=== PATIENT | male | born 1960 | race Caucasian/White ===

== ENCOUNTER 2023-11-19 10:44 | Outpatient (REF) | payer OTHER, SELFPAY ==
[2023-11-19 16:14] LABS: Influenza Virus A PCR NEGATIVE (NEGATIVE); Influenza Virus B PCR NEGATIVE (NEGATIVE); SARS-CoV-2 NAA NOT DETECTED (NOT DETECTE)
== END 2023-11-19 10:45 | disposition home or self-care (01) ==
LOC: LAB 10:44
PROVIDERS: PCP Nurse Practitioner Family; Visit Provider Nurse Practitioner Family
DX: B34.9 Viral infection, unspecified (principal)
CPT/HCPCS: 87502; 87635

== ENCOUNTER 2024-06-20 15:22 | Emergency (ER) | payer OTHER, SELFPAY ==
[2024-06-20] VITALS (22 sets, daily range): BP systolic 151–161; BP diastolic 78–102; PULSE 63–84; TEMP 36.8; O2SAT 95–100; BMI 25.1
--- NOTE | 2024-06-20 15:41 | ECG_ITS ---
The [facility] Test Date: 2024-06-20 Pat Name: ISMA VILLA Department: Room: - Gender: Male Film Booker: : 1960 Requested By: CHINMAY BLAS Order Number: [id number] Reading MD: VINICIUS WRAY Measurements Intervals Muir Rate: 68 P: 52 FL: 132 QRS: 4 QRSD: 94 T: 23 QT: 406 QTc: 423 Interpretive Statements 1100 Sinus rhythm 9110 normal ECG No previous ECG available for comparison Electronically Signed On 06-21-2024 6:29:20 EST by VINICIUS WRAY
--- NOTE | 2024-06-20 15:41 | XR_ITS ---
The [address] [address] Patient Name: ISMA VILLA MRN: [id number] date: 1960 Sex: M Assigned Patient Location: ER Current Patient Location: ER Accession/Order Number: [id number] Exam Date: 06/20/2024 16:18 Report Date: 06/20/2024 16:41 At the request of: EDMOND GUTIERREZ Procedure: XR chest 1V EXAM: XR chest 1V HISTORY: weakness COMPARISON: None. TECHNIQUE: AP view of the chest. FINDINGS: There is no focal airspace consolidation. The cardiomediastinal silhouette is not enlarged. No evidence of pleural effusion or pneumothorax are identified. No acute osseous abnormality. XR/XR chest 1V IMPRESSION: No acute cardiopulmonary process. Electronically authenticated by: JERAD MALONEY Date: 06/20/2024 16:41
--- NOTE | 2024-06-20 15:41 | CT_ITS ---
The [address] [address] Patient Name: ISMA VILLA MRN: [id number] date: 1960 Sex: M Assigned Patient Location: ER Current Patient Location: ER Accession/Order Number: [id number] Exam Date: 06/20/2024 16:18 Report Date: 06/20/2024 17:18 At the request of: EDMOND GUTIERREZ Procedure: CT head/brain wo con EXAMINATION: CT head/brain wo con HISTORY: weakness COMPARISON: None. TECHNIQUE: CT scan of the head was performed without IV contrast. CT dose reduction technique was used, including Automated Exposure Control. FINDINGS: There are isointense convex collection involving right frontal and parietal lobes, representing subacute epidural hematoma with mass effect on the right frontal and parietal lobes as well as occipital horn of the right lateral ventricle and effacement of right hemisphere sulci. Maximum thickness measures 3 cm. There is a 0.8 cm right to left midline shift.. No definite evidence of acute infarction. basal cisterns are patent. There is bilateral subcortical and deep periventricular white matter chronic microvascular ischemia. Bilateral orbits, paranasal sinuses and mastoid air cells are patent. No skull base fracture. CT/CT head/brain wo con IMPRESSION: Right frontal and parietal lobes subacute epidural hematoma with mass effect on the right frontal and parietal lobes as well as occipital horn of the right lateral ventricle and effacement of right hemisphere sulci. Maximum thickness measures 3 cm. a 0.8 cm right to left midline shift.. Critical results were NOTIFIED by TELEPHONE BY Dr. Essie Grimaldo MD to md david At 06/20/2024 5:06 PM EST. Electronically authenticated by: ESSIE GRIMALDO Date: 06/20/2024 17:18
--- NOTE | 2024-06-20 15:41 | ED_ITS ---
HPI - Weakness General Chief complaint: Weakness Stated complaint: POSS CVA PER PT, DRAGGING FEET Time Seen by Provider: 06/20/24 15:35 Source: patient and family Mode of arrival: Wheelchair History of Present Illness HPI Narrative: 63-year-old male presents to the emergency department for a chief complaint of weakness. He has had the symptoms for 4 days. He is describing weakness in both arms and both legs and his feels like he has been dragging his left foot. He has had a headache on and off for several days. He does not seem to have 1 now. He states that nothing like this is ever happened to him before. He does not take any medications except for an arthritis pill. Related Data Home Medications ?Medication ?Instructions ?Recorded ?Confirmed diclofenac sodium 75 mg mg PO 06/20/24 tablet,delayed release Allergies Allergy/AdvReac Type Severity Reaction Status Date / Time No Known Drug Allergies Allergy Verified 06/20/24 15:30 Review of Systems ROS Narrative A ten point review of systems is negative except as noted above. PFSH PFSH Social History Little interest or pleasure in doing things: more than half the days Feeling down, depressed, or hopeless: more than half the days Exam Constitutional Vital Signs, click to edit/add: Last Vital Signs Temp 98.3 F 06/20/24 15:30 Pulse 76 06/20/24 17:59 Resp 20 06/20/24 17:59 BP 160/90 H 06/20/24 18:32 Pulse Ox 98 06/20/24 17:59 O2 Del Method Room Air 06/20/24 17:59 Course Vital Signs Vital signs: Vital Signs Temperature 98.3 F 06/20/24 15:30 Pulse Rate 74 06/20/24 15:30 Respiratory Rate 18 06/20/24 15:30 Blood Pressure 151/102 H 06/20/24 15:30 Pulse Oximetry 98 06/20/24 15:30 Oxygen Delivery Method Room Air 06/20/24 15:30 Temperature 98.3 F 06/20/24 15:30 Pulse Rate 76 06/20/24 17:59 Respiratory Rate 20 06/20/24 17:59 Blood Pressure 160/90 H 06/20/24 18:32 Pulse Oximetry 98 06/20/24 17:59 Oxygen Delivery Method Room Air 06/20/24 17:59 MDM - Weakness MDM Narrative Medical decision making narrative: 3 cm epidural hematoma is found, subacute, with 8 mm midline shift. I have spoken to Dr. Borrero at the emergency room at [facility] as well as trauma surgeon and neurosurgeon and the patient is excepted. He will be taken there by [facility] and he is agreeable and hemodynamically stable for transfer. Findings are discussed thoroughly with the patient and his sister. Differential Diagnosis Differential diagnosis: Likely other (Stroke, epidural hematoma, subdural hematoma) Lab Data Attestation: I reviewed the patient's lab results. Labs: Lab Results 06/20/24 06/20/24 Range/Units 15:50 17:50 WBC 5.4 (4.0-11.0) 10^3/uL RBC 4.44 L (4.70-6.10) 10^6/uL Hgb 14.4 (14.0-18.0) g/dL Hct 40.4 L (42.0-54.0) % MCV 91.0 (80.0-94.0) fL MCH 32.4 (25.9-34.0) pg MCHC 35.6 H (29.9-35.2) g/dL RDW 11.2 (11.0-15.0) % Plt Count 249 (150-450) 10^3/uL MPV 9.7 (9.5-13.5) fL Neut % (Auto) 63.6 (43.0-75.0) % Lymph % (Auto) 22.1 (20.5-60.0) % [place]t % (Auto) 9.2 (1.7-12.0) % Eos % (Auto) 4.2 (0.9-7.0) % Baso % (Auto) 0.7 (0.2-2.0) % Neut # (Auto) 3.5 (1.4-6.5) 10^3/uL Lymph # (Auto) 1.2 (1.2-3.8) 10^3/uL Knott # (Auto) 0.5 (0.3-0.8) 10^3/uL Eos # (Auto) 0.2 (0.0-0.7) 10^3/uL Baso # (Auto) 0.0 (0.0-0.1) 10^3/uL Abs Immat Gran (auto) 0.01 (0.00-0.03) 10^3/uL Imm/Tot Granulo (auto) 0.2 (0.0-0.5) % PT 10.6 (9.0-11.6) sec INR 1.00 APTT 28.1 (22.3-36.2) sec Sodium 139 (136-145) mmol/L Potassium 3.7 (3.5-5.1) mmol/L Chloride 105 (98-107) mmol/L Carbon Dioxide 23.9 (21.0-32.0) mmol/L Anion Gap 13.8 BUN 8.0 (7.0-18.0) mg/dL Creatinine 1.00 (0.70-1.30) mg/dL Est GFR ( Amer) >60 (>=60 mL/min/1.73m^2) Est GFR (Non-Af Amer) >60 (>=60 mL/min/1.73m^2) BUN/Creatinine Ratio 8.0 Glucose 119 H (74-106) mg/dL Calcium 9.1 (8.5-10.1) mg/dL Urine Color Lt. yellow (YELLOW) Urine Clarity Clear (CLEAR) Urine pH 6.0 (5.0-9.0) Ur Specific [place] 1.010 (1.005-1.025) Urine Protein Negative (NEG/TRACE) mg/dL Urine Glucose (UA) Negative (NEGATIVE) mg/dL Urine Ketones Negative (NEGATIVE) mg/dL Urine Occult Blood Negative (NEGATIVE) Urine Nitrite Negative (NEGATIVE) Urine Bilirubin Negative (NEGATIVE) Urine Urobilinogen 0.2 (0.2-1.0) EU/dL Ur Leukocyte Esterase Negative (NEGATIVE) Urine RBC None seen (0-2) #/HPF Urine WBC None seen (NONE SEEN) #/HPF Ur Squamous Epith Cells Rare (NONE/RARE) #/LPF Urine Crystals None seen (None Seen) #/HPF Urine Bacteria None seen (NONE SEEN) #/HPF Urine Casts None seen (NONE SEEN) #/LPF Urine Mucus Trace A (NONE SEEN) Ur Culture Indicated? No Imaging Data CT scan - head: Radiologist's impression: ITS Impressions Chest X-Ray 06/20/24 15:41 IMPRESSION: No acute cardiopulmonary process. Electronically authenticated by: JERAD UNLU Date: 06/20/2024 16:[address] 06/20/24 15:41 IMPRESSION: Right frontal and parietal lobes subacute epidural hematoma with mass effect on the right frontal and parietal lobes as well as occipital horn of the right lateral ventricle and effacement of right hemisphere sulci. Maximum thickness measures 3 cm. a 0.8 cm right to left midline shift.. Critical results were NOTIFIED by TELEPHONE BY Dr. Maricel Grimaldo MD to md david At 06/20/2024 5:06 PM EST. Electronically authenticated by: MARICEL GRIMALDO Date: 06/20/2024 17:18 ECG Data Attestation: I personally reviewed and interpreted this ECG as follows: (EKG on my interpretation shows normal sinus rhythm with rate of 64 no acute change) Critical Care Time Critical Care Time Critical Care Time: Yes Total Critical Care Time: 50 Attestation: Due to the high probability of sudden and clinically significant deterioration in the patient's condition he/she required the highest level of my preparedness to intervene urgently I provided critical care time including documentation time, medication orders and management, reevaluation, vital sign assessment, ordering and reviewing of lab tests, ordering and reviewing of x-ray studies, and admission orders. Aggregate critical care time is 50 minutes including only time during which I was engaged in work directly related to his/her care and did not include time spent treating other patients simultaneously. Discharge Plan Discharge Chief Complaint: Weakness Clinical Impression: Epidural hematoma Patient Disposition: [facility] Time of Disposition Decision: 17:50 Discharge Location: [facility] Mode of Transportation: [facility]
[2024-06-20 16:00] LABS: Basophils Percent Auto 0.7 % (0.2-2.0); Eosinophils Absolute Auto 0.2 10^3/uL (0.0-0.7); Eosinophils Percent Auto 4.2 % (0.9-7.0); Hematocrit 40.4 % (42.0-54.0); Hemoglobin 14.4 g/dL (14.0-18.0); Immature Granulocytes Abs Auto 0.01 10^3/uL (0.00-0.03); Immature Granulocytes Pct Auto 0.2 % (0.0-0.5); Lymphocytes Absolute Auto 1.2 10^3/uL (1.2-3.8); Lymphocytes Percent Auto 22.1 % (20.5-60.0); Mean Corpuscular HGB Conc 35.6 g/dL (29.9-35.2); Mean Corpuscular Hemoglobin 32.4 pg (25.9-34.0); Mean Platelet Volume 9.7 fL (9.5-13.5); Monocytes Absolute Auto 0.5 10^3/uL (0.3-0.8); Monocytes Percent Auto 9.2 % (1.7-12.0); Neutrophils Absolute Auto 3.5 10^3/uL (1.4-6.5); Neutrophils Percent Auto 63.6 % (43.0-75.0); Platelet Count 249 10^3/uL (150-450); Red Blood Count 4.44 10^6/uL (4.70-6.10); Red Cell Distribution Width 11.2 % (11.0-15.0); White Blood Count 5.4 10^3/uL (4.0-11.0)
[2024-06-20 16:05] LABS: Anion Gap 13.8; Calcium 9.1 mg/dL (8.5-10.1); Carbon Dioxide 23.9 mmol/L (21.0-32.0); Chloride 105 mmol/L (98-107); Estimated GFR (African America >60 (>=60 mL/min/1.73m^2); Estimated GFR (Non-African Ame >60 (>=60 mL/min/1.73m^2); Glucose 119 mg/dL (74-106); Potassium 3.7 mmol/L (3.5-5.1); Sodium 139 mmol/L (136-145)
[2024-06-20 17:39] LABS: Partial Thromboplastin Time 28.1 sec (22.3-36.2); Prothrombin Time 10.6 sec (9.0-11.6)
[2024-06-20 18:18] LABS: Bilirubin Urine NEGATIVE (NEGATIVE); Blood Urine NEGATIVE (NEGATIVE); Clarity Urine CLEAR (CLEAR); Color Urine LT. YELLOW (YELLOW); Glucose Urine UA NEGATIVE (NEGATIVE); Ketones Urine NEGATIVE (NEGATIVE); Leukocyte Esterase Urine NEGATIVE (NEGATIVE); Nitrite Urine NEGATIVE (NEGATIVE); Protein Urine NEGATIVE (NEG/TRACE); Urobilinogen Urine 0.2 EU/dL (0.2-1.0)
[2024-06-20 18:27] LABS: Bacteria Urine NONE SEEN #/HPF (NONE SEEN); Mucus Urine TRACE (NONE SEEN); RBC Urine NONE SEEN #/HPF (0-2); WBC Urine NONE SEEN #/HPF (NONE SEEN)
[2024-06-20 18:28] LABS: Cast Seen? NONE SEEN #/LPF (NONE SEEN); Crystals Seen? None Seen #/HPF (None Seen); Squamous Epithelial Cell Urine RARE #/LPF (NONE/RARE); Urine Culture Indicated NO
== END 2024-06-20 19:00 | disposition short-term general hospital (02) ==
PROVIDERS: Emergency Provider Emergency Medicine; PCP Nurse Practitioner Family
DX: I62.1 Nontraumatic extradural hemorrhage (principal)
CPT/HCPCS: 36415; 70450; 71045; 80048; 81001; 85025; 85610; 85730; 93005; 99285

== ENCOUNTER 2024-07-31 10:53 | Emergency (ER) | payer OTHER, SELFPAY ==
[2024-07-31 11:04] VITALS: BP 144/66; PULSE 66; TEMP 36.7; O2SAT 98; BMI 25.8
--- OUTSIDE RECORDS SUMMARY | 2024-07-31 11:08 | XMS_ITS | CCD ---
Author Organization [facility] CliniSysd Care Team Providers Care Digital Content Specialist Name Role Phone WAN, MARTINA Admitting Unavailable WAN, MARTINA Attending Unavailable WAN, MARTINA Primary Care Unavailable MANUEL, DR LOREE Krishnamurthy Consulting Unavailable WAN, MARTINA Consulting Unavailable WAN, MARTINA Admitting Unavailable WAN, MARTINA Attending Unavailable WAN, MARTINA Primary Care Unavailable WAN, MARTINA Consulting Unavailable WAN, MARTINA Admitting Unavailable WAN, MARTINA Attending Unavailable WAN, MARTINA Primary Care Unavailable WAN, MARTINA Consulting Unavailable TREVOR POSADAS Consulting Unavailable KAMALA ., DR COLVIN Admitting Unavailable HOY ., DR COLVIN Attending Unavailable WAN, MARTINA Primary Care Unavailable HOY ., DR COLVIN Admitting Unavailable HOY ., DR COLVIN Attending Unavailable WAN, MARTINA Primary Care Unavailable MISC, DR MUNOZ Admitting Unavailable MISC, DR MUNOZ Attending Unavailable WAN, MARTINA Primary Care Unavailable Nahomy Mg Unavailable Marai L WINTERS Attending Unavailable MD Nahomy Mg Attending Provider [phone] NON STAFF Primary Care Provider Unavailabl e Nahomy Mg Admitting Unavailable NON STAFF Primary Care Unavailable Nahomy Mg Attending Unavailable NON STAFF Primary Care Unavailable Nahomy Mg Attending Unavailable Nahomy Mg Admitting Unavailable PROVIDER, UNKNOWN Admitting Unavailable PROVIDER, UNKNOWN Attending Unavailable Wan TUBE LANCER - CLINICAL TRIAL SPECIALIST, Martina S Primary Care Provide r WAN, MARTINA S Primary Care Unavailable FINA OLMEDO Attending Unavailable FINA OLMEDO Admitting Unavailable BOBBY YANEZ Consulting Unavailable FNIA OLMEDO Consulting Unavailable ISMA ACKERMAN Consulting Unavailable OLY GARCIA Referring Unavailable WAN, MARTINA S Primary Care Unavailable WAN, MARTINA S Primary Care Unavailable JENNIFER CHAPA Referring Unavailable JENNIFER CHAPA Referring Unavailable WAN, MARTINA S Primary Care Unavailable JENNIFER CHAPA Referring Unavailable WAN, MARTINA S Primary Care Unavailable JENNIFER CHAPA Referring Unavailable WAN, MARTINA S Primary Care Unavailable JENNIFER CHAPA Referring Unavailable WAN, MARTINA S Primary Care Unavailable GABRIELLA KILGORE Referring Unavailable WAN, MARTINA S Primary Care Unavailable Medications Current Medications Medication Drug Class(es) Dates Sig (Normalized) Sig (Original) diclofenac sodium 75 mg delayed release oral tablet (3 sources) Nonsteroidal Anti-inflammatory Drug Start: 08-27-2023 take 75 mg by mouth twice daily Diclofenac Sodium Active 75 MG PO Twice daily August 27, 2023 1:00am ibuprofen 600 mg oral tablet (8 sources) Nonsteroidal Anti-inflammatory Drug Start: 06-25-2024 take 1 tablet by mouth every six hours as needed for pain ibuprofen (ADVIL;MOTRIN) 600 MG tablet Take 1 tablet by mouth every 6 hours as needed for Pain 120 tablet 3 06/26/2024 Active levETIRAcetam 500 mg oral tablet (6 sources) Start: 06-26-2024 End: 07-03-2024 take 1 tablet by mouth twice daily levETIRAcetam (KEPPRA) 500 MG tablet Take 1 tablet by mouth 2 times daily for 7 days 14 tablet 06/26/2024 Active Start: 06-21-2024 End: 06-26-2024 500 mg, IntraVENous, EVERY 1 2 HOURS, First dose on 06/21/24 at 1415, Until Discontinued, Administer IVP over 2-5 minutes., For NCHT patients, please reject and reorder and select the ped/oumou dilution entry. Keppra is not administered IV Push on the pediatric units. ondansetron (ZOFRAN-ODT) disintegrating tablet 4 mg (1 source) Start: 06-20-2024 ondansetron (ZOFRAN-ODT) disintegrating tablet 4 mg oxyCODONE hydrochloride 5 mg oral tablet (2 sources) Opioid Agonist Start: 06-26-2024 End: 07-01-2024 take 0.5 tablet by mouth every six hours as needed for pain oxyCODONE (ROXICODONE) 5 MG immediate release tablet Indications: Epidural hematoma Take 0.5 tablets by mouth every 6 hours as needed for Pain for up to 5 days. Max Daily Amount: 10 mg 10 tablet 06/26/2024 07/01/2024 Active Start: 06-22-2024 oxyCODONE (VITOR ICODONE) immediate release tablet 2.5 mg polyethylene glycol 3350 17530 mg powder for oral solution (2 sources) Osmotic Laxative Start: 06-21-2024 End: 06-22-2024 17 g, Oral, DAILY, First dose on Sun06/22/24 at 1615, Until Discontinued, Stir and dissolve one packet of powder (17 g) in any 4 to 8 ounces of beverage (cold, hot or room temperature) then drink, Post-op 1000 ml sodium chloride 9 mg/ml injection (9 sources) Start: 06-24-2024 IntraVENous, a t 5-250 mL/hr, PRN, if patient receiving piggyback infusions and maintenance fluids are not ordered, Starting on Sun06/24/24 at 0927, For piggyback infusion, administer at same rate as piggyback for a total of 25 mL. Enter 25 mL into dose field and piggyback rate into rate field of order. If piggyback is infusing at a rate less than 100 mL/hr, enter 25 mL into dose field and 100 mL/hr into rate field of order., Recovery(IR) Start: 06-22-2024 End: 06-24-2024 IntraVENous, at 100 mL/hr, C ONTINUOUS, Starting on Sun06/22/24 at 1615, Post-op Start: 06-20-2024 End: 06-21-2024 IntraVENous, at 100 mL/hr, C ONTINUOUS, Starting on Sun06/20/24 at 2330 Start: 06-20-2024 End: 06-25-2024 5-40 mL, IntraVENous, EVERY 12 HOURS SCHEDULED (2 times per day), First dose on Sun06/24/24 at 0945, Until Discontinued, For Line Patency: Peripheral IV = 5 mL; Midline or Central Line = 10 mL/lumen. If following IV push medication, administer flush at same rate as the IV push. Flush volume is determined by type of infusion therapy being given. For non-viscous solutions use: Peripheral IV = 5 mL Midline or Central Line = 10 mL/lumen For viscous solutions (i.e. blood components, parenteral nutrition, contrast media, or after obtaining blood sample) use: Peripheral IV = 10 mL Midline or Central Line = 20 mL/lumen, Recovery(IR) Start: 06-20-2024 5-40 mL, Intra VENous, PRN, Starting on Sun06/20/24 at 2114, Until Discontinued, Line Care, After every IV line use, For Line Patency: Peripheral IV = 5 mL; Midline or Central Line = 10 mL/lumen. If following IV push medication, administer flush at same rate as the IV push. Flush volume is determined by type of infusion therapy being given. For non-viscous solutions use: Peripheral IV = 5 mL Midline or Central Line = 10 mL/lumen For viscous solutions (i.e. blood components, parenteral nutrition, contrast media, or after obtaining blood sample) use: Peripheral IV = 10 mL Midline or Central Line = 20 mL/lumen Completed/Discontinued Medications Medication Drug Class(es) Dates Sig (Normalized) Sig (Original) acetaminophen 500 mg oral tablet (3 sources) Start: 06-20-2024 take 1 dose by mouth three times daily, then take 4000 mg by mouth every twenty-four hours 1,000 mg, Oral, EVERY 8 HOURS SCHEDULED (3 times per day), First dose on Sun06/20/24 at 2330, Until Discontinued, Maximum dose of acetaminophen is 4000 mg from all sources in 24 hours. take 1 tablet by jennifer th every six hours as needed for pain acetaminophen (TYLENOL) 500 MG tablet Ta ke 1 tablet by mouth every 6 hours as needed for Pain Active acetaminophen 325 mg / HYDROcodone bitartrate 5 mg oral tablet (2 sources) Opioid Agonist Start: 09-03-2023 End: 10-16-2023 take 1 tablet by mouth every four to six hours Hydrocodone-Acetaminophen Discontinued 1 - 2 TAB PO EVERY 4-6 HOURS 30 September 03, 2023 October 16, 2023 3:11pm allopurinol 100 mg oral tablet (4 sources) Xanthine Oxidase Inhibitor Start: 10-16-2023 End: 03-14-2024 take 1 tablet by mouth once daily Allopurinol Discontinued 100 MG PO Daily October 16, 2023 1:00am March 14, 2024 8:01am FreeTextSi tablet Orally Once a day; Note: Source Status: Taking; Provider: Haritha Corea ( ) take 1 tablet by jennifer th every twenty-four hours Allopurinol 100 MG 1 tablet Orally Once a day Active bisacodyl 5 mg delayed release oral tablet (1 source) Stimulant Laxative Start: 06-26-2024 take 5 mg by mouth once daily as needed for constipation 5 mg, Oral, DAILY, First dose (after last modification) on Gail 06/26/24 at 0900, Until Discontinued, Second line therapy for constipation, After 24 hours, if no result from first line PRN therapy, give second line therapy in combination with first line therapy., Post-op ceFAZolin (ANCEF) 2000 mg in sterile water 20 mL IV syringe (1 source) Start: 06-22-2024 End: 06-23-2024 2,000 mg, IntraVENous, EVERY 8 HOURS, First dose on Sun06/22/24 at 1615, For 3 doses, Administer over 5 mins., Post-op docusate sodium 50 mg / sennosides, chcf 8.6 mg oral tablet (1 source) Start: 06-20-2024 End: 06-22-2024 take 1 tablet by mouth twice daily 1 tablet, Oral, 2 TIMES DAILY, First dose on Sun06/20/24 at 2330, Until Discontinued doxycycline hyclate 100 mg oral tablet (2 sources) Tetracycline-cl ass Drug Start: 09-03-2023 End: 10-16-2023 take 100 mg by mouth twice daily Doxycycline Hyclate Discontinued 100 MG PO Twice daily 05 17September 03, 2023 1:00am October 16, 2023 3:11pm 0.4 ml enoxaparin sodium 100 mg/ml prefilled syringe (1 source) Low Molecular Weight Heparin Start: 06-25-2024 inject 40 mg by subcutaneous injection twice daily 40 mg, SubCUTAneous, 2 TIMES DAILY, First dose on Sun06/25/24 at 0900, Until Discontinued, Indication of Use: Prophylaxis-DVT/P E, Administer by deep subCUTAneous injection with pt lying down. Alternate injection sites on abdominal wall. Do not rub site after injection. Check with provider prior to any invasive procedure. famotidine 20 mg oral tablet (1 source) Histamine-2 Receptor Antagonist Start: 06-21-2024 End: 06-21-2024 20 mg, Oral, 2 TIMES DAILY, 2 doses, First dose on Sun06/21/24 at 0900, Last dose on Sun06/21/24 at 2100 folic acid 1 mg oral tablet (1 source) Start: 06-21-2024 End: 06-24-2024 1 mg, Oral, DAILY, 3 doses, First dose on Sun06/21/24 at 0900, Last dose on Sun06/23/24 at 0900 gadoteridol (PROHANCE) injection 14 mL (1 source) Start: 06-24-2024 End: 06-24-2024 take 1 dose intravenously once 14 mL, IntraVENous, IMG ONCE PRN, 1 dose, Starting on Sun06/24/24 at 1736, Until Sun06/24/24 at 1740, Other 1 ml hydrALAZINE hydrochloride 20 mg/ml injection (1 source) Arteriolar Vasodilator Start: 06-20-2024 10 mg, IntraVENous, EVERY 6 HOURS PRN, Starting on Sun06/20/24 at 2318, Until Discontinued, High Blood Pressure (specify parameters), SBP >140 iodixanol (VISIPAQUE) injection 36 mL (1 source) Start: 06-24-2024 End: 06-24-2024 take 1 dose intravenously once 36 mL, IntraVENous, IMG ONCE PRN, 1 dose, Starting on Sun06/24/24 at 0932, Until Sun06/24/24 at 0933, Other iopamidol (ISOVUE-370) 76 % injection 75 mL (1 source) Start: 06-20-2024 End: 06-20-2024 take 1 dose intravenously once 75 mL, IntraVENous, IMG ONCE PRN, 1 dose, Starting on Sun06/20/24 at 2100, Until Sun06/20/24 at 2110, Other magnesium hydroxide 80 mg/ml oral suspension (1 source) Start: 06-26-2024 take 30 mL by mouth once daily 30 mL, Oral, DAILY, First dose on Sun06/26/24 at 0900, Until Discontinued multivitamin 1 tablet (1 source) Start: 06-21-2024 End: 06-24-2024 1 tablet, Oral, DAILY, 3 doses, First dose on Sun06/21/24 at 0900, Last dose on Sun06/23/24 at 0900 microencapsulated potassium chloride 20 meq extended release oral tablet (2 sources) Start: 06-24-2024 End: 06-24-2024 20 mEq, Oral, ONCE, 1 dose, On 06/24/24 at 0745, Do not crush, chew, or suck on tablet. Tablet may also be broken in half and each half swallowed separately. Start: 06-20-2024 End: 06-20-2024 40 mEq, Oral, ONCE, 1 dose, On 06/20/24 at 2345, Do not crush, chew, or suck on tablet. Tablet may also be broken in half and each half swallowed separately. sennosides, chcf 8.6 mg oral tablet (1 source) Start: 06-22-2024 take 1 tablet by mouth once daily as needed for constipation 8.6 mg (1 tablet), Oral, DAILY PRN, Starting on 06/22/24 at 1552, Until Discontinued, Constipation, First line therapy for constipation, Post-op thiamine 100 mg oral tablet (1 source) Start: 06-21-2024 End: 06-24-2024 100 mg, Oral, DAILY, 3 doses, First dose (after last modification) on 06/21/24 at 0900, Last dose on 06/23/24 at 0900 triamcinolone acetonide 40 mg/ml injectable suspension (15 sources) Corticosteroid Start: 11-21-2022 Kenalog-40 Apr, 20 mg Problems Problem Classification Problem Date Documented Date Episodic/Chronic Acute cerebrovascular disease (20 sources) Subdural hematoma; Translations: [Nontraumatic acute subdural hemorrhage] Onset: 06-21-2024 06-27-2024 Chronic Intracranial injury (10 sources) Hematoma; Translations: [Epidural hematoma] Onset: 06-20-2024 06-20-2024 Episodic Malaise and fatigue (10 sources) Left hemiparesis; Translations: [Weakness] Onset: 06-23-2024 06-20-2024 Episodic Osteoarthritis (9 sources) Primary osteoarthritis, left hand; Translations: [Osteoarthrosis of the carpometacarpal joint of the thumb] Onset: 10-16-2022 Chronic Other aftercare (1 source) Encounter for removal of sutures Episodic Other connective tissue disease (4 sources) Pain in left hand; Translations: [PAIN IN LEFT HAND] Onset: 10-12-2022 Episodic Other connective tissue disease (5 sources) Pain in right arm; Translations: [PAIN IN RIGHT ARM] Onset: 06-15-2022 Episodic Other nervous system disorders (4 sources) Carpal tunnel syndrome of left wrist; Translations: [Carpal tunnel syndrome, left upper limb] 10-15-2023 Chronic Other nervous system disorders (5 sources) Carpal tunnel syndrome; Translations: [Carpal tunnel syndrome, unspecified upper limb] 09-03-2023 Chronic Other nervous system disorders (4 sources) Carpal tunnel syndrome of right wrist; Translations: [Carpal tunnel syndrome, right upper limb] 10-16-2023 Chronic Other nervous system disorders (3 sources) Carpal tunnel syndrome, right upper limb Chronic Other nervous system disorders (4 sources) Carpal tunnel syndrome, left upper limb; Translations: [Carpal tunnel syndrome] Chronic Other nervous system disorders (2 sources) Pain in limb; Translations: [Other acute postprocedural pain] 09-03-2023 Episodic Other non-traumatic joint disorders (1 source) Pain in right shoulder; Translations: [PAIN IN RIGHT SHOULDER] Onset: 08-16-2022 Episodic Residual codes; unclassified (4 sources) Obstructive sleep apnea (adult) (pediatric); Translations: [OBSTRUCTIVE SLEEP APNEA] Onset: 10-19-2021 Chronic Residual codes; unclassified (2 sources) Other specified postprocedural states; Translations: [Other postprocedural status] Episodic Residual codes; unclassified (1 source) Postprocedural state finding; Translations: [Other specified postprocedural states] 10-15-2023 Episodic Spondylosis; intervertebral disc disorders; other back problems (4 sources) Cervicalgia; Translations: [CERVICALGIA] Onset: 08-13-2022 Episodic Unclassified (1 source) Carpal tunnel syndrome, left upper limb; Translations: [Carpal tunnel syndrome, left upper limb] Onset: 09-03-2023 Unclassified (1 source) Encounter for preprocedural laboratory examination; Translations: [Encounter for preprocedural laboratory examination] Onset: 08-27-2023 Unclassified (2 sources) Epidural hemorrhage with loss of consciousness status unknown, initial encounter; Translations: [Epidural hemorrhage with loss of consciousness status unknown, initial encounter] Onset: 06-20-2024 Results Test Name Value Interpretation Reference Range Facility CT HEAD WO CONTRASTon 2023 CT HEAD WO CONTRAST EXAM: CT HEAD WO CONTRAST HISTORY: Epidural hematoma COMPARISON: MRI brain 06/24/2024, CT brain 06/23/2024, CT brain 06/20/2024. TECHNIQUE: CT examination of the brain without IV contrast. Coronal and sagittal reformations were performed. Dose reduction techniques were achieved by using automated exposure control and/or adjustment of mA and/or kV according to patient size and/or use of iterative reconstruction technique. FINDINGS: POSITIVES related to history: A residual hygroma over the right cerebral hemisphere extending from the frontal region to the posterior parietal region measures 9 mm in transverse diameter. NEGATIVES related to history: Midline shift has resolved. No evidence of rebleeding. COINCIDENTAL, unrelated to history: Normal cerebellum. The CSF cisterns are normal. The prior drain has been removed and pneumocephalus has resolved. ROUTINE: Anterior and posterior right parietal steve holes are present. IMPRESSION: Resolving postoperative right subdural hematoma without midline shift and no evidence of rebleeding. Interpreted by: Justin Acosta Jr., MD Signed by: Justin Acosta Jr., MD 07/03/24 Final result Normal [facility] CT Head WO contraston 2023 Resolving postoperative right subdural hematoma without midline shift and no evidence of rebleeding. [facility] EXAM: CT HEAD WO CONTRAST HISTORY: Epidural hematoma COMPARISON: MRI brain 06/24/2024, CT brain 06/23/2024, CT brain 06/20/2024. TECHNIQUE: CT examination of the brain without IV contrast. Coronal and sagittal reformations were performed. Dose reduction techniques were achieved by using automated exposure control and/or adjustment of mA and/or kV according to patient size and/or use of iterative reconstruction technique. FINDINGS: POSITIVES related to history: A residual hygroma over the right cerebral hemisphere extending from the frontal region to the posterior parietal region measures 9 mm in transverse diameter. NEGATIVES related to history: Midline shift has resolved. No evidence of rebleeding. COINCIDENTAL, unrelated to history: Normal cerebellum. The CSF cisterns are normal. The prior drain has been removed and pneumocephalus has resolved. ROUTINE: Anterior and posterior right parietal steve holes are present. [facility] Justin Acosta Jr., MD - 07/03/2024 EXAM: CT HEAD WO CONTRAST HISTORY: Epidural hematoma COMPARISON: MRI brain 06/24/2024, CT brain 06/23/2024, CT brain 06/20/2024. TECHNIQUE: CT examination of the brain without IV contrast. Coronal and sagittal reformations were performed. Dose reduction techniques were achieved by using automated exposure control and/or adjustment of mA and/or kV according to patient size and/or use of iterative reconstruction technique. FINDINGS: POSITIVES related to history: A residual hygroma over the right cerebral hemisphere extending from the frontal region to the posterior parietal region measures 9 mm in transverse diameter. NEGATIVES related to history: Midline shift has resolved. No evidence of rebleeding. COINCIDENTAL, unrelated to history: Normal cerebellum. The CSF cisterns are normal. The prior drain has been removed and pneumocephalus has resolved. ROUTINE: Anterior and posterior right parietal steve holes are present. IMPRESSION: Resolving postoperative right subdural hematoma without midline shift and no evidence of rebleeding. [facility] Radiology Study observation (narrative) [facility] CT Head WO contrastOrdered B y: Justin Acosta on 07-03-2024 [facility] Work Phone: Basic Metab w/rfx MGon 06-27 Anion gap [Moles/Vol] 10 mmol/L Normal 9-16 [facility] Comment on above: Performed By: #### Michelle Carreno, BMPX, CDP, DAVID #### [email or web address] [address] [place] [id number] Plant Controller: Jordan Aponte MD Calcium [Mass/Vol] 8.7 mg/dL Normal 8.6-10.4 [facility] Comment on above: Performed By: #### M Ev, BMPX, CDP, DAVID #### [email or web address] [address] [place] [id number] Plant Controller: Jordan Aponte MD Chloride [Moles/Vol] 103 mmol/L Normal 98-107 [facility] Comment on above: Performed By: #### Michelle G, BMPX, CDP, DAVID #### [facility] [address] [place] [address] Plant Controller: Jordan Aponte MD CO2 [Moles/Vol] 23 mmol/L Normal 20-31 [facility] Comment on above: Performed By: #### M G, BMPX, CDP, DAVID #### [facility] [address] [place] [id number] Plant Controller: Jordan Aponte MD Creatinine [Mass/Vol] 0.7 mg/dL Normal 0.7-1.2 [facility] Comment on above: Performed By: #### M G, BMPX, CDP, DAVID #### [facility] [address] [place] [id number] Plant Controller: Jordan Aponte MD GFR/1.73 sq M.predicted among non-blacks MDRD (S/P/Bld) [Vol rate/Area] mL/min/{1.73_m2} Normal >60 [facility] Comment on above: Result Comment: These results are not intended for use in patients <18 years of age. eGFR results are calculated without a race factor using the 2020 CKD-EPI equation. Careful clinical correlation is recommended, particularly when comparing to results calculated using previous equations. The CKD-EPI equation is less accurate in patients with extremes of muscle mass, extra-renal metabolism of creatine, excessive creatine ingestion, or following therapy that affects renal tubular secretion. Performed By: #### M G, BMPX, CDP, DAVID #### [facility] [address] [place] [id number] Plant Controller: Jordan Aponte MD Glucose [Mass/Vol] 107 mg/dL High 74-99 [facility] Comment on above: Performed By: #### M G, BMPX, CDP, DAVID #### [facility] [address] [place] [id number] Plant Controller: Jordan Aponte MD Potassium [Moles/Vol] 4.0 mmol/L Normal 3.7-5.3 [facility] Comment on above: Performed By: #### M G, BMPX, CDP, DAVID #### [facility] [address] [place], [place] [id number] Plant Controller: Jordan Aponte MD Sodium [Moles/Vol] 136 mmol/L Normal 136-145 [facility] Comment on above: Performed By: #### M G, BMPX, CDP, DAVID #### [facility] [address], [place] [id number] Plant Controller: Jordan Aponte MD Urea nitrogen [Mass/Vol] 11 mg/dL Normal 8-23 [facility] Comment on above: Performed By: #### M G, BMPX, CDP, DAVID #### [facility] [address] [place], [place] [id number] Plant Controller: Jordan Aponte MD Basic Metabolic Panel w/ Ref isaias to MGon 06-27-2024 Anion gap [Moles/Vol] 10 mmol/L 9 - 16 mmol/L [facility] Calcium [Mass/Vol] 8.7 mg/dL 8.6 - 10. 4 mg/dL [facility] Chloride [Moles/Vol] 103 mmol/L 98 - 10 7 mmol/L [facility] CO2 [Moles/Vol] 23 mmol/L 20 - 31 mmol/L [facility] Creatinine [Mass/Vol] 0.7 mg/dL 0.7 - 1.2 mg/dL [facility] [employer] Est, Glom Filt Rate - PINF [facility] Comment on above: These results are not intended for use in patients <18 years of age. eGFR results are calculated without a race factor using the 2020 CKD-EPI equation. Careful clinical correlation is recommended, particularly when comparing to results calculated using previous equations. The CKD-EPI equation is less accurate in patients with extremes of muscle mass, extra-renal metabolism of creatine, excessive creatine ingestion, or following therapy that affects renal tubular secretion. Glucose [Mass/Vol] 107 mg/dL High 74 - 99 mg/dL [facility] Interpretation and review of laboratory results Abnormal [facility] Potassium [Moles/Vol] 4.0 mmol/L 3.7 - 5.3 mmol/L [facility] Sodium [Moles/Vol] 136 mmol/L 136 - 145 mmol/L [facility] Urea nitrogen [Mass/Vol] 11 mg/dL 8 - 23 mg/d L [facility] CBC with Auto Differentialon 06-27-2024 Basophils (Bld) [#/Vol] 0.04 10*3/uL [facility] Basophils/100 WBC (Bld) 1 % 0 - 2 % B on [facility] Eosinophils (Bld) [#/Vol] 0.16 10*3/uL [facility] Eosinophils/100 WBC (Bld) 5 % High 1 - 4 % [facility] Erythrocyte distribution width (RBC) [Ratio] 11.2 % Low 11.8 - 14.4 % [facility] Hematocrit (Bld) [Volume fraction] 38.6 % Low 40.7 - 50.3 % [facility] Hemoglobin (Bld) [Mass/Vol] 12.7 g/dL Low 13.0 - 17.0 g/dL [facility] Immature granulocytes (Bld) [#/Vol] [facility] Immature granulocytes/100 WBC (Bld) 0 % 0 [facility] Interpretation and review of laboratory results Abnormal [facility] Lymphocytes/100 WBC (Bld) 32 % 24 - 43 % [facility] Lymphocytes/100 WBC (Bld) 1.11 % [facility] MCH (RBC) [Entitic mass] 32.2 pg 25. 2 - 33.5 pg [facility] MCHC (RBC) [Mass/Vol] 32.9 g/dL 28.4 - 34.8 g/dL [facility] MCV (RBC) [Entitic vol] 98.0 fL 82.6 - 102.9 fL [facility] Monocytes/100 WBC (Bld) 12 % 3 - 12 % B on [facility] Monocytes/100 WBC (Bld) 0.43 % B on [facility] Neutrophils/100 WBC (Bld) 50 % 36 - 65 % [facility] Nucleated RBC/100 WBC (Bld) [Ratio] 0.0 % 0.0 per 100 WBC [facility] Platelet mean volume (Bld) [Entitic vol] 10.2 fL 8.1 - 13.5 fL [facility] Platelets (Bld) [#/Vol] 249 10*3/uL [facility] RBC (Bld) [#/Vol] 3.94 10*6/uL Low 4.21 - 5.7 7 m/uL [facility] Segmented neutrophils/100 WBC (Bld) 1.76 % [facility] WBC other (Bld) [#/Vol] 3.5 B on [facility] CBC with Diffon 06-27-2024 Abs. Basophil 0.04 k/uL Normal 0.00-0.20 [facility] Comment on above: Performed By: #### M G, BMPX, CDP, DAVID #### [facility] [employer] [address] [place] [address] Plant Controller: Jordan Aponte MD Abs.Imm.Granulocyte <0.03 Normal 0.00-0.30 [facility] Comment on above: Performed By: #### M G, BMPX, CDP, DAVID #### [facility] [employer] [address] [place] [address] Plant Controller: Jordan Aponte MD Abs.Neutrophil (Seg) 1.76 k/uL Normal 1.50-8.10 [facility] Comment on above: Performed By: #### M G, BMPX, CDP, DAVID #### [facility] [employer] [address] [place] [address] Plant Controller: Jordan Aponte MD Basophils/100 WBC (Bld) 1 % Normal 0-2 M [facility] Comment on above: Performed By: #### M G, BMPX, CDP, DAVID #### [facility] [employer] [address] [place] [address] Plant Controller: Jordan Aponte MD Eosinophils (Bld) [#/Vol] 0.16 10*3/uL Normal 0.00-0.44 [facility] Comment on above: Performed By: #### M G, BMPX, CDP, DAVID #### [facility] [address] [place] [address] Plant Controller: Jordan Aponte MD Eosinophils/100 WBC (Bld) 5 % High 1-4 [facility] Comment on above: Performed By: #### M G, BMPX, CDP, DAVID #### [facility] [address] [place] [address] Plant Controller: Jordan Aponte MD Erythrocyte distribution width (RBC) [Ratio] 11.2 % Low 11.8-14.4 [facility] Comment on above: Performed By: #### M G, BMPX, CDP, DAVID #### [facility] [address] [place] [id number] Plant Controller: Jordan Aponte MD Hematocrit (Bld) [Volume fraction] 38.6 % Low 40.7-50.3 [facility] Comment on above: Performed By: #### M G, BMPX, CDP, DAVID #### [facility] [address] [place] [address] Plant Controller: Jordan Aponte MD Hemoglobin (Bld) [Mass/Vol] 12.7 g/dL Low 13.0-17.0 [facility] Comment on above: Performed By: #### M G, BMPX, CDP, DAVID #### [facility] [address] [place] [address]207 Plant Controller: Jordan Aponte MD Immature granulocytes/100 WBC (Bld) 0 % Normal 0 [facility] Comment on above: Performed By: #### M G, BMPX, CDP, DAVID #### [facility] [address] [place] [address] Plant Controller: Jordan Aponte MD Lymphocytes (Bld) [#/Vol] 1.11 10*3/uL Normal 1.10-3.70 [facility] Comment on above: Performed By: #### M G, BMPX, CDP, DAVID #### [facility] [address] [place] [address] Plant Controller: Jordan Aponte MD Lymphocytes/100 WBC (Bld) 32 % Normal 24-43 [facility] Comment on above: Performed By: #### M G, BMPX, CDP, DAVID #### [facility] [address] [place] [address] Plant Controller: Jordan Aponte MD MCH (RBC) [Entitic mass] 32.2 pg Normal 25.2-33.5 [facility] Comment on above: Performed By: #### M G, BMPX, CDP, DAVID #### [address] [address] Plant Controller: Jordan Aponte MD MCHC (RBC) [Mass/Vol] 32.9 g/dL Normal 28.4-34.8 [facility] Comment on above: Performed By: #### M G, BMPX, CDP, DAVID #### [address] [address] Plant Controller: Jordan Aponte MD MCV (RBC) [Entitic vol] 98.0 fL Normal 82.6-102.9 [facility] Comment on above: Performed By: #### M G, BMPX, CDP, DAVID #### [address] [address] Plant Controller: Jordan Aponte MD Monocytes (Bld) [#/Vol] 0.43 10*3/uL Normal 0.10-1.20 [facility] Comment on above: Performed By: #### M G, BMPX, CDP, DAVID #### [facility] [address] [place] [address] Plant Controller: Jordan Aponte MD Monocytes/100 WBC (Bld) 12 % Normal 3-12 M [facility] Comment on above: Performed By: #### M G, BMPX, CDP, DAVID #### [facility] [address] [place] [address] Plant Controller: Jordan Aponte MD Neutrophil (Seg) 50 % Normal 36-65 [facility] Comment on above: Performed By: #### M G, BMPX, CDP, DAVID #### [facility] [address] [place] [address] Plant Controller: Jordan Aponte MD NRBC Automated 0.0 per 100 WBC Normal 0.0 [facility] Comment on above: Performed By: #### M G, BMPX, CDP, DAVID #### [address] [address] Plant Controller: Jordan Aponte MD Platelet mean volume (Bld) [Entitic vol] 10.2 fL Normal 8.1-13.5 [facility] Comment on above: Performed By: #### M G, BMPX, CDP, DAVID #### [address] [address] Plant Controller: Jordan Aponte MD Platelets (Bld) [#/Vol] 249 10*3/uL Normal 138-453 [facility] Comment on above: Performed By: #### M G, BMPX, CDP, DAVID #### [facility] [address] [place] [address] Plant Controller: Jordan Aponte MD RBC (Bld) [#/Vol] 3.94 10*6/uL Low 4.21-5.77 [facility] Comment on above: Performed By: #### M G, BMPX, CDP, DAVID #### [facility] [address] [place] [address] Plant Controller: Jordan Aponte MD WBC (Bld) [#/Vol] 3.5 10*3/uL Normal 3.5-11.3 [facility] Comment on above: Performed By: #### M G, BMPX, CDP, DAVID #### [facility] [employer] [address] [place] [address] Plant Controller: Jordan Aponte MD Basic Metab w/rfx MGon 06-26 Anion gap [Moles/Vol] 9 mmol/L Normal 9-16 [facility] Comment on above: Performed By: #### M G, CDP, BMPX, DAVID #### [facility] [address] [place] [address] Plant Controller: Jordan Aponte MD Calcium [Mass/Vol] 8.5 mg/dL Low 8.6-10.4 [facility] Comment on above: Performed By: #### M G, CDP, BMPX, DAVID #### [facility] [employer] [address] [place] [address] Plant Controller: Jordan Aponte MD Chloride [Moles/Vol] 104 mmol/L Normal 98-107 [facility] Comment on above: Performed By: #### M G, CDP, BMPX, DAVID #### [facility] [address] [place] [address] Plant Controller: Jordan Aponte MD CO2 [Moles/Vol] 25 mmol/L Normal 20-31 [facility] Comment on above: Performed By: #### M G, CDP, BMPX, DAVID #### [facility] [address] [place] [address] Plant Controller: Jordan Aponte MD Creatinine [Mass/Vol] 0.9 mg/dL Normal 0.7-1.2 [facility] Comment on above: Performed By: #### M G, CDP, BMPX, DAVID #### [facility] [address] [place] [address] Plant Controller: Jordan Aponte MD GFR/1.73 sq M.predicted among non-blacks MDRD (S/P/Bld) [Vol rate/Area] mL/min/{1.73_m2} Normal >60 [facility] Comment on above: Result Comment: These results are not intended for use in patients <18 years of age. eGFR results are calculated without a race factor using the 2020 CKD-EPI equation. Careful clinical correlation is recommended, particularly when comparing to results calculated using previous equations. The CKD-EPI equation is less accurate in patients with extremes of muscle mass, extra-renal metabolism of creatine, excessive creatine ingestion, or following therapy that affects renal tubular secretion. Performed By: #### M G, CDP, BMPX, DAVID #### [facility] [address] [place] [address] Plant Controller: Jordan Aponte MD Glucose [Mass/Vol] 101 mg/dL High 74-99 [facility] Comment on above: Performed By: #### M G, CDP, BMPX, DAVID #### [employer] [address] [place] [address] Plant Controller: Jordan Aponte MD Potassium [Moles/Vol] 4.1 mmol/L Normal 3.7-5.3 [facility] Comment on above: Performed By: #### M G, CDP, BMPX, DAVID #### [facility] [address] [place] [address] Plant Controller: Jordan Aponte MD Sodium [Moles/Vol] 138 mmol/L Normal 136-145 [facility] Comment on above: Performed By: #### M G, CDP, BMPX, DAVID #### [email or web address] [address] [place] [address] Plant Controller: Jordan Aponte MD Urea nitrogen [Mass/Vol] 10 mg/dL Normal 8-23 [facility] Comment on above: Performed By: #### M G, CDP, BMPX, DAVID #### [facility] [address] [place] [address] Plant Controller: Jordan Aponte MD Basic Metabolic Panel w/ Ref isaias to MGon 06-26-2024 Anion gap [Moles/Vol] 9 mmol/L 9 - 16 mmol/L [facility] Calcium [Mass/Vol] 8.5 mg/dL Low 8.6 - 10. 4 mg/dL [facility] Chloride [Moles/Vol] 104 mmol/L 98 - 10 7 mmol/L [facility] CO2 [Moles/Vol] 25 mmol/L 20 - 31 mmol/L [facility] Creatinine [Mass/Vol] 0.9 mg/dL 0.7 - 1.2 mg/dL [facility] Est, Denice Alcala Rate - PINF [facility] Comment on above: These results are not intended for use in patients <18 years of age. eGFR results are calculated without a race factor using the 2020 CKD-EPI equation. Careful clinical correlation is recommended, particularly when comparing to results calculated using previous equations. The CKD-EPI equation is less accurate in patients with extremes of muscle mass, extra-renal metabolism of creatine, excessive creatine ingestion, or following therapy that affects renal tubular secretion. Glucose [Mass/Vol] 101 mg/dL High 74 - 99 mg/dL [facility] Interpretation and review of laboratory results Abnormal [facility] Potassium [Moles/Vol] 4.1 mmol/L 3.7 - 5.3 mmol/L [facility] Sodium [Moles/Vol] 138 mmol/L 136 - 145 mmol/L [facility] Urea nitrogen [Mass/Vol] 10 mg/dL 8 - 23 mg/d L [facility] CBC with Auto Differentialon 06-26-2024 Basophils (Bld) [#/Vol] 0.04 10*3/uL [facility] Immature granulocytes (Bld) [#/Vol] [facility] Interpretation and review of laboratory results Abnormal [facility] Lymphocytes/100 WBC (Bld) 1.21 % [facility] Monocytes/100 WBC (Bld) 0.47 % B [facility] Neutrophils/100 WBC (Bld) 57 % 36 - 65 % Bon [facility] Nucleated RBC/100 WBC (Bld) [Ratio] 0.0 % 0.0 per 100 WBC [facility] Segmented neutrophils/100 WBC (Bld) 2.56 % Bon [facility] WBC other (Bld) [#/Vol] 4.4 B on [facility] CBC with Diffon 06-26-2024 Abs. Basophil 0.04 k/uL Normal 0.00-0.20 [facility] Comment on above: Performed By: #### M G, CDP, BMPX, DAVID #### [facility] [employer] [address] [place] [address] Plant Controller: Jordan Aponte MD Abs.Imm.Granulocyte <0.03 Normal 0.00-0.30 [facility] Comment on above: Performed By: #### M G, CDP, BMPX, DAVID #### [facility] [address] [place] [address] Plant Controller: Jordan Aponte MD Abs.Neutrophil (Seg) 2.56 k/uL Normal 1.50-8.10 [facility] Comment on above: Performed By: #### M G, CDP, BMPX, DAVID #### [facility] [address] [place] [address] Plant Controller: Jordan Aponte MD Basophils/100 WBC (Bld) 1 % Normal 0-2 B on [facility] Comment on above: Performed By: #### M G, CDP, BMPX, DAVID #### [facility] [address] [place] [address] Plant Controller: Jordan Aponte MD Eosinophils (Bld) [#/Vol] 0.11 10*3/uL Normal 0.00-0.44 [facility] Comment on above: Performed By: #### M G, CDP, BMPX, DAVID #### [email or web address] [address] [place] [address] Plant Controller: Jordan Aponte MD Eosinophils/100 WBC (Bld) 3 % Normal 1-4 [facility] Comment on above: Performed By: #### M Ev, CDP, BMPX, DAVID #### [facility] [address] [place] [address] Plant Controller: Jordan Aponte MD Erythrocyte distribution width (RBC) [Ratio] 11.4 % Low 11.8-14.4 [facility] Comment on above: Performed By: #### M G, CDP, BMPX, DAVID #### [facility] [address] [place] [address] Plant Controller: Jordan Aponte MD Hematocrit (Bld) [Volume fraction] 38.2 % Low 40.7-50.3 [facility] Comment on above: Performed By: #### Michelle Carreno, CDP, BMPX, DAVID #### [facility] [address] [place] [address] Plant Controller: Jordan Aponte MD Hemoglobin (Bld) [Mass/Vol] 12.6 g/dL Low 13.0-17.0 [facility] Comment on above: Performed By: #### Michelle Carreno, CDP, BMPX, DAVID #### [facility] [address] [place] [address] Plant Controller: Jordan Aponte MD Immature granulocytes/100 WBC (Bld) 0 % Normal 0 [facility] Comment on above: Performed By: #### Michelle G, CDP, BMPX, DAVID #### [facility] [address] [place] [address] Plant Controller: Jordan Aponte MD Lymphocytes (Bld) [#/Vol] 1.21 10*3/uL Normal 1.10-3.70 [facility] Comment on above: Performed By: #### Michelle Carreno, CDP, BMPX, DAVID #### [facility] [address] [place] [address] [id number] Plant Controller: Jordan Aponte MD Lymphocytes/100 WBC (Bld) 28 % Normal 24-43 [facility] Comment on above: Performed By: #### M G, CDP, BMPX, DAVID #### [facility] [address] [place] [address] Plant Controller: Jordan Aponte MD MCH (RBC) [Entitic mass] 31.8 pg Normal 25.2-33.5 [facility] Comment on above: Performed By: #### M G, CDP, BMPX, DAVID #### [facility] [address] [place] [address] Plant Controller: Jordan Aponte MD MCHC (RBC) [Mass/Vol] 33.0 g/dL Normal 28.4-34.8 [facility] Comment on above: Performed By: #### M G, CDP, BMPX, DAVID #### [facility] [address] [place] [address] Plant Controller: Jordan Aponte MD MCV (RBC) [Entitic vol] 96.5 fL Normal 82.6-102.9 B on [facility] Comment on above: Performed By: #### M G, CDP, BMPX, DAVID #### [facility] [address] [place] [address] Plant Controller: Jordan Aponte MD Monocytes (Bld) [#/Vol] 0.47 10*3/uL Normal 0.10-1.20 [facility] Comment on above: Performed By: #### M G, CDP, BMPX, DAVID #### [facility] [address] [place] [address] Plant Controller: Jordan Aponte MD Monocytes/100 WBC (Bld) 11 % Normal 3-12 B on [facility] Comment on above: Performed By: #### M G, CDP, BMPX, DAVID #### [facility] [address] [place] [address] Plant Controller: Jordan Aponte MD Neutrophil (Seg) 57 % Normal 36-65 [facility] Comment on above: Performed By: #### M G, CDP, BMPX, DAVID #### [facility] [address] [place] [address] Plant Controller: Jordan Aponte MD NRBC Automated 0.0 per 100 WBC Normal 0.0 [facility] Comment on above: Performed By: #### M G, CDP, BMPX, DAVID #### [facility] [address] [place] [address] Plant Controller: Jordan Aponte MD Platelet mean volume (Bld) [Entitic vol] 10.5 fL Normal 8.1-13.5 [facility] Comment on above: Performed By: #### Michelle G, CDP, BMPX, DAVID #### [facility] [address] [place] [address] Plant Controller: Jordan Aponte MD Platelets (Bld) [#/Vol] 216 10*3/uL Normal 138-453 [facility] Comment on above: Performed By: #### Michelle Carreno, CDP, BMPX, DAVID #### [facility] [address] [place] [address] Plant Controller: Jordan Aponte MD RBC (Bld) [#/Vol] 3.96 10*6/uL Low 4.21-5.77 [facility] Comment on above: Performed By: #### M G, CDP, BMPX, DAVID #### [facility] [address] [place] [address] Plant Controller: Jordan Aponte MD WBC (Bld) [#/Vol] 4.4 10*3/uL Normal 3.5-11.3 [facility] Comment on above: Performed By: #### Michelle G, CDP, BMPX, DAVID #### [facility] [address] [place] [address] Plant Controller: Jordan Aponte MD Basic Metab w/rfx MGon 06-25 Anion gap [Moles/Vol] 9 mmol/L Normal 9-16 [facility] Comment on above: Performed By: #### M G, CDP, BMPX, DAVID #### [facility] [address] [place] [address] Plant Controller: Jordan Aponte MD Calcium [Mass/Vol] 8.5 mg/dL Low 8.6-10.4 [facility] Comment on above: Performed By: #### M G, CDP, BMPX, DAVID #### [facility] [address] [place] [address] Plant Controller: Jordan Aponte MD Chloride [Moles/Vol] 105 mmol/L Normal 98-107 [facility] Comment on above: Performed By: #### Michelle G, CDP, BMPX, DAVID #### [facility] [address] [place] [address] Plant Controller: Jordan Aponte MD CO2 [Moles/Vol] 24 mmol/L Normal 20-31 [facility] Comment on above: Performed By: #### M G, CDP, BMPX, DAVID #### [facility] [address] [place] [address] Plant Controller: Jordan Aponte MD Creatinine [Mass/Vol] 0.8 mg/dL Normal 0.7-1.2 [facility] Comment on above: Performed By: #### M G, CDP, BMPX, DAVID #### [facility] [address] [place] [address] Plant Controller: Jordan Aponte MD GFR/1.73 sq M.predicted among non-blacks MDRD (S/P/Bld) [Vol rate/Area] mL/min/{1.73_m2} Normal >60 [facility] Comment on above: Result Comment: These results are not intended for use in patients <18 years of age. eGFR results are calculated without a race factor using the 2020 CKD-EPI equation. Careful clinical correlation is recommended, particularly when comparing to results calculated using previous equations. The CKD-EPI equation is less accurate in patients with extremes of muscle mass, extra-renal metabolism of creatine, excessive creatine ingestion, or following therapy that affects renal tubular secretion. Performed By: #### M G, CDP, BMPX, DAVID #### [facility] [address] [place] [address] Plant Controller: Jordan Aponte MD Glucose [Mass/Vol] 110 mg/dL High 74-99 [facility] Comment on above: Performed By: #### M G, CDP, BMPX, DAVID #### [facility] [address] [place] [address] Plant Controller: Jordan Aponte MD Potassium [Moles/Vol] 3.7 mmol/L Normal 3.7-5.3 [facility] Comment on above: Performed By: #### M G, CDP, BMPX, DAVID #### [facility] [address] [place] [address] Plant Controller: Jordan Aponte MD Sodium [Moles/Vol] 138 mmol/L Normal 136-145 [facility] Comment on above: Performed By: #### M G, CDP, BMPX, DAVID #### [facility] [address] [place] [address] Plant Controller: Jordan Aponte MD Urea nitrogen [Mass/Vol] 10 mg/dL Normal 8-23 [facility] Comment on above: Performed By: #### M G, CDP, BMPX, DAVID #### [facility] [address] [place] [address] Plant Controller: Jordan Aponte MD Basic Metabolic Panel w/ Ref isaias to MGon 06-25-2024 Anion gap [Moles/Vol] 9 mmol/L 9 - 16 mmol/L [facility] Calcium [Mass/Vol] 8.5 mg/dL Low 8.6 - 10. 4 mg/dL [facility] Chloride [Moles/Vol] 105 mmol/L 98 - 10 7 mmol/L [facility] CO2 [Moles/Vol] 24 mmol/L 20 - 31 mmol/L [facility] Creatinine [Mass/Vol] 0.8 mg/dL 0.7 - 1.2 mg/dL [facility] Denice Jimenez Rate - PINF [facility] Comment on above: These results are not intended for use in patients <18 years of age. eGFR results are calculated without a race factor using the 2020 CKD-EPI equation. Careful clinical correlation is recommended, particularly when comparing to results calculated using previous equations. The CKD-EPI equation is less accurate in patients with extremes of muscle mass, extra-renal metabolism of creatine, excessive creatine ingestion, or following therapy that affects renal tubular secretion. Glucose [Mass/Vol] 110 mg/dL High 74 - 99 mg/dL [facility] Potassium [Moles/Vol] 3.7 mmol/L 3.7 - 5.3 mmol/L [facility] Sodium [Moles/Vol] 138 mmol/L 136 - 145 mmol/L [facility] Urea nitrogen [Mass/Vol] 10 mg/dL 8 - 23 mg/d L [facility] CBC with Auto Differentialon 06-25-2024 Basophils (Bld) [#/Vol] B on [facility] Basophils/100 WBC (Bld) 0 % 0 - 2 % B on [facility] Eosinophils (Bld) [#/Vol] 0.10 10*3/uL [facility] Eosinophils/100 WBC (Bld) 2 % 1 - 4 % [facility] Erythrocyte distribution width (RBC) [Ratio] 11.4 % Low 11.8 - 14.4 % [facility] Hematocrit (Bld) [Volume fraction] 38.9 % Low 40.7 - 50.3 % [facility] Hemoglobin (Bld) [Mass/Vol] 12.7 g/dL Low 13.0 - 17.0 g/dL [facility] Immature granulocytes (Bld) [#/Vol] [facility] Immature granulocytes/100 WBC (Bld) 0 % 0 [facility] Interpretation and review of laboratory results Abnormal [facility] Lymphocytes/100 WBC (Bld) 20 % Low 24 - 43 % [facility] Lymphocytes/100 WBC (Bld) 1.07 % Low [facility] MCH (RBC) [Entitic mass] 31.7 pg 25. 2 - 33.5 pg [facility] MCHC (RBC) [Mass/Vol] 32.6 g/dL 28.4 - 34.8 g/dL [facility] MCV (RBC) [Entitic vol] 97.0 fL 82.6 - 102.9 fL [facility] Monocytes/100 WBC (Bld) 9 % 3 - 12 % B on [facility] Monocytes/100 WBC (Bld) 0.50 % B on [facility] Neutrophils/100 WBC (Bld) 69 % High 36 - 65 % [facility] Nucleated RBC/100 WBC (Bld) [Ratio] 0.0 % 0.0 per 100 WBC [facility] Platelet mean volume (Bld) [Entitic vol] 10.2 fL 8.1 - 13.5 fL [facility] Platelets (Bld) [#/Vol] 188 10*3/uL [facility] RBC (Bld) [#/Vol] 4.01 10*6/uL Low 4.21 - 5.7 7 m/uL [facility] Segmented neutrophils/100 WBC (Bld) 3.61 % [facility] WBC other (Bld) [#/Vol] 5.3 B on [facility] CBC with Diffon 06-25-2024 Abs. Basophil <0.03 Normal 0.00-0.20 [facility] Comment on above: Performed By: #### P HO, CDP, BMPX, MG #### [email or web address] [address] [place] [address] Plant Controller: Jordan Aponte MD Abs.Imm.Granulocyte <0.03 Normal 0.00-0.30 [facility] Comment on above: Performed By: #### P HO, CDP, BMPX, MG #### [address] [address] Plant Controller: Jordan Aponte MD Abs.Neutrophil (Seg) 3.61 k/uL Normal 1.50-8.10 [facility] Comment on above: Performed By: #### P HO, CDP, BMPX, MG #### [facility] [employer] [address] [place] [address] Plant Controller: Jordan Aponte MD Basophils/100 WBC (Bld) 0 % Normal 0-2 [facility] Comment on above: Performed By: #### P HO, CDP, BMPX, MG #### [place] [address] Plant Controller: Jordan Aponte MD Eosinophils (Bld) [#/Vol] 0.10 10*3/uL Normal 0.00-0.44 [facility] Comment on above: Performed By: #### P HO, CDP, BMPX, MG #### [facility] [employer] [address] [place] [address] Plant Controller: Jordan Aponte MD Eosinophils/100 WBC (Bld) 2 % Normal 1-4 [facility] Comment on above: Performed By: #### P HO, CDP, BMPX, MG #### [facility] [employer] [address] [place] [address] Plant Controller: Jordan Aponte MD Erythrocyte distribution width (RBC) [Ratio] 11.4 % Low 11.8-14.4 [facility] Comment on above: Performed By: #### P HO, CDP, BMPX, MG #### [facility] [employer] [address] [place] [phone] Plant Controller: Jordan Aponte MD Hematocrit (Bld) [Volume fraction] 38.9 % Low 40.7-50.3 [facility] Comment on above: Performed By: #### P HO, CDP, BMPX, MG #### [facility] [address] [place] [address] Plant Controller: Jordan Aponte MD Hemoglobin (Bld) [Mass/Vol] 12.7 g/dL Low 13.0-17.0 [facility] Comment on above: Performed By: #### P HO, CDP, BMPX, MG #### [facility] [employer] [address] [place] [address] Plant Controller: Jordan Aponte MD Immature granulocytes/100 WBC (Bld) 0 % Normal 0 [facility] Comment on above: Performed By: #### P HO, CDP, BMPX, MG #### [address] [address] Plant Controller: Jordan Aponte MD Lymphocytes (Bld) [#/Vol] 1.07 10*3/uL Low 1.10-3.70 [facility] Comment on above: Performed By: #### P HO, CDP, BMPX, MG #### [address] [address] Plant Controller: Jordan Aponte MD Lymphocytes/100 WBC (Bld) 20 % Low 24-43 [facility] Comment on above: Performed By: #### P HO, CDP, BMPX, MG #### [facility] [employer] [address] [place] [address] Plant Controller: Jordan Aponte MD MCH (RBC) [Entitic mass] 31.7 pg Normal 25.2-33.5 [facility] Comment on above: Performed By: #### P HO, CDP, BMPX, MG #### [facility] [employer] [address] [place] [address] Plant Controller: Jordan Aponte MD MCHC (RBC) [Mass/Vol] 32.6 g/dL Normal 28.4-34.8 [facility] Comment on above: Performed By: #### P HO, CDP, BMPX, MG #### [address] [address] Plant Controller: Jordan Aponte MD MCV (RBC) [Entitic vol] 97.0 fL Normal 82.6-102.9 [facility] Comment on above: Performed By: #### P HO, CDP, BMPX, MG #### [place] [address] Plant Controller: Jordan Aponte MD Monocytes (Bld) [#/Vol] 0.50 10*3/uL Normal 0.10-1.20 [facility] Comment on above: Performed By: #### P HO, CDP, BMPX, MG #### [place] [address] Plant Controller: Jordan Aponte MD Monocytes/100 WBC (Bld) 9 % Normal 3-12 M [facility] Comment on above: Performed By: #### P HO, CDP, BMPX, MG #### [place] [address] Plant Controller: Jordan Aponte MD Neutrophil (Seg) 69 % High 36-65 [facility] Comment on above: Performed By: #### P HO, CDP, BMPX, MG #### [place] [address] Plant Controller: Jordan Aponte MD NRBC Automated 0.0 per 100 WBC Normal 0.0 [facility] Comment on above: Performed By: #### P HO, CDP, BMPX, MG #### [facility] [employer] [address] [place] [address] Plant Controller: Jordan Aponte MD Platelet mean volume (Bld) [Entitic vol] 10.2 fL Normal 8.1-13.5 [facility] Comment on above: Performed By: #### P HO, CDP, BMPX, MG #### [facility] [address] [place] [address] Plant Controller: Jordan Aponte MD Platelets (Bld) [#/Vol] 188 10*3/uL Normal 138-453 [facility] Comment on above: Performed By: #### P HO, CDP, BMPX, MG #### [facility] [address] [place] [address] Plant Controller: Jordan Aponte MD RBC (Bld) [#/Vol] 4.01 10*6/uL Low 4.21-5.77 [facility] Comment on above: Performed By: #### P HO, CDP, BMPX, MG #### [facility] [address] [place] [address] Plant Controller: Jordan Aopnte MD WBC (Bld) [#/Vol] 5.3 10*3/uL Normal 3.5-11.3 [facility] Comment on above: Performed By: #### P HO, CDP, BMPX, MG #### [facility] [address] [place] [address] Plant Controller: Jordan Aponte MD Magnesiumon 06-25-2024 Magnesium [Mass/Vol] 1.9 mg/dL 1.6 - 2 .4 mg/dL [facility] Magnesium [Mass/Vol] 1.9 mg/dL Normal 1.6-2.4 [facility] Comment on above: Performed By: #### M G, CDP, BMPX, DAVID #### [facility] [address] [place] [address] Plant Controller: Jordan Aponte MD No Panel Informationon 06-25 Interpretation and review of laboratory results Abnormal [facility] Phosphoruson 06-25-2024 Phosphate [Mass/Vol] 2.4 mg/dL Low 2.5 - 4 .5 mg/dL [facility] Phosphorus, Inorg.on 024 Phosphorus, Inorg. 2.4 mg/dL Low 2.5-4.5 [facility] Comment on above: Performed By: #### M G, CDP, BMPX, DAVID #### [facility] [address] [place] [address] Plant Controller: Jordan Aponte MD Basic Metab w/rfx MGon 06-24 Anion gap [Moles/Vol] 9 mmol/L Normal 9-16 [facility] Comment on above: Performed By: #### M G, BMPX, CDP, DAVID #### [facility] [address] [place] [address] Plant Controller: Jordan Aponte MD Calcium [Mass/Vol] 8.4 mg/dL Low 8.6-10.4 [facility] Comment on above: Performed By: #### M G, BMPX, CDP, DAVID #### [facility] [address] [place] [address] Plant Controller: Jordan Aponte MD Chloride [Moles/Vol] 105 mmol/L Normal 98-107 [facility] Comment on above: Performed By: #### M G, BMPX, CDP, DAVID #### [facility] [address] [place] [address] Plant Controller: Jordan Aponte MD CO2 [Moles/Vol] 23 mmol/L Normal 20-31 [facility] Comment on above: Performed By: #### M G, BMPX, CDP, DAVID #### [facility] [address] [place] [address] Plant Controller: Jordan Aponte MD Creatinine [Mass/Vol] 0.9 mg/dL Normal 0.7-1.2 [facility] Comment on above: Performed By: #### M G, BMPX, CDP, DAVID #### [facility] [address] [place] [address] Plant Controller: Jordan Aponte MD GFR/1.73 sq M.predicted among non-blacks MDRD (S/P/Bld) [Vol rate/Area] mL/min/{1.73_m2} Normal >60 [facility] Comment on above: Result Comment: These results are not intended for use in patients <18 years of age. eGFR results are calculated without a race factor using the 2020 CKD-EPI equation. Careful clinical correlation is recommended, particularly when comparing to results calculated using previous equations. The CKD-EPI equation is less accurate in patients with extremes of muscle mass, extra-renal metabolism of creatine, excessive creatine ingestion, or following therapy that affects renal tubular secretion. Performed By: #### M G, BMPX, CDP, DAVID #### [facility] [address] [place] [address] Plant Controller: Jordan Aponte MD Glucose [Mass/Vol] 105 mg/dL High 74-99 [facility] Comment on above: Performed By: #### M G, BMPX, CDP, DAVID #### [facility] [address] [place] [address] Plant Controller: Jordan Aponte MD Potassium [Moles/Vol] 3.8 mmol/L Normal 3.7-5.3 [facility] Comment on above: Performed By: #### M G, BMPX, CDP, DAVID #### [email or web address] [address] [place] [address] Plant Controller: Jordan Aponte MD Sodium [Moles/Vol] 137 mmol/L Normal 136-145 [facility] Comment on above: Performed By: #### M G, BMPX, CDP, DAVID #### [employer] [address] [place] [address] Plant Controller: Jordan Aponte MD Urea nitrogen [Mass/Vol] 9 mg/dL Normal 8-23 [facility] Comment on above: Performed By: #### M G, BMPX, CDP, DAVID #### [email or web address] [address] [place] [address] Plant Controller: Jordan Aponte MD Basic Metabolic Panel w/ Ref isaias to MGon 06-24-2024 Anion gap [Moles/Vol] 9 mmol/L 9 - 16 mmol/L [facility] Calcium [Mass/Vol] 8.4 mg/dL Low 8.6 - 10. 4 mg/dL [facility] Chloride [Moles/Vol] 105 mmol/L 98 - 10 7 mmol/L [facility] CO2 [Moles/Vol] 23 mmol/L 20 - 31 mmol/L [facility] Creatinine [Mass/Vol] 0.9 mg/dL 0.7 - 1.2 mg/dL [facility] Est, Denice Pagankatelyn Spivey - [facility] Comment on above: These results are not intended for use in patients <18 years of age. eGFR results are calculated without a race factor using the 2020 CKD-EPI equation. Careful clinical correlation is recommended, particularly when comparing to results calculated using previous equations. The CKD-EPI equation is less accurate in patients with extremes of muscle mass, extra-renal metabolism of creatine, excessive creatine ingestion, or following therapy that affects renal tubular secretion. Glucose [Mass/Vol] 105 mg/dL High 74 - 99 mg/dL [facility] Interpretation and review of laboratory results Abnormal [facility] Potassium [Moles/Vol] 3.8 mmol/L 3.7 - 5.3 mmol/L [facility] Sodium [Moles/Vol] 137 mmol/L 136 - 145 mmol/L [facility] Urea nitrogen [Mass/Vol] 9 mg/dL 8 - 23 mg/d L [facility] CBC with Auto Differentialon 06-24-2024 Basophils (Bld) [#/Vol] 0.04 10*3/uL [facility] Basophils/100 WBC (Bld) 1 % 0 - 2 % B [facility] Eosinophils (Bld) [#/Vol] 0.08 10*3/uL [facility] Eosinophils/100 WBC (Bld) 1 % 1 - 4 % [facility] Erythrocyte distribution width (RBC) [Ratio] 11.3 % Low 11.8 - 14.4 % [facility] Hematocrit (Bld) [Volume fraction] 39.0 % Low 40.7 - 50.3 % [facility] Hemoglobin (Bld) [Mass/Vol] 13.0 g/dL 13.0 - 17.0 g/dL [facility] Immature granulocytes (Bld) [#/Vol] [facility] Immature granulocytes/100 WBC (Bld) 0 % 0 [facility] Interpretation and review of laboratory results Abnormal [facility] Lymphocytes/100 WBC (Bld) 15 % Low 24 - 43 % [facility] Lymphocytes/100 WBC (Bld) 1.02 % Low [facility] MCH (RBC) [Entitic mass] 31.6 pg 25. 2 - 33.5 pg [facility] MCHC (RBC) [Mass/Vol] 33.3 g/dL 28.4 - 34.8 g/dL [facility] MCV (RBC) [Entitic vol] 94.9 fL 82.6 - 102.9 fL [facility] Monocytes/100 WBC (Bld) 10 % 3 - 12 % B on [facility] Monocytes/100 WBC (Bld) 0.70 % B on [facility] Neutrophils/100 WBC (Bld) 73 % High 36 - 65 % [facility] Nucleated RBC/100 WBC (Bld) [Ratio] 0.0 % 0.0 per 100 WBC [facility] Platelet mean volume (Bld) [Entitic vol] 9.8 fL 8.1 - 13.5 fL [facility] Platelets (Bld) [#/Vol] 206 10*3/uL [facility] RBC (Bld) [#/Vol] 4.11 10*6/uL Low 4.21 - 5.7 7 m/uL [facility] Segmented neutrophils/100 WBC (Bld) 4.86 % [facility] WBC other (Bld) [#/Vol] 6.7 B on [facility] CBC with Diffon 06-24-2024 Abs. Basophil 0.04 k/uL Normal 0.00-0.20 [facility] Comment on above: Performed By: #### M G, BMPX, CDP, DAVID #### [address] [address] Plant Controller: Jordan Aponte MD Abs.Imm.Granulocyte <0.03 Normal 0.00-0.30 [facility] Comment on above: Performed By: #### M G, BMPX, CDP, DAVID #### [place] [address] Plant Controller: Jordan Aponte MD Abs.Neutrophil (Seg) 4.86 k/uL Normal 1.50-8.10 [facility] Comment on above: Performed By: #### M G, BMPX, CDP, DAVID #### [place] [address] Plant Controller: Jordan Aponte MD Basophils/100 WBC (Bld) 1 % Normal 0-2 [facility] Comment on above: Performed By: #### M G, BMPX, CDP, DAVID #### [place] [address] Plant Controller: Jordan Aponte MD Eosinophils (Bld) [#/Vol] 0.08 10*3/uL Normal 0.00-0.44 [facility] Comment on above: Performed By: #### M G, BMPX, CDP, DAVID #### [address] [address] Plant Controller: Jordan Aponte MD Eosinophils/100 WBC (Bld) 1 % Normal 1-4 [facility] Comment on above: Performed By: #### M G, BMPX, CDP, DAVID #### [address] [address] Plant Controller: Jordan Aponte MD Erythrocyte distribution width (RBC) [Ratio] 11.3 % Low 11.8-14.4 [facility] Comment on above: Performed By: #### M G, BMPX, CDP, DAVID #### [address] [address] Plant Controller: Jordan Aponte MD Hematocrit (Bld) [Volume fraction] 39.0 % Low 40.7-50.3 [facility] Comment on above: Performed By: #### M G, BMPX, CDP, DAVID #### [address] [address] Plant Controller: Jordan Aponte MD Hemoglobin (Bld) [Mass/Vol] 13.0 g/dL Normal 13.0-17.0 [facility] Comment on above: Performed By: #### M G, BMPX, CDP, DAVID #### [address] [address] Plant Controller: Jordan Aponte MD Immature granulocytes/100 WBC (Bld) 0 % Normal 0 [facility] Comment on above: Performed By: #### M G, BMPX, CDP, DAVID #### [address] [address] Plant Controller: Jordan Aponte MD Lymphocytes (Bld) [#/Vol] 1.02 10*3/uL Low 1.10-3.70 [facility] Comment on above: Performed By: #### M G, BMPX, CDP, DAVID #### [address] [address] Plant Controller: Jordan Aponte MD Lymphocytes/100 WBC (Bld) 15 % Low 24-43 [facility] Comment on above: Performed By: #### M G, BMPX, CDP, DAVID #### [facility] [employer] [address] [place] [address] Plant Controller: Jordan Aponte MD MCH (RBC) [Entitic mass] 31.6 pg Normal 25.2-33.5 [facility] Comment on above: Performed By: #### M G, BMPX, CDP, DAVID #### [address] [address] Plant Controller: Jordan Aponte MD MCHC (RBC) [Mass/Vol] 33.3 g/dL Normal 28.4-34.8 [facility] Comment on above: Performed By: #### M G, BMPX, CDP, DAVID #### [address] [address] Plant Controller: Jordan Aponte MD MCV (RBC) [Entitic vol] 94.9 fL Normal 82.6-102.9 [facility] Comment on above: Performed By: #### M G, BMPX, CDP, DAVID #### [address] [address] Plant Controller: Jordan Aponte MD Monocytes (Bld) [#/Vol] 0.70 10*3/uL Normal 0.10-1.20 [facility] Comment on above: Performed By: #### M G, BMPX, CDP, DAVID #### [address] [address] Plant Controller: Jordan Aponte MD Monocytes/100 WBC (Bld) 10 % Normal 3-12 [facility] Comment on above: Performed By: #### M G, BMPX, CDP, DAVID #### [address] [address] Plant Controller: Jordan Aponte MD Neutrophil (Seg) 73 % High 36-65 [facility] Comment on above: Performed By: #### M G, BMPX, CDP, DAVID #### [address] [address] Plant Controller: Jordan Aponte MD NRBC Automated 0.0 per 100 WBC Normal 0.0 [facility] Comment on above: Performed By: #### M G, BMPX, CDP, DAVID #### [facility] [address] [place] [address] Plant Controller: Jordan Aponte MD Platelet mean volume (Bld) [Entitic vol] 9.8 fL Normal 8.1-13.5 [facility] Comment on above: Performed By: #### M G, BMPX, CDP, DAVID #### [facility] [address] [place] [address] Plant Controller: Jordan Aponte MD Platelets (Bld) [#/Vol] 206 10*3/uL Normal 138-453 [facility] Comment on above: Performed By: #### Michelle G, BMPX, CDP, DAVID #### [facility] [address] [place] [address] Plant Controller: Jordan Aponte MD RBC (Bld) [#/Vol] 4.11 10*6/uL Low 4.21-5.77 [facility] Comment on above: Performed By: #### Michelle Carreno, BMPX, CDP, DAVID #### [facility] [address] [place] [address] Plant Controller: Jordan Aponte MD WBC (Bld) [#/Vol] 6.7 10*3/uL Normal 3.5-11.3 [facility] Comment on above: Performed By: #### M G, BMPX, CDP, DAVID #### [facility] [address] [place] [address] Plant Controller: Jordan Aponte MD MRA Head vessels WO and W co ntrast [place] 06-24-2024 Unremarkable MRV of the head. [facility] CONSOLIDATED EXAMINATION: MRV OF THE HEAD WITH AND WITHOUT CONTRAST 06/24/2024: TECHNIQUE: Multiplanar multisequence MRV of the head was performed with and without the administration of intravenous contrast. COMPARISON: Conventional angiogram from 06/24/2024. HISTORY: ORDERING SYSTEM PROVIDED HISTORY: Neuroendovascular: There is delayed venous out flow on the RECA run with relatively engorged ophthalmic vein suggestive of possible venous outflow obstruction versus elevated ICP. Please consider obtaining brain MRV TECHNOLOGIST PROVIDED HISTORY: Neuroendovascular: There is delayed venous out flow on the RECA run with relatively engorged ophthalmic vein suggestive of possible venous outflow obstruction versus elevated ICP. Please consider obtaining brain MRV Reason for Exam: Neuroendovascular: There is delayed venous out flow on the RECA run with relatively engorged opht... FINDINGS: No focal stenosis or thrombus is seen of the major dural venous sinuses. The cavernous sinuses only enhance minimally, although are not enlarged. Thickening of the dura over the right cerebral hemisphere may be postoperative or related to the subdural. Variant dural arterial anatomy is better seen on the conventional angiogram. Yemi March MD - 06/24/2024 EXAMINATION: MRV OF THE HEAD WITH AND WITHOUT CONTRAST 06/24/2024: TECHNIQUE: Multiplanar multisequence MRV of the head was performed with and without the administration of intravenous contrast. COMPARISON: Conventional angiogram from 06/24/2024. HISTORY: ORDERING SYSTEM PROVIDED HISTORY: Neuroendovascular: There is delayed venous out flow on the RECA run with relatively engorged ophthalmic vein suggestive of possible venous outflow obstruction versus elevated ICP. Please consider obtaining brain MRV TECHNOLOGIST PROVIDED HISTORY: Neuroendovascular: There is delayed venous out flow on the RECA run with relatively engorged ophthalmic vein suggestive of possible venous outflow obstruction versus elevated ICP. Please consider obtaining brain MRV Reason for Exam: Neuroendovascular: There is delayed venous out flow on the RECA run with relatively engorged opht... FINDINGS: No focal stenosis or thrombus is seen of the major dural venous sinuses. The cavernous sinuses only enhance minimally, although are not enlarged. Thickening of the dura over the right cerebral hemisphere may be postoperative or related to the subdural. Variant dural arterial anatomy is better seen on the conventional angiogram. IMPRESSION: Unremarkable MRV of the head. [facility] Radiology Study observation (narrative) [facility] MRV HEAD W WO CONTRASTon MRV HEAD W WO CONTRAST EXAMINATION: MRV OF THE HEAD WITH AND WITHOUT CONTRAST 06/24/2024: TECHNIQUE: Multiplanar multisequence MRV of the head was performed with and without the administration of intravenous contrast. COMPARISON: Conventional angiogram from 06/24/2024. HISTORY: ORDERING SYSTEM PROVIDED HISTORY: Neuroendovascular: There is delayed venous out flow on the RECA run with relatively engorged ophthalmic vein suggestive of possible venous outflow obstruction versus elevated ICP. Please consider obtaining brain MRV TECHNOLOGIST PROVIDED HISTORY: Neuroendovascular: There is delayed venous out flow on the RECA run with relatively engorged ophthalmic vein suggestive of possible venous outflow obstruction versus elevated ICP. Please consider obtaining brain MRV Reason for Exam: Neuroendovascular: There is delayed venous out flow on the RECA run with relatively engorged opht... FINDINGS: No focal stenosis or thrombus is seen of the major dural venous sinuses. The cavernous sinuses only enhance minimally, although are not enlarged. Thickening of the dura over the right cerebral hemisphere may be postoperative or related to the subdural. Variant dural arterial anatomy is better seen on the conventional angiogram. IMPRESSION: Unremarkable MRV of the head. Interpreted by: Yemi Deluna MD Signed by: Yemi Deluna MD 06/24/24 Final result Normal [facility] Magnesiumon 06-24-2024 Magnesium [Mass/Vol] 1.9 mg/dL 1.6 - 2 .4 mg/dL [facility] Magnesium [Mass/Vol] 1.9 mg/dL Normal 1.6-2.4 [facility] Comment on above: Performed By: #### M G, BMPX, CDP, DAVID #### [email or web address] [address] [place] [address] [id number] Plant Controller: Jordan Aponte MD No Panel Informationon 06-[address] [facility] [employer] Phosphoruson 06-24-2024 Phosphate [Mass/Vol] 2.5 mg/dL 2.5 - 4 .5 mg/dL [facility] [employer] Phosphorus, Inorg.on 024 Phosphorus, Inorg. 2.5 mg/dL Normal 2.5-4.5 [facility] Comment on above: Performed By: #### M Ev, BMPX, CDP, DAVID #### [email or web address] [address] [place] [address] Plant Controller: Jordan Aponte MD Basic Metab w/rfx MGon 06-23 Anion gap [Moles/Vol] 11 mmol/L Normal 9-16 [facility] Comment on above: Performed By: #### M G, CDP, BMPX, DAVID #### [facility] [employer] [address] [place] [address] Plant Controller: Jordan Aponte MD Calcium [Mass/Vol] 8.3 mg/dL Low 8.6-10.4 [facility] Comment on above: Performed By: #### M G, CDP, BMPX, DAVID #### [facility] [employer] [address] [place] [address] Plant Controller: Jordan Aponte MD Chloride [Moles/Vol] 103 mmol/L Normal 98-107 [facility] Comment on above: Performed By: #### M G, CDP, BMPX, DAVID #### [facility] [employer] [address] [place] [address] Plant Controller: Jordan Aponte MD CO2 [Moles/Vol] 22 mmol/L Normal 20-31 [facility] Comment on above: Performed By: #### M G, CDP, BMPX, DAVID #### [facility] [address] [place] [address] Plant Controller: Jordan Aponte MD Creatinine [Mass/Vol] 0.8 mg/dL Normal 0.7-1.2 [facility] Comment on above: Performed By: #### M G, CDP, BMPX, DAVID #### [facility] [facility] [address] [place] [id number] Plant Controller: Jordan Aponte MD GFR/1.73 sq M.predicted among non-blacks MDRD (S/P/Bld) [Vol rate/Area] mL/min/{1.73_m2} Normal >60 [facility] Comment on above: Result Comment: These results are not intended for use in patients <18 years of age. eGFR results are calculated without a race factor using the 2020 CKD-EPI equation. Careful clinical correlation is recommended, particularly when comparing to results calculated using previous equations. The CKD-EPI equation is less accurate in patients with extremes of muscle mass, extra-renal metabolism of creatine, excessive creatine ingestion, or following therapy that affects renal tubular secretion. Performed By: #### M Ev, CDP, BMPX, DAVID #### [facility] [address] [place] [address] [id number] Plant Controller: Jordan Aponte MD Glucose [Mass/Vol] 103 mg/dL High 74-99 [facility] Comment on above: Performed By: #### M Ev CDP, BMPX, DAVID #### [facility] [address] [place] [address]37 Plant Controller: Jordan Aponte MD Potassium [Moles/Vol] 3.8 mmol/L Normal 3.7-5.3 [facility] Comment on above: Performed By: #### M Ev CDP, BMPX, DAVID #### [employer] [facility] [address] [place] [address] 36848 Plant Controller: Jordan Aponte MD Sodium [Moles/Vol] 136 mmol/L Normal 136-145 [facility] Comment on above: Performed By: #### ENOC Alatorre, BMPX, DAVID #### [employer] [address] [place] [address] 40593 Plant Controller: Jordan Aponte MD Urea nitrogen [Mass/Vol] 7 mg/dL Low 8-23 [facility] Comment on above: Performed By: #### M G CDP, BMPX, DAVID #### [facility] [address] [place] [address] 87761 Plant Controller: Jordan Aponte MD Basic Metabolic Panel w/ Ref isaias to MGon 06-23-2024 Anion gap [Moles/Vol] 11 mmol/L 9 - 16 mmol/L [facility] Calcium [Mass/Vol] 8.3 mg/dL Low 8.6 - 10. 4 mg/dL [facility] Chloride [Moles/Vol] 103 mmol/L 98 - 10 7 mmol/L [facility] CO2 [Moles/Vol] 22 mmol/L 20 - 31 mmol/L [facility] Creatinine [Mass/Vol] 0.8 mg/dL 0.7 - 1.2 mg/dL [facility] EstDenice Rate - PINF [facility] Comment on above: These results are not intended for use in patients <18 years of age. eGFR results are calculated without a race factor using the 2020 CKD-EPI equation. Careful clinical correlation is recommended, particularly when comparing to results calculated using previous equations. The CKD-EPI equation is less accurate in patients with extremes of muscle mass, extra-renal metabolism of creatine, excessive creatine ingestion, or following therapy that affects renal tubular secretion. Glucose [Mass/Vol] 103 mg/dL High 74 - 99 mg/dL [facility] Interpretation and review of laboratory results Abnormal [facility] Potassium [Moles/Vol] 3.8 mmol/L 3.7 - 5.3 mmol/L [facility] Sodium [Moles/Vol] 136 mmol/L 136 - 145 mmol/L [facility] Urea nitrogen [Mass/Vol] 7 mg/dL Low 8 - 23 mg/d L [facility] CBC with Auto Differentialon 06-23-2024 Basophils (Bld) [#/Vol] 0.03 10*3/uL [facility] Basophils/100 WBC (Bld) 0 % 0 - 2 % B [facility] Eosinophils (Bld) [#/Vol] 0.04 10*3/uL [facility] Eosinophils/100 WBC (Bld) 0 % Low 1 - 4 % [facility] Erythrocyte distribution width (RBC) [Ratio] 11.1 % Low 11.8 - 14.4 % [facility] Hematocrit (Bld) [Volume fraction] 39.7 % Low 40.7 - 50.3 % [facility] Hemoglobin (Bld) [Mass/Vol] 13.4 g/dL 13.0 - 17.0 g/dL [facility] Immature granulocytes (Bld) [#/Vol] 0.03 10*3/uL [facility] Immature granulocytes/100 WBC (Bld) 0 % 0 [facility] Interpretation and review of laboratory results Abnormal [facility] Lymphocytes/100 WBC (Bld) 13 % Low 24 - 43 % [facility] Lymphocytes/100 WBC (Bld) 1.23 % [facility] MCH (RBC) [Entitic mass] 32.0 pg 25. 2 - 33.5 pg [facility] MCHC (RBC) [Mass/Vol] 33.8 g/dL 28.4 - 34.8 g/dL [facility] MCV (RBC) [Entitic vol] 94.7 fL 82.6 - 102.9 fL [facility] Monocytes/100 WBC (Bld) 8 % 3 - 12 % B on [facility] Monocytes/100 WBC (Bld) 0.78 % B on [facility] Neutrophils/100 WBC (Bld) 78 % High 36 - 65 % [facility] Nucleated RBC/100 WBC (Bld) [Ratio] 0.0 % 0.0 per 100 WBC [facility] Platelet mean volume (Bld) [Entitic vol] 10.4 fL 8.1 - 13.5 fL [facility] Platelets (Bld) [#/Vol] 214 10*3/uL [facility] RBC (Bld) [#/Vol] 4.19 10*6/uL Low 4.21 - 5.7 7 m/uL [facility] Segmented neutrophils/100 WBC (Bld) 7.50 % [facility] WBC other (Bld) [#/Vol] 9.6 B on [facility] CBC with Diffon 06-23-2024 Abs. Basophil 0.03 k/uL Normal 0.00-0.20 [facility] Comment on above: Performed By: #### M G, CDP, BMPX, DAVID #### [facility] [address] [place] [address] [id number] Plant Controller: Jordan Aponte MD Abs.Imm.Granulocyte 0.03 k/uL Normal 0.00-0.30 [facility] Comment on above: Performed By: #### M G, CDP, BMPX, DAVID #### [address] [address] Plant Controller: Jordan Aponte MD Abs.Neutrophil (Seg) 7.50 k/uL Normal 1.50-8.10 [facility] Comment on above: Performed By: #### M G, CDP, BMPX, DAVID #### [address] [address] Plant Controller: Jordan Aponte MD Basophils/100 WBC (Bld) 0 % Normal 0-2 [facility] Comment on above: Performed By: #### M G, CDP, BMPX, DAVID #### [address] [address] Plant Controller: Jordan Aponte MD Eosinophils (Bld) [#/Vol] 0.04 10*3/uL Normal 0.00-0.44 [facility] Comment on above: Performed By: #### M G, CDP, BMPX, DAVID #### [facility] [address] [place] [address] 95107 Plant Controller: Jordan Aponte MD Eosinophils/100 WBC (Bld) 0 % Low 1-4 [facility] Comment on above: Performed By: #### M G, CDP, BMPX, DAVID #### [facility] [address] [place] [address] 87930 Plant Controller: Jordan Aponte MD Erythrocyte distribution width (RBC) [Ratio] 11.1 % Low 11.8-14.4 [facility] Comment on above: Performed By: #### M G, CDP, BMPX, DAVID #### [facility] [address] [place] [address] 13881 Plant Controller: Jordan Aponte MD Hematocrit (Bld) [Volume fraction] 39.7 % Low 40.7-50.3 [facility] Comment on above: Performed By: #### M G, CDP, BMPX, DAVID #### [facility] [address] [place] [address]202 Plant Controller: Jordan Aponte MD Hemoglobin (Bld) [Mass/Vol] 13.4 g/dL Normal 13.0-17.0 [facility] Comment on above: Performed By: #### M G, CDP, BMPX, DAVID #### [facility] [address] [place] [address] 61980 Plant Controller: Jordan Aponte MD Immature granulocytes/100 WBC (Bld) 0 % Normal 0 [facility] Comment on above: Performed By: #### M G, CDP, BMPX, DAVID #### [facility] [address] [place] [address] [id number] Plant Controller: Jordan Aponte MD Lymphocytes (Bld) [#/Vol] 1.23 10*3/uL Normal 1.10-3.70 [facility] Comment on above: Performed By: #### M G, CDP, BMPX, DAVID #### [facility] [address] [place] [address] 60519 Plant Controller: Jordan Aponte MD Lymphocytes/100 WBC (Bld) 13 % Low 24-43 [facility] Comment on above: Performed By: #### M G, CDP, BMPX, DAVID #### [facility] [address] [place] [address] 26926 Plant Controller: Jordan Aponte MD MCH (RBC) [Entitic mass] 32.0 pg Normal 25.2-33.5 [facility] Comment on above: Performed By: #### M G, CDP, BMPX, DAVID #### [facility] [address] [place] [address] 05569 Plant Controller: Jordan Aponte MD MCHC (RBC) [Mass/Vol] 33.8 g/dL Normal 28.4-34.8 [facility] Comment on above: Performed By: #### M G, CDP, BMPX, DAVID #### [facility] [address] [place] [address] 89070 Plant Controller: Jordan Aponte MD MCV (RBC) [Entitic vol] 94.7 fL Normal 82.6-102.9 [facility] Comment on above: Performed By: #### M G, CDP, BMPX, DAVID #### [address] [address] Plant Controller: Jordan Aponte MD Monocytes (Bld) [#/Vol] 0.78 10*3/uL Normal 0.10-1.20 [facility] Comment on above: Performed By: #### M G, CDP, BMPX, DAVID #### [facility] [address] [place] [id number] Plant Controller: Jordan Aponte MD Monocytes/100 WBC (Bld) 8 % Normal 3-12 [facility] Comment on above: Performed By: #### M G, CDP, BMPX, DAVID #### [facility] [address] [place] [address] 25633 Plant Controller: Jordan Aponte MD Neutrophil (Seg) 78 % High 36-65 [facility] Comment on above: Performed By: #### M G, CDP, BMPX, DAVID #### [facility] [address] [place] [address] 66288 Plant Controller: Jordan Aponte MD NRBC Automated 0.0 per 100 WBC Normal 0.0 [facility] Comment on above: Performed By: #### M G, CDP, BMPX, DAVID #### [facility] [address] [place] [address] 98712 Plant Controller: Jordan Aponte MD Platelet mean volume (Bld) [Entitic vol] 10.4 fL Normal 8.1-13.5 [facility] Comment on above: Performed By: #### M Ev, CDP, BMPX, DAVID #### [facility] [place] [address] Plant Controller: Jordan Aponte MD Platelets (Bld) [#/Vol] 214 10*3/uL Normal 138-453 [facility] Comment on above: Performed By: #### M Ev, CDP, BMPX, DAVID #### [facility] [address] [place] [address] 79984 Plant Controller: Jordan Aponte MD RBC (Bld) [#/Vol] 4.19 10*6/uL Low 4.21-5.77 [facility] Comment on above: Performed By: #### ENOC Alatorre, BMPX, DAVID #### [facility] [address] [place] [address] 81869 Plant Controller: Jordan Aponte MD WBC (Bld) [#/Vol] 9.6 10*3/uL Normal 3.5-11.3 [facility] Comment on above: Performed By: #### Michelle Carreno, CDP, BMPX, DAVID #### [facility] [address] [place] [address] 23848 Plant Controller: Jordan Aponte MD CT HEAD WO CONTRASTon 2023 CT HEAD WO CONTRAST EXAMINATION: CT OF THE HEAD WITHOUT CONTRAST 06/23/2024 10:06 am TECHNIQUE: CT of the head was performed without the administration of intravenous contrast. Automated exposure control, iterative reconstruction, and/or weight based adjustment of the mA/kV was utilized to reduce the radiation dose to as low as reasonably achievable. COMPARISON: 06/20/2024 HISTORY: ORDERING SYSTEM PROVIDED HISTORY: f/u post op TECHNOLOGIST PROVIDED HISTORY: f/u post op FINDINGS: BRAIN/VENTRICLES: A drain has been placed within the right hemispheric subdural collection which has diminished in size and density. It currently measures up to 11 mm in thickness. No new hemorrhage is identified. There is now a small amount of gas within the collection. There is also a moderate amount of subarachnoid pneumocephalus over both frontal lobes. 4 mm of right to left midline shift is improved. ORBITS: The visualized portion of the orbits demonstrate no acute abnormality. SINUSES: The visualized paranasal sinuses and mastoid air cells demonstrate no acute abnormality. SOFT TISSUES/SKULL: New gas and fluid in the scalp measures up to 12 mm in thickness. Right frontal and right parietal steve holes are new. IMPRESSION: Diminished size of now 11 mm thick right subdural collection. Moderate amount of new subarachnoid pneumocephalus. Improved dkmni-xg-hbvk midline shift now measuring 4 mm. Interpreted by: Yemi Deluna MD Signed by: Yemi Deluna MD 06/23/24 Final result Normal [facility] CT Head WO contraston 2023 Diminished size of now 11 mm thick right subdural collection. Moderate amount of new subarachnoid pneumocephalus. Improved nefkh-tb-evde midline shift now measuring 4 mm. [facility] EXAMINATION: CT OF THE HEAD WITHOUT CONTRAST 06/23/2024 10:06 am TECHNIQUE: CT of the head was performed without the administration of intravenous contrast. Automated exposure control, iterative reconstruction, and/or weight based adjustment of the mA/kV was utilized to reduce the radiation dose to as low as reasonably achievable. COMPARISON: 06/20/2024 HISTORY: ORDERING SYSTEM PROVIDED HISTORY: f/u post op TECHNOLOGIST PROVIDED HISTORY: f/u post op FINDINGS: BRAIN/VENTRICLES: A drain has been placed within the right hemispheric subdural collection which has diminished in size and density. It currently measures up to 11 mm in thickness. No new hemorrhage is identified. There is now a small amount of gas within the collection. There is also a moderate amount of subarachnoid pneumocephalus over both frontal lobes. 4 mm of right to left midline shift is improved. ORBITS: The visualized portion of the orbits demonstrate no acute abnormality. SINUSES: The visualized paranasal sinuses and mastoid air cells demonstrate no acute abnormality. SOFT TISSUES/SKULL: New gas and fluid in the scalp measures up to 12 mm in thickness. Right frontal and right parietal steve holes are new. [facility] Yemi Deluna MD - 06/23/2024 EXAMINATION: CT OF THE HEAD WITHOUT CONTRAST 06/23/2024 10:06 am TECHNIQUE: CT of the head was performed without the administration of intravenous contrast. Automated exposure control, iterative reconstruction, and/or weight based adjustment of the mA/kV was utilized to reduce the radiation dose to as low as reasonably achievable. COMPARISON: 06/20/2024 HISTORY: ORDERING SYSTEM PROVIDED HISTORY: f/u post op TECHNOLOGIST PROVIDED HISTORY: f/u post op FINDINGS: BRAIN/VENTRICLES: A drain has been placed within the right hemispheric subdural collection which has diminished in size and density. It currently measures up to 11 mm in thickness. No new hemorrhage is identified. There is now a small amount of gas within the collection. There is also a moderate amount of subarachnoid pneumocephalus over both frontal lobes. 4 mm of right to left midline shift is improved. ORBITS: The visualized portion of the orbits demonstrate no acute abnormality. SINUSES: The visualized paranasal sinuses and mastoid air cells demonstrate no acute abnormality. SOFT TISSUES/SKULL: New gas and fluid in the scalp measures up to 12 mm in thickness. Right frontal and right parietal steve holes are new. IMPRESSION: Diminished size of now 11 mm thick right subdural collection. Moderate amount of new subarachnoid pneumocephalus. Improved imrnw-ee-udib midline shift now measuring 4 mm. [facility] Radiology Study observation (narrative) [facility] CT Head WO contrastOrdered B y: Yemi Deluna on 06-23-2024 [facility] Work Phone: Magnesiumon 06-23-2024 Magnesium [Mass/Vol] 1.7 mg/dL 1.6 - 2 .4 mg/dL [facility] Magnesium [Mass/Vol] 1.7 mg/dL Normal 1.6-2.4 [facility] Comment on above: Performed By: #### M G, CDP, BMPX, DAVID #### [facility] [address] [place] [address] Plant Controller: Jordan Aponte MD No Panel Informationon 06-23 [facility] Phosphoruson 06-23-2024 Phosphate [Mass/Vol] 3.3 mg/dL 2.5 - 4 .5 mg/dL [facility] Phosphorus, Inorg.on 024 Phosphorus, Inorg. 3.3 mg/dL Normal 2.5-4.5 [facility] Comment on above: Performed By: #### M G, CDP, BMPX, DAVID #### [email or web address] [address] [place] [address] [phone] Plant Controller: Jordan Aponte MD APTTon 06-22-2024 aPTT Coag (Bld) [Time] 26.0 s [facility] Comment on above: IV Heparin Therapy Range: 66.0-92.0 sec aPTT Coag (Bld) [Time] 26.0 s Normal 23.0-36.5 [facility] Comment on above: Result Comment: IV Heparin Therapy Range: 66.0-92.0 sec Performed By: #### Michelle Carreno, CDP, BMPX, DAVID #### [facility] [address] [place] [address] [phone] Plant Controller: Jordan Aponte MD Basic Metab w/rfx MGon 06-22 Anion gap [Moles/Vol] 9 mmol/L Normal 9-16 [facility] Comment on above: Performed By: #### Michelle Carreno, CDP, BMPX, DAVID #### [facility] [address] [place] [address] [phone] Plant Controller: Jordan Aponte MD Calcium [Mass/Vol] 8.2 mg/dL Low 8.6-10.4 [facility] Comment on above: Performed By: #### M G, CDP, BMPX, DAVID #### [email or web address] [address] [place] [address] 9[address]79 Plant Controller: Jordan Aponte MD Chloride [Moles/Vol] 106 mmol/L Normal 98-107 [facility] Comment on above: Performed By: #### M G, CDP, BMPX, DAVID #### [address] [address] Plant Controller: Jordan Aponte MD CO2 [Moles/Vol] 23 mmol/L Normal 20-31 [facility] Comment on above: Performed By: #### M Ev, CDP, BMPX, DAVID #### [address] [address] Plant Controller: Jordan Aponte MD Creatinine [Mass/Vol] 0.9 mg/dL Normal 0.7-1.2 [facility] Comment on above: Performed By: #### M Ev, ENOC, BMPX, DAVID #### [address] [address] Plant Controller: Jordan Aponte MD GFR/1.73 sq M.predicted among non-blacks MDRD (S/P/Bld) [Vol rate/Area] mL/min/{1.73_m2} Normal >60 [facility] Comment on above: Result Comment: These results are not intended for use in patients <18 years of age. eGFR results are calculated without a race factor using the 2020 CKD-EPI equation. Careful clinical correlation is recommended, particularly when comparing to results calculated using previous equations. The CKD-EPI equation is less accurate in patients with extremes of muscle mass, extra-renal metabolism of creatine, excessive creatine ingestion, or following therapy that affects renal tubular secretion. Performed By: #### M ENOC Carreno, BMPX, DAVID #### [address] [address] Plant Controller: Jordan Aponte MD Glucose [Mass/Vol] 105 mg/dL High 74-99 [facility] Comment on above: Performed By: #### M ENOC Carreno, BMPX, DAVID #### [facility] [address] [place] [address] Plant Controller: Jordan Aponte MD Potassium [Moles/Vol] 4.0 mmol/L Normal 3.7-5.3 [facility] Comment on above: Performed By: #### M G, CDP, BMPX, DAVID #### [facility] [address] [place] [address] Plant Controller: Jordan Aponte MD Sodium [Moles/Vol] 138 mmol/L Normal 136-145 [facility] Comment on above: Performed By: #### M G, CDP, BMPX, DAVID #### [facility] [address] [place], [place] [phone] Plant Controller: Jordan Aponte MD Urea nitrogen [Mass/Vol] 10 mg/dL Normal 8-23 [facility] Comment on above: Performed By: #### M G, CDP, BMPX, DAVID #### [facility] [address] [place], [place] [phone] Plant Controller: Jordan Aponte MD Basic Metabolic Panelon 11-1 Anion gap [Moles/Vol] 13 mmol/L 9 - 16 mmol/L [facility] Calcium [Mass/Vol] 8.9 mg/dL 8.6 - 10. 4 mg/dL [facility] Chloride [Moles/Vol] 104 mmol/L 98 - 10 7 mmol/L [facility] CO2 [Moles/Vol] 21 mmol/L 20 - 31 mmol/L [facility] Creatinine [Mass/Vol] 0.9 mg/dL 0.7 - 1.2 mg/dL [facility] Est, Glomichelle Alcala Rate - PINF [facility] Comment on above: These results are not intended for use in patients <18 years of age. eGFR results are calculated without a race factor using the 2020 CKD-EPI equation. Careful clinical correlation is recommended, particularly when comparing to results calculated using previous equations. The CKD-EPI equation is less accurate in patients with extremes of muscle mass, extra-renal metabolism of creatine, excessive creatine ingestion, or following therapy that affects renal tubular secretion. Glucose [Mass/Vol] 133 mg/dL High 74 - 99 mg/dL [facility] Interpretation and review of laboratory results Abnormal [facility] Potassium [Moles/Vol] 3.8 mmol/L 3.7 - 5.3 mmol/L [facility] Sodium [Moles/Vol] 138 mmol/L 136 - 145 mmol/L [facility] Urea nitrogen [Mass/Vol] 6 mg/dL Low 8 - 23 mg/d L [facility] Basic Metabolic Panel w/ Ref isaias to MGon 06-22-2024 Anion gap [Moles/Vol] 9 mmol/L 9 - 16 mmol/L [facility] Calcium [Mass/Vol] 8.2 mg/dL Low 8.6 - 10. 4 mg/dL [facility] Chloride [Moles/Vol] 106 mmol/L 98 - 10 7 mmol/L [facility] CO2 [Moles/Vol] 23 mmol/L 20 - 31 mmol/L [facility] Creatinine [Mass/Vol] 0.9 mg/dL 0.7 - 1.2 mg/dL [facility] Est, Gloimchelle Pagant Rate - PINF [facility] Comment on above: These results are not intended for use in patients <18 years of age. eGFR results are calculated without a race factor using the 2020 CKD-EPI equation. Careful clinical correlation is recommended, particularly when comparing to results calculated using previous equations. The CKD-EPI equation is less accurate in patients with extremes of muscle mass, extra-renal metabolism of creatine, excessive creatine ingestion, or following therapy that affects renal tubular secretion. Glucose [Mass/Vol] 105 mg/dL High 74 - 99 mg/dL [facility] Interpretation and review of laboratory results Abnormal [facility] Potassium [Moles/Vol] 4.0 mmol/L 3.7 - 5.3 mmol/L [facility] Sodium [Moles/Vol] 138 mmol/L 136 - 145 mmol/L [facility] Urea nitrogen [Mass/Vol] 10 mg/dL 8 - 23 mg/d L [facility] Basic Metabolic Profon 06-22 Anion gap [Moles/Vol] 13 mmol/L Normal 9-16 [facility] Comment on above: Performed By: #### M G, CDP, BMPX, DAVID #### [facility] [address] [place] [id number] Plant Controller: Jordan Aponte MD Calcium [Mass/Vol] 8.9 mg/dL Normal 8.6-10.4 [facility] Comment on above: Performed By: #### M G, CDP, BMPX, DAVID #### [facility] [address] [place], [place] [phone] Plant Controller: Jordan Aponte MD Chloride [Moles/Vol] 104 mmol/L Normal 98-107 [facility] Comment on above: Performed By: #### M G, CDP, BMPX, DAVID #### [facility] [address] [place], [place] [phone] Plant Controller: Jordan Aponte MD CO2 [Moles/Vol] 21 mmol/L Normal 20-31 [facility] Comment on above: Performed By: #### M G, CDP, BMPX, DAVID #### [facility] [address] [place] [address] [phone] Plant Controller: Jordan Aponte MD Creatinine [Mass/Vol] 0.9 mg/dL Normal 0.7-1.2 [facility] Comment on above: Performed By: #### M G, CDP, BMPX, DAVID #### [facility] [address] [place] [id number] Plant Controller: Jordan Aponte MD GFR/1.73 sq M.predicted among non-blacks MDRD (S/P/Bld) [Vol rate/Area] mL/min/{1.73_m2} Normal >60 [facility] Comment on above: Result Comment: These results are not intended for use in patients <18 years of age. eGFR results are calculated without a race factor using the 2020 CKD-EPI equation. Careful clinical correlation is recommended, particularly when comparing to results calculated using previous equations. The CKD-EPI equation is less accurate in patients with extremes of muscle mass, extra-renal metabolism of creatine, excessive creatine ingestion, or following therapy that affects renal tubular secretion. Performed By: #### M G, CDP, BMPX, DAVID #### [facility] [address] [place] [address] Plant Controller: Jordan Aponte MD Glucose [Mass/Vol] 133 mg/dL High 74-99 [facility] Comment on above: Performed By: #### M G, CDP, BMPX, DAVID #### [facility] [address] [place] [address] Plant Controller: Jordan Aponte MD Potassium [Moles/Vol] 3.8 mmol/L Normal 3.7-5.3 [facility] Comment on above: Performed By: #### M Ev, CDP, BMPX, DAVID #### [facility] [address] [place] [address] Plant Controller: Jordan Aponte MD Sodium [Moles/Vol] 138 mmol/L Normal 136-145 [facility] Comment on above: Performed By: #### M Ev, CDP, BMPX, DAVID #### [facility] [address] [place] [address] Plant Controller: Jordan Aponte MD Urea nitrogen [Mass/Vol] 6 mg/dL Low 8-23 [facility] Comment on above: Performed By: #### M G, CDP, BMPX, DAVID #### [facility] [address] [place] [address] Plant Controller: Jordan Aponte MD CBCon 06-22-2024 Erythrocyte distribution width (RBC) [Ratio] 11.3 % Low 11.8 - 14.4 % [facility] Hematocrit (Bld) [Volume fraction] 41.9 % 40.7 - 50.3 % [facility] Hemoglobin (Bld) [Mass/Vol] 14.1 g/dL 13.0 - 17.0 g/dL [facility] Interpretation and review of laboratory results Abnormal [facility] MCH (RBC) [Entitic mass] 32.0 pg 25. 2 - 33.5 pg [facility] MCHC (RBC) [Mass/Vol] 33.7 g/dL 28.4 - 34.8 g/dL [facility] MCV (RBC) [Entitic vol] 95.0 fL 82.6 - 102.9 fL [facility] Nucleated RBC/100 WBC (Bld) [Ratio] 0.0 % 0.0 per 100 WBC [facility] Platelet mean volume (Bld) [Entitic vol] 10.1 fL 8.1 - 13.5 fL [facility] Platelets (Bld) [#/Vol] 224 10*3/uL [facility] RBC (Bld) [#/Vol] 4.41 10*6/uL 4.21 - 5.7 7 m/uL [facility] WBC other (Bld) [#/Vol] 5.9 B on [facility] Erythrocyte distribution width (RBC) [Ratio] 11.3 % Low 11.8-14.4 [facility] Comment on above: Performed By: #### M Ev CDP, BMPX, DAVID #### [email or web address] [address] [place] [address] Plant Controller: Jordan Aponte MD Hematocrit (Bld) [Volume fraction] 41.9 % Normal 40.7-50.3 [facility] Comment on above: Performed By: #### Michelle Carreno, CDP, BMPX, DAVID #### [email or web address] [address] [place] [address] [phone] Plant Controller: Jordan Aponte MD Hemoglobin (Bld) [Mass/Vol] 14.1 g/dL Normal 13.0-17.0 [facility] Comment on above: Performed By: #### M G, CDP, BMPX, DAVID #### [email or web address] [address] [place] [address] Plant Controller: Jordan Aponte MD MCH (RBC) [Entitic mass] 32.0 pg Normal 25.2-33.5 [facility] Comment on above: Performed By: #### M G, CDP, BMPX, DAVID #### [address] [address] Plant Controller: Jordan Aponte MD MCHC (RBC) [Mass/Vol] 33.7 g/dL Normal 28.4-34.8 [facility] Comment on above: Performed By: #### M Ev, CDP, BMPX, DAVID #### [address] [address] Plant Controller: Jordan Aponte MD MCV (RBC) [Entitic vol] 95.0 fL Normal 82.6-102.9 [facility] Comment on above: Performed By: #### M Ev, CDP, BMPX, DAVID #### [address] [address] Plant Controller: Jordan Aponte MD NRBC Automated 0.0 per 100 WBC Normal 0.0 [facility] Comment on above: Performed By: #### Michelle Carreno, CDP, BMPX, DAVID #### [address] [address] Plant Controller: Jordan Aponte MD Platelet mean volume (Bld) [Entitic vol] 10.1 fL Normal 8.1-13.5 [facility] Comment on above: Performed By: #### Michelle Carreno CDP, BMPX, DAVID #### [address] [address] Plant Controller: Jordan Aponte MD Platelets (Bld) [#/Vol] 224 10*3/uL Normal 138-453 [facility] Comment on above: Performed By: #### M G, CDP, BMPX, DAVID #### [address] [address] Plant Controller: Jordan Aponte MD RBC (Bld) [#/Vol] 4.41 10*6/uL Normal 4.21-5.77 [facility] Comment on above: Performed By: #### M G, CDP, BMPX, DAVID #### [facility] [address] [place], [place] [id number] Plant Controller: Jordan Aponte MD WBC (Bld) [#/Vol] 5.9 10*3/uL Normal 3.5-11.3 [facility] Comment on above: Performed By: #### M Ev, ENOC, BMPX, DAVID #### [facility] [address], [place] [phone] Plant Controller: Jordan Aponte MD CBC with Auto Differentialon 06-22-2024 Basophils (Bld) [#/Vol] 0.05 10*3/uL [facility] Basophils/100 WBC (Bld) 1 % 0 - 2 % [facility] Eosinophils (Bld) [#/Vol] 0.21 10*3/uL [facility] Eosinophils/100 WBC (Bld) 5 % High 1 - 4 % [facility] Erythrocyte distribution width (RBC) [Ratio] 11.5 % Low 11.8 - 14.4 % [facility] Hematocrit (Bld) [Volume fraction] 38.7 % Low 40.7 - 50.3 % [facility] Hemoglobin (Bld) [Mass/Vol] 13.1 g/dL 13.0 - 17.0 g/dL [facility] Immature granulocytes (Bld) [#/Vol] [facility] Immature granulocytes/100 WBC (Bld) 0 % 0 [facility] Interpretation and review of laboratory results Abnormal [facility] Lymphocytes/100 WBC (Bld) 22 % Low 24 - 43 % [facility] Lymphocytes/100 WBC (Bld) 0.89 % Low [facility] MCH (RBC) [Entitic mass] 31.8 pg 25. 2 - 33.5 pg [facility] MCHC (RBC) [Mass/Vol] 33.9 g/dL 28.4 - 34.8 g/dL [facility] MCV (RBC) [Entitic vol] 93.9 fL 82.6 - 102.9 fL [facility] Monocytes/100 WBC (Bld) 11 % 3 - 12 % B on [facility] Monocytes/100 WBC (Bld) 0.45 % B on [facility] Neutrophils/100 WBC (Bld) 61 % 36 - 65 % [facility] Nucleated RBC/100 WBC (Bld) [Ratio] 0.0 % 0.0 per 100 WBC [facility] Platelet mean volume (Bld) [Entitic vol] 10.1 fL 8.1 - 13.5 fL [facility] Platelets (Bld) [#/Vol] 217 10*3/uL [facility] RBC (Bld) [#/Vol] 4.12 10*6/uL Low 4.21 - 5.7 7 m/uL [facility] Segmented neutrophils/100 WBC (Bld) 2.49 % [facility] WBC other (Bld) [#/Vol] 4.1 B on [facility] CBC with Diffon 06-22-2024 Abs. Basophil 0.05 k/uL Normal 0.00-0.20 [facility] Comment on above: Performed By: #### Michelle Carreno, CDP, BMPX, DAVID #### [facility] [employer] [address] [place] [address] Plant Controller: Jordan Aponte MD Abs.Imm.Granulocyte <0.03 Normal 0.00-0.30 [facility] Comment on above: Performed By: #### M G, CDP, BMPX, DAVID #### [facility] [address] [place] [address] Plant Controller: Jordan Aponte MD Abs.Neutrophil (Seg) 2.49 k/uL Normal 1.50-8.10 [facility] Comment on above: Performed By: #### M G, CDP, BMPX, DAVID #### [facility] [employer] [address] [place] [address] Plant Controller: Jordan Aponte MD Basophils/100 WBC (Bld) 1 % Normal 0-2 M [facility] Comment on above: Performed By: #### M G, CDP, BMPX, DAVID #### [facility] [address] [place] [address] Plant Controller: Jordan Aponte MD Eosinophils (Bld) [#/Vol] 0.21 10*3/uL Normal 0.00-0.44 [facility] Comment on above: Performed By: #### M G, CDP, BMPX, DAVID #### [facility] [address] [place] [address] Plant Controller: Jordan Aponte MD Eosinophils/100 WBC (Bld) 5 % High 1-4 [facility] Comment on above: Performed By: #### M G, CDP, BMPX, DAVID #### [facility] [address] [place] [address] Plant Controller: Jordan Aponte MD Erythrocyte distribution width (RBC) [Ratio] 11.5 % Low 11.8-14.4 [facility] Comment on above: Performed By: #### M G, CDP, BMPX, DAVID #### [facility] [address] [place] [address] Plant Controller: Jordan Aponte MD Hematocrit (Bld) [Volume fraction] 38.7 % Low 40.7-50.3 [facility] Comment on above: Performed By: #### M G, CDP, BMPX, DAVID #### [facility] [address] [place] [address] Plant Controller: Jordan Aponte MD Hemoglobin (Bld) [Mass/Vol] 13.1 g/dL Normal 13.0-17.0 [facility] Comment on above: Performed By: #### M G, CDP, BMPX, DAVID #### [facility] [address] [place] [address] Plant Controller: Jordan Aponte MD Immature granulocytes/100 WBC (Bld) 0 % Normal 0 [facility] Comment on above: Performed By: #### M G, CDP, BMPX, DAVID #### [address] [address] Plant Controller: Jordan Aponte MD Lymphocytes (Bld) [#/Vol] 0.89 10*3/uL Low 1.10-3.70 [facility] Comment on above: Performed By: #### M G, CDP, BMPX, DAVID #### [address] [address] Plant Controller: Jordan Aponte MD Lymphocytes/100 WBC (Bld) 22 % Low 24-43 [facility] Comment on above: Performed By: #### M G, CDP, BMPX, DAVID #### [address] [address] Plant Controller: Jordan Aponte MD MCH (RBC) [Entitic mass] 31.8 pg Normal 25.2-33.5 [facility] Comment on above: Performed By: #### Michelle G, CDP, BMPX, DAVID #### [address] [address] Plant Controller: Jordan Aponte MD MCHC (RBC) [Mass/Vol] 33.9 g/dL Normal 28.4-34.8 [facility] Comment on above: Performed By: #### M G, CDP, BMPX, DAVID #### [address] [address] Plant Controller: Jordan Aponte MD MCV (RBC) [Entitic vol] 93.9 fL Normal 82.6-102.9 [facility] Comment on above: Performed By: #### M G, CDP, BMPX, DAVID #### [address] [address] Plant Controller: Jordan Aponte MD Monocytes (Bld) [#/Vol] 0.45 10*3/uL Normal 0.10-1.20 [facility] Comment on above: Performed By: #### M G, CDP, BMPX, DAVID #### [address] [address] Plant Controller: Jordan Aponte MD Monocytes/100 WBC (Bld) 11 % Normal 3-12 M [facility] Comment on above: Performed By: #### M G, CDP, BMPX, DAVID #### [address] [address] Plant Controller: Jordan Aponte MD Neutrophil (Seg) 61 % Normal 36-65 [facility] Comment on above: Performed By: #### M G, CDP, BMPX, DAVID #### [address] [address] Plant Controller: Jordan Aponte MD NRBC Automated 0.0 per 100 WBC Normal 0.0 [facility] Comment on above: Performed By: #### Michelle Carreno, CDP, BMPX, DAVID #### [address] [address] Plant Controller: Jordan Aponte MD Platelet mean volume (Bld) [Entitic vol] 10.1 fL Normal 8.1-13.5 [facility] Comment on above: Performed By: #### Michelle G, CDP, BMPX, DAVID #### [facility] [employer] [address] [place] [address] Plant Controller: Jordan Aponte MD Platelets (Bld) [#/Vol] 217 10*3/uL Normal 138-453 [facility] Comment on above: Performed By: #### M G, CDP, BMPX, DAVID #### [facility] [address] [place] [address] Plant Controller: Jordan Aponte MD RBC (Bld) [#/Vol] 4.12 10*6/uL Low 4.21-5.77 [facility] Comment on above: Performed By: #### M G, CDP, BMPX, DAVID #### [facility] [address] [place] [address] Plant Controller: Jordan Aponte MD WBC (Bld) [#/Vol] 4.1 10*3/uL Normal 3.5-11.3 [facility] Comment on above: Performed By: #### M G, CDP, BMPX, DAVID #### [facility] [address] [place] [address] Plant Controller: Jordan Aponte MD EKG 12 LeadOrdered By: Jaime Alas on 06-22-2024 Atrial Rate 76 BPM [employer] Work Phone: P [place] 42 degrees [employer] Work Phone: P-R Interval 134 ms [employer] Work Phone: Q-T Interval 406 ms [employer] Work Phone: QRS Duration 86 ms [employer] Work Phone: QTc Calculation (Bazett) 456 ms [employer] Work Phone: R [place] 10 degrees [employer] Work Phone: T [place] 29 degrees [employer] Work Phone: Ventricular Rate 76 BPM [employer] Work Phone: [employer] Work Phone: EKG 12 Leadon 06-22-2024 Normal sinus rhythm Normal ECG No previous ECGs available [facility] Jaime Mercedes MD - 06/22/2024 Normal sinus rhythm Normal ECG No previous ECGs available [employer] Magnesiumon 06-22-2024 Magnesium [Mass/Vol] 1.9 mg/dL 1.6 - 2 .4 mg/dL [employer] Magnesium [Mass/Vol] 1.9 mg/dL Normal 1.6-2.4 [facility] Comment on above: Performed By: #### ENOC Alatorre BMPX, DAVID #### [email or web address] [address], [place] [phone] Plant Controller: Jordan Aponte MD Magnesium [Mass/Vol] 1.9 mg/dL 1.6 - 2 .4 mg/dL [facility] Magnesium [Mass/Vol] 1.9 mg/dL Normal 1.6-2.4 [facility] Comment on above: Performed By: #### ENOC Alatorre BMPX, DAVID #### [email or web address] [address] [place] [address] [phone] Plant Controller: Jordan Aponte MD No Panel Informationon 06-22 [facility] PTon 06-22-2024 INR Coag (PPP) [Relative time] 1.0 {INR} Normal [facility] Comment on above: Result Comment: Therapeutic Range: Moderate Anticoagulant Intensity: INR = 2.0-3.0 High Anticoagulant Intensity: INR = 2.5-3.5 Performed By: #### ENOC Alatorre BMPX, DAVID #### [email or web address] [address] [place] [address] [phone] Plant Controller: Jordan Aponte MD PT Coag (PPP) [Time] 13.4 s Normal 11.7-14.9 [facility] Comment on above: Performed By: #### ENOC Alatorre BMPX, DAVID #### [facility] [address], [place] [phone] Plant Controller: Jordan Aponte MD Phosphoruson 06-22-2024 Phosphate [Mass/Vol] 3.2 mg/dL 2.5 - 4 .5 mg/dL [facility] Phosphate [Mass/Vol] 3.0 mg/dL 2.5 - 4 .5 mg/dL [facility] Phosphorus, Inorg.on 024 Phosphorus, Inorg. 3.2 mg/dL Normal 2.5-4.5 [facility] Comment on above: Performed By: #### ENOC Alatorre BMPX, DAVID #### [email or web address] [address] [place] [address] Plant Controller: Jordan Aponte MD Phosphorus, Inorg. 3.0 mg/dL Normal 2.5-4.5 [facility] Comment on above: Performed By: #### ENOC Alatorre BMPX, DAVID #### [email or web address] [address] [place] [address] Plant Controller: Jordan Aponte MD Protime-INRon 06-22-2024 INR Coag (PPP) [Relative time] 1.0 {INR} [facility] Comment on above: Therapeutic Range: Moderate Anticoagulant Intensity: INR = 2.0-3.0 High Anticoagulant Intensity: INR = 2.5-3.5 PT Coag (PPP) [Time] 13.4 s [facility] APTTon 06-21-2024 aPTT Coag (Bld) [Time] 24.8 s [facility] Comment on above: IV Heparin Therapy Range: 66.0-92.0 sec aPTT Coag (Bld) [Time] 24.8 s Normal 23.0-36.5 [facility] Comment on above: Result Comment: IV Heparin Therapy Range: 66.0-92.0 sec Performed By: #### ENOC Alatorre BMPX, DAVID #### [email or web address] [address] [place] [address] Plant Controller: Jordan Aponte MD BLOOD BANK SPECIMENon 2023 [facility] Basic Metab w/rfx MGon 06-21 Anion gap [Moles/Vol] 10 mmol/L Normal 9-16 [facility] Comment on above: Performed By: #### ENOC Alatorre BMPX, DAVID #### [email or web address] [address] [place] [address] Plant Controller: Jordan Aponte MD Calcium [Mass/Vol] 8.9 mg/dL Normal 8.6-10.4 [facility] Comment on above: Performed By: #### M G, CDP, BMPX, DAVID #### [facility] [employer] [address] [place] [address] Plant Controller: Jordan Aponte MD Chloride [Moles/Vol] 105 mmol/L Normal 98-107 [facility] Comment on above: Performed By: #### M G, CDP, BMPX, DAVID #### [facility] [address] [place] [address] Plant Controller: Jordan Aponte MD CO2 [Moles/Vol] 24 mmol/L Normal 20-31 [facility] Comment on above: Performed By: #### M G, CDP, BMPX, DAVID #### [facility] [address] [place] [address] Plant Controller: Jordan Aponte MD Creatinine [Mass/Vol] 0.8 mg/dL Normal 0.7-1.2 [facility] Comment on above: Performed By: #### M G, CDP, BMPX, DAVID #### [facility] [address] [place] [address] Plant Controller: Jordan Aponte MD GFR/1.73 sq M.predicted among non-blacks MDRD (S/P/Bld) [Vol rate/Area] mL/min/{1.73_m2} Normal >60 [facility] Comment on above: Result Comment: These results are not intended for use in patients <18 years of age. eGFR results are calculated without a race factor using the 2020 CKD-EPI equation. Careful clinical correlation is recommended, particularly when comparing to results calculated using previous equations. The CKD-EPI equation is less accurate in patients with extremes of muscle mass, extra-renal metabolism of creatine, excessive creatine ingestion, or following therapy that affects renal tubular secretion. Performed By: #### M G, CDP, BMPX, DAVID #### [facility] [address] [place] [address] Plant Controller: Jordan Aponte MD Glucose [Mass/Vol] 106 mg/dL High 74-99 [facility] Comment on above: Performed By: #### Michelle G, CDP, BMPX, DAVID #### [facility] [address] [place] [address] Plant Controller: Jordan Aponte MD Potassium [Moles/Vol] 3.9 mmol/L Normal 3.7-5.3 [facility] Comment on above: Performed By: #### Michelle Carreno, CDP, BMPX, DAVID #### [facility] [address] [place] [address] Plant Controller: Jordan Aponte MD Sodium [Moles/Vol] 139 mmol/L Normal 136-145 [facility] Comment on above: Performed By: #### Michelle Carreno, CDP, BMPX, DAVID #### [facility] [address] [place] [address] Plant Controller: Jordan Aponte MD Urea nitrogen [Mass/Vol] 7 mg/dL Low 8-23 [facility] Comment on above: Performed By: #### Michelle Carreno, CDP, BMPX, DAVID #### [facility] [address] [place] [address] [phone] Plant Controller: Jordan Aponte MD Basic Metabolic Panel w/ Ref isaias to MGon 06-21-2024 Anion gap [Moles/Vol] 10 mmol/L 9 - 16 mmol/L [facility] Calcium [Mass/Vol] 8.9 mg/dL 8.6 - 10. 4 mg/dL [facility] Chloride [Moles/Vol] 105 mmol/L 98 - 10 7 mmol/L [facility] CO2 [Moles/Vol] 24 mmol/L 20 - 31 mmol/L [facility] Creatinine [Mass/Vol] 0.8 mg/dL 0.7 - 1.2 mg/dL [facility] EstDenice Rate - PINF [facility] Comment on above: These results are not intended for use in patients <18 years of age. eGFR results are calculated without a race factor using the 2020 CKD-EPI equation. Careful clinical correlation is recommended, particularly when comparing to results calculated using previous equations. The CKD-EPI equation is less accurate in patients with extremes of muscle mass, extra-renal metabolism of creatine, excessive creatine ingestion, or following therapy that affects renal tubular secretion. Glucose [Mass/Vol] 106 mg/dL High 74 - 99 mg/dL [facility] Interpretation and review of laboratory results Abnormal [facility] Potassium [Moles/Vol] 3.9 mmol/L 3.7 - 5.3 mmol/L [facility] Sodium [Moles/Vol] 139 mmol/L 136 - 145 mmol/L [facility] Urea nitrogen [Mass/Vol] 7 mg/dL Low 8 - 23 mg/d L [facility] CBC with Auto Differentialon 06-21-2024 Basophils (Bld) [#/Vol] 0.05 10*3/uL [facility] Basophils/100 WBC (Bld) 1 % 0 - 2 % B [facility] Eosinophils (Bld) [#/Vol] 0.22 10*3/uL [facility] Eosinophils/100 WBC (Bld) 5 % High 1 - 4 % [facility] Erythrocyte distribution width (RBC) [Ratio] 11.3 % Low 11.8 - 14.4 % [facility] Hematocrit (Bld) [Volume fraction] 39.7 % Low 40.7 - 50.3 % [facility] Hemoglobin (Bld) [Mass/Vol] 13.7 g/dL 13.0 - 17.0 g/dL [facility] Immature granulocytes (Bld) [#/Vol] [facility] Immature granulocytes/100 WBC (Bld) 0 % 0 [facility] Interpretation and review of laboratory results Abnormal [facility] Lymphocytes/100 WBC (Bld) 22 % Low 24 - 43 % [facility] Lymphocytes/100 WBC (Bld) 0.96 % Low [facility] MCH (RBC) [Entitic mass] 32.3 pg 25. 2 - 33.5 pg [facility] MCHC (RBC) [Mass/Vol] 34.5 g/dL 28.4 - 34.8 g/dL [facility] MCV (RBC) [Entitic vol] 93.6 fL 82.6 - 102.9 fL [facility] Monocytes/100 WBC (Bld) 13 % High 3 - 12 % B on [facility] Monocytes/100 WBC (Bld) 0.55 % B on [facility] Neutrophils/100 WBC (Bld) 59 % 36 - 65 % [facility] Nucleated RBC/100 WBC (Bld) [Ratio] 0.0 % 0.0 per 100 WBC [facility] Platelet mean volume (Bld) [Entitic vol] 9.6 fL 8.1 - 13.5 fL [facility] Platelets (Bld) [#/Vol] 211 10*3/uL [facility] RBC (Bld) [#/Vol] 4.24 10*6/uL 4.21 - 5.7 7 m/uL [facility] Segmented neutrophils/100 WBC (Bld) 2.57 % [facility] WBC other (Bld) [#/Vol] 4.4 B on [facility] CBC with Diffon 06-21-2024 Abs. Basophil 0.05 k/uL Normal 0.00-0.20 [facility] Comment on above: Performed By: #### M Ev, CDP, BMPX, DAVID #### [email or web address] [address] [place] [address] [phone] Plant Controller: Jordan Aponte MD Abs.Imm.Granulocyte <0.03 Normal 0.00-0.30 [facility] Comment on above: Performed By: #### M G, CDP, BMPX, DAVID #### [email or web address] [address], [place] [phone] Plant Controller: Jordan Aponte MD Abs.Neutrophil (Seg) 2.57 k/uL Normal 1.50-8.10 [facility] Comment on above: Performed By: #### M G, CDP, BMPX, DAVID #### [facility] [employer] [address] [place] [address] Plant Controller: Jordan Aponte MD Basophils/100 WBC (Bld) 1 % Normal 0-2 [facility] Comment on above: Performed By: #### M G, CDP, BMPX, DAVID #### [facility] [employer] [address] [place] [address] Plant Controller: Jordan Aponte MD Eosinophils (Bld) [#/Vol] 0.22 10*3/uL Normal 0.00-0.44 [facility] Comment on above: Performed By: #### M G, CDP, BMPX, DAVID #### [address] [address] Plant Controller: Jordan Aponte MD Eosinophils/100 WBC (Bld) 5 % High 1-4 [facility] Comment on above: Performed By: #### M G, CDP, BMPX, DAVID #### [facility] [employer] [address] [place] [address] Plant Controller: Jordan Aponte MD Erythrocyte distribution width (RBC) [Ratio] 11.3 % Low 11.8-14.4 [facility] Comment on above: Performed By: #### M G, CDP, BMPX, DAVID #### [facility] [employer] [address] [place] [id number] Plant Controller: Jordan Aponte MD Hematocrit (Bld) [Volume fraction] 39.7 % Low 40.7-50.3 [facility] Comment on above: Performed By: #### M G, CDP, BMPX, DAVID #### [facility] [employer] [address] [place] [id number] Plant Controller: Jordan Aponte MD Hemoglobin (Bld) [Mass/Vol] 13.7 g/dL Normal 13.0-17.0 [facility] Comment on above: Performed By: #### M G, CDP, BMPX, DAVID #### [address] [address] Plant Controller: Jordan Aponte MD Immature granulocytes/100 WBC (Bld) 0 % Normal 0 [facility] Comment on above: Performed By: #### M G, CDP, BMPX, DAVID #### [address] [address] Plant Controller: Jordan Aponte MD Lymphocytes (Bld) [#/Vol] 0.96 10*3/uL Low 1.10-3.70 [facility] Comment on above: Performed By: #### M G, CDP, BMPX, DAVID #### [address] [address] Plant Controller: Jordan Aponte MD Lymphocytes/100 WBC (Bld) 22 % Low 24-43 [facility] Comment on above: Performed By: #### M G, CDP, BMPX, DAVID #### [address] [address] Plant Controller: Jordan Aponte MD MCH (RBC) [Entitic mass] 32.3 pg Normal 25.2-33.5 [facility] Comment on above: Performed By: #### M G, CDP, BMPX, DAVID #### [address] [address] Plant Controller: Jordan Aponte MD MCHC (RBC) [Mass/Vol] 34.5 g/dL Normal 28.4-34.8 [facility] Comment on above: Performed By: #### M G, CDP, BMPX, DAVID #### [facility] [employer] [address] [place] [address] Plant Controller: Jordan Aponte MD MCV (RBC) [Entitic vol] 93.6 fL Normal 82.6-102.9 [facility] Comment on above: Performed By: #### M G, CDP, BMPX, DAVID #### [address] [address] Plant Controller: Jordan Aponte MD Monocytes (Bld) [#/Vol] 0.55 10*3/uL Normal 0.10-1.20 [facility] Comment on above: Performed By: #### M G, CDP, BMPX, DAVID #### [address] [address] Plant Controller: Jordan Aponte MD Monocytes/100 WBC (Bld) 13 % High 3-12 [facility] Comment on above: Performed By: #### Michelle G, CDP, BMPX, DAVID #### [address] [address] Plant Controller: Jordan Aponte MD Neutrophil (Seg) 59 % Normal 36-65 [facility] Comment on above: Performed By: #### M G, CDP, BMPX, DAVID #### [address] [address] Plant Controller: Jordan Aponte MD NRBC Automated 0.0 per 100 WBC Normal 0.0 [facility] Comment on above: Performed By: #### M G, CDP, BMPX, DAVID #### [address] [address] Plant Controller: Jordan Aponte MD Platelet mean volume (Bld) [Entitic vol] 9.6 fL Normal 8.1-13.5 [facility] Comment on above: Performed By: #### M G, CDP, BMPX, DAVID #### [address] [address] Plant Controller: Jordan Aponte MD Platelets (Bld) [#/Vol] 211 10*3/uL Normal 138-453 [facility] Comment on above: Performed By: #### M G, CDP, BMPX, DAVID #### [facility] [address] [place] [address] Plant Controller: Jordan Aponte MD RBC (Bld) [#/Vol] 4.24 10*6/uL Normal 4.21-5.77 [facility] Comment on above: Performed By: #### M G, CDP, BMPX, DAVID #### [facility] [address] [place] [address] Plant Controller: Jordan Aponte MD WBC (Bld) [#/Vol] 4.4 10*3/uL Normal 3.5-11.3 [facility] Comment on above: Performed By: #### M Ev, CDP, BMPX, DAVID #### [facility] [address] [place] [address] Plant Controller: Jordan Aponte MD Magnesiumon 06-21-2024 Magnesium [Mass/Vol] 2.2 mg/dL 1.6 - 2 .4 mg/dL [facility] Magnesium [Mass/Vol] 2.2 mg/dL Normal 1.6-2.4 [facility] Comment on above: Performed By: #### M G, BMPX, CDP, DAVID #### [facility] [address] [place] [id number] Plant Controller: Jordan Aponte MD No Panel Informationon 06-21 [facility] PTon 06-21-2024 INR Coag (PPP) [Relative time] 1.0 {INR} Normal [facility] Comment on above: Result Comment: Therapeutic Range: Moderate Anticoagulant Intensity: INR = 2.0-3.0 High Anticoagulant Intensity: INR = 2.5-3.5 Performed By: #### M G, CDP, BMPX, DAVID #### [facility] [employer] [address] [place] [id number] Plant Controller: Jordan Aponte MD PT Coag (PPP) [Time] 13.2 s Normal 11.7-14.9 [facility] Comment on above: Performed By: #### M ENOC Carreno, BMPX, DAVID #### [facility] [address] [place], [place] [address] Plant Controller: Jordan Aponte MD Phosphoruson 06-21-2024 Phosphate [Mass/Vol] 3.0 mg/dL 2.5 - 4 .5 mg/dL [facility] Phosphorus, Inorg.on 024 Phosphorus, Inorg. 3.0 mg/dL Normal 2.5-4.5 [facility] Comment on above: Performed By: #### ANITA Alatorre CDP, DAVID #### [email or web address] [address] [place] [address] Plant Controller: Jordan Aponte MD Protime-INRon 06-21-2024 INR Coag (PPP) [Relative time] 1.0 {INR} [facility] Comment on above: Therapeutic Range: Moderate Anticoagulant Intensity: INR = 2.0-3.0 High Anticoagulant Intensity: INR = 2.5-3.5 PT Coag (PPP) [Time] 13.2 s [facility] TYPE AND SCREENon 06-21-2024 ABO and Rh group Nom (Bld) Blood group O Rh(D) positive [facility] Arm Band Number [id number] [facility] Blood Bank Sample Expiration 06/24/2024,2357 [facility] Blood group antibodies identified Nom Negative [facility] Type + Screenon 06-21-2024 Type + Screen Sample Expiration 06/24/2024,2358 Arm Band Number BE [id number] ABO/Rh(D) O POSITIVE Antibody Screen NEGATIVE Normal [facility] Comment on above: Performed By: #### T YS #### [email or web address] [address] [place] [address] [id number] Plant Controller: Jordan Apotne MD XR CHEST (SINGLE VIEW FRONTA L)on 06-21-2024 XR CHEST (SINGLE VIEW FRONTAL) EXAMINATION: ONE XRAY VIEW OF THE CHEST 06/21/2024 5:09 pm COMPARISON: None. HISTORY: ORDERING SYSTEM PROVIDED HISTORY: pre-op TECHNOLOGIST PROVIDED HISTORY: pre-op FINDINGS: The heart is normal size. There is no focal pulmonary consolidation. There is no pleural effusion or pneumothorax. No displaced rib fracture is identified radiographically. IMPRESSION: No acute cardiopulmonary findings. Interpreted by: Randy Naranjo MD Signed by: Randy Naranjo MD 06/21/24 Final result Normal [facility] No acute cardiopulmonary findings. [facility] EXAMINATION: ONE XRAY VIEW OF THE CHEST 06/21/2024 5:09 pm COMPARISON: None. HISTORY: ORDERING SYSTEM PROVIDED HISTORY: pre-op TECHNOLOGIST PROVIDED HISTORY: pre-op FINDINGS: The heart is normal size. There is no focal pulmonary consolidation. There is no pleural effusion or pneumothorax. No displaced rib fracture is identified radiographically. [facility] Randy Naranjo MD - 06/21/2024 EXAMINATION: ONE XRAY VIEW OF THE CHEST 06/21/2024 5:09 pm COMPARISON: None. HISTORY: ORDERING SYSTEM PROVIDED HISTORY: pre-op TECHNOLOGIST PROVIDED HISTORY: pre-op FINDINGS: The heart is normal size. There is no focal pulmonary consolidation. There is no pleural effusion or pneumothorax. No displaced rib fracture is identified radiographically. IMPRESSION: No acute cardiopulmonary findings. [facility] Radiology Study observation (narrative) [facility] CT CERVICAL SPINE WO CONTRAS Ton 06-20-2024 CT CERVICAL SPINE WO CONTRAST ADDENDUM: Critical findings discussed with Dr. Stovall at 10:18 p.m.. He expressed understanding results. Electronically Signed by: GUERO NOYOLA on SunJun 20, 2024 10:31:28 PM EST EXAMINATION: CT OF THE HEAD WITHOUT CONTRAST; CT OF THE CERVICAL SPINE WITHOUT CONTRAST 06/20/2024 9:00 pm TECHNIQUE: CT of the head was performed without the administration of intravenous contrast. Automated exposure control, iterative reconstruction, and/or weight based adjustment of the mA/kV was utilized to reduce the radiation dose to as low as reasonably achievable.; CT of the cervical spine was performed without the administration of intravenous contrast. Multiplanar reformatted images are provided for review. Automated exposure control, iterative reconstruction, and/or weight based adjustment of the mA/kV was utilized to reduce the radiation dose to as low as reasonably achievable. COMPARISON: None. HISTORY: ORDERING SYSTEM PROVIDED HISTORY: trauma TECHNOLOGIST PROVIDED HISTORY: trauma; ORDERING SYSTEM PROVIDED HISTORY: Cervical midline tenderness. TECHNOLOGIST PROVIDED HISTORY: Cervical midline tenderness. Decision Support Exception - unselect if not a suspected or confirmed emergency medical condition->Emergenc y Medical Condition (MA) FINDINGS: BRAIN/VENTRICLES: Large subdural collection about the right lateral convexity, extending anterior to posterior. The collection measures approximately 3 cm in thickness. The collections demonstrates diffuse heterogeneity, which may represent a component of acute on chronic hemorrhage. There is associated sulcal effacement of the right lateral convexity to include the right frontal, temporal, and parietal lobes. There is approximately 8 mm of right to left midline shift. Narrowing of the basal cisterns bilaterally. ORBITS: The visualized portion of the orbits demonstrate no acute abnormality. SINUSES: The visualized paranasal sinuses and mastoid air cells demonstrate no acute abnormality. SOFT TISSUES/SKULL: No acute abnormality of the visualized skull or soft tissues. CERVICAL SPINE BONES/ALIGNMENT: There is no acute fracture or traumatic malalignment. DEGENERATIVE CHANGES: Mild disc space narrowing at C6-C7 with associated endplate sclerosis and marginal osteophyte formation. Varying degrees of facet arthrosis are noted at multiple cervical spinal levels. SOFT TISSUES: There is no prevertebral soft tissue swelling. IMPRESSION: 1. Large subdural collection about the right lateral convexity, extending anterior to posterior. The collection measures approximately 3 cm in thickness. The heterogeneous appearance of the collection suggests component of acute on chronic subdural hemorrhage. There is associated sulcal effacement of the right cerebral hemisphere to include the right frontal, temporal, and parietal lobes. There is approximately 8 mm of right to left midline shift and narrowing of the basal cisterns bilaterally. 2. No acute osseous abnormality of the cervical spine. Interpreted by: Guero Noyola MD Signed by: Guero Noyola MD 06/20/24 Edited Result - FINAL Normal [facility] CT CHEST ABDOMEN PELVIS W CO NTRASTon 06-20-2024 CT CHEST ABDOMEN PELVIS W CONTRAST EXAMINATION: CT OF THE CHEST, ABDOMEN, AND PELVIS WITH CONTRAST; CT OF THE THORACIC SPINE WITHOUT CONTRAST; CT OF THE LUMBAR SPINE WITHOUT CONTRAST 06/20/2024 9:00 pm TECHNIQUE: CT of the chest, abdomen and pelvis was performed with the administration of intravenous contrast. Multiplanar reformatted images are provided for review. Automated exposure control, iterative reconstruction, and/or weight based adjustment of the mA/kV was utilized to reduce the radiation dose to as low as reasonably achievable.; CT of the thoracic spine was performed without the administration of intravenous contrast. Multiplanar reformatted images are provided for review. Automated exposure control, iterative reconstruction, and/or weight based adjustment of the mA/kV was utilized to reduce the radiation dose to as low as reasonably achievable.; CT of the lumbar spine was performed without the administration of intravenous contrast. Multiplanar reformatted images are provided for review. Adjustment of mA and/or kV according to patient size was utilized. Automated exposure control, iterative reconstruction, and/or weight based adjustment of the mA/kV was utilized to reduce the radiation dose to as low as reasonably achievable. COMPARISON: None HISTORY: ORDERING SYSTEM PROVIDED HISTORY: trauma TECHNOLOGIST PROVIDED HISTORY: trauma FINDINGS: CHEST: Vasculature: Normal caliber thoracic aorta and pulmonary artery. Mediastinum: No evidence of mediastinal lymphadenopathy. The heart and pericardium demonstrate no acute abnormality. Lungs/Pleura: The lungs are without acute process. No focal consolidation or pulmonary edema. No evidence of pleural effusion or pneumothorax. Soft Tissues/Bones: There are questionable nondisplaced fractures of the right posterolateral 9th and 10th ribs. Otherwise no acute fracture is identified. Normal chest wall soft tissues. Normal visualized thyroid gland. ABDOMEN/PELVIS: Organs: No acute abnormality of the liver, gallbladder, spleen, pancreas, or adrenal glands are identified. Normal symmetric renal enhancement. No evidence of hydronephrosis or renal calculi. GI/Bowel: No evidence of bowel obstruction or abnormal wall thickening. No focal inflammatory changes are identified. Normal caliber appendix. Peritoneum/Retroper itoneum: No evidence of intraperitoneal free air or ascites. No suspicious lymphadenopathy is identified. Normal caliber abdominal aorta. Pelvis: Normal visualized bladder prostate gland. Bones/Soft Tissues: No acute fracture is identified. Unremarkable abdominal wall soft tissues. THORACIC/LUMBAR SPINE: BONES/ALIGNMENT: Thoracolumbar alignment and curvature is maintained. No acute fracture or subluxation is identified. Vertebral body heights are preserved. DEGENERATIVE CHANGES: Mild scattered degenerative endplate changes, without significant disc space narrowing. SOFT TISSUES: Within normal limits. IMPRESSION: 1. No acute visceral injury of the chest, abdomen, or pelvis is identified. 2. Questionable nondisplaced fractures of the right posterolateral 9th and 10th ribs. Correlation for tenderness in this region is recommended. 3. No acute fracture or subluxation of the thoracolumbar spine is identified. Interpreted by: Randy Naranjo MD Signed by: Randy Naranjo MD 06/20/24 Final result Normal [facility] CT HEAD WO CONTRASTon 2023 CT HEAD WO CONTRAST ADDENDUM: Critical findings discussed with Dr. Stovall at 10:18 p.m.. He expressed understanding results. Electronically Signed by: GUERO NOYOLA on SunJun 20, 2024 10:31:27 PM EST EXAMINATION: CT OF THE HEAD WITHOUT CONTRAST; CT OF THE CERVICAL SPINE WITHOUT CONTRAST 06/20/2024 9:00 pm TECHNIQUE: CT of the head was performed without the administration of intravenous contrast. Automated exposure control, iterative reconstruction, and/or weight based adjustment of the mA/kV was utilized to reduce the radiation dose to as low as reasonably achievable.; CT of the cervical spine was performed without the administration of intravenous contrast. Multiplanar reformatted images are provided for review. Automated exposure control, iterative reconstruction, and/or weight based adjustment of the mA/kV was utilized to reduce the radiation dose to as low as reasonably achievable. COMPARISON: None. HISTORY: ORDERING SYSTEM PROVIDED HISTORY: trauma TECHNOLOGIST PROVIDED HISTORY: trauma; ORDERING SYSTEM PROVIDED HISTORY: Cervical midline tenderness. TECHNOLOGIST PROVIDED HISTORY: Cervical midline tenderness. Decision Support Exception - unselect if not a suspected or confirmed emergency medical condition->Emergenc y Medical Condition (MA) FINDINGS: BRAIN/VENTRICLES: Large subdural collection about the right lateral convexity, extending anterior to posterior. The collection measures approximately 3 cm in thickness. The collections demonstrates diffuse heterogeneity, which may represent a component of acute on chronic hemorrhage. There is associated sulcal effacement of the right lateral convexity to include the right frontal, temporal, and parietal lobes. There is approximately 8 mm of right to left midline shift. Narrowing of the basal cisterns bilaterally. ORBITS: The visualized portion of the orbits demonstrate no acute abnormality. SINUSES: The visualized paranasal sinuses and mastoid air cells demonstrate no acute abnormality. SOFT TISSUES/SKULL: No acute abnormality of the visualized skull or soft tissues. CERVICAL SPINE BONES/ALIGNMENT: There is no acute fracture or traumatic malalignment. DEGENERATIVE CHANGES: Mild disc space narrowing at C6-C7 with associated endplate sclerosis and marginal osteophyte formation. Varying degrees of facet arthrosis are noted at multiple cervical spinal levels. SOFT TISSUES: There is no prevertebral soft tissue swelling. IMPRESSION: 1. Large subdural collection about the right lateral convexity, extending anterior to posterior. The collection measures approximately 3 cm in thickness. The heterogeneous appearance of the collection suggests component of acute on chronic subdural hemorrhage. There is associated sulcal effacement of the right cerebral hemisphere to include the right frontal, temporal, and parietal lobes. There is approximately 8 mm of right to left midline shift and narrowing of the basal cisterns bilaterally. 2. No acute osseous abnormality of the cervical spine. Interpreted by: Guero Noyola MD Signed by: Guero Noyola MD 06/20/24 Edited Result - FINAL Normal [facility] CT LUMBAR SPINE BONY RECONST RUCTIONon 06-20-2024 CT LUMBAR SPINE BONY RECONSTRUCTION EXAMINATION: CT OF THE CHEST, ABDOMEN, AND PELVIS WITH CONTRAST; CT OF THE THORACIC SPINE WITHOUT CONTRAST; CT OF THE LUMBAR SPINE WITHOUT CONTRAST 06/20/2024 9:00 pm TECHNIQUE: CT of the chest, abdomen and pelvis was performed with the administration of intravenous contrast. Multiplanar reformatted images are provided for review. Automated exposure control, iterative reconstruction, and/or weight based adjustment of the mA/kV was utilized to reduce the radiation dose to as low as reasonably achievable.; CT of the thoracic spine was performed without the administration of intravenous contrast. Multiplanar reformatted images are provided for review. Automated exposure control, iterative reconstruction, and/or weight based adjustment of the mA/kV was utilized to reduce the radiation dose to as low as reasonably achievable.; CT of the lumbar spine was performed without the administration of intravenous contrast. Multiplanar reformatted images are provided for review. Adjustment of mA and/or kV according to patient size was utilized. Automated exposure control, iterative reconstruction, and/or weight based adjustment of the mA/kV was utilized to reduce the radiation dose to as low as reasonably achievable. COMPARISON: None HISTORY: ORDERING SYSTEM PROVIDED HISTORY: trauma TECHNOLOGIST PROVIDED HISTORY: trauma FINDINGS: CHEST: Vasculature: Normal caliber thoracic aorta and pulmonary artery. Mediastinum: No evidence of mediastinal lymphadenopathy. The heart and pericardium demonstrate no acute abnormality. Lungs/Pleura: The lungs are without acute process. No focal consolidation or pulmonary edema. No evidence of pleural effusion or pneumothorax. Soft Tissues/Bones: There are questionable nondisplaced fractures of the right posterolateral 9th and 10th ribs. Otherwise no acute fracture is identified. Normal chest wall soft tissues. Normal visualized thyroid gland. ABDOMEN/PELVIS: Organs: No acute abnormality of the liver, gallbladder, spleen, pancreas, or adrenal glands are identified. Normal symmetric renal enhancement. No evidence of hydronephrosis or renal calculi. GI/Bowel: No evidence of bowel obstruction or abnormal wall thickening. No focal inflammatory changes are identified. Normal caliber appendix. Peritoneum/Retroper itoneum: No evidence of intraperitoneal free air or ascites. No suspicious lymphadenopathy is identified. Normal caliber abdominal aorta. Pelvis: Normal visualized bladder prostate gland. Bones/Soft Tissues: No acute fracture is identified. Unremarkable abdominal wall soft tissues. THORACIC/LUMBAR SPINE: BONES/ALIGNMENT: Thoracolumbar alignment and curvature is maintained. No acute fracture or subluxation is identified. Vertebral body heights are preserved. DEGENERATIVE CHANGES: Mild scattered degenerative endplate changes, without significant disc space narrowing. SOFT TISSUES: Within normal limits. IMPRESSION: 1. No acute visceral injury of the chest, abdomen, or pelvis is identified. 2. Questionable nondisplaced fractures of the right posterolateral 9th and 10th ribs. Correlation for tenderness in this region is recommended. 3. No acute fracture or subluxation of the thoracolumbar spine is identified. Interpreted by: Randy Naranjo MD Signed by: Randy Naranjo MD 06/20/24 Final result Normal [facility] CT THORACIC SPINE BONY RECON STRUCTIONon 06-20-2024 CT THORACIC SPINE BONY RECONSTRUCTION EXAMINATION: CT OF THE CHEST, ABDOMEN, AND PELVIS WITH CONTRAST; CT OF THE THORACIC SPINE WITHOUT CONTRAST; CT OF THE LUMBAR SPINE WITHOUT CONTRAST 06/20/2024 9:00 pm TECHNIQUE: CT of the chest, abdomen and pelvis was performed with the administration of intravenous contrast. Multiplanar reformatted images are provided for review. Automated exposure control, iterative reconstruction, and/or weight based adjustment of the mA/kV was utilized to reduce the radiation dose to as low as reasonably achievable.; CT of the thoracic spine was performed without the administration of intravenous contrast. Multiplanar reformatted images are provided for review. Automated exposure control, iterative reconstruction, and/or weight based adjustment of the mA/kV was utilized to reduce the radiation dose to as low as reasonably achievable.; CT of the lumbar spine was performed without the administration of intravenous contrast. Multiplanar reformatted images are provided for review. Adjustment of mA and/or kV according to patient size was utilized. Automated exposure control, iterative reconstruction, and/or weight based adjustment of the mA/kV was utilized to reduce the radiation dose to as low as reasonably achievable. COMPARISON: None HISTORY: ORDERING SYSTEM PROVIDED HISTORY: trauma TECHNOLOGIST PROVIDED HISTORY: trauma FINDINGS: CHEST: Vasculature: Normal caliber thoracic aorta and pulmonary artery. Mediastinum: No evidence of mediastinal lymphadenopathy. The heart and pericardium demonstrate no acute abnormality. Lungs/Pleura: The lungs are without acute process. No focal consolidation or pulmonary edema. No evidence of pleural effusion or pneumothorax. Soft Tissues/Bones: There are questionable nondisplaced fractures of the right posterolateral 9th and 10th ribs. Otherwise no acute fracture is identified. Normal chest wall soft tissues. Normal visualized thyroid gland. ABDOMEN/PELVIS: Organs: No acute abnormality of the liver, gallbladder, spleen, pancreas, or adrenal glands are identified. Normal symmetric renal enhancement. No evidence of hydronephrosis or renal calculi. GI/Bowel: No evidence of bowel obstruction or abnormal wall thickening. No focal inflammatory changes are identified. Normal caliber appendix. Peritoneum/Retroper itoneum: No evidence of intraperitoneal free air or ascites. No suspicious lymphadenopathy is identified. Normal caliber abdominal aorta. Pelvis: Normal visualized bladder prostate gland. Bones/Soft Tissues: No acute fracture is identified. Unremarkable abdominal wall soft tissues. THORACIC/LUMBAR SPINE: BONES/ALIGNMENT: Thoracolumbar alignment and curvature is maintained. No acute fracture or subluxation is identified. Vertebral body heights are preserved. DEGENERATIVE CHANGES: Mild scattered degenerative endplate changes, without significant disc space narrowing. SOFT TISSUES: Within normal limits. IMPRESSION: 1. No acute visceral injury of the chest, abdomen, or pelvis is identified. 2. Questionable nondisplaced fractures of the right posterolateral 9th and 10th ribs. Correlation for tenderness in this region is recommended. 3. No acute fracture or subluxation of the thoracolumbar spine is identified. Interpreted by: Randy Naranjo MD Signed by: Randy Naranjo MD 06/20/24 Final result Normal [facility] Hepatic Function Panelon Albumin [Mass/Vol] 4.2 g/dL 3.5 - 5.2 g/dL [facility] Albumin/Globulin [Mass ratio] 1.9 {ratio} 1.0 - 2.5 [facility] ALP [Catalytic activity/Vol] 70 U/L 40 - 129 U/L [facility] ALT [Catalytic activity/Vol] 21 U/L 10 - 50 U/L [facility] AST [Catalytic activity/Vol] 30 U/L 10 - 50 U/L [facility] Bilirubin [Mass/Vol] 0.4 mg/dL 0.0 - 1 .2 mg/dL [facility] Bilirubin.direct [Mass/Vol] 0.2 mg/dL 0.0 - 0.2 mg/dL [facility] Bilirubin.indirect [Mass/Vol] 0.2 mg/dL 0.0 - 1.0 mg/dL [facility] Globulin (S) [Mass/Vol] 2.2 g/dL B on [facility] Interpretation and review of laboratory results Abnormal [facility] Protein [Mass/Vol] 6.4 g/dL Low 6.6 - 8.7 g/dL [facility] Liver Profileon 06-20-2024 Albumin [Mass/Vol] 4.2 g/dL Normal 3.5-5.2 [facility] Comment on above: Performed By: #### M G, CDP, BMPX, DAVID #### [facility] [address] [place], [place] [id number] Plant Controller: Jordan Aponte MD Albumin/Glob Ratio 1.9 Normal 1.0-2.5 [facility] Comment on above: Performed By: #### M G, CDP, BMPX, DAVID #### [facility] [address], [place] [id number] Plant Controller: Jordan Aponte MD Alkaline Phos 70 U/L Normal 40-129 [facility] Comment on above: Performed By: #### M G, CDP, BMPX, DAVID #### [facility] [address] [place] [id number] Plant Controller: Jordan Aponte MD ALT [Catalytic activity/Vol] 21 U/L Normal 10-50 [facility] Comment on above: Performed By: #### M G, CDP, BMPX, DAVID #### [facility] [address] [place] [id number] Plant Controller: Jordan Aponte MD AST [Catalytic activity/Vol] 30 U/L Normal 10-50 [facility] Comment on above: Performed By: #### M G, CDP, BMPX, DAVID #### [address] [address] Plant Controller: Jordan Aponte MD Bilirubin [Mass/Vol] 0.4 mg/dL Normal 0.0-1.2 [facility] Comment on above: Performed By: #### M G, CDP, BMPX, DAVID #### [address] [address] Plant Controller: Jordan Aponte MD Bilirubin, Indirect 0.2 mg/dL Normal 0.0-1.0 [facility] Comment on above: Performed By: #### M G, CDP, BMPX, DAVID #### [facility] [address] [place] [address] Plant Controller: Jordan Aponte MD Bilirubin.indirect [Mass/Vol] 0.2 mg/dL Normal 0.0-0.2 [facility] Comment on above: Performed By: #### M G, CDP, BMPX, DAVID #### [facility] [address] [place] [address] Plant Controller: Jordan Aponte MD Globulin (S) [Mass/Vol] 2.2 g/dL Normal [facility] Comment on above: Performed By: #### M G, CDP, BMPX, DAVID #### [facility] [address], [place] [id number] Plant Controller: Jordan Aponte MD Protein [Mass/Vol] 6.4 g/dL Low 6.6-8.7 [facility] Comment on above: Performed By: #### M G, CDP, BMPX, DAVID #### [email or web address] [address], [place] [id number] Plant Controller: Jordan Aponte MD No Panel Informationon 06-20 1. No acute visceral injury of the chest, abdomen, or pelvis is identified. 2. Questionable nondisplaced fractures of the right posterolateral 9th and 10th ribs. Correlation for tenderness in this region is recommended. 3. No acute fracture or subluxation of the thoracolumbar spine is identified. [facility] RIS CONSOLIDATED EXAMINATION: CT OF THE CHEST, ABDOMEN, AND PELVIS WITH CONTRAST; CT OF THE THORACIC SPINE WITHOUT CONTRAST; CT OF THE LUMBAR SPINE WITHOUT CONTRAST 06/20/2024 9:00 pm TECHNIQUE: CT of the chest, abdomen and pelvis was performed with the administration of intravenous contrast. Multiplanar reformatted images are provided for review. Automated exposure control, iterative reconstruction, and/or weight based adjustment of the mA/kV was utilized to reduce the radiation dose to as low as reasonably achievable.; CT of the thoracic spine was performed without the administration of intravenous contrast. Multiplanar reformatted images are provided for review. Automated exposure control, iterative reconstruction, and/or weight based adjustment of the mA/kV was utilized to reduce the radiation dose to as low as reasonably achievable.; CT of the lumbar spine was performed without the administration of intravenous contrast. Multiplanar reformatted images are provided for review. Adjustment of mA and/or kV according to patient size was utilized. Automated exposure control, iterative reconstruction, and/or weight based adjustment of the mA/kV was utilized to reduce the radiation dose to as low as reasonably achievable. COMPARISON: None HISTORY: ORDERING SYSTEM PROVIDED HISTORY: trauma TECHNOLOGIST PROVIDED HISTORY: trauma FINDINGS: CHEST: Vasculature: Normal caliber thoracic aorta and pulmonary artery. Mediastinum: No evidence of mediastinal lymphadenopathy. The heart and pericardium demonstrate no acute abnormality. Lungs/Pleura: The lungs are without acute process. No focal consolidation or pulmonary edema. No evidence of pleural effusion or pneumothorax. Soft Tissues/Bones: There are questionable nondisplaced fractures of the right posterolateral 9th and 10th ribs. Otherwise no acute fracture is identified. Normal chest wall soft tissues. Normal visualized thyroid gland. ABDOMEN/PELVIS: Organs: No acute abnormality of the liver, gallbladder, spleen, pancreas, or adrenal glands are identified. Normal symmetric renal enhancement. No evidence of hydronephrosis or renal calculi. GI/Bowel: No evidence of bowel obstruction or abnormal wall thickening. No focal inflammatory changes are identified. Normal caliber appendix. Peritoneum/Retroper itoneum: No evidence of intraperitoneal free air or ascites. No suspicious lymphadenopathy is identified. Normal caliber abdominal aorta. Pelvis: Normal visualized bladder prostate gland. Bones/Soft Tissues: No acute fracture is identified. Unremarkable abdominal wall soft tissues. THORACIC/LUMBAR SPINE: BONES/ALIGNMENT: Thoracolumbar alignment and curvature is maintained. No acute fracture or subluxation is identified. Vertebral body heights are preserved. DEGENERATIVE CHANGES: Mild scattered degenerative endplate changes, without significant disc space narrowing. SOFT TISSUES: Within normal limits. [facility] CONSOLID[facility] Randy Naranjo MD - 06/20/2024 EXAMINATION: CT OF THE CHEST, ABDOMEN, AND PELVIS WITH CONTRAST; CT OF THE THORACIC SPINE WITHOUT CONTRAST; CT OF THE LUMBAR SPINE WITHOUT CONTRAST 06/20/2024 9:00 pm TECHNIQUE: CT of the chest, abdomen and pelvis was performed with the administration of intravenous contrast. Multiplanar reformatted images are provided for review. Automated exposure control, iterative reconstruction, and/or weight based adjustment of the mA/kV was utilized to reduce the radiation dose to as low as reasonably achievable.; CT of the thoracic spine was performed without the administration of intravenous contrast. Multiplanar reformatted images are provided for review. Automated exposure control, iterative reconstruction, and/or weight based adjustment of the mA/kV was utilized to reduce the radiation dose to as low as reasonably achievable.; CT of the lumbar spine was performed without the administration of intravenous contrast. Multiplanar reformatted images are provided for review. Adjustment of mA and/or kV according to patient size was utilized. Automated exposure control, iterative reconstruction, and/or weight based adjustment of the mA/kV was utilized to reduce the radiation dose to as low as reasonably achievable. COMPARISON: None HISTORY: ORDERING SYSTEM PROVIDED HISTORY: trauma TECHNOLOGIST PROVIDED HISTORY: trauma FINDINGS: CHEST: Vasculature: Normal caliber thoracic aorta and pulmonary artery. Mediastinum: No evidence of mediastinal lymphadenopathy. The heart and pericardium demonstrate no acute abnormality. Lungs/Pleura: The lungs are without acute process. No focal consolidation or pulmonary edema. No evidence of pleural effusion or pneumothorax. Soft Tissues/Bones: There are questionable nondisplaced fractures of the right posterolateral 9th and 10th ribs. Otherwise no acute fracture is identified. Normal chest wall soft tissues. Normal visualized thyroid gland. ABDOMEN/PELVIS: Organs: No acute abnormality of the liver, gallbladder, spleen, pancreas, or adrenal glands are identified. Normal symmetric renal enhancement. No evidence of hydronephrosis or renal calculi. GI/Bowel: No evidence of bowel obstruction or abnormal wall thickening. No focal inflammatory changes are identified. Normal caliber appendix. Peritoneum/Retroper itoneum: No evidence of intraperitoneal free air or ascites. No suspicious lymphadenopathy is identified. Normal caliber abdominal aorta. Pelvis: Normal visualized bladder prostate gland. Bones/Soft Tissues: No acute fracture is identified. Unremarkable abdominal wall soft tissues. THORACIC/LUMBAR SPINE: BONES/ALIGNMENT: Thoracolumbar alignment and curvature is maintained. No acute fracture or subluxation is identified. Vertebral body heights are preserved. DEGENERATIVE CHANGES: Mild scattered degenerative endplate changes, without significant disc space narrowing. SOFT TISSUES: Within normal limits. IMPRESSION: 1. No acute visceral injury of the chest, abdomen, or pelvis is identified. 2. Questionable nondisplaced fractures of the right posterolateral 9th and 10th ribs. Correlation for tenderness in this region is recommended. 3. No acute fracture or subluxation of the thoracolumbar spine is identified. [facility] Addendum by Guero Noyola MD on 06/20/2024 10:31 PM EST ADDENDUM: Critical findings discussed with Dr. Stovall at 10:18 p.m.. He expressed understanding results. [facility] 1. Large subdural collection about the right lateral convexity, extending anterior to posterior. The collection measures approximately 3 cm in thickness. The heterogeneous appearance of the collection suggests component of acute on chronic subdural hemorrhage. There is associated sulcal effacement of the right cerebral hemisphere to include the right frontal, temporal, and parietal lobes. There is approximately 8 mm of right to left midline shift and narrowing of the basal cisterns bilaterally. 2. No acute osseous abnormality of the cervical spine. [facility] CONSOLIDATED EXAMINATION: CT OF THE HEAD WITHOUT CONTRAST; CT OF THE CERVICAL SPINE WITHOUT CONTRAST 06/20/2024 9:00 pm TECHNIQUE: CT of the head was performed without the administration of intravenous contrast. Automated exposure control, iterative reconstruction, and/or weight based adjustment of the mA/kV was utilized to reduce the radiation dose to as low as reasonably achievable.; CT of the cervical spine was performed without the administration of intravenous contrast. Multiplanar reformatted images are provided for review. Automated exposure control, iterative reconstruction, and/or weight based adjustment of the mA/kV was utilized to reduce the radiation dose to as low as reasonably achievable. COMPARISON: None. HISTORY: ORDERING SYSTEM PROVIDED HISTORY: trauma TECHNOLOGIST PROVIDED HISTORY: trauma; ORDERING SYSTEM PROVIDED HISTORY: Cervical midline tenderness. TECHNOLOGIST PROVIDED HISTORY: Cervical midline tenderness. Decision Support Exception - unselect if not a suspected or confirmed emergency medical condition->Emergenc y Medical Condition (MA) FINDINGS: BRAIN/VENTRICLES: Large subdural collection about the right lateral convexity, extending anterior to posterior. The collection measures approximately 3 cm in thickness. The collections demonstrates diffuse heterogeneity, which may represent a component of acute on chronic hemorrhage. There is associated sulcal effacement of the right lateral convexity to include the right frontal, temporal, and parietal lobes. There is approximately 8 mm of right to left midline shift. Narrowing of the basal cisterns bilaterally. ORBITS: The visualized portion of the orbits demonstrate no acute abnormality. SINUSES: The visualized paranasal sinuses and mastoid air cells demonstrate no acute abnormality. SOFT TISSUES/SKULL: No acute abnormality of the visualized skull or soft tissues. CERVICAL SPINE BONES/ALIGNMENT: There is no acute fracture or traumatic malalignment. DEGENERATIVE CHANGES: Mild disc space narrowing at C6-C7 with associated endplate sclerosis and marginal osteophyte formation. Varying degrees of facet arthrosis are noted at multiple cervical spinal levels. SOFT TISSUES: There is no prevertebral soft tissue swelling. [facility] CONSOLIDATED Guero Noyola MD - 06/20/2024 EXAMINATION: CT OF THE HEAD WITHOUT CONTRAST; CT OF THE CERVICAL SPINE WITHOUT CONTRAST 06/20/2024 9:00 pm TECHNIQUE: CT of the head was performed without the administration of intravenous contrast. Automated exposure control, iterative reconstruction, and/or weight based adjustment of the mA/kV was utilized to reduce the radiation dose to as low as reasonably achievable.; CT of the cervical spine was performed without the administration of intravenous contrast. Multiplanar reformatted images are provided for review. Automated exposure control, iterative reconstruction, and/or weight based adjustment of the mA/kV was utilized to reduce the radiation dose to as low as reasonably achievable. COMPARISON: None. HISTORY: ORDERING SYSTEM PROVIDED HISTORY: trauma TECHNOLOGIST PROVIDED HISTORY: trauma; ORDERING SYSTEM PROVIDED HISTORY: Cervical midline tenderness. TECHNOLOGIST PROVIDED HISTORY: Cervical midline tenderness. Decision Support Exception - unselect if not a suspected or confirmed emergency medical condition->Emergenc y Medical Condition (MA) FINDINGS: BRAIN/VENTRICLES: Large subdural collection about the right lateral convexity, extending anterior to posterior. The collection measures approximately 3 cm in thickness. The collections demonstrates diffuse heterogeneity, which may represent a component of acute on chronic hemorrhage. There is associated sulcal effacement of the right lateral convexity to include the right frontal, temporal, and parietal lobes. There is approximately 8 mm of right to left midline shift. Narrowing of the basal cisterns bilaterally. ORBITS: The visualized portion of the orbits demonstrate no acute abnormality. SINUSES: The visualized paranasal sinuses and mastoid air cells demonstrate no acute abnormality. SOFT TISSUES/SKULL: No acute abnormality of the visualized skull or soft tissues. CERVICAL SPINE BONES/ALIGNMENT: There is no acute fracture or traumatic malalignment. DEGENERATIVE CHANGES: Mild disc space narrowing at C6-C7 with associated endplate sclerosis and marginal osteophyte formation. Varying degrees of facet arthrosis are noted at multiple cervical spinal levels. SOFT TISSUES: There is no prevertebral soft tissue swelling. IMPRESSION: 1. Large subdural collection about the right lateral convexity, extending anterior to posterior. The collection measures approximately 3 cm in thickness. The heterogeneous appearance of the collection suggests component of acute on chronic subdural hemorrhage. There is associated sulcal effacement of the right cerebral hemisphere to include the right frontal, temporal, and parietal lobes. There is approximately 8 mm of right to left midline shift and narrowing of the basal cisterns bilaterally. 2. No acute osseous abnormality of the cervical spine. [facility] Radiology Study observation (narrative) [facility] Aminta prado [facility] [employer] No Panel InformationOrdered By: Randy Naranjo on 06-20-[address] [facility] [employer] Work Phone: No Panel InformationOrdered By: Guero Noyola on 06-20-2024 [facility] [employer] National [employer] Work Phone: TRAUMA PANELon 06-20-2024 Anion gap [Moles/Vol] 11 mmol/L 9 - 16 mmol/L [facility] [employer] aPTT Coag (Bld) [Time] 25.7 s [facility] [employer] Comment on above: IV Heparin Therapy Range: 66.0-92.0 sec Blood Bank Specimen BILL FOR SERVICES PERFORMED [facility] Carboxyhemoglobin (Bld) [Mass fraction] 3.6 % 0 - 5 % [facility] [employer] Comment on above: Reference Range: Non-Smokers 0-2% Average Smoker 2-4% Heavy Smoker <10% Chloride [Moles/Vol] 105 mmol/L 98 - 10 7 mmol/L [facility] [employer] CO2 [Moles/Vol] 23 mmol/L 20 - 31 mmol/L [facility] [employer] Creatinine [Mass/Vol] 0.8 mg/dL 0.7 - 1.2 mg/dL [facility] [employer] Erythrocyte distribution width (RBC) [Ratio] 11.4 % Low 11.8 - 14.4 % [facility] [employer] Est, Glom Filt Rate - PINF [facility] [employer] Comment on above: These results are not intended for use in patients <18 years of age. eGFR results are calculated without a race factor using the 2020 CKD-EPI equation. Careful clinical correlation is recommended, particularly when comparing to results calculated using previous equations. The CKD-EPI equation is less accurate in patients with extremes of muscle mass, extra-renal metabolism of creatine, excessive creatine ingestion, or following therapy that affects renal tubular secretion. Ethanol percent <0.010 NINF - 0.010 % [facility] [employer] Ethanolamine [Mass/Vol] <10 NINF - 10 mg/dL [facility] [employer] Glucose [Mass/Vol] 100 mg/dL High 74 - 99 mg/dL [facility] [employer] HCO3 (Bld) [Moles/Vol] 24.3 mmol/L 24 - 30 mmol/L [facility] Hematocrit (Bld) [Volume fraction] 41.1 % 40.7 - 50.3 % [facility] Hemoglobin (Bld) [Mass/Vol] 14.2 g/dL 13.0 - 17.0 g/dL [facility] INR Coag (PPP) [Relative time] 1.0 {INR} [facility] Comment on above: Therapeutic Range: Moderate Anticoagulant Intensity: INR = 2.0-3.0 High Anticoagulant Intensity: INR = 2.5-3.5 Interpretation and review of laboratory results Abnormal [facility] MCH (RBC) [Entitic mass] 32.3 pg 25. 2 - 33.5 pg [facility] MCHC (RBC) [Mass/Vol] 34.5 g/dL 28.4 - 34.8 g/dL [facility] MCV (RBC) [Entitic vol] 93.4 fL 82.6 - 102.9 fL [facility] Nucleated RBC/100 WBC (Bld) [Ratio] 0.0 % 0.0 per 100 WBC [facility] Oxygen saturation in Blood 93.6 % High 60.0 - 85.0 % [facility] Oxygen/Inspired gas Respiratory system --on ventilator INFORMATION NOT PROVIDED [facility] pCO2, Rm 37.0 Low [facility] pH, Rm 7.433 High 7.320 - 7.420 [facility] Platelet mean volume (Bld) [Entitic vol] 9.7 fL 8.1 - 13.5 fL [facility] Platelets (Bld) [#/Vol] 230 10*3/uL [facility] PO2, Rm 65.1 High [facility] Positive Base Excess, Rm 0.9 mmol/L 0.0 - 2.0 mmol/L [facility] Potassium [Moles/Vol] 3.6 mmol/L Low 3.7 - 5.3 mmol/L [facility] Comment on above: Specimen hemolysis h as exceeded the interference as defined by Momo. Value may be falsely increased. Suggest recollection if clinically indicated. PT Coag (PPP) [Time] 13.4 s [facility] RBC (Bld) [#/Vol] 4.40 10*6/uL 4.21 - 5.7 7 m/uL [facility] Sodium [Moles/Vol] 139 mmol/L 136 - 145 mmol/L [facility] Urea nitrogen [Mass/Vol] 8 mg/dL 8 - 23 mg/d L [facility] WBC other (Bld) [#/Vol] 5.0 B on [facility] Trauma Profileon 06-20-2024 Anion gap [Moles/Vol] 11 mmol/L Normal 9-16 [facility] Comment on above: Performed By: #### M G, CDP, BMPX, DAVID #### [facility] [address] [place] [id number] Plant Controller: Jordan Aponte MD Chloride [Moles/Vol] 105 mmol/L Normal 98-107 [facility] Comment on above: Performed By: #### M G, CDP, BMPX, DAVID #### [facility] [address] [place] [address] Plant Controller: Jordan Aponte MD CO2 [Moles/Vol] 23 mmol/L Normal 20-31 [facility] Comment on above: Performed By: #### M G, CDP, BMPX, DAVID #### [email or web address] [address] [place] [address] Plant Controller: Jordan Aponte MD Creatinine [Mass/Vol] 0.8 mg/dL Normal 0.7-1.2 [facility] Comment on above: Performed By: #### M G, CDP, BMPX, DAVID #### [email or web address] [address] [place] [address] Plant Controller: Jordan Aponte MD Ethanol [Mass/Vol] mg/dL Normal <10 [facility] Comment on above: Performed By: #### M G, CDP, BMPX, DAVID #### [facility] [address] [place] [id number] Plant Controller: Jordan Aponte MD Ethanol percent <0.010 Normal <0.010 [facility] Comment on above: Performed By: #### M Ev, CDP, BMPX, DAVID #### [facility] [employer] [address] [place] [address] Plant Controller: Jordan Aponte MD GFR/1.73 sq M.predicted among non-blacks MDRD (S/P/Bld) [Vol rate/Area] mL/min/{1.73_m2} Normal >60 [facility] Comment on above: Result Comment: These results are not intended for use in patients <18 years of age. eGFR results are calculated without a race factor using the 2020 CKD-EPI equation. Careful clinical correlation is recommended, particularly when comparing to results calculated using previous equations. The CKD-EPI equation is less accurate in patients with extremes of muscle mass, extra-renal metabolism of creatine, excessive creatine ingestion, or following therapy that affects renal tubular secretion. Performed By: #### M Ev, CDP, BMPX, DAVID #### [facility] [employer] [address] [place] [address] Plant Controller: Jordan Aponte MD Glucose [Mass/Vol] 100 mg/dL High 74-99 [facility] Comment on above: Performed By: #### ENOC Alatorre, BMPX, DAVID #### [facility] [employer] [address] [place] [address] Plant Controller: Jordan Aponte MD Potassium [Moles/Vol] 3.6 mmol/L Low 3.7-5.3 [facility] Comment on above: Result Comment: Spec imen hemolysis has exceeded the interference as defined by Momo. Value may be falsely increased. Suggest recollection if clinically indicated. Performed By: #### M G, CDP, BMPX, DAVID #### [facility] [employer] [address] [place] [id number] Plant Controller: Jordan Aponte MD Sodium [Moles/Vol] 139 mmol/L Normal 136-145 [facility] Comment on above: Performed By: #### M G, CDP, BMPX, DAVID #### [address] [address] Plant Controller: Jordan Aponte MD Urea nitrogen [Mass/Vol] 8 mg/dL Normal 8-23 [facility] Comment on above: Performed By: #### M G, CDP, BMPX, DAVID #### [address] [address] Plant Controller: Jordan Aponte MD aPTT Coag (Bld) [Time] 25.7 s Normal 23.0-36.5 [facility] Comment on above: Result Comment: IV Heparin Therapy Range: 66.0-92.0 sec Performed By: #### M Ev, CDP, BMPX, DAVID #### [address] [address] Plant Controller: Jordan Aponte MD INR Coag (PPP) [Relative time] 1.0 {INR} Normal [facility] Comment on above: Result Comment: Therapeutic Range: Moderate Anticoagulant Intensity: INR = 2.0-3.0 High Anticoagulant Intensity: INR = 2.5-3.5 Performed By: #### M G, CDP, BMPX, DAVID #### [address] [address] Plant Controller: Jordan Aponte MD PT Coag (PPP) [Time] 13.4 s Normal 11.7-14.9 [facility] Comment on above: Performed By: #### M G, CDP, BMPX, DAVID #### [facility] [employer] [address] [place] [address] Plant Controller: Jordan Aponte MD Body Temp. 37.0 Normal [facility] Comment on above: Performed By: #### M G, CDP, BMPX, DAVID #### [address] [address] Plant Controller: Jordan Aponte MD Carboxy Hgb 3.6 % Normal 0-5 [facility] Comment on above: Result Comment: Reference Range: Non-Smokers 0-2% Average Smoker 2-4% Heavy Smoker <10% Performed By: #### M G, CDP, BMPX, DAVID #### [address] [address] Plant Controller: Jordan Aponte MD FIO2 INFORMATION NOT PROVIDED Normal [facility] Comment on above: Performed By: #### M G, CDP, BMPX, DAVID #### [address] [address] Plant Controller: Jordan Aponte MD HCO3 (Bld) [Moles/Vol] 24.3 mmol/L Normal 24-30 [facility] Comment on above: Performed By: #### M G, CDP, BMPX, DAVID #### [address] [address] Plant Controller: Jordan Aponte MD Oxygen saturation in Blood 93.6 % High 60.0-85.0 [facility] Comment on above: Performed By: #### M G, CDP, BMPX, DAVID #### [facility] [employer] [address] [place] [address] Plant Controller: Jordan Aponte MD pCO2 37.0 mm Hg Low 39-55 [facility] Comment on above: Performed By: #### M G, CDP, BMPX, DAVID #### [facility] [employer] [address] [place] [address] Plant Controller: Jordan Aponte MD pH (Bld) 7.433 [pH] High 7.320-7.420 [facility] Comment on above: Performed By: #### M G, CDP, BMPX, DAVID #### [facility] [employer] [address] [place] [address] Plant Controller: Jordan Aponte MD pO2 65.1 mm Hg High 30-50 [facility] Comment on above: Performed By: #### M G, CDP, BMPX, DAVID #### [facility] [address] [place] [address] Plant Controller: Jordan Aponte MD Positive Base Excess 0.9 mmol/L Normal 0.0-2.0 [facility] Comment on above: Performed By: #### M G, CDP, BMPX, DAVID #### [facility] [address] [place] [address] Plant Controller: Jordan Aponte MD Erythrocyte distribution width (RBC) [Ratio] 11.4 % Low 11.8-14.4 [facility] Comment on above: Performed By: #### M G, CDP, BMPX, DAVID #### [facility] [address] [place] [address] Plant Controller: Jordan Aponte MD Hematocrit (Bld) [Volume fraction] 41.1 % Normal 40.7-50.3 [facility] Comment on above: Performed By: #### M G, CDP, BMPX, DAVID #### [facility] [address] [place] [address] Plant Controller: Jordan Aponte MD Hemoglobin (Bld) [Mass/Vol] 14.2 g/dL Normal 13.0-17.0 [facility] Comment on above: Performed By: #### M G, CDP, BMPX, DAVID #### [facility] [address] [place] [address] Plant Controller: Jordan Aponte MD MCH (RBC) [Entitic mass] 32.3 pg Normal 25.2-33.5 [facility] Comment on above: Performed By: #### M G, CDP, BMPX, DAVID #### [facility] [address] [place] [address] Plant Controller: Jordan Aponte MD MCHC (RBC) [Mass/Vol] 34.5 g/dL Normal 28.4-34.8 [facility] Comment on above: Performed By: #### M G, CDP, BMPX, DAVID #### [address] [address] Plant Controller: Jordan Aponte MD MCV (RBC) [Entitic vol] 93.4 fL Normal 82.6-102.9 [facility] Comment on above: Performed By: #### M G, CDP, BMPX, DAVID #### [address] [address] Plant Controller: Jrodan Aponte MD NRBC Automated 0.0 per 100 WBC Normal 0.0 [facility] Comment on above: Performed By: #### Michelle G, CDP, BMPX, DAVID #### [address] [address] Plant Controller: Jordan Aponte MD Platelet mean volume (Bld) [Entitic vol] 9.7 fL Normal 8.1-13.5 [facility] Comment on above: Performed By: #### Michelle G, CDP, BMPX, DAVID #### [address] [address] Plant Controller: Jordan Aponte MD Platelets (Bld) [#/Vol] 230 10*3/uL Normal 138-453 [facility] Comment on above: Performed By: #### M G, CDP, BMPX, DAVID #### [address] [address] Plant Controller: Jordan Aponte MD RBC (Bld) [#/Vol] 4.40 10*6/uL Normal 4.21-5.77 [facility] Comment on above: Performed By: #### M G, CDP, BMPX, DAVID #### [address] [id number] Plant Controller: Jordan Aponte MD WBC (Bld) [#/Vol] 5.0 10*3/uL Normal 3.5-11.3 [facility] Comment on above: Performed By: #### M G, CDP, BMPX, DAVID #### [facility] [address] [place], [place] [id number] Plant Controller: Jordan Aponte MD Blood Bank BILL FOR SERVICES PERFORMED Normal [facility] Comment on above: Performed By: #### M G, CDP, BMPX, DAVID #### [facility] [address] [place], [place] [id number] Plant Controller: Jordan Aponte MD Alanine aminotransferase [En zymatic activity/volume] in Serum or PlasmaOrdered By: Nahomy Mg on 08-27-2023 ALT [Catalytic activity/Vol] 19 U/L 7-52 [facility] Albumin [Mass/volume] in Ser um or Plasma by Bromocresol green (BCG) dye binding methoOrdered By: Nahomy Mg on 08-27-2023 Albumin BCG dye [Mass/Vol] 4.5 g/dL 3.5-5.7 [facility] Alkaline phosphatase [Enzyma tic activity/volume] in Serum or PlasmaOrdered By: Nahomy Mg on 08-27-2023 ALP [Catalytic activity/Vol] 64 U/L 34-104 [facility] Aspartate aminotransferase [ Enzymatic activity/volume] in Serum or PlasmaOrdered By: Nahomy Mg on 08-27-2023 AST [Catalytic activity/Vol] 19 U/L 13-39 [facility] Basophils Auto (Bld) [#/Vol] Ordered By: Nahomy Mg on 08-27-2023 Basophils (Bld) [#/Vol] 0.0 10*3/uL 0.0-0.2 [facility] Basophils/100 WBC Auto (Bld) Ordered By: Nahomy Mg on 08-27-2023 Basophils/100 WBC (Bld) 0.4 % . [facility] Bilirubin.total [Mass/volume ] in Serum or PlasmaOrdered By: Nahomy Mg on 08-27-2023 Bilirubin [Mass/Vol] 0.8 mg/dL 0.3-1.0 [facility] CMP with reflex to A1Con Albumin [Mass/Vol] 4.5 g/dL Normal 3.5-5.7 [facility] Comment on above: Performed By: #### C MP wRFX A1C, CBC #### [facility] [address] [place] [id number] [facility] Albumin/Globulin [Mass ratio] 2.0 {ratio} Normal [facility] Comment on above: Performed By: #### C MP wRFX A1C, CBC #### [facility] [address] [place] [id number] [facility] ALP [Catalytic activity/Vol] 64 U/L Normal 34-104 [facility] Comment on above: Result Comment: PERF ORMED BY: [place] [address] PATHOLOGIST TURNAROUND ENGINEER CLAUDE VILLASEÑOR M.D. Performed By: #### C MP wRFX A1C, CBC #### [facility] [address] [place] [address] [facility] ALT [Catalytic activity/Vol] 19 U/L Normal 7-52 [facility] Comment on above: Performed By: #### C MP wRFX A1C, CBC #### [facility] [address] [place] [phone] [facility] Anion gap [Moles/Vol] 9.2 mmol/L Normal 6.0-15.0 [facility] Comment on above: Performed By: #### C MP wRFX A1C, CBC #### [facility] [address] [place] [id number] [place] AST [Catalytic activity/Vol] 19 U/L Normal 13-39 [facility] Comment on above: Performed By: #### C MP wRFX A1C, CBC #### [facility] [address] [place] [address] [facility] Bilirubin [Mass/Vol] 0.8 mg/dL Normal 0.3-1.0 [facility] Comment on above: Performed By: #### C MP wRFX A1C, CBC #### [facility] [address] Calcium [Mass/Vol] 9.3 mg/dL Normal 8.6-10.3 [facility] Comment on above: Performed By: #### C MP wRFX A1C, CBC #### [facility] [address] Chloride [Moles/Vol] 104 mmol/L Normal 98-107 [facility] Comment on above: Performed By: #### C MP wRFX A1C, CBC #### [facility] [address] CO2 [Moles/Vol] 28.6 mmol/L Normal 21.0-31.0 [facility] Comment on above: Performed By: #### C MP wRFX A1C, CBC #### [facility] [address] Creatinine [Mass/Vol] 0.97 mg/dL Normal 0.70-1.30 [facility] Comment on above: Performed By: #### C MP wRFX A1C, CBC #### [facility] [address] [place] [address] [place] GFR/1.73 sq M.predicted MDRD (S/P/Bld) [Vol rate/Area] mL/min/{1.73_m2} [facility] Comment on above: Performed By: #### C MP wRFX A1C, CBC #### [facility] [address] [place] [address] [place] Globulin (S) [Mass/Vol] 2.2 g/dL Normal [facility] Comment on above: Performed By: #### C MP wRFX A1C, CBC #### [facility] [address] [place] [address] [place] Glucose [Mass/Vol] 82 mg/dL Normal 70-100 [facility] Comment on above: Performed By: #### C MP wRFX A1C, CBC #### [facility] [address] [place] [address] [place] Potassium [Moles/Vol] 3.8 mmol/L Normal 3.5-5.1 [facility] Comment on above: Performed By: #### C MP wRFX A1C, CBC #### [facility] [address] Protein [Mass/Vol] 6.7 g/dL Normal 6.4-8.9 [facility] Comment on above: Performed By: #### C MP wRFX A1C, CBC #### [facility] [address] Sodium [Moles/Vol] 138 mmol/L Normal 136-145 [facility] Comment on above: Performed By: #### C MP wRFX A1C, CBC #### [facility] [address] Urea nitrogen [Mass/Vol] 10 mg/dL Normal 7-25 [facility] Comment on above: Performed By: #### C MP wRFX A1C, CBC #### [facility] [address] Calcium [Mass/volume] in Ser um or PlasmaOrdered By: Nahomy Mg on 08-27-2023 Calcium [Mass/Vol] 9.3 mg/dL 8.6-10.3 [facility] Carbon dioxide, total [Moles /volume] in Serum or PlasmaOrdered By: Nahomy Mg on 08-27-2023 CO2 [Moles/Vol] 28.6 mmol/L 21.0-31.0 [facility] Chloride [Moles/volume] in [place] or PlasmaOrdered By: Nahomy Mg on 08-27-2023 Chloride [Moles/Vol] 104 mmol/L 98-107 [facility] Complete Blood Count Auto Di ffon 08-27-2023 Basophils (Bld) [#/Vol] 0.0 10*3/uL Normal 0.0-0.2 [facility] Comment on above: Result Comment: PERF ORMED BY: [place] [address] PATHOLOGIST TURNAROUND ENGINEER JIANLAN SUN M.D. Performed By: #### C MP wRFX A1C, CBC #### [facility] [address] [place] [address] [place] Basophils/100 WBC (Bld) 0.4 % Normal . [facility] Comment on above: Performed By: #### C MP wRFX A1C, CBC #### [address] Eosinophils (Bld) [#/Vol] 0.1 10*3/uL Normal 0.0-0.45 [facility] Comment on above: Performed By: #### C MP wRFX A1C, CBC #### [place] [address] [place] Eosinophils/100 WBC (Bld) 1.2 % Normal . [facility] Comment on above: Performed By: #### C MP wRFX A1C, CBC #### [address] Erythrocyte distribution width (RBC) [Ratio] 12.0 % Normal 12.0-14.8 [facility] Comment on above: Performed By: #### C MP wRFX A1C, CBC #### [address] Hematocrit (Bld) [Volume fraction] 42.5 % Normal 38.8-50.0 [facility] Comment on above: Performed By: #### C MP wRFX A1C, CBC #### [place] [address] [place] Hemoglobin (Bld) [Mass/Vol] 15.1 g/dL Normal 13.0-17.0 [facility] Comment on above: Performed By: #### C MP wRFX A1C, CBC #### [place] [address] [place] Lymphocytes (Bld) [#/Vol] 1.2 10*3/uL Normal 1.00-4.8 [facility] Comment on above: Performed By: #### C MP wRFX A1C, CBC #### [place] [address] [place] Lymphocytes/100 WBC (Bld) 23.5 % Normal . [facility] Comment on above: Performed By: #### C MP wRFX A1C, CBC #### [facility] [address] MCH (RBC) [Entitic mass] 33.0 pg Normal 27.5-35.2 [facility] Comment on above: Performed By: #### C MP wRFX A1C, CBC #### [address] MCV (RBC) [Entitic vol] 92.5 fL Normal 83.5-101 [facility] Comment on above: Performed By: #### C MP wRFX A1C, CBC #### [address] Mean Corpuscular HGB Conc 35.6 g/dL Normal 32.5-35.6 [facility] Comment on above: Performed By: #### C MP wRFX A1C, CBC #### [address] Monocytes (Bld) [#/Vol] 0.5 10*3/uL Normal 0.0-0.8 [facility] Comment on above: Performed By: #### C MP wRFX A1C, CBC #### [address] Monocytes/100 WBC (Bld) 9.5 % Normal . [facility] Comment on above: Performed By: #### C MP wRFX A1C, CBC #### [address] Neutrophils (Bld) [#/Vol] 3.2 10*3/uL Normal 1.8-7.7 [facility] Comment on above: Performed By: #### C MP wRFX A1C, CBC #### [address] Neutrophils/100 WBC (Bld) 65.4 % Normal . [facility] Comment on above: Performed By: #### C MP wRFX A1C, CBC #### [address] [place] [address] [place] NRBC% 0.2 /100{WBC} Normal 0-0.5 [facility] Comment on above: Performed By: #### C MP wRFX A1C, CBC #### [facility] [address] Platelet mean volume (Bld) [Entitic vol] 7.9 fL Normal 6.6-10.1 [facility] Comment on above: Performed By: #### C MP wRFX A1C, CBC #### [facility] [address] [place] [address] [place] Platelets (Bld) [#/Vol] 235 10*3/uL Normal 150-450 [facility] Comment on above: Performed By: #### C MP wRFX A1C, CBC #### [facility] [address] RBC (Bld) [#/Vol] 4.59 10*6/uL Normal 3.90-5.60 [facility] Comment on above: Performed By: #### C MP wRFX A1C, CBC #### [facility] [address] [place] [address] [place] WBC (Bld) [#/Vol] 5.0 10*3/uL Normal 4.1-10.5 [facility] Comment on above: Performed By: #### C MP wRFX A1C, CBC #### [facility] [address] Creatinine [Mass/volume] in Serum or PlasmaOrdered By: Nahomy Mg on 08-27-2023 Creatinine [Mass/Vol] 0.97 mg/dL 0.70-1.30 [facility] ECG 12 lead ECGon 08-27-2023 ECG 12 lead ECG [facility] [place] [address] [place] [address] Electrocardiograph Report Signed Patient: Jorge Chavira MR#: [id number] : 1960 Acct:[id number] Age/Sex: 62 / M ADM Date: 08/27/23 Loc: PS Room: Type: DEP CLI Attending Dr: Nahomy Mg MD Ordering Provider: Nahomy Mg MD Date of Service: 08/27/23 ECG/ECG 12 lead ECG: Pre op Copies to: Test Reason : Blood Pressure : / mmHG Vent. Rate : 069 BPM Atrial Rate : 069 BPM P-R Int : 136 ms QRS Dur : 094 ms QT Int : 406 ms P-R-T Axes : 057 004 036 degrees QTc Int : 435 ms Normal sinus rhythm Normal ECG No previous ECGs available Confirmed by VALENTINA AVITIA MD ([id number]) on 08/28/2023 11:29:59 AM Referred By: HARITHA Electronically Signed By:VALENTINA AVITIA MD Transcribed By: JOVANNY Signed By Valentina Avitia MD 0 08/28/23 1130 Normal [facility] Eosinophils Auto (Bld) [#/Vo l]Ordered By: Nahomy Mg on 08-27-2023 Eosinophils (Bld) [#/Vol] 0.1 10*3/uL 0.0-0.45 [facility] Eosinophils/100 WBC Auto (Bl d)Ordered By: Nahomy Mg on 08-27-2023 Eosinophils/100 WBC (Bld) 1.2 % . [facility] Erythrocyte distribution wid th Auto (RBC) [Ratio]Ordered By: Nahomy Mg on 08-27-2023 Erythrocyte distribution width (RBC) [Ratio] 12.0 % 12.0-14.8 [facility] Globulin Calc (S) [Mass/Vol] Ordered By: Nahomy Mg on 08-27-2023 Globulin (S) [Mass/Vol] 2.2 g/dL [facility] Glucose [Mass/volume] in Ser um or PlasmaOrdered By: Nahomy Mg on 08-27-2023 Glucose [Mass/Vol] 82 mg/dL 70-100 [facility] Hematocrit Auto (Bld) [Volum e fraction]Ordered By: Nahomy Mg on 08-27-2023 Hematocrit (Bld) [Volume fraction] 42.5 % 38.8-50.0 [facility] Hemoglobin [Mass/volume] in BloodOrdered By: Nahomy Mg on 08-27-2023 Hemoglobin (Bld) [Mass/Vol] 15.1 g/dL 13.0-17.0 [facility] Leukocytes [#/volume] correc rona for nucleated erythrocytes in Blood by Automated counOrdered By: Nahomy Mg on 08-27-2023 WBC corrected for nucl RBC Auto (Bld) [#/Vol] 5.0 10*3/uL 4.1-10.5 [facility] Lymphocytes Auto (Bld) [#/Vo l]Ordered By: Nahomy Mg on 08-27-2023 Lymphocytes (Bld) [#/Vol] 1.2 10*3/uL 1.00-4.8 [facility] Lymphocytes/100 WBC Auto (Bl d)Ordered By: Nahomy Mg on 08-27-2023 Lymphocytes/100 WBC (Bld) 23.5 % . [facility] MCH Auto (RBC) [Entitic mass ]Ordered By: Nahomy Mg on 08-27-2023 MCH (RBC) [Entitic mass] 33.0 pg 27.5-35.2 [facility] MCHC Auto (RBC) [Mass/Vol]Or dered By: Nahomy Mg on 08-27-2023 MCHC (RBC) [Mass/Vol] 35.6 g/dL 32.5-35.6 [facility] MCV Auto (RBC) [Entitic vol] Ordered By: Nahomy Mg on 08-27-2023 MCV (RBC) [Entitic vol] 92.5 fL 83.5-101 [facility] Monocytes Auto (Bld) [#/Vol] Ordered By: Nahomy Mg on 08-27-2023 Monocytes (Bld) [#/Vol] 0.5 10*3/uL 0.0-0.8 [facility] Monocytes/100 WBC Auto (Bld) Ordered By: Nahomy Mg on 08-27-2023 Monocytes/100 WBC (Bld) 9.5 % . [facility] Neutrophils Auto (Bld) [#/Vo l]Ordered By: Nahomy Mg on 08-27-2023 Neutrophils (Bld) [#/Vol] 3.2 10*3/uL 1.8-7.7 [facility] Neutrophils/100 WBC Auto (Bl d)Ordered By: Nahomy Mg on 08-27-2023 Neutrophils/100 WBC (Bld) 65.4 % . [facility] No Panel InformationOrdered By: Nahomy Mg on 08-27-2023 Estimated GFR (CKD-EPI) > 60.0 mL/Min [facility] Creatinine Clearance (Chem N/A [facility] Nucleated erythrocytes [Pres ence] in Blood by Automated countOrdered By: Nahmoy Mg on 08-27-2023 Nucleated RBC Auto Ql (Bld) 0.2 /100{WBC} 0-0.5 [facility] Platelet mean volume Auto (B ld) [Entitic vol]Ordered By: Nahomy Mg on 08-27-2023 Platelet mean volume (Bld) [Entitic vol] 7.9 fL 6.6-10.1 [facility] Platelets Auto (Bld) [#/Vol] Ordered By: Nahomy Mg on 08-27-2023 Platelets (Bld) [#/Vol] 235 10*3/uL 150-450 [facility] Potassium [Moles/volume] in Serum or PlasmaOrdered By: Nahomy Mg on 08-27-2023 Potassium [Moles/Vol] 3.8 mmol/L 3.5-5.1 [facility] Protein [Mass/volume] in Ser um or PlasmaOrdered By: Nahomy Mg on 08-27-2023 Protein [Mass/Vol] 6.7 g/dL 6.4-8.9 [facility] RBC Auto (Bld) [#/Vol]Ordere d By: Nahomy Mg on 08-27-2023 RBC (Bld) [#/Vol] 4.59 10*6/uL 3.90-5.60 [facility] Serum or plasma albumin/glob ulin mass ratioOrdered By: Nahomy Mg on 08-27-2023 Albumin/Globulin [Mass ratio] 2.0 {ratio} [facility] Serum or plasma anion gap de terminationOrdered By: Nahomy Mg on 08-27-2023 Anion gap [Moles/Vol] 9.2 mmol/L 6.0-15.0 [facility] Sodium [Moles/volume] in Ser um or PlasmaOrdered By: Nahomy Mg on 08-27-2023 Sodium [Moles/Vol] 138 mmol/L 136-145 [facility] Urea nitrogen [Mass/volume] in Serum or PlasmaOrdered By: Nahomy Mg on 08-27-2023 Urea nitrogen [Mass/Vol] 10 mg/dL 7-25 [facility] WBC Auto (Bld) [#/Vol]Ordere d By: Nahomy Mg on 08-27-2023 WBC (Bld) [#/Vol] 5.0 10*3/uL 4.1-10.5 [facility] Registrationon 01-26-2023 Registration [id number]#[id number]:127 Normal [facility] 01-25-2023 Consent [id number]#[id number]:127 Normal [facility] In office Testingon 01-26-20 23 In office Testing [id number]#[id number]:127 Normal [facility] XR HAND LT MIN 3Von 10-14-19 XR HAND LT MIN 3V EXAM: XR HAND LT MIN 3V HISTORY: Pain of left hand COMPARISON: None. TECHNIQUE: 3 views of the left hand were obtained. FINDINGS: There is severe joint space narrowing with marginal spurring at the triscaphe joint and first carpometacarpal joint. Mild joint space narrowing with marginal spurring is seen at the metacarpophalangeal joints and at the interphalangeal joint of the fingers and thumb. IMPRESSION: 1. 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 2. No evidence of acute fracture or subluxation. Electronically authenticated by: TREVOR POSADAS Date: 2022-10-13 09:23 Normal [facility] XR CSPINE MIN 4 VIEWSon 11-0 XR CSPINE MIN 4 VIEWS EXAMINATION: XR CSPINE MIN 4 VIEWS HISTORY: Pain in right arm COMPARISON: No relevant comparison available. FINDINGS: BONES: No acute fracture or dislocation. Mild degenerative changes with spondylosis and facet osteoarthropathy DISC SPACES: Normal. No significant disc height narrowing, subluxation, or endplate abnormality. PARASPINOUS: Negative. No paraspinous abnormality is seen. OTHER: T7 is not visualized on the lateral projection IMPRESSION: Mild degenerative changes Electronically authenticated by: LOREE JACKSON Date: 2022-06-15 18:42 Normal [facility] INSULINon 03-31-2022 Insulin 4.0 uIU/mL Normal 2.6-24.9 [facility] Comment on above: Performed By: #### I NSULIN #### [facility] [address] [place] [address] Dr. Prasad Arias CBC AUTO DIFFon 03-30-2022 BASO # 0.0 103/ul Normal 0.0-0.1 [facility] Comment on above: Performed By: #### C BC #### [facility] [address] [place] [address] Dr. Prasad Arias Basophils/100 WBC (Bld) 0.6 % Normal 0.2-2.0 [facility] Comment on above: Performed By: #### C BC #### [facility] [address] [place] [address] Dr. Prasad Arias EO # 0.2 103/ul Normal 0.0-0.7 [facility] Comment on above: Performed By: #### C BC #### [facility] [address] [place] [address] Dr. Prasad Arias Eosinophils/100 WBC (Bld) 3.2 % Normal 0.9-7.0 [facility] Comment on above: Performed By: #### C BC #### [facility] [address] [place] [address] Dr. Prasad Arias Erythrocyte distribution width (RBC) [Ratio] 11.9 % Normal 11.0-15.0 [facility] Comment on above: Performed By: #### C BC #### [facility] [address] [place] [address] Dr. Prasad Arias Hematocrit (Bld) [Volume fraction] 43.6 % Normal 42.0-54.0 [facility] Comment on above: Performed By: #### C BC #### [facility] [address] [place] [address] Dr. Prasad Arias Hemoglobin (Bld) [Mass/Vol] 15.1 g/dL Normal 14.0-18.0 [facility] Comment on above: Performed By: #### C BC #### [facility] [address] [place] [address] Dr. Prasad Arias IG # 0.01 10e3/ul Normal 0.00-0.03 [facility] Comment on above: Performed By: #### C BC #### [facility] [address] [place] [address] Dr. Prasad Arias IG % 0.2 % Normal 0.0-0.5 [facility] Comment on above: Performed By: #### C BC #### [facility] [address] [place] [address] Dr. Prasad Arias LYMPH # 1.3 103/ul Normal 1.2-3.8 [facility] Comment on above: Performed By: #### C BC #### [facility] [address] [place] [address] Dr. Prasad Arias Lymphocytes/100 WBC (Bld) 27.7 % Normal 20.5-60.0 [facility] Comment on above: Performed By: #### C BC #### [facility] [address] [place] [address] Dr. Prasad Arias MANUAL DIFF REQ NO Normal [facility] Comment on above: Performed By: #### C BC #### [facility] [address] [place] [address] Dr. Prasad Arias MCH (RBC) [Entitic mass] 32.0 pg Normal 25.9-34.0 [facility] Comment on above: Performed By: #### C BC #### [facility] [address] [place] [address] Dr. Prasad Arias MCHC (RBC) [Mass/Vol] 34.6 g/dL Normal 29.9-35.2 [facility] Comment on above: Performed By: #### C BC #### [facility] [address] [address] [address] Prasad Arias MCV (RBC) [Entitic vol] 92.4 fL Normal 80.0-94.0 [facility] Comment on above: Performed By: #### C BC #### [facility] [address] [address] [address] Prasad Arias MONO # 0.5 103/ul Normal 0.3-0.8 [facility] Comment on above: Performed By: #### C BC #### [facility] [address] [address] [address] Prasad Arias Monocytes/100 WBC (Bld) 10.5 % Normal 1.7-12.0 [facility] Comment on above: Performed By: #### C BC #### [facility] [address] [place] [address] Dr. Prasad Arias NEUT # 2.7 103/ul Normal 1.4-6.5 [facility] Comment on above: Performed By: #### C BC #### [facility] [address] [place] [address] Dr. Prasad Arias Neutrophils/100 WBC (Bld) 57.8 % Normal 43.0-75.0 [facility] Comment on above: Performed By: #### C BC #### [facility] [address] [address] [address] Prasad Arias Platelet mean volume (Bld) [Entitic vol] 9.7 fL Normal 9.5-13.5 [facility] Comment on above: Performed By: #### C BC #### [facility] [address] [address] [address] Prasad Arias PLT 218 103/ul Normal 150-450 [facility] Comment on above: Performed By: #### C BC #### [facility] [address] [address] [address] Prasad Arias RBC 4.72 106/ul Normal 4.70-6.10 [facility] Comment on above: Performed By: #### C BC #### [facility] [address] [address] [address] Prasad Arias WBC 4.7 103/ul Normal 4.0-11.0 [facility] Comment on above: Performed By: #### C BC #### [facility] [address] [address] [address] Prasad Arias GLYCOHEMOGLOBIN A1Con 2021 ADA RECOMMENDATION SEE BELOW Normal [facility] Comment on above: Result Comment: ADA RECOMMENDED LIMIT 4.0 - 6.0 ADA THERAPEUTIC TARGET < 7.0 ACTION SUGGESTED > 7.0 Performed By: #### A 1C #### [facility] [address] [place] [address] Dr. Prasad Arias Glucose [Mass/Vol] 100 mg/dL Normal [facility] Comment on above: Performed By: #### A 1C #### [facility] [address] [place] [address] Dr. Prasad Arias HbA1c (Bld) [Mass fraction] 5.1 % Normal 4.5-6.2 [facility] Comment on above: Performed By: #### A 1C #### [facility] [address] [place] [address] Dr. Prasad Arias LIPID PROFILEon 03-30-2022 CHOL-HDL RATIO NORM SEE BELOW Normal [facility] Comment on above: Result Comment: 3.3 - 4.4 LOW RISK 4.4 - 7.1 AVERAGE RISK 7.1 - 11.0 MODERATE RISK >11.0 HIGH RISK Performed By: #### C MP, LIPID #### [facility] [address] [place] [address] Dr. Prasad Arias Cholesterol [Mass/Vol] 155 mg/dL Normal <=200 [facility] Comment on above: Performed By: #### C MP, LIPID #### [facility] [address] [place] [address] Dr. Prasad Arias Cholesterol in HDL [Mass/Vol] 60 mg/dL Normal 40-60 [facility] Comment on above: Performed By: #### C MP, LIPID #### [facility] [address] [address] [address] Prasad Arias Cholesterol in LDL [Mass/Vol] 72.6 mg/dL Normal [facility] Comment on above: Performed By: #### C MP, LIPID #### [facility] [address] [place] [address] Dr. Prasad Arias Cholesterol.total/Choles terol in HDL [Mass ratio] 2.6 {ratio} Normal [facility] Comment on above: Performed By: #### C MP, LIPID #### [facility] [address] [place] [address] Dr. Prasad Arias HDL NORMAL > or = 60 mg/dl - LOW CARDIOVASCULAR RISK <40 mg/dl - HIGH CARDIOVASCULAR RISK Normal [facility] Comment on above: Performed By: #### C MP, LIPID #### [facility] [address] [place] [address] Dr. Prasad Arias LDL CALC NORMAL SEE BELOW Normal [facility] Comment on above: Result Comment: <100 mg/dl OPTIMAL 100 - 129 mg/dl NEAR OR ABOVE OPTIMAL 130 - 159 mg/dl BORDERLINE HIGH 160 - 189 mg/dl HIGH >190 mg/dl VERY HIGH Performed By: #### C MP, LIPID #### [facility] [address] [place] [address] Dr. Prasad Arias Triglyceride [Mass/Vol] 112 mg/dL Normal <=150 [facility] Comment on above: Performed By: #### C MP, LIPID #### [facility] [address] [place] [address] Dr. Prasad Arias VLDL CALC 22.4 mg/dL Normal [facility] Comment on above: Performed By: #### C MP, LIPID #### [facility] [address] [address] [address] Prasad Arias PROF 14(COMP METB)on 022 Albumin [Mass/Vol] 3.8 g/dL Normal 3.4-5.0 [facility] Comment on above: Performed By: #### C MP, LIPID #### [facility] [address] [place] [address] Dr. Prasad Arias Albumin/Globulin [Mass ratio] 1.2 {ratio} Normal [facility] Comment on above: Performed By: #### C MP, LIPID #### [facility] [address] [place] [address] Dr. Prasad Arias ALP [Catalytic activity/Vol] 74 U/L Normal 46-116 [facility] Comment on above: Performed By: #### C MP, LIPID #### [facility] [address] [address] [address] Prasad Arias ALT [Catalytic activity/Vol] 27 U/L Normal 16-63 [facility] Comment on above: Performed By: #### C MP, LIPID #### [facility] [address] [address] [address] Prasad Arias Anion gap [Moles/Vol] 12.5 mmol/L Normal [facility] Comment on above: Performed By: #### C MP, LIPID #### [facility] [address] [place] [address] Dr. Prasad Arias AST [Catalytic activity/Vol] 20 U/L Normal 15-37 [facility] Comment on above: Performed By: #### C MP, LIPID #### [facility] [address] [address] [address] Prasad Arias Bilirubin [Mass/Vol] 0.9 mg/dL Normal 0.2-1.0 [facility] Comment on above: Performed By: #### C MP, LIPID #### [facility] [address] [address] [address] Prasad Arias Calcium [Mass/Vol] 8.8 mg/dL Normal 8.5-10.1 [facility] Comment on above: Performed By: #### C MP, LIPID #### [facility] [address] [address] [address] Prasad Arias Chloride [Moles/Vol] 103 mmol/L Normal 98-107 [facility] Comment on above: Performed By: #### C MP, LIPID #### [facility] [address] [address] [address] Prasad Arias CO2 [Moles/Vol] 26.4 mmol/L Normal 21.0-32.0 [facility] Comment on above: Performed By: #### C MP, LIPID #### [facility] [address] [address] [address] Prasad Arias Creatinine [Mass/Vol] 0.98 mg/dL Normal 0.70-1.30 [facility] Comment on above: Performed By: #### C MP, LIPID #### [facility] [address] [address] [address] Prasad Arias EGFR-AF RWANDAN >60 Normal >=60 [facility] Comment on above: Performed By: #### C MP, LIPID #### [facility] [address] [address] [address] Prasad Arias EGFR-NON AF RWANDAN >60 Normal >=60 [facility] Comment on above: Performed By: #### C MP, LIPID #### [facility] [address] [address] [address] Prasad Arias Globulin (S) [Mass/Vol] 3.2 g/dL Normal [facility] Comment on above: Performed By: #### C MP, LIPID #### [facility] [address] [address] [address] Prasad Arias Glucose [Mass/Vol] 104 mg/dL Normal 74-106 [facility] Comment on above: Performed By: #### C MP, LIPID #### [facility] [address] [address] [address] Prasad Arias Potassium [Moles/Vol] 3.9 mmol/L Normal 3.5-5.1 [facility] Comment on above: Performed By: #### C MP, LIPID #### [facility] [address] [address] [address] Prasad Arias Protein [Mass/Vol] 7.0 g/dL Normal 6.4-8.2 [facility] Comment on above: Performed By: #### C MP, LIPID #### [facility] [address] [address] [address] Prasad Arias Sodium [Moles/Vol] 138 mmol/L Normal 136-145 [facility] Comment on above: Performed By: #### C MP, LIPID #### [facility] [address] [place], [place] [address] Dr. Prasad Arias Urea nitrogen [Mass/Vol] 11.0 mg/dL Normal 7.0-18.0 [facility] Comment on above: Performed By: #### C MP, LIPID #### [facility] [address] [place], [place] [address] Dr. Prasad Arias Urea nitrogen/Creatinine [Mass ratio] 11.2 mg/mg Normal [facility] Comment on above: Performed By: #### C MP, LIPID #### [facility] [address] [place], [place] [address] Dr. Prasad Arias Vital Signs Date Time Vital Sign Value Performing Clinician Facility 06-27-2024 11:12-0500 Diastolic blood pressure 76 mm[Hg] Efren Borrero MD Work Phone: [facility] 06-27-2024 11:12-0500 Heart rate 78 /min Efren Borrero MD Work Phone: [facility] 06-27-2024 11:12-0500 Respiratory rate 13 /min Efren Borrero MD Work Phone: [facility] 06-27-2024 11:12-0500 SaO2% (BldA) [Mass fraction] 97 % Efren Borrero MD Work Phone: [facility] 06-27-2024 11:12-0500 Systolic blood pressure 126 mm[Hg] Efren Borrero MD Work Phone: [facility] 06-27-2024 11:11-0500 Body temperature 98.01 [degF] Efren Borrero MD Work Phone: [facility] 06-27-2024 05:21-0500 Body mass index (BMI) [Ratio] 26.41 kg/m2 Efren Borrero MD Work Phone: [facility] 06-27-2024 05:21-0500 Body weight 83.5 kg Efren Borrero MD Work Phone: [facility] 06-23-2024 12:46-0500 Body height 177.8 cm Efren Borrero MD Work Phone: [facility] 06-20-2024 20:28-0500 Body temperature 37.0 Efren Borrero MD Work Phone: [facility] 09-03-2023 10:58-0500 Diastolic blood pressure 84 mm[Hg] MD Nahomy Mg Work Phone: [facility] 09-03-2023 10:58-0500 Heart rate 79 /min MD Nahomy Mg Work Phone: [facility] 09-03-2023 10:58-0500 Respiratory rate 16 /min MD Nahomy Mg Work Phone: [facility] 09-03-2023 10:58-0500 SaO2% (BldA) [Mass fraction] 94 % MD Nahomy Mg Work Phone: [facility] 09-03-2023 10:58-0500 Systolic blood pressure 126 mm[Hg] MD Nahomy Mg Work Phone: [facility] 09-03-2023 08:04-0500 Body height 177.8 cm MD Nahomy Mg Work Phone: [facility] 09-03-2023 08:04-0500 Body mass index (BMI) [Ratio] 28.4 kg/m2 MD Nahomy Mg Work Phone: [facility] 09-03-2023 08:04-0500 Body weight 90 kg MD Nahomy Mg Work Phone: [facility] 09-03-2023 07:42-0500 Body temperature 97.9 [degF] MD Nahomy Mg Work Phone: [facility] 08-24-2023 08:00-0500 Body height 177.8 cm Nahomy Mg Other [employer] Other 08-24-2023 08:00-0500 Body mass index (BMI) [Ratio] 26.54 kg/m2 [facility] Other [employer] Other 08-24-2023 08:00-0500 Body weight 83.92 kg Nahomy Mg Other [employer] Other Encounters Encounter Date Encounter Type Care Provider Facility Start: [facility]14[facility] Start: 07-21-2024 End: 07-21-2024 [facility] Start: 07-21-2024 End: 07-21-2024 Subsequent hospital visit by physician Rachell Villalba [facility] Comment on above: Arrived Start: 07-14-2024 End: 07-14-2024 ambulatory [facility] Start: 07-14-2024 End: 07-14-2024 Subsequent hospital visit by physician Arina Ames PT [facility] Comment on above: Arrived Start: 07-07-2024 End: 07-07-2024 ambulatory [facility] Start: 07-07-2024 End: 07-07-2024 Subsequent hospital visit by physician Bushra Aguilar OT [facility] Occupational Therapy Comment on above: Arrived Start: 07-03-2024 End: 07-05-2024 ambulatory GABRIELLA Lisa MAGUI [facility] Start: 07-03-2024 End: 07-05-2024 Subsequent hospital visit by physician Antonio Cat Scan Room [facility] CT Scan Comment on above: Epidural hematoma Start: 07-03-2024 End: 07-03-2024 ambulatory [facility] Start: 07-03-2024 End: 07-03-2024 Subsequent hospital visit by physician Rachell Villalba [facility] Physical [facility] Comment on above: Arrived Start: 07-01-2024 End: 07-01-2024 ambulatory [facility] Start: 07-01-2024 End: 07-01-2024 Subsequent hospital visit by physician Arina Ames PT [facility] Comment on above: Arrived Start: 06-20-2024 End: 06-20-2024 ambulatory UNKNOWN PROVIDER Facility:[facility] Start: 06-20-2024 End: 06-27-2024 Evaluation and management of inpatient Efren Borrero MD Work Phone: [facility] Comment on above: Epidural hematoma (P rimary Dx); Left-sided weakness; Acute on chronic intracranial subdural hematoma (HCC) Start: 03-14-2024 End: 03-14-[address] [facility] Work Phone: Start: 03-14-2024 End: 03-14-2024 Patient encounter procedure [facility] Work Phone: Start: 09-18-2023 End: 09-18-2023 ambulatory Nahomy Mg Other [employer] Other Start: 09-18-2023 Postop follow up vis it related to original px Nahomy Mg [facility] Start: 09-03-2023 End: 09-03-2023 ambulatory Nahomy Mg Facility:[facility] Start: 09-03-2023 Non-patient / Non-visit MD Col david Mg Work Phone: [facility] Work Phone: Start: 08-27-2023 End: 08-27-2023 ambulatory NON STAFF Facility:[facility] Start: 08-27-2023 End: 08-27-2023 ambulatory NON STAFF [facility] Work Phone: Start: 08-27-2023 End: 08-27-2023 Patient encounter procedure MD Nahomy Mg Work Phone: [facility] Work Phone: Start: 08-24-2023 End: 08-24-2023 ambulatory Nahomy Haritha Other [employer] Other Start: 08-24-2023 Office outpatient vi sit 25 minutes Nahomyalfredo Mg [facility] Start: 08-24-2023 End: 08-24-2023 Patient encounter procedure MD Nahomy Mg Work Phone: [facility] Work Phone: Start: 01-25-2023 End: 01-26-2023 ambulatory Maria L WINTERS Facility:[facility] Start: 12-19-2022 End: 12-19-2022 ambulatory Nahomy Haritha Other [employer] Other Start: 12-19-2022 Office outpatient vi sit 15 minutes Nahomy Haritha [facility] Start: 10-12-2022 End: 10-13-2022 ambulatory MARTINA BLAS Facility:[facility] Start: 08-13-2022 End: 09-06-[address] VINICIUS WRAY . Facility:[facility] Start: 08-10-2022 End: 08-12-[address] VINICIUS WRAY . Facility:[facility] Start: 06-15-2022 End: 06-16-2022 ambulatory MARTINA BLAS Facility:[facility] Start: 03-31-2022 Encounter for genera l adult medical examination without abnormal findings MARTINA BLAS [facility] Start: 03-30-2022 End: 03-31-2022 ambulatory MARTINA BLAS Facility:[facility] Start: 03-30-2022 End: 03-31-2022 Encounter for general adult medical examination without abnormal findings MARTINA BLAS Facility:[facility] Start: 10-19-2021 End: 10-20-[address] DOCTOR TA Facility:[facility] Procedures Date Procedure Procedure Detail Performing Clinician Start: 07-03-2024 Ct head/brain w/o co ntrast material Gabriella Kilgore [employer]IST Work Phone: Start: 06-27-2024 BASIC METABOLIC PANE L W/ REFLEX TO MG FOR LOW K Jennifer Chapa [employer] - [employer]ICAL TRIAL [employer]IST Work Phone: Start: 06-27-2024 Blood count complete auto&auto difrntl wbc Jennifer Chapa [employer] - [employer] TRIAL [employer]IST Work Phone: Start: 06-26-2024 BASIC METABOLIC PANE L W/ REFLEX TO MG FOR LOW K Jennifer Chapa [employer] - [employer]ICAL TRIAL [employer]IST Work Phone: Start: 06-26-2024 Blood count complete auto&auto difrntl wbc Jennifer Chapa [employer] - [employer] TRIAL SPECIALIST Work Phone: Start: 06-25-2024 Assay of magnesium Anth gudelia Cuellar Ignatovich PA-C Work Phone: Start: 06-25-2024 BASIC METABOLIC PANE L W/ REFLEX TO MG FOR LOW K Tip J Ignatovich PA-C Work Phone: Start: 06-24-2024 Mra head w/o & w/con trast material Jennifer Chapa [employer] - [employer] TRIAL [employer]IST Work Phone: Start: 06-24-2024 Slctv cath carotid/i nnom art angio intrcranl art Donna Jones MD Work Phone: Start: 06-24-2024 Assay of magnesium Anth gudelia Cuellar Ignatovich PA-C Work Phone: Start: 06-24-2024 BASIC METABOLIC PANE L W/ REFLEX TO MG FOR LOW K Tip Cuellar Ignatovich PA-C Work Phone: Start: 06-23-2024 Ct head/brain w/o co ntrast material Tip Cuellar Ignatovich PA-C Work Phone: Start: 06-23-2024 Assay of magnesium Anth gudelia Cuellar Ignatovich PA-C Work Phone: Start: 06-23-2024 BASIC METABOLIC PANE L W/ REFLEX TO MG FOR LOW K Tip Cuellar Ignatovich PA-C Work Phone: Start: 06-22-2024 Basic metabolic pane l calcium total Azar Daniels MD Work Phone: Start: 06-22-2024 End: 06-22-2024 CRANIOTOMY STEVE HOLES Bobby Yanez DO Work Phone: Start: 06-22-2024 Assay of magnesium Osmani Cuellar Durga PA-C Work Phone: Start: 06-22-2024 BASIC METABOLIC PANE L W/ REFLEX TO MG FOR LOW K Tip Cuellar Markh PA-C Work Phone: Start: 06-21-2024 Prothrombin time Nora Daniels MD Work Phone: Start: 06-21-2024 Ecg routine ecg w/le ast 12 lds i&r only Denise Salcedo [employer] - [employer] TRIAL SPECIALIST Work Phone: Start: 06-21-2024 BLOOD BANK SPECIMEN Naseem Olmedo DO Work Phone: Start: 06-21-2024 Blood typing serologic abo Denise Salcedo [employer] - [employer]ICAL TRIAL SPECIALIST Work Phone: Start: 06-21-2024 Radiologic exam ches t single view Denise Salcedo [employer] - [employer]ICAL TRIAL SPECIALIST Work Phone: Start: 06-21-2024 Assay of magnesium Osmani Cuellar Markh PA-C Work Phone: Start: 06-21-2024 BASIC METABOLIC PANE L W/ REFLEX TO MG FOR LOW K Tip Cuellar Markh PA-C Work Phone: Start: 06-20-2024 Ct cervical spine w/ o contrast material Ulises Stovall MD Work Phone: Start: 06-20-2024 Ct head/brain w/o co ntrast material Loree P Tram DO Work Phone: Start: 06-20-2024 Ct thorax w/contrast material Loree P Tram DO Work Phone: Start: 06-20-2024 Hepatic function panel Ulises Stovall MD Work Phone: Start: 06-20-2024 TRAUMA PANEL Ulises boggs MD Work Phone: Plan of Treatment Date Care Activity Detail Author Start: 2037 Respiratory Syncytia l Virus (RSV) or age 60 yrs+ (1 - 1-dose 75+ series) Respiratory Syncytial Virus (RSV) or age 60 yrs+ (1 - 1-dose 75+ series) Kris Vega [facility] Start: 11-19-2024 End: 11-19-2024 Patient encounter procedure 11/19/2024 9:00 AM EDT Office Visit [facility] [address] [facility] [address] - Ground Floor, [address] [id number] Isma Paez MD [address] [address] 4 MO ISRA [facility] Comment on above: 4 MO NAN Start: 08-11-2024 End: 08-11-2024 Patient encounter procedure 08/11/2024 10:30 AM EST Office Visit [facility] [address] [facility] [address] Floor, [address] [address] Bobby Yanez DO [address] [facility] [address] [place] [phone] Needs post-op with Dr Yanez in 4-[address] head [facility] Comment on above: Needs post-op with Emile Yanez in 4-[address] head Start: 08-08-2024 End: 08-08-2024 Patient encounter procedure 08/08/2024 10:00 AM EST Office Visit [facility] [address] [facility] [address] - [address] Floor, [address] [address] Santi Dueñas MD [address] [id number] 4 WK ISRA [facility] Comment on above: 4 WK NAN Start: 08-04-2024 End: 08-04-2024 Patient encounter procedure 08/04/2024 8:30 AM EST Appointment [facility] Scan [address] [place] [address] [facility] Comment on above: epic/ pt Start: 07-21-2024 End: 07-21-2024 Patient encounter procedure 07/21/2024 11:15 AM EST Appointment [facility] [address] [place] [address] Rachell Villalba [facility] Start: 07-14-2024 End: 07-14-2024 Patient encounter procedure 07/14/2024 1:00 PM EST Appointment [facility] [address] [place] [address] Arina Ames, PT 3 of 20 AC Chronic Intracranial subdural hematoma [facility] Comment on above: 3 of 20 AC Chronic I ntracranial subdural hematoma Start: 07-08-2024 End: 06-25-2025 CT Head WO contrast CT HEAD WO CONTRAST Imaging Routine Epidural hematoma Expected: 07/08/2024, Expires: 06/25/2025 Kris [facility] Comment on above: Expected: 07/08/2024 , Expires: 06/25/2025 Start: 07-08-2024 End: 07-08-2024 Patient encounter procedure 07/08/2024 10:30 AM EST Office Visit [facility] [address] [facility] [address], [address] [place] [address] Oly Garcia, TUBE L[employer]ER - CLINICAL TRIAL SPECIALIST [address] [facility] [address] [place] [address] (Staff Message Myrna Kilgore) Follow up in [address] head and for incision site check with [facility]OPE s/p right sided steve holes for drainage of SDH [facility] Comment on above: (Staff Message Corey Kilgore) Follow up in [address] head and for incision site check with HOPE s/p right sided steve holes for drainage of SDH Start: 07-07-2024 End: 07-07-2024 Patient encounter procedure 07/07/2024 11:00 AM EST Appointment [facility] Occup[facility] [address] [place] [address] Bushra Aguilar, OT 1 of 20 AC Chronic Intracranial subdural hematoma [facility] Comment on above: 1 of 20 AC Chronic I ntracranial subdural hematoma Start: 07-03-2024 End: 07-03-2024 Patient encounter procedure [facility] Comment on above: 2 of 20 AC Chronic I ntracranial subdural hematoma pt/epic Start: 04-13-2024 COVID-19 Vaccine ( season) COVID-19 Vaccine () [facility] [employer] Start: 03-13-2024 Influenza vaccination Flu vaccine (# 1) [facility] [employer] Start: 09-03-2023 End: 09-03-2023 [facility] Start: 2012 Shingles vaccine (1 of 2) Shingles vaccine (1 of 2) [facility] [employer] Start: 11-28-2007 Screening for malign ant neoplasm of colon [facility] [employer] Start: 2002 Lipid panel Lipids [facility] [employer] Start: 1997 Diabetes screen Diabetes screen [facility] [employer] Start: 1981 DTaP/Tdap/Td vaccine (1 - Tdap) DTaP/Tdap/Td vaccine (1 - Tdap) [facility] [employer] Start: 1980 Hepatitis C screening Hepatitis C sc reen [facility] [employer] Start: 1977 HIV screening HIV screen [facility] [employer] National [employer] Start: 1974 Depression Screen Depression Screen [facility] [employer] End: 06-28-2024 Basic Metabolic Panel w/ Reflex to MG Basic Metabolic Panel w/ Reflex to MG Lab Routine Daily for 3 Days starting 06/26/2024 until 06/28/2024, 2 completed [facility] [employer] Comment on above: Daily for 3 Days sta rting 06/26/2024 until 06/28/2024, 2 completed End: 06-28-2024 CBC W Auto Differential panel - Blood CBC with Auto Differential Lab Routine Daily for 3 Days starting 06/26/2024 until 06/28/2024, 2 completed [facility] Comment on above: Daily for 3 Days sta rting 06/26/2024 until 06/28/2024, 2 completed Oxygen therapy [[facility] Data Set] Initiate Oxygen Therapy Protocol Respiratory Care Routine As Needed until discontinued starting 06/24/2024 [facility] Work Phone: Comment on above: As Needed until disc ontinued starting 06/24/2024 Patient referral [facility] Work Phone: Slctv cath carotid/innom art angio intrcranl art IR Angiogram Carotid Cerebral Bilateral Imaging Routine 06/24/2024 9:31 AM EST [facility] End: 06-20-2024 Speech and language therapy regime Speech language pathology evaluation MARKETING INFORMATION COORDINATOR Routine One Time for 1 Occurrences starting 06/20/2024 until 06/20/2024 [facility] Comment on above: One Time for 1 Occur rences starting 06/20/2024 until 06/20/2024 Spirometry panel Incentive neymar metry Respiratory Care Routine Every 2hr while awake until discontinued starting 06/21/2024 [facility] Comment on above: Every 2hr while awak e until discontinued starting 06/21/2024 End: 06-20-2024 TRAUMA PANEL TRAUMA PANEL Lab Routine One Time for 1 Occurrences starting 06/20/2024 until 06/20/2024 [facility] Comment on above: One Time for 1 Occur rences starting 06/20/2024 until 06/20/2024 Payers Date Payer Category Payer Self-pay 1960 Unknown [id number] 2.16.84 [id number] 1960 Unknown [id number] 2.16.84 [id number] 1960 Unknown [id number] 2.16.84 [id number] 1960 Unknown [id number] 2.16.84 0.1.736559.3.579.2.593 1960 Unknown [id number] 2.16.84 0.1.029778.3.579.2.593 1960 Unknown [id number] 2.16.84 0.1.480441.3.579.2.593 1960 Unknown [id number] 2.16. [id number] 1960 Unknown [id number] 2.16. [id number] 1962 Unknown [id number] 2.16.8 40.1.191935.3.579.2.174 1962 Unknown [id number] 2.16.8 40.1.996482.3.579.2.174 1962 Unknown [id number] 2.16.8 40.1.333297.3.579.2.174 1962 Unknown [id number] 2.16.8 40.1.246430.3.579.2.174 1962 Unknown [id number] 2.16.8 40.1.403956.3.579.2.174 1962 Unknown [id number] 2.16.8 40.1.606808.3.579.2.174 1962 Unknown [id number] 2.16.8 40.1.263497.3.579.2.174 1959 Unknown [id number] Unknown [facility] [id number] Unknown [id number] 2.16.8 [id number] Unknown [id number] 2.16.8 [id number] Social History Date Type Detail Facility Start: 06-21-2024 End: 06-23-2024 Sex Assigned At [facility] Start: 08-27-2023 End: 06-23-2024 Tobacco smoking status SDIS Never smoked tobacco (finding) [facility] Start: 1960 Sex Assigned At Male F [facility] Start: 06-23-2024 Tobacco use and exposure Smoke less tobacco non-user [facility] Start: 06-24-2024 Alcoholic beverage intake Curr ent drinker of alcohol (finding) [facility] Start: 06-23-2024 End: 06-24-2024 Alcoholic beverage intake [facility] National Payment Network Has the [employer], [employer], or water [employer] threatened to shut off services in your home in past 12Mo No [facility] (I/We) worried [facility] (my/our) food would run out before (I/we) got money to buy more. Never true [facility] In the past 12 month s, has lack of transportation kept you from medical appointments or from getting medications? No [facility] Start: 06-23-2024 Alcohol Comment about 8 a day [employer] Start: 1960 Sex assigned at Not on file B on [employer] Start: 07-08-2024 Alcoholic beverage intake Ex-drinker (finding) [facility] Medical Equipment Procedure Code Equipment Code Equipment Origin al Text Equipment Identifier Dates Plate [employer] [place] [employer] - [id number], [id number] FDA Start: 06-22-2024 Plate [employer] [place] [employer] - [id number], [id number] FDA Start: 06-22-2024 Clinical Notes 06-15-2022 to 07-14-2024 Arina Ames, PT - 07/14/2024 1:00 PM Rachell Amaya - 07/03/2024 10:00 AM Marleny Kyle - 06/27/2024 12:41 PM Peggy Burnett, OT - 06/27/2024 11:39 AM EST Note Date & Type Note Facility 07-14-2024 History of Present illness Narrative Images from the original note were not included. [facility] Out[facility] Therapy Daily Note Date: 07/14/2024 Patient Name: Jorge hCavira : 1960 (63 y.o.) Referring Provider (secondary): Jennifer Chapa APRN -CNP Diagnosis: Acute on chronic intracranial subdural hematoma Treatment Diagnosis: Balance disturbances s/p craniotomy Onset Date: 06/22/24 PT Insurance Information: 20 visits Total # of Visits Approved: 12 Per Physician Order Total # of Visits to Date: 3 No Show: 0 Canceled Appointment: 0 Pre-Treatment Pain: 0/10 Assessment Assessment: Plan to attempt SLS next visit. Completed step up with opp october on BOS with noted difficulty on L LE. Pt requires VCs for proper lunge form. Pt would like to cont x1 visit then determine if continued needs are present. Plan Continue with current plan of care Exercises/Modalities/Manual: See DocFlow Sheet Education: see assessment Goals (Total # of Visits to Date: 3) Short Term Goals Time Frame for Short Term Goals: STG=LTG Professional Healthcare Representative Goals Time Frame for Skilled Nursing Goals : 12 visits Professional Healthcare Representative Goal 1: Pt to improve LEFS from 43/50 to >53/80 to improve ADL franck. Skilled Nursing Goal 2: Pt to improve SLS on uneven surface to 15sec 2:3 trials B/L Professional Healthcare Representative Goal 3: Pt to demonstrate narrow ASHLEY on uneven surface with head turns without LOB to improve outdoor safety. Professional Healthcare Representative Goal 4: Pt to demonstrate crate 16# carry up/down stairs to restore ADL and work franck. Post Treatment Pain: 0/10 Time In: 1303 Time Out: 1345 Timed Code Treatment Minutes: 42 Minutes Total Treatment Time: 0 Minutes Arina Ames PT Date: 07/14/2024 documented in this encounter [facility] 07-03-2024 History of Present illness Narrative Images from the original note were not included. [facility] Outpatient Physical Therapy Daily Note Date: 07/03/2024 Patient Name: Jorge Chavira : 1960 (63 y.o.) Referring Provider (secondary): Jennifer Chapa APRN -CNP Diagnosis: Acute on chronic intracranial subdural hematoma Treatment Diagnosis: Balance disturbances s/p craniotomy Onset Date: 06/22/24 PT Insurance Information: 20 visits Total # of Visits Approved: 12 Per Physician Order Total # of Visits to Date: 2 No Show: 0 Canceled Appointment: 0 Pre-Treatment Pain: 0/10 Assessment Assessment: Pt denies pain.Initiated ex/NMR as outlined. Overall good franck to session. Pt to have CT scan today. Plan Continue with current plan of care Exercises/Modalities/Manual: See DocFlow Sheet Education: cautioned on possible soreness from new ex Goals (Total # of Visits to Date: 2) Short Term Goals Time Frame for Short Term Goals: STG=LTG Skilled Nursing Goals Time Frame for Professional Healthcare Representative Goals : 12 visits Skilled Nursing Goal 1: Pt to improve LEFS from 43/50 to >53/80 to improve ADL franck. Skilled Nursing Goal 2: Pt to improve SLS on uneven surface to 15sec 2:3 trials B/L Skilled Nursing Goal 3: Pt to demonstrate narrow ASHLEY on uneven surface with head turns without LOB to improve outdoor safety. Skilled Nursing Goal 4: Pt to demonstrate crate 16# carry up/down stairs to restore ADL and work franck. Post Treatment Pain: 0/10 Time In: 0955 Time Out : 1026 Timed and total 31 min Rachell Villalba SOLE EDGE INKER MACHINE Date: 07/03/2024 documented in this encounter [facility] 06-28-2024 Note Date of Service: 07/2024 Procedure: Diagnostic cerebral angiogram Patient arrived and wheeled in to the angio suite at: 806 Monitoring and administration of sedation started at: 806 Puncture obtained at: 905 Vascular access was removed at: 929 Manual pressure for minutes: 15 mins Sedation ended at: 945 Patient wheeled out of the angio suite at: 945 Diagnosis: R SDH s/p steve hole by nsgy Procedures: --Right ultrasound guided femoral artery access --Intravenous moderate sedation --Selective right common carotid artery (CCA) angiogram --Selective right internal carotid artery (ICA) cerebral angiogram --Selective right external carotid artery (ECA) angiogram --Right common femoral artery (SILVERWARE SUPERVISOR) angiogram Neurointerventionalist: Dr. Isma Paez [place]: Santi Dueñas MD Contrast: 36 cc of Visipaque-270. Fluoroscopy time: 8.4 minutes Access: Right common femoral artery. Comparison: none Consent: After explaining the risks and benefits to the patient and the patient's family, including but not limited to stroke, coma, , vessel injury, dissection, tear, occlusion, and X-ray dye allergic type reaction, a signed consent form was obtained. Indication and Clinical History: Jorge Chavira is a 63 y.o. male with medical history of HTN presents with R SDH, now s/p steve hole.. Pt was referred for a diagnostic angiogram to evaluate for potential MMA embolization. Anesthesia: Local anesthesia with lidocaine. IV moderate sedation with Versed and Fentanyl. IV moderate sedation was supervised by the attending physician. The patient was independently monitored by a registered nurse assigned to the Department of Radiology using automated blood pressure, EKG and pulse oximetry. The detailed Conscious Record is permanently stored in the Hospital Information System. Description and findings: The patient's right groin was prepped and draped in standard sterile fashion and under local anesthesia with conscious sedation. Ultrasound was used to localize the right common femoral artery and found to be patent and completely compressible. With direct vision, a modified Seldinger technique was used to place a 5 Brazilian intravascular sheath in the right common femoral artery. Fluoroscopy was used to confirm placement, this image was captured and archived in the patient's record. 2000u of heparin IV was administered. A 5 Brazilian multipurpose catheter was then advanced over a guide wire to the level of the aortic arch. Right CCA Technique: The right common carotid artery was selectively catheterized under fluoroscopic guidance and digital subtraction angiography images were obtained in biplane projections of the right cervical carotid artery. Interpretation: The right common carotid artery injection demonstrates normal antegrade flow into the external and internal carotid arteries with normal filling of the external carotid artery branches. Course and caliber of the cervical portion of the right internal carotid artery are unremarkable. Further inspection demonstrates no evidence of dissection, stenosis, aneurysm, or other vascular abnormality within the right CCA into the cervical segment of the right ICA. Right ICA Technique: The right internal carotid artery was then selectively catheterized, and digital subtraction angiography of the intracranial right internal carotid circulation was performed in frontal, and lateral projections. Interpretation: There is normal antegrade filling of the distal internal carotid artery, ophthalmic artery, anterior cerebral artery, middle cerebral artery and the distal branches. Inspection of the remaining right internal carotid circulation revealed no other evidence of cerebral aneurysm, arteriovenous malformation, or arterial stenosis. There is prominent anterograde filling of the ophthalmic artery, which shows severe tortuosity. This tortuous ophthalmic artery then gives rise to the MMA, which then bifurcates into the the anterior and posterior MMA branches. There is also another vessel visualized arising from the same location that runs posteriorly and bifurcates, with superior vessel favored to be an accessory posteriorly directed MMA that subsequently bifurcates itself to feed the parietal and occipital dural regions, and inferior vessel favored to be the petrosquamosal artery. Capillary and venous phase images were also unremarkable, demonstrating the superior sagittal, [place], great cerebral vein, inferior sagittal vein, inferior Andrae, torcula, sigmoid, IJ and cortical veins, with no evidence of veno-occlusive disease. Right ECA Technique: The catheter was then withdrawn into the right external carotid artery and digital subtraction angiography of the external carotid artery circulation was performed in biplane projections. Interpretation: There is normal antegrade opacification of the right external carotid artery and branches. The visualized branches include the IMAX, ascending pharynge (more content not included)... [facility] 06-27-2024 History of Present illness Narrative Speech Language Pathology [facility] Cognitive Treatment Note Date: 06/27/2024 Patient s Name: Jorge Chavira Diagnosis: Patient Active Problem List Diagnosis Code Epidural hematoma S06.4XAA Subacute subdural hematoma S06.5XAA Left-sided weakness R53.1 Acute on chronic intracranial subdural hematoma (HCC) I62.01, I62.03 Pain: 0/10 Cognitive Treatment Treatment time: 9:58-10:21 Subjective: [x] Alert [x] Cooperative [] Confused [] Agitated [] Lethargic Objective/Assessment: Recall: Word List Retention-Inclusion: 15/20 increased to 20/20 with min to max verbal cues. [id number]-4 Units: 14/15 increased to 15/15 with min verbal cues. Picture Retention: 17/20 increased to 19/20 with min to max verbal cues. Plan: [x] Continue ST services [] Discharge from ST: Discharge recommendations: [] Further therapy recommended at discharge.The patient should be able to tolerate at least 3 hours of therapy per day over 5 days or 15 hours over 7 days. [] Further therapy recommended at discharge. [x] No therapy recommended at discharge. Completed by: Marleny Disla Benefits Advisor Clinician Cosigned By: Suri Ashford M.A. CCC/MARKETING INFORMATION COORDINATOR Occupational Therapy Daily Treatment Note Facility/Department: [address] [place] Patient Name: Jorge Chavira : 1960 Date of Service: 06/27/2024 Discharge Recommendations Further therapy recommended at discharge. Chief Complaint Patient presents with Hematoma Past Medical History: has no past medical history on file. Past Surgical History: has a past surgical history that includes craniotomy (Right, 06/22/2024); Heel spur surgery (Right); [place] tooth extraction; craniotomy (Right, 06/22/2024); and Cerebral angiogram (06/24/2024). Assessment Performance deficits / Impairments: Decreased functional mobility ;Decreased ADL status;Decreased endurance;Decreased high-level IADLs;Decreased strength;Decreased balance;Decreased safe awareness;Decreased coordination Assessment: pt demonstrated improved balance and coordination throughout session. pt would benefit from continued OT at discharge in order to address coordination to L UE and ADL completion. Prognosis: Good Decision Making: Medium Complexity REQUIRES OT FOLLOW-UP: Yes Activity Tolerance Activity Tolerance: Patient Tolerated treatment well Safety Devices Type of Devices: Call light within reach;Left in bed;Gait belt Restrictions/Precautions Restrictions/Precautions Restrictions/Precautions: Fall Risk Required Braces or Orthoses?: No Position Activity Restriction Other position/activity restrictions: CTLS clear, SBP <140. activity as tolerated. steve holes 06/22 Subjective General Patient assessed for rehabilitation services?: Yes Family / Caregiver Present: No General Comment Comments: RN ok'd for therapy this date. pt agreeable to participate in session and cooperative/pleasant throughout. pt denied pain Objective Orientation Overall Orientation Status: Within Functional Limits Cognition Overall Cognitive Status: WFL Activities of Daily Living LE Dressing: Supervision (OT facilitated pt in donning/doffing B socks while sitting in EOB. pt able to complete with supervision for safety. pt also able to tie L shoe with increased time.) Toileting: Modified independent (pt in restroom upon arrival and able to complete all tasks with mod I) Balance Balance Sitting: Intact (~18 minutes on EOB) Standing: High guard (~3 minutes. pt completed dynamic standing when reaching for items in hallway with CGA for safety, no LOB.) Transfers/Mobility Bed mobility Bed Mobility Comments: pt in bathroom upon arrival and retired to EOB At end of session Transfers Sit to stand: Stand by assistance Stand to sit: Stand by assistance Transfer Comments: from EOB Functional Mobility: Contact guard assistance Functional Mobility Skilled Clinical Factors: pt completed functional mobility from bathroom and in hallway to orange picker items for simulated IADL task. pt able to complete with CGA and 100% accuracy of picking up items with L UE. Exercises OT Exercises Exercise Treatment: pt participate in fine motor activity by picking up and releasing safety pins 1 at a time (10 total) with L hand. pt dropped 2 pins during picking up 1st attempt, and took 29 to orange picker all 10 with no drops 2nd attempt. pt dropped 1 pin during release on 1st attempt, and took 33 seconds to release on 2nd attempt. Patient Education Patient Education Education Given To: Patient Education Provided: Role of Therapy;Transfer Training;ADL Adaptive Strategies;Home Exercise Program Education Provided Comments: [facility] activities, safety within home environment. Education Method: Verbal Barriers to Learning: None Education Outcome: Verbalized understanding Goals Short Term Goals Time Frame for Short Term Goals: pt will, by discharge Short Term Goal 1: incorporate use of L UE into functional tasks with <3 verbal cues in order to increase awareness Short Term Goal 2: complete LB ADLs with mod I and AE, as needed (Goal updated by Peggy VALDERRAMA on 06/27/24) Short Term Goal 3: complete UB ADLS with mod I and modified tech(Goal updated by Peggy CASTANEDA/Jd on 06/27/24) Short Term Goal 4: participate in meaningful task for 15+ minutes in order to increase L UE strength an coordination Short Term Goal 5: dem SBA during functional transfers/functional mobility with LRAD, as needed Short Term Goal 6: dem ~20 minutes dynamic standing balance with SBA in order to complete functional tasks(Goal updated by Peggy CASTANEDA/Jd on 06/27/24) Plan Occupational Therapy Plan Times Per Week: 2-3x/wk Current Treatment Recommendations: Strengthening, Balance training, Functional mobility training, Endurance training, Safety education & training, Patient/Caregiver education & training, Self-Care / ADL, Return to work related activity, Positioning, Equipment evaluation, education, & procurement, Home management training, Coordination training [facility] Daily Activities Inpatient [facility] Daily Activity - Inpatient How much help is needed for putting on and taking off regular lower body clothing?: A Little How much help is needed for bathing (which includes washing, rinsing, drying)?: A Little How much help is needed for toileting (which includes using toilet, bedpan, or urinal)?: None How much help is needed for putting on and taking off regular upper body clothing?: None How much help is needed for taking care of personal grooming?: None How much help for eating meals?: None [facility] Inpatient Daily Activity Raw Score: 22 [facility] Inpatient ADL T-Scale Score : 47.1 ADL Inpatient CMS 0-100% Score: 25.8 ADL Inpatient CMS G-Code Modifier : CJ Minutes OT Individual Minutes Time In: 1100 Time Out: 1123 Minutes: 23 Time Code Minutes Timed Code Treatment Minutes: 23 Minutes Images from the original note were not included. PROGRESS NOTE PATIENT NAME: Jorge Chavira DATE: 06/27/2024 PRIMARY CARE PHYSICIAN: Martina Blas, TUBE LANCER - CLINICAL TRIAL SPECIALIST HD: # 7 ASSESSMENT Patient Active Problem List Diagnosis Epidural hematoma Subacute subdural hematoma Left-sided weakness Acute on chronic intracranial subdural hematoma (HCC) MEDICAL DECISION MAKING AND PLAN SDH s/p [place]en Hole 06/22 and EVD drain removal 06/24 SBP goal 100-140 Attempted MMA but unsuccessful due to anatomy MRV within normal limits GCS 15, pain well controlled Chronic rib fractures right 9-10 IS 4000, pain well controlled, cough strong PIC 10 Constipation Continue PEG, Senna, and Dulcolax Monitor Ins and outs. Record pts Bms. DVT ppx-Lovenox Dispo: precert to [facility] Chief Complaint: I had a BM SUBJECTIVE Patient seen and examined at bedside. He had a bowel movement last night and said he passed 4 nuggets , no bowel movements this morning. He worked with PT/OT yesterday and walked 2 laps and did 4 steps.He reports having some dizziness during this and feeling worn out afterwards. Denies chest pain, SOB, abdominal pain. hematochezia, melena, or urinary problems. Otherwise, he is doing well and has no concerns or complaints. Pt reported left sided weakness in note. OBJECTIVE VITALS: Temp: Temp: 97.7 F (36.5 C)Temp Av.7 F (36.5 C) Min: 97.2 F (36.2 C) Max: 98 F (36.7 C) BP Systolic (24hrs), Av , Min:105 , Max:127 Diastolic (24hrs), Av, Min:65, Max:89 Pulse Pulse Av.3 Min: 58 Max: 82 Resp Resp Av.3 Min: 12 Max: 20 Pulse ox SpO2 Av % Min: 96 % Max: 98 % GENERAL: alert, cooperative, no distress HENT: Wound on right superior aspect of scalp healing well, no erythema, warmth or purulence. Wound edges everted and even. NEURO: No focal deficits, cranial nerves intact, no weakness. Good strength and sensation intact bilaterally. LUNGS: clear to ausculation, without wheezes, rales or rhonci HEART: normal rate and regular rhythm ABDOMEN: soft, non-tender, non-distended, and no guarding or peritoneal signs present EXTREMITY: no cyanosis, clubbing or edema No intake/output data recorded. Drain/tube output: No intake/output data recorded. LAB: CBC: Recent Labs 06/25/24 0746 06/26/242 06/27/248 WBC 5.3 4.4 3.5 HGB 12.7* 12.6* 12.7* HCT 38.9* 38.2* 38.6* MCV 97.0 96.5 98.0 PLT 188 216 249 BMP: Recent Labs 06/25/24 0746 06/26/242 06/27/24 0338 NA 138 138 136 K 3.7 4.1 4.0 CL 105 104 103 CO2 24 25 23 BUN 10 10 11 CREATININE 0.8 0.9 0.7 GLUCOSE 110* 101* 107* COAGS: No results for input(s): APTT , INR in the last 72 hours. Invalid input(s): PROT RADIOLOGY: No results found. JEFFREY Wheeler IV 06/27/24, 6:44 AM General Surgery Resident Statement/Note: I have discussed the case, including pertinent history and exam findings with the above medical student have personally seen the patient. Pt seen and examined at bedside. I performed both history and physical exam. Patient seen, motor and strength intact in extremities without obvious neuro deficit, however, PT did report some left side weakness in note. Incisions appear well. No complaints, Pain controlled. DC to ARU at [facility] pending. Note was edited and changes made by me. Assessment and plan reviewed and changes made by me. I agree with the assessment and plan as stated above. Attestation signed by Tip Li MD I personally evaluated the patient and directed the medical decision making with Resident after the physical/radiologic exam and laboratory values were reviewed and confirmed. Planning rehab. Tip Li MD Physical Therapy Facility/Department: [address] [facility] Physical Therapy Daily Treatment Note Name: Jorge Chavira : 1960 Date of Service: 06/26/2024 Discharge Recommendations: Patient would benefit from continued therapy after discharge PT Equipment Recommendations Equipment Needed: No Other: continue to assess Patient Diagnosis(es): The primary encounter diagnosis was Epidural hematoma. A diagnosis of Left-sided weakness was also pertinent to this visit. Past Medical History: has no past medical history on file. Past Surgical History: has a past surgical history that includes craniotomy (Right, 06/22/2024); Heel spur surgery (Right); [place] tooth extraction; craniotomy (Right, 06/22/2024); and Cerebral angiogram (06/24/2024). Assessment Body Structures, Functions, Activity Limitations Requiring Skilled Therapeutic Intervention: Decreased functional mobility ;Decreased strength;Decreased balance;Decreased safe awareness;Decreased cognition Assessment: Pt completed bed mobility with SUP for sit to supine. Pt completed transfers with CGA from EOB without AD. Pt was able to ambulate 200'x2 reps without AD, CGA, slight instability noted to the L but no true LOB. Pt was also able to negotiate 5 steps with 1 HR CGA without LOB. Pt completed dynamic balance challenges without UE support with min A to correct L sided LOB. Pt would be unsafe to return home at this time due to balance deficits, L side weakness and decreased awareness and lack of support at home. Pt would require 24/7 care at this time for overall safety and reduced fall risk/risk of reinjury. Pt would benefit from further therapy to address current deficits and establish safe DC home. Therapy Prognosis: Good Activity Tolerance Activity Tolerance: Patient limited by endurance;Patient limited by fatigue;Patient tolerated treatment well Plan Physical Therapy Plan General Plan: 6-7 times per week Current Treatment Recommendations: Strengthening, Balance training, Gait training, Functional mobility training, Stair training, Transfer training, Endurance training, Home exercise program, Safety education & training, Patient/Caregiver education & training, Equipment evaluation, education, & procurement, Therapeutic activities Safety Devices Type of Devices: Call light within reach, Nurse notified, All fall risk precautions in place, Patient at risk for falls, Gait belt, Left in bed, Bed alarm in place Restraints Restraints Initially in Place: No Restrictions Restrictions/Precautions Restrictions/Precautions: Fall Risk, General Precautions Required Braces or Orthoses?: No Position Activity Restriction Other position/activity restrictions: CTLS clear, SBP <140. activity as tolerated Subjective General Patient assessed for rehabilitation services?: Yes Response To Previous Treatment: Patient with no complaints from previous session. Family / Caregiver Present: Yes (sister present during session) Follows Commands: Within Functional Limits General Comment Comments: Pt retired back to bed as he wanted to take a nap. Call light and bed alarm in place. RN notified. Subjective Subjective: RN and pt agreeable to therapy session. Pt sitting EOB upon arrival with RN present. Pt reporting of a headache at 4/10, mobility provided and RN administering medication at this time. Cognition Orientation Overall Orientation Status: Within Functional Limits Orientation Level: Oriented X4 Cognition Overall Cognitive Status: WFL Arousal/Alertness: Appears intact Following Commands: Follows multistep commands with repitition;Follows multistep commands with increased time Attention Span: Attends with cues to redirect Memory: Decreased recall of recent events Safety Judgement: Decreased awareness of need for safety;Decreased awareness of need for assistance Problem Solving: Assistance required to correct errors made;Assistance required to identify errors made;Assistance required to generate solutions;Assistance required to implement solutions Insights: Decreased awareness of deficits Initiation: Requires cues for some Sequencing: Requires cues for some Objective Bed mobility Supine to Sit: Unable to assess Sit to Supine: Supervision Bed Mobility Comments: Pt sitting EOB upon arrival and SUP for sit to supine upon departure. HOB slightly elevated. Transfers Sit to Stand: Contact guard assistance Stand to Sit: Contact guard assistance Comment: Pt completed sit to stand with CGA, no AD without LOB noted however slight instability noted with decreased L side awareness and use. The longer pt stands, the more L side lean he exhibits. Ambulation Surface: Level tile Device: No Device Assistance: Contact guard assistance Quality of Gait: no LOB but lateral instability noted, fast pace Gait Deviations: Decreased step height Distance: 200'x2 More Ambulation?: No Stairs/Curb Stairs?: Yes Stairs # Steps : 5 Stairs Height: 6 Rails: Right ascending Assistance: Contact guard assistance Comment: CGA for safety but no true LOB Balance Posture: Fair Sitting - Static: Fair;+ Sitting - Dynamic: Fair Standing - Static: Fair Standing - Dynamic: Fair;- Comments: Assessed sitting balance EOB and standing balance without AD Dynamic Standing Balance Exercises: Pt completed standing dynamic balance challenges without UE support including step stance, narrow ASHLEY, narrow ASHLEY with eyes closed, marching in place, and partial sit to stands. Pt demo L side LOB with min A to correct and right pt. The longer more fatigued the pt got, the more L side lean he exhibited. OutComes Score AM-PAC - Mobility AM-PAC Basic Mobility - Inpatient How much help is needed turning from your back to your side while in a flat bed without using bedrails?: None How much help is needed moving from lying on your back to sitting on the side of a flat bed without using bedrails?: None How much help is needed moving to and from a bed to a chair?: A Little How much help is needed standing up from a chair using your arms?: A Little How much help is needed walking in hospital room?: A Little How much help is needed climbing 3-5 steps with a railing?: A Little AM-PAC Inpatient Mobility Raw Score : 20 AM-PAC Inpatient T-Scale Score : 47.67 Mobility Inpatient CMS 0-100% Score: 35.83 Mobility Inpatient CMS G-Code Modifier : CJ Goals Short Term Goals Time Frame for Short Term Goals: 14 visits Short Term Goal 1: Pt will be Cherry bed mobility Short Term Goal 2: Pt will be Cherry transfers Short Term Goal 3: Pt will be Cherry amb 250' RW or least restrictive AD Short Term Goal 4: Pt will navigate 4 steps Cherry R rail use. Education Patient Education Education Given To: Patient Education Provided: Role of Therapy;Transfer Training;Fall Prevention Strategies;Family Education Education Provided Comments: safe DC planning, support for home Education Method: Verbal;Demonstration Barriers to Learning: None Education Outcome: Verbalized understanding;Demonstrated understanding;Continued education needed Therapy Time Individual Concurrent Group Co-treatment Time In 1335 Time Out 1411 Minutes 36 Timed Code Treatment Minutes: 33 Minutes Gabriella Cortes PTA [facility] Inpatient Progress Note CHRISTEL Carlton 06/26/2024 8:41 AM Jorge Chavira [id number] Time Spent with Patient: 15 minutes or less (Brief Diagnostic Assessment) [id number] Pt was provided informed consent for the [facility]. Discussed with patient model of service to include the limits of confidentiality (i.e. abuse reporting, suicide intervention, etc.) and short-term intervention focused approach. Pt indicated understanding. [facility] Inpatient or Virtual Question: This was not a virtual session Is consult a Victim of Crime?: No Presenting Patient Report: Therapist followed up with pt at bedside. Pt reports he is doing well today and is doing a lot of soul searching. Pt reports he feels this was his rock bottom and plans to stop drinking and do things differently. Pt and therapist discussed following up with substance use treatment. Pt expressed a plan to do so and expressed hope for his future. Therapist offered brief emotional support and discussed potential barriers. Pt expressed gratitude for visit. Therapist encouraged pt to reach out during hospitalization if he needs any more bedside follow up. MSE: Appearance: Hospital Gown, Good Hygiene, and Good Eye Contact Speech normal volume, well articulated, and slow Affect Observed Appropriate to Context and Normal Thought Content intact Thought Process linear, goal directed, and coherent Associations logical connections Insight Good Judgment Intact Orientation oriented to person, place, time, and general circumstances Patient reports and/or exhibits the following symptoms: Mood: Appropriate to Context, Euthymic, and Tearfulness Cognitive symptoms: Appropriate to Context Behaviors: Appropriate to Context Somatic: None Reported Assessment: Pt presented to session with normal mood and affect. Pt's speech was normal volume and well articulated but slow. Pt became slightly emotional as he spoke of trying to change but also expressed hope. Pt coping better today. Pt would benefit from services after dc to address substance use and mental health concerns. Screening Scale Results (If Any): ITSS: Date Screen Completed: 06/24/24 Patient's score= 1 for PTSD risk. ( >= 2 is positive for PTSD risk. ) Patient's score= 2 for depression risk. ( >= 2 is positive for Depression risk ) PHQ-4: Date Screen Completed: 06/24/24 Patient's Score (Questions 1&2): 2 >= 3 suggests anxiety Patient's Score (Questions 3&4): 0 >= 3 suggests depression Chief Complaint / Diagnoses: The following Chief Complaint or Diagnoses are based on currently available information and may change as additional information becomes available. Observation for suspected mental condition Z03.89 Further assessment needed to dx depression Patient Interventions: Psychoeducation , Emotional Support, Building Rapport, Supportive Techniques / Emotional Support, and Active Listening Recommendations: Follow up with [facility] or other new mental health provider Plan: Bedside follow-up during hospital admission and Provide Referrals Images from the original note were not included. PROGRESS NOTE PATIENT NAME: Jorge Chavira DATE: 06/26/2024 HD: # 6 DIAGNOSIS AND PLAN SDH s/p Steve Hole 06/22 and EVD drain removal 06/24 SBP goal 100-140 Attempted MMA but unsuccessful due to anatomy MRV within normal limits GCS 15, pain well controlled Chronic rib fractures right 04-22 IS 3000, pain well controlled, cough strong PIC 10 Constipation Continue PEG, Senna, and Dulcolax Monitor Ins and outs. Record pts Bms. DVT ppx-Lovenox Dispo: pt feels comfortable going home with sister Chief Complaint: I haven't had a bowel movement in 4 days SUBJECTIVE Pt alert and oriented. No acute distress.Pt complains that he has not had BM in 4 days. Has been passing gas. Nursing confirms pt has not had BM in 4 days. Working well with PT and OT but still likely to require further rehab after discharge.Pt able to ambulate last night, void by himself, and walk 2 laps of floor with nurse supervision. Discharge planning is to home, single story house without stairs. Sister will be assisting him. He hopes he will be able to qualify for pt/ot rehab. OBJECTIVE VITALS: Vitals: 06/26/24 0331 BP: (!) 102/59 Pulse: 61 Resp: 14 Temp: 98.3 F (36.8 C) SpO2: Physical Exam Constitutional: General: He is not in acute distress. HENT: Head: Normocephalic. Comments: Wound on right superior aspect of scalp healing well, no erythema, warmth or purulence. Wound edges everted and even. Eyes: Extraocular Movements: Extraocular movements intact. Conjunctiva/sclera: Conjunctivae normal. Pupils: Pupils are equal, round, and reactive to light. Cardiovascular: Rate and Rhythm: Normal rate. Pulses: Normal pulses. Heart sounds: No murmur heard. No friction rub. No gallop. Pulmonary: Breath sounds: Normal breath sounds. Abdominal: General: Bowel sounds are normal. Tenderness: There is no abdominal tenderness. There is no guarding. Musculoskeletal: General: Normal range of motion. Cervical back: Normal range of motion. Skin: General: Skin is warm and dry. Capillary Refill: Capillary refill takes less than 2 seconds. Neurological: General: No focal deficit present. Mental Status: He is alert and oriented to person, place, and time. Cranial Nerves: No cranial nerve deficit. Motor: No weakness. Gait: Gait normal. Deep Tendon Reflexes: Reflexes normal. Comments: CN II-IIX grossly intact, Good strength and sensation to sharp and dull bilaterally Psychiatric: Mood and Affect: Mood normal. LAB: CBC: Recent Labs 06/24/2423806/25/24 0746 06/26/24 0302 WBC 6.7 5.3 4.4 HGB 13.0 12.7* 12.6* HCT 39.0* 38.9* 38.2* MCV 94.9 97.0 96.5 PLT 206 188 216 BMP: Recent Labs 06/24/2423806/25/24 0746 06/26/24 0302 NA 137 138 138 K 3.8 3.7 4.1 CL 105 105 104 CO2 23 24 25 BUN 9 10 10 CREATININE 0.9 0.8 0.9 GLUCOSE 105* 110* 101* ILEANA HANNAH 06/26/2024, 6:40 AM General Surgery Resident Statement/Addendum I have discussed the case, including pertinent history and exam findings with the above medical student and I have personally seen the patient. Note was edited and changes made by me. Suri Chavis DO PGY-4 06/26/24 7:44 AM Attestation signed by Tip Li MD I personally evaluated the patient and directed the medical decision making with Resident after the physical/radiologic exam and laboratory values were reviewed and confirmed. Awaiting placement [facility]. Tip Li MD Images from the original note were not included. POST ICU TRANSFER NOTE SUBJECTIVE Pt alert and oriented. No acute distress. No active complaints at this time. Working well with PT and OT but still likely to require further rehab after discharge. Checklist: [x] Oxygen saturation is > 90% on FiO2< 50% (exceptions may be made for patient pathophysiology) [x] Vital signs remain at or near baseline without pharmaceutical adjuncts, blood products, or > 2L fluid bolus since transfer [x] No suspicion or evidence of a new untreated infection (confusion, cool or cyanotic extremities, poor capillary refill, metabolic acidosis, low urine output) [x] Stable GCS, seizures controlled, no invasive neurological monitoring [x] No alteration in mental status after transfer from ICU [x] No deterioration in renal function since transfer [x] Patient care needs do not exceed the capabilities of the unit they were transferred to (suctioning needs, glucose monitoring, neurological monitoring, neurovascular checks, vital sign monitoring, I&O monitoring, drain management Darrel Beal DO Tra[facility] 06/25/2024 at 5:41 PM [facility] Inpatient Psychotherapy Note CHRISTEL Carlton 06/25/2024 2:48 PM Jorge Chavira 11[id number] Time Spent with Patient: 16 to 37 minutes (30 minutes) [id number] Pt was provided informed consent for the [facility]. Discussed with patient model of service to include the limits of confidentiality (i.e. abuse reporting, suicide intervention, etc.) and short-term intervention focused approach. Pt indicated understanding. [facility] Inpatient or Virtual Question: This was not a virtual session Is consult a Victim of Crime?: No Presenting Patient Report: Therapist checked in with pt and pt asked family members to leave the room. Pt repots he called earlier in the day to talk about how he was feeling. Pt reports that his hospital experience is triggering his past and he is having flashbacks from when his son sick. Pt reports some thoughts and feelings about his divorce and being estranged from children. Pt also reports a hx of alcoholism and a desire to do things differently. Therapist offered emotional support and psychoeducation. Therapist encouraged pt to continue to allow himself to feel his emotions. Therapist provided pt with referrals in his area for mental health and substance use treatment. Pt denies thoughts of self harm/suicide. Pt confirmed interest in return visit in the morning. MSE: Appearance: Hospital Gown and Good Eye Contact Speech spontaneous, normal rate, and normal volume Affect Observed Depressed Thought Content excessive guilt and cognitive distortions Thought Process linear, goal directed, and coherent Associations logical connections Insight Good Judgment Intact Orientation oriented to person, place, time, and general circumstances Patient reports and/or exhibits the following symptoms: Mood: Depression, Tearfulness, Sadness, and Guilt Cognitive symptoms: Negative thinking Behaviors: flashbacks, intrusive memories Somatic: None Reported Assessment: Pt presented in hospital bed and requested to meet individually. Pt was tearful at points during session and made some attempts to avoid emotions but he was able to be redirected. Pt experiencing flashbacks and difficult emotions and has been thinking about his divorce and son. Pt has a hx of substance abuse and reports a desire to enter into treatment. Therapist provided pt with list of referrals and max encouragement was offered for pt to follow up. Pt open to return visit. Therapist to attempt to stop by in morning if pt is available. Pt would benefit from therapy after dc to address difficult life experiences. Screening Scale Results (If Any): ITSS: Date Screen Completed: 06/24/24 Patient's score= 1 for PTSD risk. ( >= 2 is positive for PTSD risk. ) Patient's score= 2 for depression risk. ( >= 2 is positive for Depression risk ) PHQ-4: Date Screen Completed: 06/24/24 Patient's Score (Questions 1&2): 2 >= 3 suggests anxiety Patient's Score (Questions 3&4): 0 >= 3 suggests depression Chief Complaint / Diagnoses: The following Chief Complaint or Diagnoses are based on currently available information and may change as additional information becomes available. Observation for suspected mental condition Z03.89 Further assessment needed to dx depression Patient Interventions: Psychoeducation , Emotional Support, Cognitive Processing, Providing Referrals, Building Rapport, Supportive Techniques / Emotional Support, and Active Listening Recommendations: Follow up with [facility] or other new mental health provider Plan: Bedside follow-up during hospital admission and Provide Referrals Facility/Department: [address] [facility] Re-Evaluation Speech/Language/Cognitive Assessment NAME: Jorge Chavira : 1960 ADMISSION DATE: 06/20/2024 ADMITTING DIAGNOSIS: has Epidural hematoma; Subacute subdural hematoma; Left-sided weakness; and Acute on chronic intracranial subdural hematoma (HCC) on their problem list. Date of Eval: 06/25/2024 Evaluating Therapist: Marleny Disla RECENT RESULTS CT OF HEAD/MRI: Diminished size of now 11 mm thick right subdural collection. Moderate amount of new subarachnoid pneumocephalus. Improved [id number] midline shift now measuring 4 mm. Primary Complaint: This is a 63-year-old male that is a transfer from an outside facility, fell Sunday and Sunday, presented yesterday and was found to have a 3 mm epidural versus subdural bleed with 8 mm shift. Patient not on anticoagulation. Patient does have a history of alcoholism, however no other medical history. Patient also has questionable right 9th through 10th rib fractures on the posterior lateral side, however patient has no tenderness, rib score is 4 due to age. Neurosurgery was consulted, repeated CT of the head here, follow-up on additional recommendations. Stating that patient can work with PT and OT here, n.p.o. until further evaluation. Patient has been counseled on the left upper and lower extremities, 5 out of 5 strength right extremities, 4-5 strength left extremities. Patient does not have any sensational abnormalities. Patient on phenobarb taper due to alcohol use. ICU admission for head bleed. Pain: Pain Assessment Pain Assessment: None - Denies Pain Pain Level: 3 Patient's Stated Pain Goal: 0 - No pain Pain Location: Head Pain Orientation: Right Pain Descriptors: Aching Functional Pain Assessment: Activities are not prevented Pain Type: Acute pain Pain Frequency: Continuous Pain Onset: On-going Non-Pharmaceutical Pain Intervention(s): Emotional support, Environmental changes, Therapeutic presence Response to Pain Intervention: Patient satisfied Side Effects: No reported side effects Multiple Pain Sites: No Faces, Legs, Activity, Cry, and Consolability (FLACC) Face (F): no particular expression or smile Legs (L): normal position or relaxed Activity (A): lying quietly, normal position, moves easily Cry (C): no cry (awake or asleep) Consolability (C): content, relaxed FLACC Score : 0 Vision/ Hearing Vision Vision: Impaired Hearing Hearing: Within functional limits Assessment: Pt presents with mild cognitive deficits characterized by difficulties with recall. Pt. Presents with no dysarthria, no O/M deficits at this time. ST to follow up and provide treatment to address noted deficits. Education provided. No therapy recommended at discharge. Recommendations: Recommendations Requires MARKETING INFORMATION COORDINATOR Intervention: Yes 3-5x per week D/C Recommendations: Ongoing speech therapy is recommended during this hospitalization;No follow up therapy recommended post discharge Plan: Speech Therapy Prognosis Prognosis: Fair Individuals consulted Consulted and agree with results and recommendations: Patient;Family member Goals: Short Term Goals Goal 1: Pt will recall 3-5 units without distractions with 90% accuracy. Goal 2: Pt will utilize compensatory strategies for recall. Patient/family involved in developing goals and treatment plan: yes Subjective: Previous level of function and limitations: Social/Functional History Lives With: Alone Vision Vision: Impaired Hearing Hearing: Within functional limits Objective: Oral Motor Labial: No impairment Lingual: No impairment Motor Speech Apraxic Characteristics: None Dysarthric Characteristics: None Intelligibility: No impairment Overall Impairment Severity: None Cognition: Orientation Overall Orientation Status: Within Functional Limits Attention Attention: Within Functional Limits Memory Memory: Exceptions to WFL (Immediate Recall: 3/3; 2/5; 3/3) Short-term Memory: WFL Problem Solving Problem Solving: Within Functional Limits Verbal Reasoning Skills: WFL Sequencing: WFL Abstract Reasoning Abstract Reasoning: Within Functional Limits Convergent Thinking: WFL Divergent Thinking: WFL Safety/Judgment Safety/Judgment: Within Functional Limits Insight: WFL Flexibility of Thought: WFL Prognosis: Speech Therapy Prognosis Prognosis: Fair Individuals consulted Consulted and agree with results and recommendations: Patient;Family member Education: yes Therapy Time: Individual Concurrent Group Co-treatment Time In 13:49 Time Out 13:59 Minutes 10 Completed by: Marleny Disla Benefits Advisor Clinician Cosigned By: Suri Ashford M.A., CCC/MARKETING INFORMATION COORDINATOR Occupational Therapy Occupational Therapy Daily Treatment Note Facility/Department: [facility] Patient Name: Jorge Chavira : 1960 Date of Service: 06/25/2024 Discharge Recommendations Discharge Recommendations: Patient would benefit from continued therapy after discharge Past Medical History: has no past medical history on file. Past Surgical History: has a past surgical history that includes craniotomy (Right, 06/22/2024); Heel spur surgery (Right); [place] tooth extraction; craniotomy (Right, 06/22/2024); and Cerebral angiogram (06/24/2024). Assessment Performance deficits / Impairments: Decreased functional mobility ;Decreased ADL status;Decreased endurance;Decreased high-level IADLs;Decreased strength;Decreased balance;Decreased safe awareness;Decreased coordination Assessment: pt demonstrated above deficits impacting occupational performance. pt significantly limited by decreased awareness of safety and awareness of L side. pt would benefit from continued acute OT, as well as at discharge in order to increase safety and independence. Prognosis: Good Activity Tolerance Activity Tolerance: Patient Tolerated treatment well Safety Devices Type of Devices: Call light within reach;Nurse notified;All fall risk precautions in place;Patient at risk for falls;Gait belt;Left in bed (left EOB with family and RN permission) Restraints Restraints Initially in Place: No Restrictions/Precautions Restrictions/Precautions Restrictions/Precautions: Fall Risk;General Precautions Required Braces or Orthoses?: No Position Activity Restriction Other position/activity restrictions: CTLS clear, SBP <140. activity as tolerated Subjective General Patient assessed for rehabilitation services?: Yes Response to previous treatment: Patient with no complaints from previous session Family / Caregiver Present: No General Comment Comments: RN ok'd patient for OT treatment this morning. Pt agreeable to participate in session and cooperative/pleasant throughout. Pt denied pain Objective Orientation Overall Orientation Status: Within Functional Limits Orientation Level: Oriented to person;Oriented to place;Oriented to time Cognition Overall Cognitive Status: WFL Following Commands: Follows multistep commands with repitition Attention Span: Attends with cues to redirect Safety Judgement: Decreased awareness of need for safety;Decreased awareness of need for assistance Insights: Fully aware of deficits Initiation: Requires cues for some Sequencing: Requires cues for some Activities of Daily Living Grooming: Supervision Grooming Skilled Clinical Factors: Pt completed oral care and wiping face while standing at sink with occasional one UE support. No LOB demonstrated and was able to open all containers UE Dressing: Modified independent UE Dressing Skilled Clinical Factors: Pt simulated don/doff t-shirt while seated EOB LE Dressing: Stand by assistance;Setup LE Dressing Skilled Clinical Factors: Pt was able to thread underwear over feet while lifting each foot midway to cross leg technique, stood SBA to hike over hips and buttocks with no LOB demonstrated. Pt also donned and doffed slipper socks MOD I while seated. Additional Comments: Pt also participated in dynamic reaching skills in multiple planes and at multiple speeds to increase coordination. Pt also demo ability to write date, name and numbers, orange picker paper, tear tape, orange picker multiple size items and peel a sticker with only one cue for sticker. Noted very mild slowed pace in keeping up with movement during reaching task with LUE but very mild. Completed to increase independence with ADL tasks and mobility. Balance Balance Sitting: Without support (Pt seated EOB 2x total of 20 minutes with good balance static/dynamic during functional tasks reaching in multiple planes with no LOB demonstrated) Standing: With support;Without support (Pt stood at sink ~6-7 minutes for simple grooming tasks. Pt able to incorporate LUE without difficulty. Pt stood at EOB for clothing mgt SBA with no LOB ~1 minute) Transfers/Mobility Bed mobility Supine to Sit: Supervision Sit to Supine: Unable to assess Scooting: Supervision Bed Mobility Comments: HOB elevated to ~45 degrees. Pt able to complete without use of bed rails. Pt concluded session seated EOB with family present and RN approval Transfers Sit to stand: Stand by assistance Stand to sit: Stand by assistance Transfer Comments: From EOB with RW and cue for safe hand placement. Functional Mobility: Stand by assistance Functional Mobility Skilled Clinical Factors: Pt completed functional mobility to/from bathroom with RW SBA for ADL tasks. Pt steady with no LOB and demo good safety with movement. Patient Education Patient Education Education Given To: Patient;Family Education Provided: Role of Therapy;Transfer Training;ADL Adaptive Strategies;Home Exercise Program Education Provided Comments: safety during functional transfers/mobility/hand placement, body mechanics, FMC exercises/tasks Education Method: Demonstration;Verbal Barriers to Learning: None Education Outcome: Verbalized understanding;Demonstrated understanding Goals Short Term Goals Time Frame for Short Term Goals: pt will, by discharge Short Term Goal 1: incorporate use of L UE into functional tasks with <3 verbal cues in order to increase awareness Short Term Goal 2: complete LB ADLs with min A and AE, as needed Short Term Goal 3: complete UB ADLS with SBA and modified tech Short Term Goal 4: participate in meaningful task for 15+ minutes in order to increase L UE strength an coordination Short Term Goal 5: dem SBA during functional transfers/functional mobility with LRAD, as needed Short Term Goal 6: dem ~20 minutes dynamic sitting balance unsupported with SBA in order to complete functional tasks Plan Occupational Therapy Plan Times Per Week: 3-5x/wk Current Treatment Recommendations: Strengthening, ROM, Balance training, Functional mobility training, Endurance training, Safety education & training, Patient/Caregiver education & training, Self-Care / ADL, Return to work related activity, Positioning, Equipment evaluation, education, & procurement, Home management training, Coordination training [facility] Daily Activities Inpatient [facility] Daily Activity - Inpatient How much help is needed for putting on and taking off regular lower body clothing?: A Little How much help is needed for bathing (which includes washing, rinsing, drying)?: A Little How much help is needed for toileting (which includes using toilet, bedpan, or urinal)?: None How much help is needed for putting on and taking off regular upper body clothing?: None How much help is needed for taking care of personal grooming?: None How much help for eating meals?: None [facility] Inpatient Daily Activity Raw Score: 22 [facility] Inpatient ADL T-Scale Score : 47.1 ADL Inpatient CMS 0-100% Score: 25.8 ADL Inpatient CMS G-Code Modifier : CJ Minutes OT Individual Minutes Time In: 1118 Time Out: 1156 Minutes: 38 Time Code Minutes Timed Code Treatment Minutes: 38 Minutes Images from the original note were not included. Endovascular Neurosurgery Progress Note Pt Name: Jorge Chavira Birthdate: 1960 Date of evaluation: 06/22/2024 Primary Care Physician: Martina Blas APRN - CLINICAL TRIAL SPECIALIST Reason for evaluation: Right subdural hematoma-acute on chronic-for MMA embolization evaluation SUBJECTIVE: No acute events overnight, continue management per primary team, too risky for MMA embolization-detail below History of Chief Complaint: Jorge Chavira is a 63 y.o. male who presents with acute on chronic subdural hematoma status post fall on June 16, 2024. Neurosurgery on board for possible bur hole evacuation. Neuroendovascular consulted right MMA embolization.. Allergies has No Known Allergies. Medications Prior to Admission medications Not on File Scheduled Meds: enoxaparin 40 mg SubCUTAneous BID sodium chloride flush 5-40 mL IntraVENous 2 times per day sodium chloride flush 5-40 mL IntraVENous 2 times per day polyethylene glycol 17 g Oral Daily levETIRAcetam 500 mg IntraVENous Q12H sodium chloride flush 5-40 mL IntraVENous 2 times per day sodium chloride flush 5-40 mL IntraVENous 2 times per day acetaminophen 1,000 mg Oral 3 times per day sodium chloride flush 5-40 mL IntraVENous 2 times per day PHENobarbital 32.4 mg Oral q8h Continuous Infusions: sodium chloride sodium chloride sodium chloride sodium chloride sodium chloride PRN Meds:.ibuprofen, sodium chloride flush, sodium chloride, ondansetron OR ondansetron, sodium chloride flush, sodium chloride, senna, bisacodyl, oxyCODONE OR oxyCODONE, sodium chloride flush, sodium chloride, magnesium sulfate, ondansetron OR ondansetron, sodium chloride flush, sodium chloride, hydrALAZINE, sodium chloride flush, sodium chloride Past Medical History has no past medical history on file. Past Surgical History has a past surgical history that includes craniotomy (Right, 06/22/2024); Heel spur surgery (Right); [place] tooth extraction; craniotomy (Right, 06/22/2024); and Cerebral angiogram (06/24/2024). Social History reports that he has never smoked. He has never used smokeless tobacco. reports current alcohol use of about 56.0 standard drinks of alcohol per week. reports no history of drug use. Family History family history is not on file. Review of Systems: CONSTITUTIONAL: negative for fevers, chills, fatigue and malaise EYES: negative for double vision, blurred vision and photophobia HEENT: negative for tinnitus, epistaxis and sore throat RESPIRATORY: negative for cough, shortness of breath, wheezing CARDIOVASCULAR: negative for chest pain, palpitations, syncope, edema GASTROINTESTINAL: negative for nausea, vomiting GENITOURINARY: negative for incontinence MUSCULOSKELETAL: negative for neck or back pain NEUROLOGICAL: Negative for weakness and tingling negative for headaches and dizziness PSYCHIATRIC: negative for anxiety Review of systems otherwise negative. OBJECTIVE: Vitals: 06/25/24 0900 BP: 126/75 Pulse: 66 Resp: 16 Temp: SpO2: 94% CONSTITUTIONAL: Alert, answers questions appropriately HEAD: normocephalic, atraumatic EYES: PERRLA, EOMI. ENT: moist mucous membranes NECK: supple, symmetric, no midline tenderness to palpation BACK: without midline tenderness, step-offs or deformities LUNGS: Equal air entry bilaterally CARDIOVASCULAR: normal s1 / s2 ABDOMEN: Soft, no rigidity NEUROLOGIC: Mental Status: A & O x3,awake Cranial Nerves: cranial nerves II-XII are grossly intact Motor Exam: Drift: absent Tone: normal Motor exam is symmetrical 5 out of 5 all extremities bilaterally Sensory: Touch: Right Upper Extremity: normal Left Upper Extremity: normal Right Lower Extremity: normal Left Lower Extremity: normal Deep Tendon Reflexes: Right Bicep: 2+ Left Bicep: 2+ Right Knee: 2+ Left Knee: 2+ Plantar Response: Right: equivocal Left: equivocal Clonus: N/A Pretty's: N/A Coordination/Dysmetria: Left upper extremity dysmetria Gait: deferred SKIN: no rash LABS: Reviewed. Lab Results Component Value Date HGB 12.7 (L) 06/25/2024 WBC 5.3 06/25/2024 PLT 188 06/25/2024 NA 138 06/25/2024 BUN 10 06/25/2024 CREATININE 0.8 06/25/2024 AST 30 06/20/2024 ALT 21 06/20/2024 MG 1.9 06/25/2024 APTT 26.0 06/22/2024 INR 1.0 06/22/2024 No results found for: COVID19 RADIOLOGY: Images were personally reviewed including: Large subdural collection about the right lateral convexity, extending anterior to posterior. The collection measures approximately 3 cm in thickness. The heterogeneous appearance of the collection suggests component of acute on chronic subdural hemorrhage. There is associated sulcal effacement of the right cerebral hemisphere to include the right frontal, temporal, and parietal lobes. There is approximately 8 mm of right to left midline shift and narrowing of the basal cisterns bilaterally. DSA 06/24/2024 Findings: Please see dictated Radiology note for further details R SDH s/p steve hole evacuation planned for R MMA embolization. The procedure was aborted due to MMA originating from the Ophthalmic artery. There is delayed venous out flow on the RECA run with relatively engorged ophthalmic vein suggestive of possible venous outflow obstruction versus elevated ICP. Please consider obtaining brain MRV ASSESSMENT: 63-year-old male who presents with a fall on 06 16 and has had left lower extremity weakness. Found to have a right subdural hematoma with midline shift measuring 8 mm. The hematoma looks acute on chronic with multiple septations measuring about 3 cm. Neurosurgery planning for bur hole evacuation. The patient is a good candidate for right MMA embolization. We will consider to take him on Sunday pending neurosurgery evacuation and outcome. PLAN: DSA done, showed delayed venous out flow on the RECA run with relatively engorged ophthalmic vein suggestive of possible venous outflow obstruction versus elevated ICP. Please consider obtaining brain MRV MMA embolization was aborted due to MMA originating from the Ophthalmic artery. The path to the MMA through the ICA is very tortuous and ophthalmic artery is very narrow in caliber, also high risk for complications if MMA is embolized if it comes from the ICA. Case discussed with Dr. Jeannine Cruz MD Stroke, Neurocritical Care & Neurointervention [facility] [place] Stroke [facility] [place] Associated attestation - Isma Paez MD - 06/26/2024 4:38 AM EST Images from the original note were not included. I reviewed the Fellow's note and agree with the documented findings and plan of care. Any areas of disagreement are noted on the chart. I agree with the chief complaint, past medical history, past surgical history, allergies, medications, social and family history as documented unless otherwise noted below. I have personally seen and evaluated the patient and images. I find the patient's history and physical exam are consistent with the Fellow's documentation. I agree with the critical and perez portions of the care provided, treatment rendered, disposition and follow-up plan. Late Entry Note for Date of Endovascular Neurosurgery/Stroke Service rendered on 06-25-2024. 51 minutes with time spent face to face, examining patient, counseling, coordinating care, obtaining history, reviewing images, labs, and other notes personally today. Isma Paez MD Office [phone]. Cell [phone] Stroke, Neurocritical Care & Neurointervention [facility] [place] Stroke [facility] [place] Physical Therapy Facility/Department: [facility] CAR [facility]- SICU Physical Therapy Treatment Note Name: Jorge Chavira : 1960 Date of Service: 06/25/2024 Discharge Recommendations: Patient would benefit from continued therapy after discharge PT Equipment Recommendations Equipment Needed: No Further therapy recommended at discharge.The patient should be able to tolerate at least 3 hours of therapy per day over 5 days or 15 hours over 7 days. This patient may benefit from a Physical Medicine and Rehab consult. Patient Diagnosis(es): The primary encounter diagnosis was Epidural hematoma. A diagnosis of Left-sided weakness was also pertinent to this visit. Past Medical History: has no past medical history on file. Past Surgical History: has a past surgical history that includes craniotomy (Right, 06/22/2024); Heel spur surgery (Right); [place] tooth extraction; craniotomy (Right, 06/22/2024); and Cerebral angiogram (06/24/2024). Assessment Body Structures, Functions, Activity Limitations Requiring Skilled Therapeutic Intervention: Decreased functional mobility ;Decreased strength;Decreased balance;Decreased safe awareness;Decreased cognition Assessment: Pt amulated 50 ft without AD and Cristy. Pt is demonstrating decreased balance t/o session. Pt demonstrating LOBs with direction turns and scanning enviroment making pt unsafe to return to prior living arrangements. Pt would benefit from therapy to facilitate safe return to home. Therapy Prognosis: Good Activity Tolerance Activity Tolerance: Patient limited by endurance;Patient limited by fatigue Plan Physical Therapy Plan General Plan: 6-7 times per week Current Treatment Recommendations: Strengthening, Balance training, Gait training, Functional mobility training, Stair training, Transfer training, Endurance training, Home exercise program, Safety education & training, Patient/Caregiver education & training, Equipment evaluation, education, & procurement, Therapeutic activities Safety Devices Type of Devices: Call light within reach, Nurse notified, All fall risk precautions in place, Patient at risk for falls, Gait belt, Left in bed Restraints Restraints Initially in Place: No Restrictions Restrictions/Precautions Restrictions/Precautions: Fall Risk, General Precautions Required Braces or Orthoses?: No Position Activity Restriction Other position/activity restrictions: CTLS clear, SBP <140. activity as tolerated Subjective General Chart Reviewed: No Patient assessed for rehabilitation services?: Yes Response To Previous Treatment: Patient with no complaints from previous session. Family / Caregiver Present: No Follows Commands: Within Functional Limits General Comment Comments: Pt retired to toilet seat and RN notified. Subjective Subjective: Pt and RN agreeable to tx session. Pt supine in bed reporting some incision pain on head, Positioned for comfort following session. pleasant and cooperative. Cognition Orientation Overall Orientation Status: Within Functional Limits Orientation Level: Oriented to person;Oriented to place;Oriented to time Cognition Overall Cognitive Status: Exceptions Following Commands: Follows multistep commands with repitition Attention Span: Attends with cues to redirect Safety Judgement: Decreased awareness of need for safety;Decreased awareness of need for assistance Insights: Fully aware of deficits Initiation: Requires cues for some Sequencing: Requires cues for some Objective Bed mobility Supine to Sit: Stand by assistance Sit to Supine: Stand by assistance Scooting: Stand by assistance Bed Mobility Comments: HOB elevated to ~45 degrees. Pt able to complete without use of bed rails. Pt reported minimal dizziness. Transfers Sit to Stand: Contact guard assistance Stand to Sit: Contact guard assistance Comment: Assessed with RW and without AD. Pt completed x 4 sit<>Stands this date. Pt is slightly unsteady when coming to stand CG Afor safety. Ambulation Surface: Level tile Device: Rolling Walker Assistance: Contact guard assistance Quality of Gait: fair stability, no true LOBs, lateral trunk sway Gait Deviations: Slow Shruthi;Decreased step length;Decreased step height Distance: 15 ft More Ambulation?: Yes Ambulation 2 Surface - 2: level tile Device 2: No device Assistance 2: Contact guard assistance;Minimal assistance Quality of Gait 2: unsteady, trunk sway, toed our gait Gait Deviations: Slow Shruthi;Decreased step length;Decreased step height;Deviated path Distance: 50ft, + 50ft Comments: Pt 1st 40 ft demonstating fair stability, 2nd 40 ft added in reactive head turns pt began displaying path deviation no true LOBs. Ambulation 3 Surface - 3: level tile Device 3: No device Assistance 3: Minimal assistance Quality of Gait 3: unsteady no true LOB, Gait Deviations: Decreased step length;Decreased step height;Slow Shruthi Distance: 40ft Comments: Placed x 3 objects on floor in room. Instructed pt to weave around objects, pt displayed x 1 instance of LOB requiring Cristy. Pt also required Cristy post opening door to bathroom. Stairs/Curb Stairs?: No Balance Posture: Fair Sitting - Static: Fair;- Sitting - Dynamic: Fair;+ Standing - Static: Fair Standing - Dynamic: Fair;- Comments: Assessed sitting EOB, Standing assessed with RW and without AD. Static Standing Balance Exercises: Narrow ASHLEY x 1 x 30 seconds, Narrow ASHLEY with eyes closed x 1 x 30 sec. Tandem eyes open x 1 x 30 sec ea Cristy-modA, Tandem eyes closed x 1 x 30 sec modA for LOBs. [facility] - Mobility [facility] Basic Mobility - Inpatient How much help is needed turning from your back to your side while in a flat bed without using bedrails?: None How much help is needed moving from lying on your back to sitting on the side of a flat bed without using bedrails?: None How much help is needed moving to and from a bed to a chair?: A Little How much help is needed standing up from a chair using your arms?: A Little How much help is needed walking in hospital room?: A Little How much help is needed climbing 3-5 steps with a railing?: A Lot [facility] Inpatient Mobility Raw Score : 19 [facility] Inpatient T-Scale Score : 45.44 Mobility Inpatient CMS 0-100% Score: 41.77 Mobility Inpatient CMS G-Code Modifier : CK Goals Short Term Goals Time Frame for Short Term Goals: 14 visits Short Term Goal 1: Pt will be Cherry bed mobility Short Term Goal 2: Pt will be Cherry transfers Short Term Goal 3: Pt will be Cherry amb 250' RW or least restrictive AD Short Term Goal 4: Pt will navigate 4 steps Cherry R rail use. Education Patient Education Education Given To: Patient Education Provided: Role of Therapy;Plan of Care;Transfer Training Education Method: Demonstration;Verbal Barriers to Learning: None Education Outcome: Verbalized understanding;Demonstrated understanding;Continued education needed Therapy Time Individual Concurrent Group Co-treatment Time In 947 Time Out 1013 Minutes 25 Timed Code Treatment Minutes: 23 Minutes Franky Cid PTA [facility] Inpatient Progress Note CHRISTEL Carlton 06/25/2024 9:58 AM Jorge Pierson Agustinherminia 1960 [id number] Time spent with Patient: 0 minutes Time spent with Family: 0 Minutes This show card writer was unable to complete screen or therapy services with patient at bedside at this time due to the following: Other service provider in room / procedure being performed Therapist received vm from pt early this morning. VM was difficult to understand as call kept breaking up. Therapist attempted to stop by and check in with pt. Pt unavailable. Therapist will stop by again in PM. Images from the original note were not included. Trauma/Surgical Critical Care Sign Out Note: Code Status: Full Code Mode of provider to provider communication: [x] Via telephone [] In person Date and time of sign-out: 06/25/2024 9:51 AM Criteria Met for Transfer: [x] Oxygen saturation is > 90% on FiO2< 50% (exceptions may be made for patient pathophysiology) [x] Vital signs remain at or near baseline without pharmaceutical adjuncts, blood products, or > 2L fluid bolus in the last 24 hours [x] No suspicion or evidence of a new untreated infection (confusion, cool or cyanotic extremities, poor capillary refill, metabolic acidosis, low urine output) [x] Stable GCS, seizures controlled, no invasive neurological monitoring [x] Altered mental status is stable and able to be safely managed outside the ICU [x] No deterioration in renal function in the last 24 hours (creatinine > 50% increase, new onset oliguria) [x] Patient care needs do not exceed the capabilities of the unit they are being transferred to (suctioning needs, glucose monitoring, neurological monitoring, neurovascular checks, vital sign monitoring, I&O monitoring, drain management [x] No longer requiring mechanical ventilation via endotracheal intubation and/or decreasing O2/CPAP requirements [x] No need for medications that cannot be administered outside the ICU Reason for ICU admission: Epidural hematoma Injuries: 3 cm EDH vs. SDH ICU course summary: 06/20/2024 - NSG pending attending note, no tenderness bilateral chest wall, rib score 4, unlikely to be fx. 06/21/24-No surgical procedure today per neurosurgery, patient can consume po intake as tolerated, 06/22 - [place] hole with NSG, postoperatively looks well, headache, one time PRN fentanyl 06/23: SBP<140, MMA embolization today 06/24: aborted MMA- too risky d/t anatomical variant, NEV rec's MRV brain for possible venous outflow obstruction vs elevated ICP, evd drain removed, can start DVT ppx 06/25 per NSG. MRV unremarkable. 06/25: GCS 15, VSS, labs stable, stable to transfer to floor Procedures during ICU stay: 111/10 craniotomy with steve holes Current vitals: Temp: Temp: 98.2 F (36.8 C)Temp Av.4 F (36.9 C) Min: 97.7 F (36.5 C) Max: 98.8 F (37.1 C) BP Systolic (24hrs), Av , Min:101 , Max:140 Diastolic (24hrs), Av, Min:63, Max:103 Pulse Pulse Av.4 Min: 54 Max: 78 Resp Resp Av.1 Min: 10 Max: 21 Pulse ox SpO2 Av.6 % Min: 85 % Max: 100 % Consults: Neurosurgery No bed restrictions AAT, PT/OT OK DVT ppx Follow up in 2 weeks with [facility] Gilma bass at [facility] MRV brain 06/24 unremarkable F/u further rec's Transfer Checklist: [x] Vital signs changed to q4 hours x 48 hours, continuous telemetry x 48 hours [x] Provider assessment BID x 48 hours [x] Daily labs x 48 hours [x] Tertiary note completed [] Frailty index completed [] Geriatrics consult placed/called if applicable [x] Medications/orders reviewed [] Updated photographs of wounds [] Wound dressing orders placed if applicable Plan and recommended follow-up: PT/OT/Dispo Images from the original note were not included. ICU PROGRESS NOTE PATIENT NAME: Jorge Chavira DATE: 06/25/2024 PRIMARY CARE PHYSICIAN: Martina Blas, TUBE LANCER - CLINICAL TRIAL SPECIALIST HD: # 5 ASSESSMENT Patient Active Problem List Diagnosis Epidural hematoma Subacute subdural hematoma Left-sided weakness Acute on chronic intracranial subdural hematoma (HCC) Updates for 06/25: Started DVT ppx per NSG AM labs still pending at time of this note, please review Patient does have a hx of sleep apnea, so on oxygen overnight, but fine during day 4. Transfer to floor today, pending labs? 5. Patient had MRV overnight, which was unremarkable MEDICAL DECISION MAKING AND PLAN Neuro: GCS: 15 POD# 3 s/p [place] hole for subdural hematoma on the R Subdural R lateral convexity 3cm in thickness, 8mm shift R to L Hx of alcohol use, currently on a phenobarb taper Keppra 500 mg q12h EVD to right side of head removed yesterday Endovascular neruosurgery consulted for right MMA embolization-procedure aborted d/t patient anatomy CV HR=50/s-60's, [id number];S-120'S, DBP=60-90'S SBP < 140 per NSG Hydralazine 10 mg PRN for BP control, not needed since 06/21 Pulm O2 96 on room air RIB score 4, questionable non-displaced fractures of R 9 & 10, not tender to palpation IS 2500, good cough GI/Nutrition Regular diet Renal/lytes Urine: 1700 past 24 hours (0.9mL/kg/hr) +3456 since admission Magnesium and Phosphorus labs added on for today, [facility] Heme Labs pending 8. Endocrine 1. Glucose controlled Musculoskeletal No significant pain PT/OT consulted Patient free to ambulate as tolerated per neurosurgery Skin Post-op wound right side of head, anterior and posterior Closed incision clean and dry, no evidence of drainage Micro IV antibiotics for 24 hours post-op, completed Tmax 98.6 Family/dispo Family at bedside yesterday, involved in care Potential transfer to floor today? Lines Peripheral IV's, 1 L forearm and 1 R forearm CHECKLIST CAM-ICU RASS: 0 RESTRAINTS: N/A IVF: none NUTRITION: Regular diet ANTIBIOTICS: Ancef GI: Diet DVT: SCD, starting lovenox today per NSG GLYCEMIC CONTROL: None HOB >45: No MOBILITY: As tolerated SBT: N/A SUBJECTIVE Jorge Chavira is a 63-year-old male that is a transfer from an outside facility, fell Sunday and Sunday, presented on 06/20 and was found to have a 3 mm epidural versus subdural bleed with 8 mm shift R to L. Patient not on anticoagulation. Patient does have a history of alcoholism, however no other medical history. Patient also has questionable right 9th through 10th rib fractures on the posterior lateral side, however patient has no tenderness, rib score is 4 due to age. Neurosurgery was consulted, repeated CT of the head here, follow-up on additional recommendations. Stating that patient can work with PT and OT here, n.p.o. until further evaluation. Patient has been counseled on the left upper and lower extremities, 5 out of 5 strength right extremities, 4 out of 5 strength left extremities. Patient does not have any sensational abnormalities. Patient on phenobarb taper due to alcohol use. ICU admission for head bleed. Today on exam patient is alert and oriented and is in no acute distress. He denies any head pain, chest pain/pressure/tightness, and SOB. OBJECTIVE VITALS: Temp: Temp: 98.8 F (37.1 C)Temp Av.4 F (36.9 C) Min: 97.7 F (36.5 C) Max: 98.8 F (37.1 C) BP Systolic (24hrs), Av , Min:101 , Max:140 Diastolic (24hrs), Av, Min:63, Max:93 Pulse Pulse Av.2 Min: 54 Max: 78 Resp Resp Av Min: 10 Max: 21 Pulse ox SpO2 Av.6 % Min: 85 % Max: 100 % Physical Exam Vitals and nursing note reviewed. Constitutional: General: He is awake. He is not in acute distress. Appearance: He is normal weight. He is not ill-appearing, toxic-appearing or diaphoretic. HENT: Right Ear: External ear normal. Left Ear: External ear normal. Nose: Nose normal. No congestion or rhinorrhea. Mouth/Throat: Mouth: Mucous membranes are moist. Pharynx: Oropharynx is clear. Eyes: General: No scleral icterus. Conjunctiva/sclera: Conjunctivae normal. Cardiovascular: Rate and Rhythm: Normal rate and regular rhythm. Pulses: Normal pulses. Radial pulses are 2+ on the right side and 2+ on the left side. Heart sounds: Normal heart sounds. No murmur heard. Pulmonary: Effort: Pulmonary effort is normal. No respiratory distress. Breath sounds: Normal breath sounds. No wheezing. Abdominal: General: Abdomen is flat. There is no distension. Palpations: Abdomen is soft. Tenderness: There is no abdominal tenderness. Musculoskeletal: General: Normal range of motion. Cervical back: Normal range of motion and neck supple. No rigidity. Right lower leg: No edema. Left lower leg: No edema. Lymphadenopathy: Cervical: No cervical adenopathy. Skin: General: Skin is warm and dry. Capillary Refill: Capillary refill takes less than 2 seconds. Coloration: Skin is not jaundiced. Comments: Staple lines to right side of head intact without erythema or drainage Neurological: General: No focal deficit present. Mental Status: He is alert and oriented to person, place, and time. GCS: GCS eye subscore is 4. GCS verbal subscore is 5. GCS motor subscore is 6. Cranial Nerves: Cranial nerves 2-12 are intact. Psychiatric: Mood and Affect: Mood normal. Behavior: Behavior is cooperative. Drain/tube output: LAB: CBC: Recent Labs 06/22/24 1801 06/23/24 0521 06/24/24 0239 WBC 5.9 9.6 6.7 HGB 14.1 13.4 13.0 HCT 41.9 39.7* 39.0* MCV 95.0 94.7 94.9 PLT 224 214 206 BMP: Recent Labs 06/22/24 1801 06/23/24 0521 06/24/24 0239 NA 138 136 137 K 3.8 3.8 3.8 CL 104 103 105 CO2 21 22 23 BUN 6* 7* 9 CREATININE 0.9 0.8 0.9 GLUCOSE 133* 103* 105* RADIOLOGY: MRV HEAD W WO CONTRAST Result Date: 06/24/2024 EXAMINATION: MRV OF THE HEAD WITH AND WITHOUT CONTRAST 06/24/2024: TECHNIQUE: Multiplanar multisequence MRV of the head was performed with and without the administration of intravenous contrast. COMPARISON: Conventional angiogram from 06/24/2024. HISTORY: ORDERING SYSTEM PROVIDED HISTORY: Neuroendovascular: There is delayed venous out flow on the RECA run with relatively engorged ophthalmic vein suggestive of possible venous outflow obstruction versus elevated ICP. Please consider obtaining brain MRV TECHNOLOGIST PROVIDED HISTORY: Neuroendovascular: There is delayed venous out flow on the RECA run with relatively engorged ophthalmic vein suggestive of possible venous outflow obstruction versus elevated ICP. Please consider obtaining brain MRV Reason for Exam: Neuroendovascular: There is delayed venous out flow on the RECA run with relatively engorged opht... FINDINGS: No focal stenosis or thrombus is seen of the major dural venous sinuses. The cavernous sinuses only enhance minimally, although are not enlarged. Thickening of the dura over the right cerebral hemisphere may be postoperative or related to the subdural. Variant dural arterial anatomy is better seen on the conventional angiogram. Unremarkable MRV of the head. IR Angiogram Carotid Cerebral Bilateral Result Date: 06/24/2024 Date of Service: 06/24/2024 Procedure: Diagnostic cerebral angiogram Patient arrived and wheeled in to the angio suite at: 806 Monitoring and administration of sedation started at: 806 Puncture obtained at: 905 Vascular access was removed at: 929 Manual pressure for minutes: 15 mins Sedation ended at: 945 Patient wheeled out of the angio suite at: 945 Diagnosis: R SDH s/p steve hole by nsgy Procedures: --Right ultrasound guided femoral artery access --Intravenous moderate sedation --Selective right common carotid artery (CCA) angiogram --Selective right internal carotid artery (ICA) cerebral angiogram --Selective right external carotid artery (ECA) angiogram --Right common femoral artery (SILVERWARE SUPERVISOR) angiogram Neurointerventionalist: Dr. Isma Paez [place]: Santi Dueñas MD Contrast: 36 cc of Visipaque-270. Fluoroscopy time: 8.4 minutes Access: Right common femoral artery. Comparison: none Consent: After explaining the risks and benefits to the patient and the patient's family, including but not limited to stroke, coma, , vessel injury, dissection, tear, occlusion, and X-ray dye allergic type reaction, a signed consent form was obtained. Indication and Clinical History: Jorge Chavira is a 63 y.o. male with medical history of HTN presents with R SDH, now s/p steve hole.. Pt was referred for a diagnostic angiogram to evaluate for potential MMA embolization. Anesthesia: Local anesthesia with lidocaine. IV moderate sedation with Versed and Fentanyl. IV moderate sedation was supervised by the attending physician. The patient was independently monitored by a registered nurse assigned to the Department of Radiology using automated blood pressure, EKG and pulse oximetry. The detailed Conscious Record is permanently stored in the Hospital Information System. Description and findings: The patient's right groin was prepped and draped in standard sterile fashion and under local anesthesia with conscious sedation. Ultrasound was used to localize the right common femoral artery and found to be patent and completely compressible. With direct vision, a modified Seldinger technique was used to place a 5 Brazilian intravascular sheath in the right common femoral artery. Fluoroscopy was used to confirm placement, this image was captured and archived in the patient's record. 2000u of heparin IV was administered. A 5 Brazilian multipurpose catheter was then advanced over a guide wire to the level of the aortic arch. Right CCA Technique: The right common carotid artery was selectively catheterized under fluoroscopic guidance and digital subtraction angiography images were obtained in biplane projections of the right cervical carotid artery. Interpretation: The right common carotid artery injection demonstrates normal antegrade flow into the external and internal carotid arteries with normal filling of the external carotid artery branches. Course and caliber of the cervical portion of the right internal carotid artery are unremarkable. Further inspection demonstrates no evidence of dissection, stenosis, aneurysm, or other vascular abnormality within the right CCA into the cervical segment of the right ICA. Right ICA Technique: The right internal carotid artery was then selectively catheterized, and digital subtraction angiography of the intracranial right internal carotid circulation was performed in frontal, and lateral projections. Interpretation: There is normal antegrade filling of the distal internal carotid artery, ophthalmic artery, anterior cerebral artery, middle cerebral artery and the distal branches. Inspection of the remaining right internal carotid circulation revealed no other evidence of cerebral aneurysm, arteriovenous malformation, or arterial stenosis. There is prominent anterograde filling of the ophthalmic artery, which shows severe tortuosity. This tortuous ophthalmic artery then gives rise to the MMA, which then bifurcates into the the anterior and posterior MMA branches. There is also another vessel visualized arising from the same location that runs posteriorly and bifurcates, with superior vessel favored to be an accessory posteriorly directed MMA that subsequently bifurcates itself to feed the parietal and occipital dural regions, and inferior vessel favored to be the petrosquamosal artery. Capillary and venous phase images were also unremarkable, demonstrating the superior sagittal, trollard, great cerebral vein, inferior sagittal vein, inferior andrae, torcula, sigmoid, IJ and cortical veins, with no evidence of veno-occlusive disease. Right ECA Technique: The catheter was then withdrawn into the right external carotid artery and digital subtraction angiography of the external carotid artery circulation was performed in biplane projections. Interpretation: There is normal antegrade opacification of the right external carotid artery and branches. The visualized branches include the IMAX, ascending pharyngeal, STA with both frontal and parietal branches, and the occipital. There is no visualization of the MMA from the ECA injection. There is no evidence of abnormal intracranial communication or early venous shunting. The venous anatomy shows the frontal emissary vein and the parietal emissary vein draining non-characteristically into the occipital vein. The frontal emissary vein gives off three anterior branches (a superior branch, a middle branch that is most dominant, and an inferior posterior auricular artery) that drain into the superior temporal vein at corresponding locations. There is additional draining from the eye via a prominent superior ophthalmic vein into the superior temporal vein. Of note, there is a lack of prominence of the cavernous sinus. Right common femoral artery Technique: A right common femoral artery angiogram was performed and demonstrated arterial catheterization proximal to the bifurcation. Interpretation: There was no evidence of dissection or occlusion within the right common femoral artery. Closure: Vascade 5F was used to establish hemostasis at the right common femoral artery access site. No immediate complications were experienced. Patient was re-examined after the procedure with no change noted in their neurologic examination, with distal pulses present. The patient was subsequently discharged from the neurointerventional suite. Impression: 1. R SDH s/p steve hole evacuation planned for R MMA embolization. The procedure was aborted?due to MMA originating from a tortuous ophthalmic artery branch of the ICA. 2. There is delayed venous out flow on the RECA run with relatively engorged ophthalmic vein suggestive of possible venous outflow obstruction versus elevated ICP. Please consider obtaining brain MRV. 3. Rest of variant anatomy is described in detail above. Dr. Dueñas dictated this invasive procedure. Dr. Isma Paez was present for all procedural and imaging components of this case. Examination was reviewed and reported findings confirmed and evaluated by Dr. Isma Paez. CT Head wo Contrast Result Date: 06/23/2024 EXAMINATION: CT OF THE HEAD WITHOUT CONTRAST 06/23/2024 10:06 am TECHNIQUE: CT of the head was performed without the administration of intravenous contrast. Automated exposure control, iterative reconstruction, and/or weight based adjustment of the mA/kV was utilized to reduce the radiation dose to as low as reasonably achievable. COMPARISON: 06/20/2024 HISTORY: ORDERING SYSTEM PROVIDED HISTORY: f/u post op TECHNOLOGIST PROVIDED HISTORY: f/u post op FINDINGS: BRAIN/VENTRICLES: A drain has been placed within the right hemispheric subdural collection which has diminished in size and density. It currently measures up to 11 mm in thickness. No new hemorrhage is identified. There is now a small amount of gas within the collection. There is also a moderate amount of subarachnoid pneumocephalus over both frontal lobes. 4 mm of right to left midline shift is improved. ORBITS: The visualized portion of the orbits demonstrate no acute abnormality. SINUSES: The visualized paranasal sinuses and mastoid air cells demonstrate no acute abnormality. SOFT TISSUES/SKULL: New gas and fluid in the scalp measures up to 12 mm in thickness. Right frontal and right parietal steve holes are new. Diminished size of now 11 mm thick right subdural collection. Moderate amount of new subarachnoid pneumocephalus. Improved elnbe-ou-wewk midline shift now measuring 4 mm. Tray Klein MD 06/25/24, 6:55 AM Associated attestation - Radha Garnett MD - 06/25/2024 10:51 AM EST I personally evaluated the patient and directed the medical decision making with Resident/HOPE after the physical/radiologic exam and laboratory values were reviewed and confirmed. 63yo male s/p fall with SDH (BIG 3) Neuro: s/p Steve hole 06/22; EVD drain removed 06/24 - Bps goals per N/S - Attempted MMA 06/24 unsuccessful due to anatomy - SBP goals 100-140 - NEV - MRV WNL CV: BP goals Pulm: IS 1500, non tender chest wall - home CPAP nightly Renal: UOP adequate Endo: no h/o DM Code Status: Full Lines: PIVs Ppx: Pepcid (home med), Lovenox Dispo: transfer to [facility] Radha Garnett MD [facility] Inpatient Brief Diagnostic Assessment Note Sydnie Joyner CHRISTEL 06/24/2024 4:01 PM Jorge Pierson Fan [id number] Time Spent with Patient: 15 minutes or less (Brief Diagnostic Assessment) [id number] Pt was provided informed consent for the [facility]. Discussed with patient model of service to include the limits of confidentiality (i.e. abuse reporting, suicide intervention, etc.) and short-term intervention focused approach. Pt indicated understanding. [facility] Inpatient or Virtual Question: This was not a virtual session Is consult a Victim of Crime?: No Presenting Patient Report: Patient presents as a 63 y.o. male subsequent to hospital admission following a fall resulting in injury. Patient was able to complete the following screens: ITSS and PHQ-4 Pt reports some hx of anxiety and depression but no current symptoms.Pt has been in therapy in the past. Pt overall coping well. Pt reports some worry about work but is also confident he can get a different job if needed. Therapist offered emotional support. MSE: Appearance: Hospital Gown and Good Eye Contact Speech soft spoken, normal volume, and slow Affect Observed Appropriate to Context and Normal Thought Content intact Thought Process linear, goal directed, and coherent Associations logical connections Insight Good Judgment Intact Orientation oriented to person, place, time, and general circumstances Patient reports and/or exhibits the following symptoms: Mood: Appropriate to Context, Euthymic, and worry about robbie Cognitive symptoms: Appropriate to Context Behaviors: Appropriate to Context Somatic: None Reported Assessment: Pt presented as calm, coping and pleasant. Pt with hx of anxiety and depression but no current symptoms. ITSS positive for depression risk, PHQ4 negative. Pt has some appropriate worry about his job but expressed confidence he could find another. Therapist aware for other bedside needs and can be contacted if they arise. Screening Scale Results (If Any): ITSS: Date Screen Completed: 06/24/24 Patient's score= 1 for PTSD risk. ( >= 2 is positive for PTSD risk. ) Patient's score= 2 for depression risk. ( >= 2 is positive for Depression risk ) PHQ-4: Date Screen Completed: 06/24/24 Patient's Score (Questions 1&2): 2 >= 3 suggests anxiety Patient's Score (Questions 3&4): 0 >= 3 suggests depression Chief Complaint / Diagnoses: The following Chief Complaint or Diagnoses are based on currently available information and may change as additional information becomes available. Observation for suspected mental condition Z03.89 Patient Interventions: Psychoeducation , [facility] Trauma Information Packet Provided, Emotional Support, and Brief Diagnostic Assessment Recommendations: Follow up with [facility] or other new mental health provider -if symptoms of depression or anxiety arise Plan: No plan for bedside follow-up during hospital admission Images from the original note were not included. POST OP NOTE SUBJECTIVE Pt s/p aborted MMA embolization. . OBJECTIVE VITALS: BP 139/78 Pulse 67 Temp 98.4 F (36.9 C) Resp 14 Ht 1.778 m (5' 10 ) Wt 76.4 kg (168 lb 8 oz) SpO2 99% BMI 24.18 kg/m GENERAL: awake and alert. No acute distress CARDIOVASCULAR: regular rate and rhythm LUNGS: CTA Bilaterally ABDOMEN: Abdomen soft, non-tender, non-distended INCISION: Incision clean/dry/intact ASSESSMENT 1. POD# 0 s/p MMA embolization that was aborted due to anatomic variations limiting ability to perform procedure successfully. PLAN 1. Pain [id number] 2. DVT proph-Will start tomorrow 3. GI proph-D/C's d/t diet orders Tray Klein MD Trauma[facility]Surgery Service 06/24/2024 at 1:59 PM Images from the original note were not included. Endovascular Neurosurgery Progress Note Pt Name: Jorge Chavira Birthdate: 1960 Date of evaluation: 06/22/2024 Primary Care Physician: Martina Blas APRN - [facility] Reason for evaluation: Right subdural hematoma-acute on chronic-for MMA embolization evaluation SUBJECTIVE: Underwent DSA this morning, and MMA embolization procedure was aborted due to MMA originating from ophthalmic artery. History of Chief Complaint: Jorge Chavira is a 63 y.o. male who presents with acute on chronic subdural hematoma status post fall on June 16, 2024. Neurosurgery on board for possible bur hole evacuation. Neuroendovascular consulted right MMA embolization.. Allergies has No Known Allergies. Medications Prior to Admission medications Not on File Scheduled Meds: potassium chloride 20 mEq Oral Once sodium chloride flush 5-40 mL IntraVENous 2 times per day sodium chloride flush 5-40 mL IntraVENous 2 times per day polyethylene glycol 17 g Oral Daily levETIRAcetam 500 mg IntraVENous Q12H sodium chloride flush 5-40 mL IntraVENous 2 times per day sodium chloride flush 5-40 mL IntraVENous 2 times per day acetaminophen 1,000 mg Oral 3 times per day sodium chloride flush 5-40 mL IntraVENous 2 times per day PHENobarbital 56.7 mg Oral q8h Followed by [START ON 06/25/2024] PHENobarbital 32.4 mg Oral q8h Continuous Infusions: sodium chloride sodium chloride sodium chloride sodium chloride sodium chloride PRN Meds:.sodium chloride flush, sodium chloride, ondansetron OR ondansetron, sodium chloride flush, sodium chloride, senna, bisacodyl, oxyCODONE OR oxyCODONE, sodium chloride flush, sodium chloride, magnesium sulfate, ondansetron OR ondansetron, [] PHENobarbital FOLLOWED BY [] PHENobarbital FOLLOWED BY PHENobarbital, sodium chloride flush, sodium chloride, hydrALAZINE, sodium chloride flush, sodium chloride Past Medical History has no past medical history on file. Past Surgical History has a past surgical history that includes craniotomy (Right, 06/22/2024); Heel spur surgery (Right); [place] tooth extraction; craniotomy (Right, 06/22/2024); and Cerebral angiogram (06/24/2024). Social History reports that he has never smoked. He has never used smokeless tobacco. reports current alcohol use of about 56.0 standard drinks of alcohol per week. reports no history of drug use. Family History family history is not on file. Review of Systems: CONSTITUTIONAL: negative for fevers, chills, fatigue and malaise EYES: negative for double vision, blurred vision and photophobia HEENT: negative for tinnitus, epistaxis and sore throat RESPIRATORY: negative for cough, shortness of breath, wheezing CARDIOVASCULAR: negative for chest pain, palpitations, syncope, edema GASTROINTESTINAL: negative for nausea, vomiting GENITOURINARY: negative for incontinence MUSCULOSKELETAL: negative for neck or back pain NEUROLOGICAL: Negative for weakness and tingling negative for headaches and dizziness PSYCHIATRIC: negative for anxiety Review of systems otherwise negative. OBJECTIVE: Vitals: 06/24/24 1300 BP: 139/78 Pulse: 67 Resp: 14 Temp: SpO2: 99% CONSTITUTIONAL: Alert, answers questions appropriately HEAD: normocephalic, atraumatic EYES: PERRLA, EOMI. ENT: moist mucous membranes NECK: supple, symmetric, no midline tenderness to palpation BACK: without midline tenderness, step-offs or deformities LUNGS: Equal air entry bilaterally CARDIOVASCULAR: normal s1 / s2 ABDOMEN: Soft, no rigidity NEUROLOGIC: Mental Status: A & O x3,awake Cranial Nerves: cranial nerves II-XII are grossly intact Motor Exam: Drift: absent Tone: normal Motor exam is symmetrical 5 out of 5 all extremities bilaterally Sensory: Touch: Right Upper Extremity: normal Left Upper Extremity: normal Right Lower Extremity: normal Left Lower Extremity: normal Deep Tendon Reflexes: Right Bicep: 2+ Left Bicep: 2+ Right Knee: 2+ Left Knee: 2+ Plantar Response: Right: equivocal Left: equivocal Clonus: N/A Pretty's: N/A Coordination/Dysmetria: Left upper extremity dysmetria Gait: deferred SKIN: no rash LABS: Reviewed. Lab Results Component Value Date HGB 13.0 06/24/2024 WBC 6.7 06/24/2024 PLT 206 06/24/2024 NA 137 06/24/2024 BUN 9 06/24/2024 CREATININE 0.9 06/24/2024 AST 30 06/20/2024 ALT 21 06/20/2024 MG 1.7 06/23/2024 APTT 26.0 06/22/2024 INR 1.0 06/22/2024 No results found for: COVID19 RADIOLOGY: Images were personally reviewed including: Large subdural collection about the right lateral convexity, extending anterior to posterior. The collection measures approximately 3 cm in thickness. The heterogeneous appearance of the collection suggests component of acute on chronic subdural hemorrhage. There is associated sulcal effacement of the right cerebral hemisphere to include the right frontal, temporal, and parietal lobes. There is approximately 8 mm of right to left midline shift and narrowing of the basal cisterns bilaterally. DSA 06/24/2024 Findings: Please see dictated Radiology note for further details R SDH s/p stvee hole evacuation planned for R MMA embolization. The procedure was aborted due to MMA originating from the Ophthalmic artery. There is delayed venous out flow on the RECA run with relatively engorged ophthalmic vein suggestive of possible venous outflow obstruction versus elevated ICP. Please consider obtaining brain MRV ASSESSMENT: 63-year-old male who presents with a fall on 06 16 and has had left lower extremity weakness. Found to have a right subdural hematoma with midline shift measuring 8 mm. The hematoma looks acute on chronic with multiple septations measuring about 3 cm. Neurosurgery planning for bur hole evacuation. The patient is a good candidate for right MMA embolization. We will consider to take him on Sunday pending neurosurgery evacuation and outcome. PLAN: DSA done, showed delayed venous out flow on the RECA run with relatively engorged ophthalmic vein suggestive of possible venous outflow obstruction versus elevated ICP. Please consider obtaining brain MRV MMA embolization was aborted due to MMA originating from the Ophthalmic artery. The path to the MMA through the ICA is very tortuous and ophthalmic artery is very narrow in caliber, also high risk for complications if MMA is embolized if it comes from the ICA. Case discussed with Dr. Jeannine Cruz MD Stroke, Neurocritical Care & Neurointervention [facility] [place] Stroke [facility] [place] Associated attestation - Isma Paez MD - 06/24/2024 2:22 PM EST Images from the original note were not included. I reviewed the Fellow's note and agree with the documented findings and plan of care. Any areas of disagreement are noted on the chart. I agree with the chief complaint, past medical history, past surgical history, allergies, medications, social and family history as documented unless otherwise noted below. I have personally seen and evaluated the patient and images. I find the patient's history and physical exam are consistent with the Fellow's documentation. I agree with the critical and perez portions of the care provided, treatment rendered, disposition and follow-up plan. Plan for mma embolization this am. Doing well after dsa demonstrating right mma arising directly off the right ophthalmic artery. Dr. Yanez notified of the anatomical variant. Too risky for MMA embolization at this time. 51 minutes with time spent face to face, examining patient, counseling, coordinating care, obtaining history, reviewing images, labs, and other notes personally today. Isma Paez MD Office [phone]. Cell [phone] Stroke, Neurocritical Care & Neurointervention [facility] [place] Stroke [facility] [place] Neurosurgery HOPE/Resident Daily Progress Note Chief Complaint Patient presents with Hematoma 06/24/2024 12:11 PM Chart reviewed. No acute events overnight. No new complaints. Attempted MMA embolization this AM and now is laying flat. Reports left arm is much stronger and coordinated today. Denies headache. Subdural drain removed without issues. 2 nishi placed over drain site. Vitals: 06/24/24 1045 06/24/24 1100 06/24/24 1115 06/24/24 1145 BP: 124/80 130/78 126/80 127/87 Pulse: 65 65 65 69 Resp: 14 13 15 12 Temp: TempSrc: SpO2: 96% 95% 95% 95% Weight: Height: PE: AOx3 CNII-XII intact PERRL, EOMI Motor Mild dysmetria LUE L deltoid 5/5; R deltoid 5/5 L biceps 5/5; R biceps 5/5 L triceps 5/5; R triceps 5/5 L wrist extension 5/5; R wrist extension 5/5 L intrinsics 5/5; R intrinsics 5/5 Limited due to angio and laying flat L Dorsiflexion 5/5; R dorsiflexion 5/5 L Plantarflexion 5/5; R plantarflexion 5/5 L EHL 5/5; R EHL 5/5 Sensation intact Drain output Subdural drain 43 ml/12h Incision steve hole sites open to air, c/d Lab Results Component Value Date WBC 6.7 06/24/2024 HGB 13.0 06/24/2024 HCT 39.0 (L) 06/24/2024 PLT 206 06/24/2024 ALT 21 06/20/2024 AST 30 06/20/2024 NA 137 06/24/2024 K 3.8 06/24/2024 CL 105 06/24/2024 CREATININE 0.9 06/24/2024 BUN 9 06/24/2024 CO2 23 06/24/2024 INR 1.0 06/22/[address] Head wo Contrast Result Date: 06/23/2024 EXAMINATION: CT OF THE HEAD WITHOUT CONTRAST 06/23/2024 10:06 am TECHNIQUE: CT of the head was performed without the administration of intravenous contrast. Automated exposure control, iterative reconstruction, and/or weight based adjustment of the mA/kV was utilized to reduce the radiation dose to as low as reasonably achievable. COMPARISON: 06/20/2024 HISTORY: ORDERING SYSTEM PROVIDED HISTORY: f/u post op TECHNOLOGIST PROVIDED HISTORY: f/u post op FINDINGS: BRAIN/VENTRICLES: A drain has been placed within the right hemispheric subdural collection which has diminished in size and density. It currently measures up to 11 mm in thickness. No new hemorrhage is identified. There is now a small amount of gas within the collection. There is also a moderate amount of subarachnoid pneumocephalus over both frontal lobes. 4 mm of right to left midline shift is improved. ORBITS: The visualized portion of the orbits demonstrate no acute abnormality. SINUSES: The visualized paranasal sinuses and mastoid air cells demonstrate no acute abnormality. SOFT TISSUES/SKULL: New gas and fluid in the scalp measures up to 12 mm in thickness. Right frontal and right parietal steve holes are new. Diminished size of now 11 mm thick right subdural collection. Moderate amount of new subarachnoid pneumocephalus. Improved [id number]-va-wcau midline shift now measuring 4 mm. A/P 63 y.o. male who presents with right sided subdural hematoma with midline shift. POD # 2 s/p right sided steve holes for evacuation of subdural hematoma - subdural drain removed-2 nishi placed over drain site - no head of bed restrictions - activity as tolerated, PT and OT - okay DVT prophylaxis starting 06/25 - follow up in [address] head - continue keppra at discharge Please contact neurosurgery with any changes in patients neurologic status. Gabriella Kilgore CNP 06/24/24 12:11 PM Report called to Salas Hines RN. All questions answered. [facility] Speech Language Pathology Date: 06/24/2024 Patient Name: Jorge Chavira Date of : 1960 AGE: 63 y.o. Patient Not Available for Speech Therapy Due to: [] Testing [] Hemodialysis [] Cancelled by RN [x] Surgery [] Intubation/Sedation/Pain Medication [] Medical instability [] Other: Pt of floor for IR ANGIOGRAM CAROTID CEREBRAL BILATERAL. Will continue as able. Next scheduled treatment: 06/25/24 Completed by: Peace Agrawal M.A., HAYLIE-MARKETING INFORMATION COORDINATOR Images from the original note were not included. Occupational Therapy [facility] Occupational Therapy Not Seen Note DATE: 06/24/2024 NAME: Jorge Chavira : 1960 Patient not seen this date for Occupational Therapy due to: Pt not seen for OT treatment this date due to off floor for: IR ANGIOGRAM CAROTID CEREBRAL BILATERAL. Will continue as able. Images from the original note were not included. ICU PROGRESS NOTE PATIENT NAME: Jorge Chavira DATE: 06/24/2024 PRIMARY CARE PHYSICIAN: Martina Blas, TUBE LANCER - CLINICAL TRIAL SPECIALIST HD: # 4 ASSESSMENT Patient Active Problem List Diagnosis Epidural hematoma Subacute subdural hematoma Left-sided weakness Acute on chronic intracranial subdural hematoma (HCC) MEDICAL DECISION MAKING AND PLAN Neuro: GCS: 15 POD# 2 s/p Steve hole with drain for subdural hematoma on the R, to remain laying flat for 24 hours post-op, ambulating to the restroom as tolerated Subdural R lateral convexity 3cm in thickness, 8mm shift R to L Post-op non-contrast CT ordered for today per neurosurgery Hx of alcohol use, currently on a phenobarb taper Keppra 500 mg q12h EVD to right side of head Keep drain open with the reservoir below the area of the head Drain <50mL currently Endovascular neruosurgery consulted for right MMA embolization today 06/24/2024 CV HR=60'S-70'S, [id number];S-140'S, DBP=60-80'S SBP < 160 per NSG Hydralazine 10 mg PRN for BP control, not needed since 06/21 Pulm O2 96 on room air RIB score 4, questionable non-displaced fractures of R 9 & 10, not tender to palpation IS 2500, good cough GI/Nutrition NPO for planned MMA embolization today with neuroendovascular Pepcid while NPO Renal/lytes Urine: 2350 past 24 hours (1.3mL/kg/hr) +2690 since admission BUN/Cr=9/0.9 (7/0.8 yesterday) K=3.8, will replace Magnesium and Phosphorus labs added on for today, [facility] result Heme H/H= 13.0/39.0 (13.4/39.7 yesterday) No AC prior to admission Hold AC/AP per neurosurgery 8. Endocrine 1. Glucose controlled, 105 today Musculoskeletal No significant pain PT/OT consulted Patient free to ambulate as tolerated per neurosurgery Skin Post-op wound right side of head, anterior and posterior Closed incision clean and dry, no evidence of drainage Micro IV antibiotics for 24 hours post-op, completed Family/dispo Remain in ICU for planned procedure Lines Peripheral IV's, 1 L forearm and 1 R forearm EVD R side of head (06/22) CHECKLIST CAM-ICU RASS: 0 RESTRAINTS: N/A IVF: 100 mL/hr NUTRITION: NPO ANTIBIOTICS: Ancef GI: Pepcid DVT: SCD, anticoagulation on hold per neurosurgery GLYCEMIC CONTROL: None HOB >45: No MOBILITY: As tolerated SBT: N/A SUBJECTIVE Jorge Chavira is a 63-year-old male that is a transfer from an outside facility, fell Sunday and Sunday, presented on 06/20 and was found to have a 3 mm epidural versus subdural bleed with 8 mm shift R to L. Patient not on anticoagulation. Patient does have a history of alcoholism, however no other medical history. Patient also has questionable right 9th through 10th rib fractures on the posterior lateral side, however patient has no tenderness, rib score is 4 due to age. Neurosurgery was consulted, repeated CT of the head here, follow-up on additional recommendations. Stating that patient can work with PT and OT here, n.p.o. until further evaluation. Patient has been counseled on the left upper and lower extremities, 5 out of 5 strength right extremities, 4 out of 5 strength left extremities. Patient does not have any sensational abnormalities. Patient on phenobarb taper due to alcohol use. ICU admission for head bleed. Today on exam patient is alert and oriented and is in no acute distress. He denies any head pain, chest pain/pressure/tightness, and SOB. OBJECTIVE VITALS: Temp: Temp: 98.6 F (37 C)Temp Av.5 F (36.9 C) Min: 98.2 F (36.8 C) Max: 99.3 F (37.4 C) BP Systolic (24hrs), Av , Min:84 , Max:151 Diastolic (24hrs), Av, Min:50, Max:98 Pulse Pulse Av.4 Min: 62 Max: 90 Resp Resp Av.4 Min: 11 Max: 22 Pulse ox SpO2 Av.9 % Min: 91 % Max: 98 % Physical Exam Vitals and nursing note reviewed. Constitutional: General: He is awake. He is not in acute distress. Appearance: He is normal weight. He is not ill-appearing, toxic-appearing or diaphoretic. HENT: Right Ear: External ear normal. Left Ear: External ear normal. Nose: Nose normal. No congestion or rhinorrhea. Mouth/Throat: Mouth: Mucous membranes are moist. Pharynx: Oropharynx is clear. Eyes: General: No scleral icterus. Conjunctiva/sclera: Conjunctivae normal. Cardiovascular: Rate and Rhythm: Normal rate and regular rhythm. Pulses: Normal pulses. Radial pulses are 2+ on the right side and 2+ on the left side. Heart sounds: Normal heart sounds. No murmur heard. Pulmonary: Effort: Pulmonary effort is normal. No respiratory distress. Breath sounds: Normal breath sounds. No wheezing. Abdominal: General: Abdomen is flat. There is no distension. Palpations: Abdomen is soft. Tenderness: There is no abdominal tenderness. Musculoskeletal: General: Normal range of motion. Cervical back: Normal range of motion and neck supple. No rigidity. Right lower leg: No edema. Left lower leg: No edema. Lymphadenopathy: Cervical: No cervical adenopathy. Skin: General: Skin is warm and dry. Capillary Refill: Capillary refill takes less than 2 seconds. Coloration: Skin is not jaundiced. Comments: Staple lines to right side of head intact without erythema or drainage Neurological: General: No focal deficit present. Mental Status: He is alert and oriented to person, place, and time. GCS: GCS eye subscore is 4. GCS verbal subscore is 5. GCS motor subscore is 6. Cranial Nerves: Cranial nerves 2-12 are intact. Psychiatric: Mood and Affect: Mood normal. Behavior: Behavior is cooperative. Drain/tube output: LAB: CBC: Recent Labs 06/22/24 1801 06/23/24 0521 06/24/24 0239 WBC 5.9 9.6 6.7 HGB 14.1 13.4 13.0 HCT 41.9 39.7* 39.0* MCV 95.0 94.7 94.9 PLT 224 214 206 BMP: Recent Labs 06/22/24 1801 06/23/24 0521 06/24/24 0239 NA 138 136 137 K 3.8 3.8 3.8 CL 104 103 105 CO2 21 22 23 BUN 6* 7* 9 CREATININE 0.9 0.8 0.9 GLUCOSE 133* 103* 105* RADIOLOGY: CT Head wo Contrast Result Date: 06/23/2024 EXAMINATION: CT OF THE HEAD WITHOUT CONTRAST 06/23/2024 10:06 am TECHNIQUE: CT of the head was performed without the administration of intravenous contrast. Automated exposure control, iterative reconstruction, and/or weight based adjustment of the mA/kV was utilized to reduce the radiation dose to as low as reasonably achievable. COMPARISON: 06/20/2024 HISTORY: ORDERING SYSTEM PROVIDED HISTORY: f/u post op TECHNOLOGIST PROVIDED HISTORY: f/u post op FINDINGS: BRAIN/VENTRICLES: A drain has been placed within the right hemispheric subdural collection which has diminished in size and density. It currently measures up to 11 mm in thickness. No new hemorrhage is identified. There is now a small amount of gas within the collection. There is also a moderate amount of subarachnoid pneumocephalus over both frontal lobes. 4 mm of right to left midline shift is improved. ORBITS: The visualized portion of the orbits demonstrate no acute abnormality. SINUSES: The visualized paranasal sinuses and mastoid air cells demonstrate no acute abnormality. SOFT TISSUES/SKULL: New gas and fluid in the scalp measures up to 12 mm in thickness. Right frontal and right parietal steve holes are new. Diminished size of now 11 mm thick right subdural collection. Moderate amount of new subarachnoid pneumocephalus. Improved [id number] midline shift now measuring 4 mm. Tray Klein MD 06/24/24, 7:06 AM Associated attestation - Radha Garnett MD - 06/24/2024 11:44 AM EST I personally evaluated the patient and directed the medical decision making with Resident/HOPE after the physical/radiologic exam and laboratory values were reviewed and confirmed. 63yo male s/p fall with SDH (BIG 3) Neuro: s/p [place] hole 06/22 - Bps goals per N/S - Attempted MMA today unsuccessful due to anatomy - SBP goals 100-140 - NEV - wants brain MRV CV: BP goals Pulm: IS 1500, non tender chest wall Renal: UOP adequate Endo: no h/o DM Code Status: Full Lines: PIVs Ppx: Pepcid, DVT ppx being held Dispo: to maintain in the ICU Radha Garnett MD Neurosurg Overnight MEDICAL RECORDS LIBRARY PROFESSOR at bedside, Ok'd patient to begin sitting up as tolerated. Images from the original note were not included. Endovascular Neurosurgery Progress Note Pt Name: Jorge Chavira Birthdate: 1960 Date of evaluation: 06/22/2024 Primary Care Physician: Martina Blas, BAILEE - CLINICAL TRIAL SPECIALIST Reason for evaluation: Right subdural hematoma-acute on chronic-for MMA embolization evaluation SUBJECTIVE: Could not take for MMA embo due to schedule delays, will aim for tomorrow History of Chief Complaint: Jorge Chavira is a 63 y.o. male who presents with acute on chronic subdural hematoma status post fall on June 16, 2024. Neurosurgery on board for possible bur hole evacuation. Neuroendovascular consulted right MMA embolization.. Allergies has No Known Allergies. Medications Prior to Admission medications Not on File Scheduled Meds: sodium chloride flush 5-40 mL IntraVENous 2 times per day polyethylene glycol 17 g Oral Daily famotidine 20 mg Oral BID Or famotidine (PEPCID) injection 20 mg IntraVENous BID levETIRAcetam 500 mg IntraVENous Q12H sodium chloride flush 5-40 mL IntraVENous 2 times per day sodium chloride flush 5-40 mL IntraVENous 2 times per day acetaminophen 1,000 mg Oral 3 times per day sodium chloride flush 5-40 mL IntraVENous 2 times per day thiamine 100 mg Oral Daily folic acid 1 mg Oral Daily multivitamin 1 tablet Oral Daily PHENobarbital 56.7 mg Oral q8h Followed by [START ON 06/25/2024] PHENobarbital 32.4 mg Oral q8h Continuous Infusions: sodium chloride sodium chloride 100 mL/hr at 06/23/24 1600 sodium chloride sodium chloride sodium chloride PRN Meds:.sodium chloride flush, sodium chloride, senna, bisacodyl, oxyCODONE OR oxyCODONE, sodium chloride flush, sodium chloride, magnesium sulfate, ondansetron OR ondansetron, [] PHENobarbital FOLLOWED BY PHENobarbital FOLLOWED BY PHENobarbital, sodium chloride flush, sodium chloride, hydrALAZINE, sodium chloride flush, sodium chloride Past Medical History has no past medical history on file. Past Surgical History has a past surgical history that includes craniotomy (Right, 06/22/2024); Heel spur surgery (Right); [place] tooth extraction; and craniotomy (Right, 06/22/2024). Social History reports that he has never smoked. He has never used smokeless tobacco. reports current alcohol use of about 56.0 standard drinks of alcohol per week. reports no history of drug use. Family History family history is not on file. Review of Systems: CONSTITUTIONAL: negative for fevers, chills, fatigue and malaise EYES: negative for double vision, blurred vision and photophobia HEENT: negative for tinnitus, epistaxis and sore throat RESPIRATORY: negative for cough, shortness of breath, wheezing CARDIOVASCULAR: negative for chest pain, palpitations, syncope, edema GASTROINTESTINAL: negative for nausea, vomiting GENITOURINARY: negative for incontinence MUSCULOSKELETAL: negative for neck or back pain NEUROLOGICAL: Negative for weakness and tingling negative for headaches and dizziness PSYCHIATRIC: negative for anxiety Review of systems otherwise negative. OBJECTIVE: Vitals: 06/23/24 1800 BP: (!) 140/75 Pulse: 86 Resp: 20 Temp: SpO2: 95% LABS: Reviewed. Lab Results Component Value Date HGB 13.4 06/23/2024 WBC 9.6 06/23/2024 PLT 214 06/23/2024 NA 136 06/23/2024 BUN 7 (L) 06/23/2024 CREATININE 0.8 06/23/2024 AST 30 06/20/2024 ALT 21 06/20/2024 MG 1.7 06/23/2024 APTT 26.0 06/22/2024 INR 1.0 06/22/2024 No results found for: COVID19 RADIOLOGY: Images were personally reviewed including: Large subdural collection about the right lateral convexity, extending anterior to posterior. The collection measures approximately 3 cm in thickness. The heterogeneous appearance of the collection suggests component of acute on chronic subdural hemorrhage. There is associated sulcal effacement of the right cerebral hemisphere to include the right frontal, temporal, and parietal lobes. There is approximately 8 mm of right to left midline shift and narrowing of the basal cisterns bilaterally. ASSESSMENT: 63-year-old male who presents with a fall on 06 16 and has had left lower extremity weakness. Found to have a right subdural hematoma with midline shift measuring 8 mm. The hematoma looks acute on chronic with multiple septations measuring about 3 cm. Neurosurgery planning for bur hole evacuation. The patient is a good candidate for right MMA embolization. We will consider to take him on Sunday pending neurosurgery evacuation and outcome. PLAN: Keep n.p.o. after midnight for possible right MMA embolization on 06/24/2024. Case discussed with Dr. Jeannine Cruz MD Stroke, Neurocritical Care & Neurointervention [facility] Associated attestation - Isma Paez MD - 06/23/2024 8:08 PM EST Images from the original note were not included. I reviewed the resident s note and agree with the documented findings and plan of care. Any areas of disagreement are noted on the chart. I agree with the chief complaint, past medical history, past surgical history, allergies, medications, social and family history as documented unless otherwise noted below. I have personally seen and evaluated the patient and images. I find the patient's history and physical exam are consistent with the Resident documentation. I agree with the critical and perez portions of the care provided, treatment rendered, disposition and follow-up plan. Post steve hole. Case planned for 06-24-2024 am due to anesthesia availability 50 minutes with time spent face to face, examining patient, counseling, coordinating care, obtaining history, reviewing images, labs, and other notes personally today. Isma Paez MD Office [phone]. Cell [phone] Stroke, Neurocritical Care & Neurointervention [facility] Images from the original note were not included. Occupational Therapy [facility] Occupational Therapy Not Seen Note DATE: 06/23/2024 NAME: Jorge Chavira : 1960 Patient not seen this date for Occupational Therapy due to: Surgery/Procedure: Pt currently off floor in IR. Will continue to follow as able. Images from the original note were not included. Trauma Tertiary Survey Admit Date: 06/20/2024 Hospital day 3 Subjective: Patient seen and examined at the bedside. He denies pain at this time. Objective: PHYSICAL EXAM: Physical Exam Constitutional: General: He is not in acute distress. Appearance: Normal appearance. He is not ill-appearing. Cardiovascular: Rate and Rhythm: Normal rate. Pulmonary: Effort: Pulmonary effort is normal. Abdominal: General: Abdomen is flat. There is no distension. Palpations: Abdomen is soft. Tenderness: There is no abdominal tenderness. Skin: General: Skin is cool. Findings: No wound. Neurological: General: No focal deficit present. Mental Status: He is alert and oriented to person, place, and time. Spine: Spine Tenderness ROM Cervical 0 /10 Normal Thoracic 0 /10 Normal Lumbar 0 /10 Normal Musculoskeletal Joint Tenderness Swelling ROM Right shoulder absent absent normal Left shoulder absent absent normal Right elbow absent absent normal Left elbow absent absent normal Right wrist absent absent normal Left wrist absent absent normal Right hand grasp absent absent normal Left hand grasp absent absent normal Right hip absent absent normal Left hip absent absent normal Right knee absent absent normal Left knee absent absent normal Right ankle absent absent normal Left ankle absent absent normal Right foot absent absent normal Left foot absent absent normal CONSULTS: neurosurgery, endovascular neurosurgery PROCEDURES: 06/22/24: right craniotomy steve holes [x] Reviewed radiology reports (All radiology findings correlate to diagnoses/problem list) Large SDH collection extending anterior to posterior [] Incidental findings: none [] Patient/family notified and letter given Assessment/Plan: TERT negative, no further imaging required [facility] Progress Note CHRISTEL Carlton 06/23/2024 Jorge Chavira [id number] Time spent with Patient: 0 minutes Time spent with Family: 0 Minutes This show card writer was unable to complete screen or therapy services with patient at bedside at this time due to the following: Patient requested clinician return later. Therapist to attempt to stop by when next available. [facility] Speech Language Pathology Date: 06/23/2024 Patient Name: Jorge Chavira Date of : 1960 AGE: 63 y.o. Patient Not Available for Speech Therapy Due to: [] Testing [] Hemodialysis [] Cancelled by RN [] Surgery [] Intubation/Sedation/Pain Medication [] Medical instability [x] Other: Pt off the floor in AM and PM. Next scheduled treatment: 06/24 Completed by: Marleny Disla Benefits Advisor Clinician Cosigned By: Doris Frederick M.S.CCC/MARKETING INFORMATION COORDINATOR Images from the original note were not included. Physical Therapy Physical Therapy Cancel Note DATE: 06/23/2024 NAME: Jorge Chavira : 1960 Patient not seen this date for Physical Therapy due to: Patient is not appropriate for PT treatment at this time d/t needing to be supine flat for drain and IR later will check back tomorrow 06/24/24. Furniture And Bedding Inspector called the patients nurse, Eliane MATTA - CAR [facility], to advise that the patient would be coming back due to a back up in [place]. Images from the original note were not included. ICU H&P NOTE PATIENT NAME: Jorge Chavira DATE: 06/23/2024 PRIMARY CARE PHYSICIAN: No primary care provider on file. HD: # 1 ASSESSMENT Problem List Patient Active Problem List Diagnosis Epidural hematoma This is a 63-year-old male that is a transfer from an outside facility, fell Sunday and Sunday, presented on 06/20 and was found to have a 3 mm epidural versus subdural bleed with 8 mm shift R to L. Patient not on anticoagulation. Patient does have a history of alcoholism, however no other medical history. Patient also has questionable right 9th through 10th rib fractures on the posterior lateral side, however patient has no tenderness, rib score is 4 due to age. Neurosurgery was consulted, repeated CT of the head here, follow-up on additional recommendations. Stating that patient can work with PT and OT here, n.p.o. until further evaluation. Patient has been counseled on the left upper and lower extremities, 5 out of 5 strength right extremities, 4 out of 5 strength left extremities. Patient does not have any sensational abnormalities. Patient on phenobarb taper due to alcohol use. ICU admission for head bleed. Today on exam patient is alert and oriented and is in no acute distress. He is complaining of mild head pain on the R side but states that it is manageable. Has family coming today (sister and brother) to check on him. MEDICAL DECISION MAKING AND PLAN Neuro: GCS: 15 POD# 1 s/p Steve hole with drain for subdural hematoma on the R, to remain laying flat for 24 hours post-op, ambulating to the restroom as tolerated Subdural R lateral convexity 3cm in thickness, 8mm shift R to L Weakness L upper and lower extremities, no sensational abnormalities Post-op non-contrast CT ordered for today per neurosurgery Hx of alcohol use, currently on a phenobarb taper CV SBP < 140 per NSG Hydralazine 10 mg PRN for BP control, not needed since 06/21 Pulm O2 96 on room air RIB score 4, questionable non-displaced fractures of R 9 & 10, not tender to palpation IS 1500, good cough GI/Nutrition NPO for planned MMA embolization today with neuroendovascular Pepcid while NPO Renal/lytes 0.8 cc/kg/hr urine output +1,029 since admission Heme Stable at 13.4 this morning No AC prior to admission Hold AC/AP per neurosurgery 8. Endocrine 1. Glucose controlled Musculoskeletal No significant pain Skin Post-op wound right side of head, anterior and posterior Closed incision clean and dry, no evidence of drainage Micro IV antibiotics for 24 hours post-op, completed Family/dispo Remain in ICU for planned procedure Lines Peripheral IV's, 1 L forearm and 1 R forearm Drain on R side of head placed 06/22 CHECKLIST CAM-ICU RASS: N/A RESTRAINTS: N/A IVF: 100 mL/hr NUTRITION: NPO ANTIBIOTICS: Ancef GI: Pepcid DVT: HELD GLYCEMIC CONTROL: None HOB >45: No MOBILITY: As tolerated SBT: N/A SUBJECTIVE Jorge Chavira is a transfer from an outside facility, fell Sunday and Sunday, presented on 06/20 and was found to have a 3 mm epidural versus subdural bleed with 8 mm shift. Patient not on anticoagulation. Patient does have a history of alcoholism, however no other medical history. Patient also has questionable right 9th through 10th rib fractures on the posterior lateral side, however patient has no tenderness, rib score is 4 due to age. Neurosurgery was consulted, repeated CT of the head here, follow-up on additional recommendations. Stating that patient can work with PT and OT here, n.p.o. until further evaluation. Patient has been counseled on the left upper and lower extremities, 5 out of 5 strength right extremities, 4 out of 5 strength left extremities. Patient does not have any sensational abnormalities. Patient on phenobarb taper due to alcohol use. ICU admission for head bleed. Patient POD# 1 s/p Minden hole with drain for subdural hematoma. Patient has been stable. Planned MMA embolization today with neuroendovascular. OBJECTIVE VITALS: Temp: Temp: 98 F (36.7 C)Temp Av.1 F (36.7 C) Min: 98 F (36.7 C) Max: 98.1 F (36.7 C) BP Systolic (24hrs), Av , Min:119 , Max:159 Diastolic (24hrs), Av, Min:81, Max:104 Pulse Pulse Av.1 Min: 47 Max: 70 Resp Resp Av Min: 10 Max: 22 Pulse ox SpO2 Av % Min: 93 % Max: 96 % CONSTITUTIONAL: Alert and oriented HEENT: No concerns LUNGS: No respiratory distress CV: RRR GI: Soft, nontender, nondistended MUSCULOSKELETAL: No concerns, cleared c spine NEUROLOGIC: L arm and leg weakness SKIN: No focal lesions, post-op wound on R side of head, incision clean and dry LAB: CBC: Recent Labs 06/22/24 1801 06/23/24 0521 WBC 5.9 9.6 HGB 14.1 13.4 HCT 41.9 39.7* MCV 95.0 93.6 PLT 224 211 BMP: Recent Labs 06/22/24 1801 06/23/24 0521 NA 138 136 K 3.8 3.8 CL 104 103 CO2 21 22 BUN 6* 7* CREATININE 0.9 0.8 GLUCOSE 133* 103* RADIOLOGY: CT LUMBAR SPINE BONY RECONSTRUCTION Result Date: 06/20/2024 EXAMINATION: CT OF THE CHEST, ABDOMEN, AND PELVIS WITH CONTRAST; CT OF THE THORACIC SPINE WITHOUT CONTRAST; CT OF THE LUMBAR SPINE WITHOUT CONTRAST 06/20/2024 9:00 pm TECHNIQUE: CT of the chest, abdomen and pelvis was performed with the administration of intravenous contrast. Multiplanar reformatted images are provided for review. Automated exposure control, iterative reconstruction, and/or weight based adjustment of the mA/kV was utilized to reduce the radiation dose to as low as reasonably achievable.; CT of the thoracic spine was performed without the administration of intravenous contrast. Multiplanar reformatted images are provided for review. Automated exposure control, iterative reconstruction, and/or weight based adjustment of the mA/kV was utilized to reduce the radiation dose to as low as reasonably achievable.; CT of the lumbar spine was performed without the administration of intravenous contrast. Multiplanar reformatted images are provided for review. Adjustment of mA and/or kV according to patient size was utilized. Automated exposure control, iterative reconstruction, and/or weight based adjustment of the mA/kV was utilized to reduce the radiation dose to as low as reasonably achievable. COMPARISON: None HISTORY: ORDERING SYSTEM PROVIDED HISTORY: trauma TECHNOLOGIST PROVIDED HISTORY: trauma FINDINGS: CHEST: Vasculature: Normal caliber thoracic aorta and pulmonary artery. Mediastinum: No evidence of mediastinal lymphadenopathy. The heart and pericardium demonstrate no acute abnormality. Lungs/Pleura: The lungs are without acute process. No focal consolidation or pulmonary edema. No evidence of pleural effusion or pneumothorax. Soft Tissues/Bones: There are questionable nondisplaced fractures of the right posterolateral 9th and 10th ribs. Otherwise no acute fracture is identified. Normal chest wall soft tissues. Normal visualized thyroid gland. ABDOMEN/PELVIS: Organs: No acute abnormality of the liver, gallbladder, spleen, pancreas, or adrenal glands are identified. Normal symmetric renal enhancement. No evidence of hydronephrosis or renal calculi. GI/Bowel: No evidence of bowel obstruction or abnormal wall thickening. No focal inflammatory changes are identified. Normal caliber appendix. Peritoneum/Retroperitoneum: No evidence of intraperitoneal free air or ascites. No suspicious lymphadenopathy is identified. Normal caliber abdominal aorta. Pelvis: Normal visualized bladder prostate gland. Bones/Soft Tissues: No acute fracture is identified. Unremarkable abdominal wall soft tissues. THORACIC/LUMBAR SPINE: BONES/ALIGNMENT: Thoracolumbar alignment and curvature is maintained. No acute fracture or subluxation is identified. Vertebral body heights are preserved. DEGENERATIVE CHANGES: Mild scattered degenerative endplate changes, without significant disc space narrowing. SOFT TISSUES: Within normal limits. 1. No acute visceral injury of the chest, abdomen, or pelvis is identified. 2. Questionable nondisplaced fractures of the right posterolateral 9th and 10th ribs. Correlation for tenderness in this region is recommended. 3. No acute fracture or subluxation of the thoracolumbar spine is identified. CT THORACIC SPINE BONY RECONSTRUCTION Result Date: 06/20/2024 EXAMINATION: CT OF THE CHEST, ABDOMEN, AND PELVIS WITH CONTRAST; CT OF THE THORACIC SPINE WITHOUT CONTRAST; CT OF THE LUMBAR SPINE WITHOUT CONTRAST 06/20/2024 9:00 pm TECHNIQUE: CT of the chest, abdomen and pelvis was performed with the administration of intravenous contrast. Multiplanar reformatted images are provided for review. Automated exposure control, iterative reconstruction, and/or weight based adjustment of the mA/kV was utilized to reduce the radiation dose to as low as reasonably achievable.; CT of the thoracic spine was performed without the administration of intravenous contrast. Multiplanar reformatted images are provided for review. Automated exposure control, iterative reconstruction, and/or weight based adjustment of the mA/kV was utilized to reduce the radiation dose to as low as reasonably achievable.; CT of the lumbar spine was performed without the administration of intravenous contrast. Multiplanar reformatted images are provided for review. Adjustment of mA and/or kV according to patient size was utilized. Automated exposure control, iterative reconstruction, and/or weight based adjustment of the mA/kV was utilized to reduce the radiation dose to as low as reasonably achievable. COMPARISON: None HISTORY: ORDERING SYSTEM PROVIDED HISTORY: trauma TECHNOLOGIST PROVIDED HISTORY: trauma FINDINGS: CHEST: Vasculature: Normal caliber thoracic aorta and pulmonary artery. Mediastinum: No evidence of mediastinal lymphadenopathy. The heart and pericardium demonstrate no acute abnormality. Lungs/Pleura: The lungs are without acute process. No focal consolidation or pulmonary edema. No evidence of pleural effusion or pneumothorax. Soft Tissues/Bones: There are questionable nondisplaced fractures of the right posterolateral 9th and 10th ribs. Otherwise no acute fracture is identified. Normal chest wall soft tissues. Normal visualized thyroid gland. ABDOMEN/PELVIS: Organs: No acute abnormality of the liver, gallbladder, spleen, pancreas, or adrenal glands are identified. Normal symmetric renal enhancement. No evidence of hydronephrosis or renal calculi. GI/Bowel: No evidence of bowel obstruction or abnormal wall thickening. No focal inflammatory changes are identified. Normal caliber appendix. Peritoneum/Retroperitoneum: No evidence of intraperitoneal free air or ascites. No suspicious lymphadenopathy is identified. Normal caliber abdominal aorta. Pelvis: Normal visualized bladder prostate gland. Bones/Soft Tissues: No acute fracture is identified. Unremarkable abdominal wall soft tissues. THORACIC/LUMBAR SPINE: BONES/ALIGNMENT: Thoracolumbar alignment and curvature is maintained. No acute fracture or subluxation is identified. Vertebral body heights are preserved. DEGENERATIVE CHANGES: Mild scattered degenerative endplate changes, without significant disc space narrowing. SOFT TISSUES: Within normal limits. 1. No acute visceral injury of the chest, abdomen, or pelvis is identified. 2. Questionable nondisplaced fractures of the right posterolateral 9th and 10th ribs. Correlation for tenderness in this region is recommended. 3. No acute fracture or subluxation of the thoracolumbar spine is identified. CT CHEST ABDOMEN PELVIS W CONTRAST Additional Contrast? None Result Date: 06/20/2024 EXAMINATION: CT OF THE CHEST, ABDOMEN, AND PELVIS WITH CONTRAST; CT OF THE THORACIC SPINE WITHOUT CONTRAST; CT OF THE LUMBAR SPINE WITHOUT CONTRAST 06/20/2024 9:00 pm TECHNIQUE: CT of the chest, abdomen and pelvis was performed with the administration of intravenous contrast. Multiplanar reformatted images are provided for review. Automated exposure control, iterative reconstruction, and/or weight based adjustment of the mA/kV was utilized to reduce the radiation dose to as low as reasonably achievable.; CT of the thoracic spine was performed without the administration of intravenous contrast. Multiplanar reformatted images are provided for review. Automated exposure control, iterative reconstruction, and/or weight based adjustment of the mA/kV was utilized to reduce the radiation dose to as low as reasonably achievable.; CT of the lumbar spine was performed without the administration of intravenous contrast. Multiplanar reformatted images are provided for review. Adjustment of mA and/or kV according to patient size was utilized. Automated exposure control, iterative reconstruction, and/or weight based adjustment of the mA/kV was utilized to reduce the radiation dose to as low as reasonably achievable. COMPARISON: None HISTORY: ORDERING SYSTEM PROVIDED HISTORY: trauma TECHNOLOGIST PROVIDED HISTORY: trauma FINDINGS: CHEST: Vasculature: Normal caliber thoracic aorta and pulmonary artery. Mediastinum: No evidence of mediastinal lymphadenopathy. The heart and pericardium demonstrate no acute abnormality. Lungs/Pleura: The lungs are without acute process. No focal consolidation or pulmonary edema. No evidence of pleural effusion or pneumothorax. Soft Tissues/Bones: There are questionable nondisplaced fractures of the right posterolateral 9th and 10th ribs. Otherwise no acute fracture is identified. Normal chest wall soft tissues. Normal visualized thyroid gland. ABDOMEN/PELVIS: Organs: No acute abnormality of the liver, gallbladder, spleen, pancreas, or adrenal glands are identified. Normal symmetric renal enhancement. No evidence of hydronephrosis or renal calculi. GI/Bowel: No evidence of bowel obstruction or abnormal wall thickening. No focal inflammatory changes are identified. Normal caliber appendix. Peritoneum/Retroperitoneum: No evidence of intraperitoneal free air or ascites. No suspicious lymphadenopathy is identified. Normal caliber abdominal aorta. Pelvis: Normal visualized bladder prostate gland. Bones/Soft Tissues: No acute fracture is identified. Unremarkable abdominal wall soft tissues. THORACIC/LUMBAR SPINE: BONES/ALIGNMENT: Thoracolumbar alignment and curvature is maintained. No acute fracture or subluxation is identified. Vertebral body heights are preserved. DEGENERATIVE CHANGES: Mild scattered degenerative endplate changes, without significant disc space narrowing. SOFT TISSUES: Within normal limits. 1. No acute visceral injury of the chest, abdomen, or pelvis is identified. 2. Questionable nondisplaced fractures of the right posterolateral 9th and 10th ribs. Correlation for tenderness in this region is recommended. 3. No acute fracture or subluxation of the thoracolumbar spine is identified. CT CERVICAL SPINE WO CONTRAST Addendum Date: 06/20/2024 ADDENDUM: Critical findings discussed with Dr. Stovall at 10:18 p.m.. He expressed understanding results. Result Date: 06/20/2024 EXAMINATION: CT OF THE HEAD WITHOUT CONTRAST; CT OF THE CERVICAL SPINE WITHOUT CONTRAST 06/20/2024 9:00 pm TECHNIQUE: CT of the head was performed without the administration of intravenous contrast. Automated exposure control, iterative reconstruction, and/or weight based adjustment of the mA/kV was utilized to reduce the radiation dose to as low as reasonably achievable.; CT of the cervical spine was performed without the administration of intravenous contrast. Multiplanar reformatted images are provided for review. Automated exposure control, iterative reconstruction, and/or weight based adjustment of the mA/kV was utilized to reduce the radiation dose to as low as reasonably achievable. COMPARISON: None. HISTORY: ORDERING SYSTEM PROVIDED HISTORY: trauma TECHNOLOGIST PROVIDED HISTORY: trauma; ORDERING SYSTEM PROVIDED HISTORY: Cervical midline tenderness. TECHNOLOGIST PROVIDED HISTORY: Cervical midline tenderness. Decision Support Exception - unselect if not a suspected or confirmed emergency medical condition->Emergency Medical Condition (MA) FINDINGS: BRAIN/VENTRICLES: Large subdural collection about the right lateral convexity, extending anterior to posterior. The collection measures approximately 3 cm in thickness. The collections demonstrates diffuse heterogeneity, which may represent a component of acute on chronic hemorrhage. There is associated sulcal effacement of the right lateral convexity to include the right frontal, temporal, and parietal lobes. There is approximately 8 mm of right to left midline shift. Narrowing of the basal cisterns bilaterally. ORBITS: The visualized portion of the orbits demonstrate no acute abnormality. SINUSES: The visualized paranasal sinuses and mastoid air cells demonstrate no acute abnormality. SOFT TISSUES/SKULL: No acute abnormality of the visualized skull or soft tissues. CERVICAL SPINE BONES/ALIGNMENT: There is no acute fracture or traumatic malalignment. DEGENERATIVE CHANGES: Mild disc space narrowing at C6-C7 with associated endplate sclerosis and marginal osteophyte formation. Varying degrees of facet arthrosis are noted at multiple cervical spinal levels. SOFT TISSUES: There is no prevertebral soft tissue swelling. 1. Large subdural collection about the right lateral convexity, extending anterior to posterior. The collection measures approximately 3 cm in thickness. The heterogeneous appearance of the collection suggests component of acute on chronic subdural hemorrhage. There is associated sulcal effacement of the right cerebral hemisphere to include the right frontal, temporal, and parietal lobes. There is approximately 8 mm of right to left midline shift and narrowing of the basal cisterns bilaterally. 2. No acute osseous abnormality of the cervical spine. CT HEAD WO CONTRAST Addendum Date: 06/20/2024 ADDENDUM: Critical findings discussed with Dr. Stovall at 10:18 p.m.. He expressed understanding results. Result Date: 06/20/2024 EXAMINATION: CT OF THE HEAD WITHOUT CONTRAST; CT OF THE CERVICAL SPINE WITHOUT CONTRAST 06/20/2024 9:00 pm TECHNIQUE: CT of the head was performed without the administration of intravenous contrast. Automated exposure control, iterative reconstruction, and/or weight based adjustment of the mA/kV was utilized to reduce the radiation dose to as low as reasonably achievable.; CT of the cervical spine was performed without the administration of intravenous contrast. Multiplanar reformatted images are provided for review. Automated exposure control, iterative reconstruction, and/or weight based adjustment of the mA/kV was utilized to reduce the radiation dose to as low as reasonably achievable. COMPARISON: None. HISTORY: ORDERING SYSTEM PROVIDED HISTORY: trauma TECHNOLOGIST PROVIDED HISTORY: trauma; ORDERING SYSTEM PROVIDED HISTORY: Cervical midline tenderness. TECHNOLOGIST PROVIDED HISTORY: Cervical midline tenderness. Decision Support Exception - unselect if not a suspected or confirmed emergency medical condition->Emergency Medical Condition (MA) FINDINGS: BRAIN/VENTRICLES: Large subdural collection about the right lateral convexity, extending anterior to posterior. The collection measures approximately 3 cm in thickness. The collections demonstrates diffuse heterogeneity, which may represent a component of acute on chronic hemorrhage. There is associated sulcal effacement of the right lateral convexity to include the right frontal, temporal, and parietal lobes. There is approximately 8 mm of right to left midline shift. Narrowing of the basal cisterns bilaterally. ORBITS: The visualized portion of the orbits demonstrate no acute abnormality. SINUSES: The visualized paranasal sinuses and mastoid air cells demonstrate no acute abnormality. SOFT TISSUES/SKULL: No acute abnormality of the visualized skull or soft tissues. CERVICAL SPINE BONES/ALIGNMENT: There is no acute fracture or traumatic malalignment. DEGENERATIVE CHANGES: Mild disc space narrowing at C6-C7 with associated endplate sclerosis and marginal osteophyte formation. Varying degrees of facet arthrosis are noted at multiple cervical spinal levels. SOFT TISSUES: There is no prevertebral soft tissue swelling. 1. Large subdural collection about the right lateral convexity, extending anterior to posterior. The collection measures approximately 3 cm in thickness. The heterogeneous appearance of the collection suggests component of acute on chronic subdural hemorrhage. There is associated sulcal effacement of the right cerebral hemisphere to include the right frontal, temporal, and parietal lobes. There is approximately 8 mm of right to left midline shift and narrowing of the basal cisterns bilaterally. 2. No acute osseous abnormality of the cervical spine. Radha Pj, MS3 06/23/2024 Orly Renee, DO 06/23/24 11:05 AM General Surgery PGY 1 Associated attestation - Radha Garnett MD - 06/24/2024 11:42 AM EST I personally evaluated the patient and directed the medical decision making with Resident/HOPE after the physical/radiologic exam and laboratory values were reviewed and confirmed. 63yo male s/p fall with SDH (BIG 3) Neuro: s/p Steve hole 06/22 - Bps goals per N/S - CTH today - follow up final read and N/S recs NEV: MMA embo today CV: BP goals Pulm: IS 1500, non tender chest wall Renal: UOP adequate Endo: no h/o DM Code Status: Full Lines: PIVs Ppx: Pepcid, DVT ppx being held Dispo: to maintain in the ICU Radha Garnett MD Neurosurgery HOPE/Resident Daily Progress Note Chief Complaint Patient presents with Hematoma 06/23/2024 9:27 AM Chart reviewed. No acute events overnight. No new complaints. Denies any headaches other than at the incision site. Denies any new or worsening weakness. Denies any vision changes. States that he feels as if his strength on the left side has gotten better, however he has not gotten up out of bed yet. 0mL out of drain overnight. Vitals: 06/23/24 0505 06/23/24 0600 06/23/24 0700 06/23/24 0800 BP: 137/77 136/80 137/71 Pulse: 69 66 67 Resp: 18 13 14 Temp: 98.5 F (36.9 C) TempSrc: Axillary SpO2: 96% Weight: Height: PE: AOx3 CNII-XII intact PERRL, EOMI Motor L deltoid 4+/5; R deltoid 5/5 L biceps 4+/5; R biceps 5/5 L triceps 4+/5; R triceps 5/5 L wrist extension 4+/5; R wrist extension 5/5 L intrinsics 4+/5; R intrinsics 5/5 L iliopsoas 4+/5 , R iliopsoas 5/5 L quadriceps 4+/5; R quadriceps 5/5 L Dorsiflexion 5/5; R dorsiflexion 5/5 L Plantarflexion 5/5; R plantarflexion 5/5 L EHL 5/5; R EHL 5/5 Sensation: intact Drain output: 0 Incision: CDI Some edema to posterior head from laying flat on a donut cushion Lab Results Component Value Date WBC 9.6 06/23/2024 HGB 13.4 06/23/2024 HCT 39.7 (L) 06/23/2024 PLT 214 06/23/2024 ALT 21 06/20/2024 AST 30 06/20/2024 NA 136 06/23/2024 K 3.8 06/23/2024 CL 103 06/23/2024 CREATININE 0.8 06/23/2024 BUN 7 (L) 06/23/2024 CO2 22 06/23/2024 INR 1.0 06/22/2024 A/P 63 y.o. male who presents with right sided SDH with MLS. POD # 1 s/p: right sided steve holes for SDH Neuro checks per floor protocol HOB flat at this time Keep EVD to gravity drainage (below level of head) Okay for bathroom privileges Pending post op CTH Please contact neurosurgery with any changes in patients neurologic status. Images from the original note were not included. POST OP NOTE SUBJECTIVE Pt s/p Mind[place] hole with drain for subdural hematoma. Patient feels well, has slight headache, PRN medications given. Has to lay flat after operation, made comfortable. OBJECTIVE VITALS: BP 122/78 Pulse 66 Temp 96.8 F (36 C) Resp 16 Ht 1.778 m (5' 10 ) Wt 77.5 kg (170 lb 12.8 oz) SpO2 98% BMI 24.51 kg/m GENERAL: awake and alert. No acute distress CARDIOVASCULAR: regular rate and rhythm LUNGS: CTA Bilaterally ABDOMEN: Abdomen soft, non-tender, non-distended INCISION: Incision clean/dry/intact ASSESSMENT 1. POD# 0 s/p [place] hole with drain for subdural hematoma PLAN 1. Pain management- MMPT, one time PRN fentanyl 2. DVT proph- held 3. GI proph- pepcid 4. Azar Daniels MD Trauma/Surgery Service 06/22/2024 at 5:54 PM Images from the original note were not included. ICU H&P NOTE PATIENT NAME: Jorge Chavira DATE: 06/21/2024 PRIMARY CARE PHYSICIAN: No primary care provider on file. HD: # 1 ASSESSMENT Problem List Patient Active Problem List Diagnosis Epidural hematoma This is a 63-year-old male that is a transfer from an outside facility, fell Sunday and Sunday, presented yesterday and was found to have a 3 mm epidural versus subdural bleed with 8 mm shift. Patient not on anticoagulation. Patient does have a history of alcoholism, however no other medical history. Patient also has questionable right 9th through 10th rib fractures on the posterior lateral side, however patient has no tenderness, rib score is 4 due to age. Neurosurgery was consulted, repeated CT of the head here, follow-up on additional recommendations. Stating that patient can work with PT and OT here, n.p.o. until further evaluation. Patient has been counseled on the left upper and lower extremities, 5 out of 5 strength right extremities, 4-5 strength left extremities. Patient does not have any sensational abnormalities. Patient on phenobarb taper due to alcohol use. ICU admission for head bleed. MEDICAL DECISION MAKING AND PLAN Neuro: Pending final recs by NSG OR for steve holes today Subdural R lateral convexity 3cm in thickness, 8mm shift R to L. No activity restrictions Weakness L upper and lower extremities NPO for now CV SBP < 140 per NSG Pulm IS as tolerated RIB score 4, unlikely to be rib fx as no tenderness in the entire chest wall IS 1500, good cough, GI/Nutrition NPO for now Pepcid while NPO Renal/lytes No concerns Unmeasured urine output +617 since admission Heme Stable No AC prior to admission Hold AC/AP 8. Endocrine 1. Glucose controlled Musculoskeletal No significant pain Skin No obvious abrasions/lesions/deformities Micro None Family/dispo Possible stepdown Lines Peripheral IV's CHECKLIST CAM-ICU RASS: N/A RESTRAINTS: N/A IVF: 100 mL/hr NUTRITION: NPO ANTIBIOTICS: None GI: Pepcid DVT: HELD GLYCEMIC CONTROL: None HOB >45: Yes MOBILITY: As tolerated SBT: N/A SUBJECTIVE Jorgejoshua Chavira is a transfer from an outside facility, fell Sunday and Sunday, presented yesterday and was found to have a 3 mm epidural versus subdural bleed with 8 mm shift. Patient not on anticoagulation. Patient does have a history of alcoholism, however no other medical history. Patient also has questionable right 9th through 10th rib fractures on the posterior lateral side, however patient has no tenderness, rib score is 4 due to age. Neurosurgery was consulted, repeated CT of the head here, follow-up on additional recommendations. Stating that patient can work with PT and OT here, n.p.o. until further evaluation. Patient has been counseled on the left upper and lower extremities, 5 out of 5 strength right extremities, 4-5 strength left extremities. Patient does not have any sensational abnormalities. Patient on phenobarb taper due to alcohol use. ICU admission for head bleed. NSG to take the patient today for steve holes. Otherwise patient has been stable. Will have MMA embolization with [facility]endovascular on Sunday OBJECTIVE VITALS: Temp: Temp: 98 F (36.7 C)Temp Av.1 F (36.7 C) Min: 98 F (36.7 C) Max: 98.1 F (36.7 C) BP Systolic (24hrs), Av , Min:119 , Max:159 Diastolic (24hrs), Av, Min:81, Max:104 Pulse Pulse Av.1 Min: 47 Max: 70 Resp Resp Av Min: 10 Max: 22 Pulse ox SpO2 Av % Min: 93 % Max: 96 % CONSTITUTIONAL: Alert and oriented HEENT: No concerns LUNGS: CTAB CV: S1 S2 GI: Soft nontender MUSCULOSKELETAL: No concerns, cleared c spine NEUROLOGIC: L arm and leg weakness SKIN: No focal lesions Drain/tube output: LAB: CBC: Recent Labs 06/20/24194206/21/24 0341 WBC 5.0 4.4 HGB 14.2 13.7 HCT 41.1 39.7* MCV 93.4 93.6 PLT 230 211 BMP: Recent Labs 06/20/24194206/21/24 034 NA 139 139 K 3.6* 3.9 CL 105 105 CO2 23 24 BUN 8 7* CREATININE 0.8 0.8 GLUCOSE 100* 106* RADIOLOGY: CT LUMBAR SPINE BONY RECONSTRUCTION Result Date: 06/20/2024 EXAMINATION: CT OF THE CHEST, ABDOMEN, AND PELVIS WITH CONTRAST; CT OF THE THORACIC SPINE WITHOUT CONTRAST; CT OF THE LUMBAR SPINE WITHOUT CONTRAST 06/20/2024 9:00 pm TECHNIQUE: CT of the chest, abdomen and pelvis was performed with the administration of intravenous contrast. Multiplanar reformatted images are provided for review. Automated exposure control, iterative reconstruction, and/or weight based adjustment of the mA/kV was utilized to reduce the radiation dose to as low as reasonably achievable.; CT of the thoracic spine was performed without the administration of intravenous contrast. Multiplanar reformatted images are provided for review. Automated exposure control, iterative reconstruction, and/or weight based adjustment of the mA/kV was utilized to reduce the radiation dose to as low as reasonably achievable.; CT of the lumbar spine was performed without the administration of intravenous contrast. Multiplanar reformatted images are provided for review. Adjustment of mA and/or kV according to patient size was utilized. Automated exposure control, iterative reconstruction, and/or weight based adjustment of the mA/kV was utilized to reduce the radiation dose to as low as reasonably achievable. COMPARISON: None HISTORY: ORDERING SYSTEM PROVIDED HISTORY: trauma TECHNOLOGIST PROVIDED HISTORY: trauma FINDINGS: CHEST: Vasculature: Normal caliber thoracic aorta and pulmonary artery. Mediastinum: No evidence of mediastinal lymphadenopathy. The heart and pericardium demonstrate no acute abnormality. Lungs/Pleura: The lungs are without acute process. No focal consolidation or pulmonary edema. No evidence of pleural effusion or pneumothorax. Soft Tissues/Bones: There are questionable nondisplaced fractures of the right posterolateral 9th and 10th ribs. Otherwise no acute fracture is identified. Normal chest wall soft tissues. Normal visualized thyroid gland. ABDOMEN/PELVIS: Organs: No acute abnormality of the liver, gallbladder, spleen, pancreas, or adrenal glands are identified. Normal symmetric renal enhancement. No evidence of hydronephrosis or renal calculi. GI/Bowel: No evidence of bowel obstruction or abnormal wall thickening. No focal inflammatory changes are identified. Normal caliber appendix. Peritoneum/Retroperitoneum: No evidence of intraperitoneal free air or ascites. No suspicious lymphadenopathy is identified. Normal caliber abdominal aorta. Pelvis: Normal visualized bladder prostate gland. Bones/Soft Tissues: No acute fracture is identified. Unremarkable abdominal wall soft tissues. THORACIC/LUMBAR SPINE: BONES/ALIGNMENT: Thoracolumbar alignment and curvature is maintained. No acute fracture or subluxation is identified. Vertebral body heights are preserved. DEGENERATIVE CHANGES: Mild scattered degenerative endplate changes, without significant disc space narrowing. SOFT TISSUES: Within normal limits. 1. No acute visceral injury of the chest, abdomen, or pelvis is identified. 2. Questionable nondisplaced fractures of the right posterolateral 9th and 10th ribs. Correlation for tenderness in this region is recommended. 3. No acute fracture or subluxation of the thoracolumbar spine is identified. CT THORACIC SPINE BONY RECONSTRUCTION Result Date: 06/20/2024 EXAMINATION: CT OF THE CHEST, ABDOMEN, AND PELVIS WITH CONTRAST; CT OF THE THORACIC SPINE WITHOUT CONTRAST; CT OF THE LUMBAR SPINE WITHOUT CONTRAST 06/20/2024 9:00 pm TECHNIQUE: CT of the chest, abdomen and pelvis was performed with the administration of intravenous contrast. Multiplanar reformatted images are provided for review. Automated exposure control, iterative reconstruction, and/or weight based adjustment of the mA/kV was utilized to reduce the radiation dose to as low as reasonably achievable.; CT of the thoracic spine was performed without the administration of intravenous contrast. Multiplanar reformatted images are provided for review. Automated exposure control, iterative reconstruction, and/or weight based adjustment of the mA/kV was utilized to reduce the radiation dose to as low as reasonably achievable.; CT of the lumbar spine was performed without the administration of intravenous contrast. Multiplanar reformatted images are provided for review. Adjustment of mA and/or kV according to patient size was utilized. Automated exposure control, iterative reconstruction, and/or weight based adjustment of the mA/kV was utilized to reduce the radiation dose to as low as reasonably achievable. COMPARISON: None HISTORY: ORDERING SYSTEM PROVIDED HISTORY: trauma TECHNOLOGIST PROVIDED HISTORY: trauma FINDINGS: CHEST: Vasculature: Normal caliber thoracic aorta and pulmonary artery. Mediastinum: No evidence of mediastinal lymphadenopathy. The heart and pericardium demonstrate no acute abnormality. Lungs/Pleura: The lungs are without acute process. No focal consolidation or pulmonary edema. No evidence of pleural effusion or pneumothorax. Soft Tissues/Bones: There are questionable nondisplaced fractures of the right posterolateral 9th and 10th ribs. Otherwise no acute fracture is identified. Normal chest wall soft tissues. Normal visualized thyroid gland. ABDOMEN/PELVIS: Organs: No acute abnormality of the liver, gallbladder, spleen, pancreas, or adrenal glands are identified. Normal symmetric renal enhancement. No evidence of hydronephrosis or renal calculi. GI/Bowel: No evidence of bowel obstruction or abnormal wall thickening. No focal inflammatory changes are identified. Normal caliber appendix. Peritoneum/Retroperitoneum: No evidence of intraperitoneal free air or ascites. No suspicious lymphadenopathy is identified. Normal caliber abdominal aorta. Pelvis: Normal visualized bladder prostate gland. Bones/Soft Tissues: No acute fracture is identified. Unremarkable abdominal wall soft tissues. THORACIC/LUMBAR SPINE: BONES/ALIGNMENT: Thoracolumbar alignment and curvature is maintained. No acute fracture or subluxation is identified. Vertebral body heights are preserved. DEGENERATIVE CHANGES: Mild scattered degenerative endplate changes, without significant disc space narrowing. SOFT TISSUES: Within normal limits. 1. No acute visceral injury of the chest, abdomen, or pelvis is identified. 2. Questionable nondisplaced fractures of the right posterolateral 9th and 10th ribs. Correlation for tenderness in this region is recommended. 3. No acute fracture or subluxation of the thoracolumbar spine is identified. CT CHEST ABDOMEN PELVIS W CONTRAST Additional Contrast? None Result Date: 06/20/2024 EXAMINATION: CT OF THE CHEST, ABDOMEN, AND PELVIS WITH CONTRAST; CT OF THE THORACIC SPINE WITHOUT CONTRAST; CT OF THE LUMBAR SPINE WITHOUT CONTRAST 06/20/2024 9:00 pm TECHNIQUE: CT of the chest, abdomen and pelvis was performed with the administration of intravenous contrast. Multiplanar reformatted images are provided for review. Automated exposure control, iterative reconstruction, and/or weight based adjustment of the mA/kV was utilized to reduce the radiation dose to as low as reasonably achievable.; CT of the thoracic spine was performed without the administration of intravenous contrast. Multiplanar reformatted images are provided for review. Automated exposure control, iterative reconstruction, and/or weight based adjustment of the mA/kV was utilized to reduce the radiation dose to as low as reasonably achievable.; CT of the lumbar spine was performed without the administration of intravenous contrast. Multiplanar reformatted images are provided for review. Adjustment of mA and/or kV according to patient size was utilized. Automated exposure control, iterative reconstruction, and/or weight based adjustment of the mA/kV was utilized to reduce the radiation dose to as low as reasonably achievable. COMPARISON: None HISTORY: ORDERING SYSTEM PROVIDED HISTORY: trauma TECHNOLOGIST PROVIDED HISTORY: trauma FINDINGS: CHEST: Vasculature: Normal caliber thoracic aorta and pulmonary artery. Mediastinum: No evidence of mediastinal lymphadenopathy. The heart and pericardium demonstrate no acute abnormality. Lungs/Pleura: The lungs are without acute process. No focal consolidation or pulmonary edema. No evidence of pleural effusion or pneumothorax. Soft Tissues/Bones: There are questionable nondisplaced fractures of the right posterolateral 9th and 10th ribs. Otherwise no acute fracture is identified. Normal chest wall soft tissues. Normal visualized thyroid gland. ABDOMEN/PELVIS: Organs: No acute abnormality of the liver, gallbladder, spleen, pancreas, or adrenal glands are identified. Normal symmetric renal enhancement. No evidence of hydronephrosis or renal calculi. GI/Bowel: No evidence of bowel obstruction or abnormal wall thickening. No focal inflammatory changes are identified. Normal caliber appendix. Peritoneum/Retroperitoneum: No evidence of intraperitoneal free air or ascites. No suspicious lymphadenopathy is identified. Normal caliber abdominal aorta. Pelvis: Normal visualized bladder prostate gland. Bones/Soft Tissues: No acute fracture is identified. Unremarkable abdominal wall soft tissues. THORACIC/LUMBAR SPINE: BONES/ALIGNMENT: Thoracolumbar alignment and curvature is maintained. No acute fracture or subluxation is identified. Vertebral body heights are preserved. DEGENERATIVE CHANGES: Mild scattered degenerative endplate changes, without significant disc space narrowing. SOFT TISSUES: Within normal limits. 1. No acute visceral injury of the chest, abdomen, or pelvis is identified. 2. Questionable nondisplaced fractures of the right posterolateral 9th and 10th ribs. Correlation for tenderness in this region is recommended. 3. No acute fracture or subluxation of the thoracolumbar spine is identified. CT CERVICAL SPINE WO CONTRAST Addendum Date: 06/20/2024 ADDENDUM: Critical findings discussed with Dr. Stovall at 10:18 p.m.. He expressed understanding results. Result Date: 06/20/2024 EXAMINATION: CT OF THE HEAD WITHOUT CONTRAST; CT OF THE CERVICAL SPINE WITHOUT CONTRAST 06/20/2024 9:00 pm TECHNIQUE: CT of the head was performed without the administration of intravenous contrast. Automated exposure control, iterative reconstruction, and/or weight based adjustment of the mA/kV was utilized to reduce the radiation dose to as low as reasonably achievable.; CT of the cervical spine was performed without the administration of intravenous contrast. Multiplanar reformatted images are provided for review. Automated exposure control, iterative reconstruction, and/or weight based adjustment of the mA/kV was utilized to reduce the radiation dose to as low as reasonably achievable. COMPARISON: None. HISTORY: ORDERING SYSTEM PROVIDED HISTORY: trauma TECHNOLOGIST PROVIDED HISTORY: trauma; ORDERING SYSTEM PROVIDED HISTORY: Cervical midline tenderness. TECHNOLOGIST PROVIDED HISTORY: Cervical midline tenderness. Decision Support Exception - unselect if not a suspected or confirmed emergency medical condition->Emergency Medical Condition (MA) FINDINGS: BRAIN/VENTRICLES: Large subdural collection about the right lateral convexity, extending anterior to posterior. The collection measures approximately 3 cm in thickness. The collections demonstrates diffuse heterogeneity, which may represent a component of acute on chronic hemorrhage. There is associated sulcal effacement of the right lateral convexity to include the right frontal, temporal, and parietal lobes. There is approximately 8 mm of right to left midline shift. Narrowing of the basal cisterns bilaterally. ORBITS: The visualized portion of the orbits demonstrate no acute abnormality. SINUSES: The visualized paranasal sinuses and mastoid air cells demonstrate no acute abnormality. SOFT TISSUES/SKULL: No acute abnormality of the visualized skull or soft tissues. CERVICAL SPINE BONES/ALIGNMENT: There is no acute fracture or traumatic malalignment. DEGENERATIVE CHANGES: Mild disc space narrowing at C6-C7 with associated endplate sclerosis and marginal osteophyte formation. Varying degrees of facet arthrosis are noted at multiple cervical spinal levels. SOFT TISSUES: There is no prevertebral soft tissue swelling. 1. Large subdural collection about the right lateral convexity, extending anterior to posterior. The collection measures approximately 3 cm in thickness. The heterogeneous appearance of the collection suggests component of acute on chronic subdural hemorrhage. There is associated sulcal effacement of the right cerebral hemisphere to include the right frontal, temporal, and parietal lobes. There is approximately 8 mm of right to left midline shift and narrowing of the basal cisterns bilaterally. 2. No acute osseous abnormality of the cervical spine. CT HEAD WO CONTRAST Addendum Date: 06/20/2024 ADDENDUM: Critical findings discussed with Dr. Stovall at 10:18 p.m.. He expressed understanding results. Result Date: 06/20/2024 EXAMINATION: CT OF THE HEAD WITHOUT CONTRAST; CT OF THE CERVICAL SPINE WITHOUT CONTRAST 06/20/2024 9:00 pm TECHNIQUE: CT of the head was performed without the administration of intravenous contrast. Automated exposure control, iterative reconstruction, and/or weight based adjustment of the mA/kV was utilized to reduce the radiation dose to as low as reasonably achievable.; CT of the cervical spine was performed without the administration of intravenous contrast. Multiplanar reformatted images are provided for review. Automated exposure control, iterative reconstruction, and/or weight based adjustment of the mA/kV was utilized to reduce the radiation dose to as low as reasonably achievable. COMPARISON: None. HISTORY: ORDERING SYSTEM PROVIDED HISTORY: trauma TECHNOLOGIST PROVIDED HISTORY: trauma; ORDERING SYSTEM PROVIDED HISTORY: Cervical midline tenderness. TECHNOLOGIST PROVIDED HISTORY: Cervical midline tenderness. Decision Support Exception - unselect if not a suspected or confirmed emergency medical condition->Emergency Medical Condition (MA) FINDINGS: BRAIN/VENTRICLES: Large subdural collection about the right lateral convexity, extending anterior to posterior. The collection measures approximately 3 cm in thickness. The collections demonstrates diffuse heterogeneity, which may represent a component of acute on chronic hemorrhage. There is associated sulcal effacement of the right lateral convexity to include the right frontal, temporal, and parietal lobes. There is approximately 8 mm of right to left midline shift. Narrowing of the basal cisterns bilaterally. ORBITS: The visualized portion of the orbits demonstrate no acute abnormality. SINUSES: The visualized paranasal sinuses and mastoid air cells demonstrate no acute abnormality. SOFT TISSUES/SKULL: No acute abnormality of the visualized skull or soft tissues. CERVICAL SPINE BONES/ALIGNMENT: There is no acute fracture or traumatic malalignment. DEGENERATIVE CHANGES: Mild disc space narrowing at C6-C7 with associated endplate sclerosis and marginal osteophyte formation. Varying degrees of facet arthrosis are noted at multiple cervical spinal levels. SOFT TISSUES: There is no prevertebral soft tissue swelling. 1. Large subdural collection about the right lateral convexity, extending anterior to posterior. The collection measures approximately 3 cm in thickness. The heterogeneous appearance of the collection suggests component of acute on chronic subdural hemorrhage. There is associated sulcal effacement of the right cerebral hemisphere to include the right frontal, temporal, and parietal lobes. There is approximately 8 mm of right to left midline shift and narrowing of the basal cisterns bilaterally. 2. No acute osseous abnormality of the cervical spine. Azar Daniels MD 06/22/24 1658 Trauma Attending Attestation I have reviewed the above [facility] note(s). I have seen and examined the pt. I have discussed the findings, established the care plan and recommendations with Resident. Pt overall doing ok Will be going to OR today for steve holes with NS- will re-eval post op Fina Olmedo DO 06/22/2024 5:19 PM Neurosurgery Post op Progress Note SUBJECTIVE: Status post: 1. Bur hole craniotomies for evacuation of subdural hematoma. Patient seen while in PACU. Patient appears to be alert to person but not time or place. Patient will answer questions asked to him. He will follow commands. Pain to the surgical sites appears to be well-controlled. He denies the presence of any numbness, paresthesia pains, paralysis to either his upper or lower extremities. He continues to have some weakness to his left upper and lower extremities. The patient states that his weakness appears to be better after surgery than prior to surgery. He denies the presence of any headache, diplopia, nausea, or emesis. OBJECTIVE Physical exam VITALS: Vitals: 06/22/24 1515 BP: 122/78 Pulse: 66 Resp: 16 Temp: SpO2: 98% INTAKE: Intake/Output Summary (Last 24 hours) at 06/22/2024 1537 Last data filed at 06/22/2024 1457 Gross per 24 hour Intake 1333.31 ml Output -- Net 1333.31 ml URINARY CATHETER OUTPUT (Dickey): No Dickey catheter. DRAIN/TUBE OUTPUT: Drain present to the surgical site. Drain appears to be working. No evidence of DVT seen on physical exam. Neurological exam reveals Responds to voice and Responds to tactile stimuli moves all extremities well and no involuntary movements cranial nerves II through XII intact, abnormal neurological exam unchanged from prior examinations. He continues to have some weakness associated to both left upper and lower extremities. The weakness does not appear to be any worse since undergoing surgery. the upper and lower extremities:no muscle wasting or atrophy, no fasciculations noted, no involuntary movements, no abnormalities of position, and normal resting muscle tone normal light touch sensation and normal position sensation Wound Post op wound: Right side of head. anterior and posterior. well approximated incision clean, dry, and no drainage Closed w/ continuous Monocryl suture and overlying Dermabond. No dressing overlying incision site. Data LABS: Lab Results Component Value Date WBC 4.1 06/22/2024 HGB 13.1 06/22/2024 HCT 38.7 (L) 06/22/2024 MCV 93.9 06/22/2024 PLT 217 06/22/2024 Lab Results Component Value Date NA 138 06/22/2024 K 4.0 06/22/2024 CL 106 06/22/2024 CO2 23 06/22/2024 Lab Results Component Value Date BUN 10 06/22/2024 Lab Results Component Value Date CREATININE 0.9 06/22/2024 ASSESSMENT AND PLAN 1. Okay to transfer patient from PACU to ICU if stable. 2. IV antibiotics for 24 hours and appropriate analgesics for pain. 3. Both physical therapy and Occupational Therapy already on board. 4. Continue head of bed flat for at least the next 24 hours. Patient does have bathroom privileges. He can go to the bathroom with assistance. 5. Keep drain to the head-open, with the reservoir held below the area of the head. 6. Will obtain noncontrast CT tomorrow. 7. Continue Keppra. 8. Attempt to keep systolic blood pressure less than 160. 9. We will continue to closely follow this patient while he remains in house. Neurosurgery HOPE/Resident Daily Progress Note Chief Complaint Patient presents with Hematoma 06/22/2024 6:26 AM Chart reviewed. No acute events overnight. No new complaints. Complains of some near sighted blurry vision. Denies any headaches. Denies any new or worsening weakness. Plan for OR today for right sided steve holes. Vitals: 06/21/24 2200 06/21/24 2300 06/22/24 0100 06/22/24 0200 BP: (!) 90/56 (!) 89/55 105/63 118/82 Pulse: 59 58 58 64 Resp: 13 07 23 23 Temp: TempSrc: SpO2: 95% 95% 98% 96% Weight: PE: AOx3 CNII-XII intact PERRL, EOMI Motor LUE 4/5, weaker hand grasps than right RUE 5/5 LLE 4/5 RLE 5/5 Does have LUE drift Sensation: intact Left dysmetria Lab Results Component Value Date WBC 4.1 06/22/2024 HGB 13.1 06/22/2024 HCT 38.7 (L) 06/22/2024 PLT 217 06/22/2024 ALT 21 06/20/2024 AST 30 06/20/2024 NA 138 06/22/2024 K 4.0 06/22/2024 CL 106 06/22/2024 CREATININE 0.9 06/22/2024 BUN 10 06/22/2024 CO2 23 06/22/2024 INR 1.0 06/21/2024 A/P: 63 y.o. male who presents with fall on 06/16 and has had left lower extremity weakness. Found to have a right epidural vs subdural hematoma measuring 3 cm with 8 mm [id number] shift. Plan for OR today for right sided steve holes Endovascular consulted for embolization s/p steve holes Consent signed and in chart Currently NPO Pre-op labs completed Neuro checks per floor protocol Hold all antiplatelets and anticoagulants Please contact neurosurgery with any changes in patients neurologic status. Associated attestation - Bobby Yanez DO - 06/22/2024 2:47 PM EST I have seen and examined the patient independently. I reviewed all laboratory and imaging studies that are relevant. I agree with the HOPE note with the below addendum. Awake alert oriented x 3. I spontaneously open. Follows commands readily with the right upper extremity and right lower extremity. Left lower extremity 4 - discoordinated, left upper extremity 3-4 minus with some spasticity. Positive pronator drift left. Subacute loculated right-sided subdural hematoma in the setting of heavy alcohol use and recent trauma Extensive discussion with the patient's family and the patient at the bedside regarding bur hole drainage followed by MMA embolization. Reviewed that the main risk of this procedure seizure as well as bleeding and stroke. Will proceed today with bur hole drainage of the hematoma. Bobby Yanez DO Neurosurgery O: [phone] C: [phone] Physical Therapy Facility/Department: [facility] S[facility] Physical Therapy Initial Assessment Name: Jorge Chavira : 1960 Date of Service: 06/21/2024 Chief Complaint Patient presents with Hematoma Discharge Recommendations: Further therapy recommended at discharge.The patient should be able to tolerate at least 3 hours of therapy per day over 5 days or 15 hours over 7 days. This patient may benefit from a Physical Medicine and Rehab consult. PT Equipment Recommendations Equipment Needed: No Other: Pt states able to get equipment Patient Diagnosis(es): The primary encounter diagnosis was Epidural hematoma. A diagnosis of Left-sided weakness was also pertinent to this visit. Past Medical History: has no past medical history on file. Past Surgical History: has no past surgical history on file. Assessment Body Structures, Functions, Activity Limitations Requiring Skilled Therapeutic Intervention: Decreased functional mobility ;Decreased strength;Decreased balance;Decreased safe awareness;Decreased cognition Assessment: Pt grossly CGA, amb 15' RW Cristy, L neglect. Pt would benefit from continued acute PT to address deficits. Therapy Prognosis: Good Decision Making: Medium Complexity Requires PT Follow-Up: Yes Activity Tolerance Activity Tolerance: Patient tolerated treatment well;Patient limited by fatigue Plan Physical Therapy Plan General Plan: 6-7 times per week Current Treatment Recommendations: Strengthening, Balance training, Gait training, Functional mobility training, Stair training, Transfer training, Endurance training, Home exercise program, Safety education & training, Patient/Caregiver education & training, Equipment evaluation, education, & procurement, Therapeutic activities Safety Devices Type of Devices: Call light within reach, Nurse notified, All fall risk precautions in place, Patient at risk for falls, Gait belt, Left in chair Restraints Restraints Initially in Place: No Restrictions Restrictions/Precautions Restrictions/Precautions: Fall Risk, General Precautions Required Braces or Orthoses?: No Position Activity Restriction Other position/activity restrictions: CTLS clear, SBP <140. activity as tolerated Subjective General Patient assessed for rehabilitation services?: Yes Response To Previous Treatment: Not applicable Family / Caregiver Present: No Follows Commands: Within Functional Limits General Comment Comments: RN and pt agreeable to PT. Pt alert in bed upon arrival. OT co-eval Subjective Subjective: Pt denies pain or any numbness or tingling. Social/Functional History Social/Functional History Lives With: Alone Type of Home: House Home Layout: One level Home Access: Stairs to enter with rails Entrance Stairs - Number of Steps: 3 Entrance Stairs - Rails: Right Bathroom Shower/Tub: Tub/Shower unit, None Bathroom Toilet: Standard Bathroom Accessibility: Accessible Home Equipment: None (states has acces to them) Receives Help From: Family (sister couple miles away, she is retired, able to be with pt 05/03 if needed) ADL Assistance: Independent Homemaking Assistance: Independent Homemaking Responsibilities: Yes Ambulation Assistance: Independent Transfer Assistance: Independent Active Pharmacy Intern: Yes Mode of Transportation: (jeep) 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 Occupation: local [address] [address] Leisure & Hobbies: be outside, yard work Vision/Hearing Vision Vision: Impaired Vision Exceptions: Wears glasses for reading Hearing Hearing: Within functional limits Cognition Orientation Overall Orientation Status: Within Functional Limits Orientation Level: Oriented to person;Oriented to place;Oriented to time Cognition Overall Cognitive Status: Exceptions Following Commands: Follows multistep commands with repitition Attention Span: Attends with cues to redirect Safety Judgement: Decreased awareness of need for safety;Decreased awareness of need for assistance Insights: Decreased awareness of deficits Initiation: Requires cues for some Sequencing: Requires cues for some Cognition Comment: pt exhibited decreased awareness of deficits and decreased awareness of L side. pt ran into multiple objects on L and kept leave L UE on walker or sink and did not correct until prompted. Objective AROM RLE (degrees) RLE AROM: WFL AROM LLE (degrees) LLE AROM : WFL AROM RUE (degrees) RUE General AROM: see OT AROM LUE (degrees) LUE General AROM: see OT Strength RLE Strength RLE: WFL Comment: grossly 4/5 Strength LLE Strength LLE: WFL Comment: grossly 4/5 Strength RUE Comment: antigravity observed, see OT Strength LUE Comment: antigravity observed, see OT Bed mobility Supine to Sit: Minimal assistance Scooting: Minimal assistance Bed Mobility Comments: Pt positioned in recliner at end of session. Transfers Sit to Stand: Minimal Assistance Stand to Sit: Minimal Assistance Ambulation Surface: Level tile Device: Rolling Walker Assistance: Minimal assistance Quality of Gait: unsteady, reciprocal, L neglect, running into objects with L side of RW, leaving LUE behind and LLE untill cued. no LoB or buckling, Distance: 12', seated toileted, 15' More Ambulation?: No Stairs/Curb Stairs?: No Balance Posture: Fair Sitting - Static: Good;- Sitting - Dynamic: Fair;+ Standing - Static: Fair Standing - Dynamic: Fair;- Comments: RW used while assessing standing balance Exercise Treatment: toileted, seated pericare. standing ADL, see OT. [facility] - Mobility [facility] Basic Mobility - Inpatient How much help is needed turning from your back to your side while in a flat bed without using bedrails?: None How much help is needed moving from lying on your back to sitting on the side of a flat bed without using bedrails?: A Little How much help is needed moving to and from a bed to a chair?: A Little How much help is needed standing up from a chair using your arms?: A Little How much help is needed walking in hospital room?: A Little How much help is needed climbing 3-5 steps with a railing?: A Lot [facility] Inpatient Mobility Raw Score : 18 [facility] Inpatient T-Scale Score : 43.63 Mobility Inpatient CMS 0-100% Score: 46.58 Mobility Inpatient CMS G-Code Modifier : CK Goals Short Term Goals Time Frame for Short Term Goals: 14 visits Short Term Goal 1: Pt will be Cherry bed mobility Short Term Goal 2: Pt will be Cherry transfers Short Term Goal 3: Pt will be Cherry amb 250' RW or least restrictive AD Short Term Goal 4: Pt will navigate 4 steps Cherry R rail use. Education Patient Education Education Given To: Patient Education Provided: Role of Therapy;Plan of Care Education Method: Demonstration;Verbal Barriers to Learning: None Education Outcome: Verbalized understanding;Demonstrated understanding;Continued education needed Therapy Time Individual Concurrent Group Co-treatment Time In 938 Time Out 1013 Minutes 34 Timed Code Treatment Minutes: 23 Minutes Donal Viveros PT Occupational Therapy Initial Evaluation Facility/Department: [facility] Patient Name: Jorge Chavira : 1960 Date of Service: 06/21/2024 Discharge Recommendations Further therapy recommended at discharge. Chief Complaint Patient presents with Hematoma Past Medical History: has no past medical history on file. Past Surgical History: has no past surgical history on file. Assessment Performance deficits / Impairments: Decreased functional mobility ;Decreased ADL status;Decreased endurance;Decreased high-level IADLs;Decreased strength;Decreased ROM;Decreased balance;Decreased cognition;Decreased safe awareness;Decreased coordination Assessment: pt demonstrated above deficits impacting occupational performance. pt significantly limited by decreased awareness of safety and awareness of L side. pt would benefit from continued acute OT, as well as at discharge in order to increase safety and independence. Prognosis: Good Decision Making: Medium Complexity REQUIRES OT FOLLOW-UP: Yes Activity Tolerance Activity Tolerance: Patient Tolerated treatment well Safety Devices Type of Devices: Call light within reach;Left in chair;Chair alarm in place;Gait belt;Nurse notified;Patient at risk for falls Restraints Restraints Initially in Place: No Restrictions/Precautions Restrictions/Precautions Restrictions/Precautions: Fall Risk Required Braces or Orthoses?: No Position Activity Restriction Other position/activity restrictions: CTLS clear, SBP <140. activity as tolerated Subjective General Patient assessed for rehabilitation services?: Yes Family / Caregiver Present: No General Comment Comments: RN ok'd for therapy this date. pt agreeable to participate in session and cooperative/pleasant throughout. pt denied pain Home Setup/Prior Level of Function Social/Functional History Lives With: Alone Type of Home: House Home Layout: One level Home Access: Stairs to enter with rails Entrance Stairs - Number of Steps: 3 Entrance Stairs - Rails: Right Bathroom Shower/Tub: Tub/Shower unit;None Bathroom Toilet: Standard Bathroom Accessibility: Accessible Home Equipment: None (states has acces to them) Receives Help From: Family (sister couple miles away, she is retired, able to be with pt 05/03 if needed) ADL Assistance: Independent Homemaking Assistance: Independent Homemaking Responsibilities: Yes Ambulation Assistance: Independent Transfer Assistance: Independent Active Pharmacy Intern: Yes Mode of Transportation: (jeep) 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 Occupation: local [employer] drive Leisure & Hobbies: be outside, yard work Vision/Hearing Vision Vision: Impaired Vision Exceptions: Wears glasses for reading Hearing Hearing: Within functional limits BUE Assessment Gross Assessment AROM: Generally decreased, functional (R UE WFL, L shoulder 0-80) Strength: Generally decreased, functional (R UE grossly 4/5, L shoulder 3-/5, L Crew Leader Gluing 4/5) Coordination: Generally decreased, functional (pt exhibited decreased accuracy and speed to L UE during finger to nose.) Tone: Normal Sensation: Intact Hand Dominance: Right Objective Orientation Overall Orientation Status: Within Functional Limits Orientation Level: Oriented to person;Oriented to place;Oriented to time Cognition Overall Cognitive Status: Exceptions Following Commands: Follows multistep commands with repitition Attention Span: Attends with cues to redirect Safety Judgement: Decreased awareness of need for safety;Decreased awareness of need for assistance Insights: Decreased awareness of deficits Initiation: Requires cues for some Sequencing: Requires cues for some Cognition Comment: pt exhibited decreased awareness of deficits and decreased awareness of L side. pt ran into multiple objects on L and kept leave L UE on walker or sink and did not correct until prompted. Activities of Daily Living Feeding: Modified independent Grooming: Stand by assistance UE Bathing: Minimal assistance LE Bathing: Moderate assistance UE Dressing: Minimal assistance (pt changed hospital gown while seated in chair with min A for donning L sleeve d/t decreased accuracy) LE Dressing: Moderate assistance (pt required mod A for donning B socks while sitting on EOB. pt required mod -max for dynamic sitting balance during sock donning and unable to complete donning L Sock) Toileting: Minimal assistance (pt used restroom during session with min A for doffing underwear. pt able to doff R side, but did not doff left side over hips without min A and cues.) Balance Balance Sitting: With support (~25 minutes on eOB, on toilet and in chair. pt required mod-max A during dynamic sitting tasks and SBA for static.) Standing: High guard (~4 minutes. pt completed static standing at bedside in preparation for functional mobility and at sink for hand hygiene. CGA and RW throughout.) Transfers/Mobility Bed mobility Supine to Sit: Minimal assistance Sit to Supine: (pt retired to chair at end of session) Scooting: Minimal assistance Transfers Sit to stand: Minimal assistance Stand to sit: Minimal assistance Transfer Comments: from EOB. pt required mod cues for grasp and release of walker with L hand Toilet Transfers Toilet - Technique: Ambulating Equipment Used: Standard toilet Toilet Transfer: Contact guard assistance Functional Mobility: Minimal assistance Functional Mobility Skilled Clinical Factors: pt required min A for walker navigation during functional mobility to/from bathroom d/t running into alatorre or objects on L. pt exhibited unsteadiness but no LOB Patient Education Patient Education Education Given To: Patient Education Provided: Role of Therapy;Plan of Care;Transfer Training;ADL Adaptive Strategies Education Provided Comments: safety during functional transfers/mobility Education Method: Verbal Barriers to Learning: None Education Outcome: Verbalized understanding;Continued education needed Goals Short Term Goals Time Frame for Short Term Goals: pt will, by discharge Short Term Goal 1: incorporate use of L UE into functional tasks with <3 verbal cues in order to increase awareness Short Term Goal 2: complete LB ADLs with min A and AE, as needed Short Term Goal 3: complete UB ADLS with SBA and modified tech Short Term Goal 4: participate in meaningful task for 15+ minutes in order to increase L UE strength an coordination Short Term Goal 5: dem SBA during functional transfers/functional mobility with LRAD, as needed Short Term Goal 6: dem ~20 minutes dynamic sitting balance unsupported with SBA in order to complete functional tasks Plan Occupational Therapy Plan Times Per Week: 3-5x/wk Current Treatment Recommendations: Strengthening, ROM, Balance training, Functional mobility training, Endurance training, Safety education & training, Patient/Caregiver education & training, Self-Care / ADL, Return to work related activity, Positioning, Equipment evaluation, education, & procurement, Home management training, Coordination training AM-PAC Daily Activities Inpatient AM-PAC Daily Activity - Inpatient How much help is needed for putting on and taking off regular lower body clothing?: A Lot How much help is needed for bathing (which includes washing, rinsing, drying)?: A Lot How much help is needed for toileting (which includes using toilet, bedpan, or urinal)?: A Little How much help is needed for putting on and taking off regular upper body clothing?: A Little How much help is needed for taking care of personal grooming?: A Little How much help for eating meals?: None AM-PAC Inpatient Daily Activity Raw Score: 17 AM-PAC Inpatient ADL T-Scale Score : 37.26 ADL Inpatient CMS 0-100% Score: 50.11 ADL Inpatient CMS G-Code Modifier : CK Minutes OT Individual Minutes Time In: 0939 Time Out: 1010 Minutes: 31 Time Code Minutes Timed Code Treatment Minutes: 8 Minutes Facility/Department: [facility] Initial Speech/Language/Cognitive Assessment NAME: Jorge Chavira : 1960 ADMISSION DATE: 06/20/2024 ADMITTING DIAGNOSIS: has Epidural hematoma on their problem list. DATE ONSET: 06/17/2024 Date of Eval: 06/21/2024 Evaluating Therapist: Yuliana Kimble, ALMAZ RECENT RESULTS CT OF HEAD/MRI: CT Head - 06/20/2024 1. Large subdural collection about the right lateral convexity, extending anterior to posterior. The collection measures approximately 3 cm in thickness. The heterogeneous appearance of the collection suggests component of acute on chronic subdural hemorrhage. There is associated sulcal effacement of the right cerebral hemisphere to include the right frontal, temporal, and parietal lobes. There is approximately 8 mm of right to left midline shift and narrowing of the basal cisterns bilaterally. 2. No acute osseous abnormality of the cervical spine. Primary Complaint: Jorge Rojas ana maria 63 yo man admitted 06/20/2024 s/p multiple falls (06/16 & 06/17) Patient does have a history of alcoholism, however no other medical history. Patient also has questionable right 9th through 10th rib fractures on the posterior lateral side, however patient has no tenderness, rib score is 4 due to age. IMPRESSIONS Pt presents with cognitive impairments in working memory, divergent naming, problem solving and delayed recall Pt and son report pt is slightly worse than his baseline RECOMMENDATIONS Skilled ST is warranted during hospitalization and may be warranted as an outpatient Pain: Pain Assessment Pain Assessment: None - Denies Pain Pain Level: 3 Patient's Stated Pain Goal: 0 - No pain Pain Location: Head Pain Orientation: Posterior, Lower Pain Descriptors: Aching Vision/ Hearing Assessment: Cognitive Diagnosis: Cognitive Impairments Speech Diagnosis: No s/s of motor speech disorder Diagnosis: Cognitive Impairments Recommendations: Recommendations Requires MARKETING INFORMATION COORDINATOR Intervention: Yes Patient Education Response: Verbalizes understanding;Demonstrated understanding Duration of Treatment: 15-30 minutes D/C Recommendations: Ongoing speech therapy is recommended during this hospitalization;To be determined Plan: Speech Therapy Prognosis Prognosis: Fair Prognosis Considerations: Age;Severity of Impairments;Family/Community Support;Medical Diagnosis;Medical Prognosis;Participation Level;Potential;Co-Morbidities;Pre vious Level of Function Individuals consulted Consulted and agree with results and recommendations: Patient;Family member Family member consulted: youngest son Goals: Short Term Goals Time Frame for Short Term Goals: 1 week Goal 1: Improve working memory/mental manipulation for IADLs to 90% (baseline = severe) Goal 2: Improve problem solving/reasonng for IADLs and RTW to 90% (baseline = moderate) Goal 3: Improve divergent naming to WNL over baseline of moderate-severe Goal 4: Improve delayed recall for 5-20 minutes of previously presented details to WFL for RTW (baseline = 50% independent, 100% with cues Patient/family involved in developing goals and treatment plan: yes Subjective: Previous level of function and limitations: x2; has 5 kids, estranged from most. 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 Objective: Motor Speech Apraxic Characteristics: None Dysarthric Characteristics: None Overall Impairment Severity: None Auditory Comprehension Comprehension: Within Functional Limits Expression Primary Mode of Expression: Verbal Verbal Expression Verbal Expression: Within functional limits Cognition: Orientation Overall Orientation Status: Within Functional Limits Attention Attention: Exceptions to WFL Alternating Attention: Severe Sustained Attention: WFL Memory Memory: Within Functional Limits Problem Solving Problem Solving: Exceptions to WFL Verbal Reasoning Skills: Moderate Sequencing: Moderate Executive Function Skills: Moderate Additional Assessments: Prognosis: Speech Therapy Prognosis Prognosis: Fair Prognosis Considerations: Age;Severity of Impairments;Family/Community Support;Medical Diagnosis;Medical Prognosis;Participation Level;Potential;Co-Morbidities;Pre vious Level of Function Individuals consulted Consulted and agree with results and recommendations: Patient;Family member Family member consulted: youngest son Education: Patient Education Response: Verbalizes understanding;Demonstrated understanding Therapy Time: Individual Concurrent Group Co-treatment Time In 1200 Time Out 1227 Minutes Images from the original note were not included. C- Spine Evaluation for Spine Clearance: Pt is a 63 y.o. male who was admitted on 06/20/24 s/p Multiple falls. Pt w/ complaints of no current complaints. C-Spine precautions of C-collar with spinal neutrality maintained since arrival with current exam directed at further evaluation of spine for clearance purposes. Pt chart and current images reviewed. CT C-Spine negative for acute fracture, subluxation, or traumatic injury. Patient does not have a distracting injury, is not acutely intoxicated and is alert, oriented and fully able to participate in exam. Pt denies c-spine pain while resting in c-collar. C-collar removed w/ c-spine neutrality maintained. Pt denies midline pain with palpation of spinous processes and axial loading. Pt demonstrated full flexion, extension, and SB ROM without complaints of pain. TLS precautions of supine position maintained since arrival. Pt denies midline pain with palpation of spinous processes. CT dorsal lumbar negative for acute fracture, subluxation, or traumatic injury. C-spine is considered cleared w/out need for further imaging, evaluation, or continuation of c-collar. TLS considered clear w/out need for further imagine, evaluation, or continuation of supine bedrest precautions. Neurosurgery HOPE/Resident Daily Progress Note Chief Complaint Patient presents with Hematoma 06/21/2024 7:21 AM Chart reviewed. No acute events overnight. No new complaints. Denies any headache or vision changes. Patient has a c-collar on which is states is for safety precautions. Complains of some neck stiffness, but denies any pain. Does still have LUE weakness. Patient would need surgical clearance as he has a PMH of sleep apnea, BPH, gout, arthritis. Vitals: 06/21/24 0200 06/21/24 0243 06/21/24 0300 06/21/24 0613 BP: (!) 119/94 131/87 (!) 128/94 Pulse: (!) 47 51 52 Resp: 13 10 12 Temp: TempSrc: SpO2: 96% 94% 96% 96% PE: AOx3 CNII-XII intact PERRL, EOMI Motor LUE 4/5, weaker hand grasps than right RUE 5/5 LLE 4/5 RLE 5/5 Sensation: intact Left dysmetria Lab Results Component Value Date WBC 4.4 06/21/2024 HGB 13.7 06/21/2024 HCT 39.7 (L) 06/21/2024 PLT 211 06/21/2024 ALT 21 06/20/2024 AST 30 06/20/2024 NA 139 06/21/2024 K 3.9 06/21/2024 CL 105 06/21/2024 CREATININE 0.8 06/21/2024 BUN 7 (L) 06/21/2024 CO2 24 06/21/2024 INR 1.0 06/20/2024 A/P: 63 y.o. male who presents with fall on 06/16 and has had left lower extremity weakness. Found to have a right epidural vs subdural hematoma measuring 3 cm with 8 mm [id number] shift. Patient care will be discussed with attending, will reevaluate patient along with attending - Neurosurgical interventions pending review by attending neurosurgeon - HOB: 30 degrees - Neuro checks per protocol - Okay for a diet at this time - Hold all antiplatelets and anticoagulants - We recommend SBP < 140 Please contact neurosurgery with any changes in patients neurologic status. [facility] [place] Emergency/Trauma Note PATIENT NAME: Jorge Chavira Shift date: 06/20/2024 Shift day: Sunday Shift # 2 Room # Name: Jorge Chavira Age: 63 y.o. Gender: male Sabianist: None Place of mormonism: Trauma/Incident type: Adult Trauma Consult Admit Date & Time: 06/20/2024 7:29 PM TRAUMA NAME: N/A ADVANCE DIRECTIVES IN CHART? No NAME OF DECISION MAKER: Unknown RELATIONSHIP OF DECISION MAKER TO PATIENT: Unknown PATIENT/EVENT DESCRIPTION: Jorge Chavira is a 63 y.o. male who arrived at [facility]. Postulant responded to Trauma Consult to ED 16. Pt to be admitted to . SPIRITUAL [id number]: Postulant provided a ministry of presence upon arrival. Upon returning, measurement specialist met patient's son and siblings. Family appeared receptive to measurement specialist presence and engaged in conversation about patients health. Postulant provided a supportive presence through active listening and words of affirmation. PATIENT BELONGINGS: Furniture And Bedding Inspector did not handle patient belongings ANY BELONGINGS OF SIGNIFICANT VALUE NOTED: N/A REGISTRATION STAFF NOTIFIED? Yes WHAT IS YOUR SPIRITUAL CARE PLAN FOR THIS PATIENT?: Chaplains will remain available to offer spiritual and emotional support as needed. . [facility] [phone] documented in this encounter [facility] 06-26-2024 Hospital Discharge instructions Suri Chavis, - 06/26/2024 2:38 PM EST For resources on transitioning back to the community following your trauma, visit [email or web address] [place] an account and begin to take advantage of the many resources to assist you. Learn about injuries and how they are treated, connect with your peers who understand the challenges you are facing. Discover additional programs and services which may be available at your hospital or other local facility. Some of the benefits of participating: Connecting with others in similar situations and sharing your experiences Learning about injuries and their treatment from trauma experts Discovering how to meet the challenges of everyday life after injury Giving hope and inspiration to others By learning more and connecting with others, you can make a difference in how you feel and better manage your life after injury. You are not alone! Jennifer Chapa APRN - CNP - 06/27/2024 12:55 PM EST Continuity of Care Form Patient Name: Jorge Chavira : 1960 Admit date: 06/20/2024 Discharge date: Code Status Order: Full Code Advance Directives: Advance Care Flowsheet Documentation Date/Time Healthcare Directive Type of Healthcare Directive Copy in Chart Healthcare Agent Appointed Healthcare Agent's Name Healthcare Agent's Phone Number 06/23/24 [phone] Yes, patient has an advance directive for healthcare treatment Durable power of state attorney for health care;Living will Yes, copy in chart -- -- -- Admitting Physician: Fina Omledo DO PCP: Martina Blas APRN - CNP Discharging Nurse: Discharging Hospital Unit/Room#: 0428/0428-02 Discharging Unit Phone Number: Emergency Contact: Extended Emergency Contact Information Primary Emergency Contact: Sindyvaleriesridhar Mobile Relation: None Secondary Emergency Contact: AgustinIsmael hope Mobile Relation: Child Past Surgical History: Past Surgical History: Procedure Laterality Date CEREBRAL ANGIOGRAM 06/24/2024 IR ANGIOGRAM CAROTID CEREBRAL BILATERAL CRANIOTOMY Right 06/22/2024 *E-6* CRANIOTOMY STEVE HOLES (Right) CRANIOTOMY Right 06/22/2024 CRANIOTOMY STEVE HOLES performed by Bobby Yanez DO at [facility] OR HEEL SPUR SURGERY Right WISDOM TOOTH EXTRACTION Immunization History: There is no immunization history on file for this patient. Active Problems: Patient Active Problem List Diagnosis Code Epidural hematoma S06.4XAA Subacute subdural hematoma S06.5XAA Left-sided weakness R53.1 Acute on chronic intracranial subdural hematoma (HCC) I62.01, I62.03 Isolation/Infection: Isolation No Isolation Patient Infection Status None to display Nurse Assessment: Last Vital Signs: BP 126/76 Pulse 78 Temp 98 F (36.7 C) (Oral) Resp 13 Ht 1.778 m (5' 10 ) Wt 83.5 kg (184 lb 1.4 oz) SpO2 97% BMI 26.41 kg/m Last documented pain score (0-10 scale): Pain Level: 0 Last Weight: Wt Readings from Last 1 Encounters: 06/27/24 83.5 kg (184 lb 1.4 oz) Mental Status: {IP PT MENTAL STATUS:72099} IV Access: { AMI IV ACCESS:971660022} Nursing Mobility/ADLs: Walking {CHP DME ADLs:044496646} Transfer {CHP DME ADLs:131630867} Bathing {CHP DME ADLs:258396425} Dressing {CHP DME ADLs:283950441} Toileting {CHP DME ADLs:364892472} Feeding {CHP DME ADLs:882668706} Pharmaceutical Analyst {CHP DME ADLs:350708741} Med Delivery { AMI MED Delivery:408458426} Wound Care Documentation and Therapy: Incision 06/22/24 Head Right;Upper (Active) Dressing Status Other (Comment) 06/27/24 1200 Dressing Change Due 06/25/24 06/24/24 1600 Incision Cleansed Not Cleansed 06/27/24 1200 Dressing/Treatment Open to air 06/27/24 1200 Closure Sutures 06/27/24 1200 Margins Approximated 06/27/24 1200 Incision Assessment Dry 06/27/24 1200 Drainage Amount None (dry) 06/27/24 1200 Odor None 06/27/24 1200 Nadya-incision Assessment Edematous 06/27/24 1200 Number of days: 4 Incision 06/24/24 Head Posterior;Right;Upper (Active) Dressing Status Other (Comment) 06/27/24 1200 Incision Cleansed Not Cleansed 06/27/24 1200 Dressing/Treatment Open to air 06/27/24 1200 Closure Nishi 06/27/24 1200 Margins Approximated 06/27/24 1200 Incision Assessment Dry 06/27/24 1200 Drainage Amount None (dry) 06/27/24 1200 Odor None 06/27/24 1200 Nadya-incision Assessment Intact 06/27/24 1200 Number of days: 3 Elimination: Continence: Bowel: {YES / NO:} Bladder: {YES / NO:} Urinary Catheter: {Urinary Catheter:615233648} Colostomy/Ileostomy/Ileal Conduit: {YES / NO:12396} Date of Last BM: No intake or output data in the 24 hours ending 06/27/24 1254 No intake/output data recorded. Safety Concerns: { AMI Safety Concerns:932452582} Impairments/Disabilities: {[facility] Impairments/Disabilities:108759920 } Nutrition Therapy: Current Nutrition Therapy: { MAI Diet List:329990828} Routes of Feeding: {[facility] DME Other Feedings:282500223} Liquids: {Prize Coordinator liquid thickness:83890} Daily Fluid Restriction: {[facility] DME Yes amt example:246538878} Last Modified Barium Swallow with Video (Video Swallowing Test): {Done Not Done Date:} Treatments at the Time of Hospital Discharge: Respiratory Treatments: Oxygen Therapy: {Therapy; copd oxygen:36298} Ventilator: { CC Vent List:955273971} Rehab Therapies: {THERAPEUTIC INTERVENTION:7538898456} Weight Bearing Status/Restrictions: {[facility] Weight Bearin} Other Medical Equipment (for information only, NOT a DME order): {EQUIPMENT:610338017} Other Treatments: Patient's personal belongings (please select all that are sent with patient): {[facility] DME Belongings:690733934} RN SIGNATURE: {Esignature:530857777} CASE MANAGEMENT/SOCIAL WORK SECTION Inpatient Status Date: Readmission Risk Assessment Score: Readmission Risk Risk of Unplanned Readmission: 8 Discharging to Facility/ Agency Name: Address: Phone: Fax: Dialysis Facility (if applicable) Name: Address: Dialysis Schedule: Phone: Fax: Tire Fabric Inspector/Yield Clerk signature: {Esignature:668651963} PHYSICIAN SECTION Prognosis: Good Condition at Discharge: Stable Rehab Potential (if transferring to Rehab): Good Recommended Labs or Other Treatments After Discharge: PT/OT Physician Certification: I certify the above information and transfer of Jorge Chavira is necessary for the continuing treatment of the diagnosis listed and that he requires Acute Rehab for less 30 days. Update Admission H&P: No change in H&P PHYSICIAN SIGNATURE: documented in this encounter [facility] 09-18-2023 Evaluation note Encounter Date Diagnosis Assessment Notes Sep, Right carpal tunnel syndrome (ICD-10 - G56.01) Instructed on application of Neosporin to incision to help dryness. Sutures removed today under sterile conditions. Patient tolerated well with no adverse reactions. May allow incision to get wet in clean running water, no murdock/dolan/st natty. Instructed on 2-5 lb weight restriction, may slowly progress as heals. Instructed to continue off work until he follows up in the office, may call to return sooner if the wrist is feeling better Sep, Primary osteoarthritis of first carpometacarpal joint of left hand (ICD-10 - M18.12) Sep, Left carpal tunnel syndrome (ICD-10 - G56.02) Sep, Other specified postprocedural states (ICD-10 - Z98.890) Sep, Encounter for removal of sutures (ICD-10 - Z48.02) [facility] Other 01-12-2024 Evaluation note* Encounter Date Diagnosis Assessment Notes Treatment Notes Treatment Clinical Notes Aug, Right carpal tunnel syndrome (ICD-10 - G56.01) Aug, Primary osteoarthrit is of first carpometacarpal joint of left hand (ICD-10 - M18.12) We will proceed with left carpal tunnel release and left thumb CMC cortisone injection Aug, Left carpal tunnel syndrome (ICD-10 - G56.02) [facility] Other 05-09-2023 Evaluation note* Encounter Date Diagnosis Assessment Notes Treatment Notes Treatment Clinical Notes December, Right carpal tunnel syndrome (ICD-10 - G56.01) December, Primary osteoarthrit is of first carpometacarpal joint of left hand (ICD-10 - M18.12) , We performed a cortisone injection into the CMC joint under sterile technique. The patient tolerated this well without complication. We discussed that the finger may feel numb and tingle for hours after this injection. December, Left carpal tunnel syndrome (ICD-10 - G56.02) [facility] Other 11-03-2022 NotePROCEDURE: XR SHOULDER RT 2V or > COMPARISON: None. HISTORY: Pain in right arm FINDINGS: BONES:No fracture, acute abnormality, or significant arthropathy. SOFT TISSUES:Negative. No visible soft tissue swelling. EFFUSION:None visible. OTHER: Negative. IMPRESSION: No acute disease. Electronically authenticated by: LOREE JACKSON Date: 2022-06-15 19:29[facility] noteNo assessment information availableSt[facility] Work Phone: Evaluation note* Diagnosis Onset Date Resolution Status Arthritis of carpometacarpal (CMC) joint of both thumb s acute Left carpal tunnel syndrome acute Other specified postprocedural states acute [facility] Work Phone: Evaluation note* Diagnosis Epidural hematoma- Primary Nontraumatic extradural hemorrhage Epidural hematoma Nontraumatic extradural hemorrhage Left-sided weakness Muscle weakness (generalized) Acute on chronic intracranial subdural hematoma (HCC) Subacute subdural hematoma Subdural hemorrhage Left-sided weakness Muscle weakness (generalized) Acute on chronic intracranial subdural hematoma (HCC) documented in this encounter [facility] note* Diagnosis Epidural hematoma Nontraumatic extradural hemorrhage documented in this encounter [facility] general Narrative - Reported* Type Description Date Medical History Gout Medical History Arthritis Surgical History heel surgery [facility] Other Hospital Discharge instructions Additional Instructions DR. MG'S POST OP INSTRUCTIONS Take prescribed pain medication as directed and as needed to control your post- operative pain. -In addition to the prescribed medication, you may take ibuprofen (Advil, Motrin) or naproxen (Aleve/Naprosyn) to help control pain and decrease swelling. -DO NOT TAKE ibuprofen/Naprosyn/naproxen if you have a history of bleeding ulcer, are taking anticoagulation medication (Coumadin/warfarin, Eliquis, Xarelto, Plavix, Lovenox), if you have had a history of gastric bypass surgery, or if you have a history of kidney disease. Elevate the operative area as much as possible, using at least 2-3 pillows, keeping the hand higher than the elbow. Keep ice at the operative area as much as possible. It takes longer than 20 minutes for the cold to penetrate the bandages, so leave the ice bag or cold pack in place until the ice melts, then it is time to change to a fresh ice bag or cold pack. -Elevation and ice help to lessen the swelling post-operatively which helps to lessen pain so that you will need to take less pain medication, as well as maintaining better range of motion and function of your hand (more swelling, less movement). You may wiggle your fingers, bending, flexing, and move them to decrease stiffness. You may use your hands for light activities of 2-5 lbs. This is lifting your coffee cup, using your silverware, and typing on a computer or tablet. -Do NOT perform strenuous lifting or lift greater than 10 lbs until 4-6 weeks after surgery to minimize exacerbation of pain at the surgery site. You may remove your dressing on the third day after surgery, and get your surgical incision wet in the shower or when washing your hands with soap and water. -DO NOT soak your incision or submerge it under standing water such as dishwater or bathtub. -DO NOT apply perfumed moisturizers or ointments unless otherwise instructed by your physician. -Washing your incision gently with soap and water on a daily basis, helps to rid your skin of bacteria and decrease the risk of wound infections. -After showering or washing your hands, pat the incision dry, and keep covered with a clean dry gauze bandage. -You may apply Bacitracin, Neosporin, or generic triple antibiotic ointment to incision if you would like Take vitamin C 500 mg by mouth daily to help skin and incision heal Take antibiotics as directed to decrease risk of infection after surgery [facility] Work Phone: Summary Purpose Family History No Family History Records Found Relationship Condition Age at Onset Recorded Date/T cachorro father Malignant neoplasm of colon Unknown Dementia Unknown grandparent Malignant neoplasm of colon Unknown Not Specified Dementia Unknown Relationship Condition Age at Onset Recorded Date/T cachorro father Malignant neoplasm of colon Unknown Dementia Unknown grandparent Malignant neoplasm of colon Unknown mother Dementia Unknown father Malignant neoplasm Unknown Family history of mental disorder Unknown Unknown mother Unknown Advance Directives No Advanced Directives Records FoundDocuments on File Type Date 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 ACP-Advance Directive 07/21/2024 7:36 PM Date Activated Date Inactivated Comments 06/20/2024 9:17 PM 06/27/2024 3:51 PM Advance Directive Response Recorded Date/ Time Advance Directives No August 24, 2023 11:35am Advance Directive Response Recorded Date/ Time Advance Directives No August 24, 2023 12:35pm Date Activated Date Inactivated Comments 06/20/2024 9:17 PM Date Activated Date Inactivated Comments 06/20/2024 9:17 PM 06/27/2024 3:51 PM Chief Complaint and Reason for Visit Chief Complaint Carpal Tunnel Syndro me Chief Complaint 4 Month Follow Up Carpal Tunnel Syndrome Carpal Tunnel Syndrome Chief Complaint OP SP LT HAND PAIN Reason for Visit Arthritis of carpome tacarpal (CMC) joint of both thumbs Left carpal tunnel syndrome Other specified postprocedural states Reason for Referral Specialty Diagnoses / Procedures Referred By Contac t Referred To Contact Occupational Therapy Diagnoses Acute on chronic intracranial subdural hematoma (HCC) Jennifer Chapa, TUBE LANCER - CLINICAL TRIAL SPECIALIST [address] [address] Referral ID Status Reason Start Date Expiration Date V isits Requested Visits Authorized [id number] Open Specialty Services Required 06/27/2024 12/24/2024 1 1 Question Answer Reason For External Referral? Patient Preference My clinical question is: eval and treat Comments The patient can be scheduled with any member of the group, including the provider with the first available appointments. Specialty Diagnoses / Procedures Referred By Contac t Referred To Contact Physical Therapy Diagnoses Acute on chronic intracranial subdural hematoma (HCC) Jennifer Chapa, TUBE LANCER - CLINICAL TRIAL SPECIALIST [address] [facility] [address] [place] [address] Referral ID Status Reason Start Date Expiration Date V isits Requested Visits Authorized [id number] Open Specialty Services Required 06/27/2024 12/24/2024 1 1 Specialty Diagnoses / Procedures Referred By Contac t Referred To Contact Radiology Diagnoses Epidural hematoma Procedures CT HEAD WO CONTRAST Gabriella Kilgore, TUBE LANCER - CLINICAL TRIAL SPECIALIST [address] [facility] [address] [place] [address] Referral ID Status Reason Start Date Expiration Date Visits Re quested Visits Authorized [id number] Open 07/08/2024 07/08/2025 1 1 Additional Source Comments (unrecognized sect ion and content) No Status Records FoundNo Status Records FoundNo Status Records FoundNo Status Records FoundNo Status Records FoundNo Status Records Found INFORMATION SOURCE (unrecogn ized section and content) DATE CREATED AUTHOR 10/18/2022 [facility] DATE CREATED AUTHOR AUTHOR'S ORGANIZ ATION 01/26/2023 [facility] DATE CREATED AUTHOR AUTHOR'S ORGANIZ ATION 09/19/2023 [facility] DATE CREATED AUTHOR AUTHOR'S ORGANIZ ATION 06/22/2024 [facility] DATE CREATED AUTHOR AUTHOR'S ORGANIZ ATION 07/11/2024 [facility] DATE CREATED AUTHOR AUTHOR'S ORGANIZ ATION 07/30/2024 [facility] REASON FOR VISIT (unrecogniz ed section and content) Reason Comments Hematoma Specialty Diagnoses / Procedures Referred By Contac t Referred To Contact Diagnoses Epidural hematoma Left-sided weakness Fina Olmedo, DO [address] [facility] [address] [place] [address] [facility] [address] [place] [address] Referral ID Status Reason Start Date Expiration Date Visits Re quested Visits Authorized [id number] 1 1 Specialty Diagnoses / Procedures Referred By Contac t Referred To Contact Physical Therapy Diagnoses Acute on chronic intracranial subdural hematoma (HCC) Jennifer Chapa, TUBE LANCER - CLINICAL TRIAL SPECIALIST [address] [facility] [address] [place] [address] Referral ID Status Reason Start Date Expiration Date V isits Requested Visits Authorized [id number] Open Specialty Services Required 06/27/2024 12/24/2024 1 1 Specialty Diagnoses / Procedures Referred By Contac t Referred To Contact Radiology Diagnoses Epidural hematoma Procedures CT HEAD WO CONTRAST Gabrilela Kilgore, TUBE LANCER - CLINICAL TRIAL SPECIALIST [address] [facility] [address] [place] [address] Referral ID Status Reason Start Date Expiration Date Visits Re quested Visits Authorized [id number] Closed 07/02/2024 07/08/2025 1 1 Specialty Diagnoses / Procedures Referred By [place] t Referred To Contact Occupational Therapy Diagnoses Acute on chronic intracranial subdural hematoma (HCC) Jennifer Chapa, TUBE LANCER - CLINICAL TRIAL SPECIALIST [address] [address] Referral ID Status Reason Start Date Expiration Date V isits Requested Visits Authorized [id number] Open Specialty Services Required 06/27/2024 12/24/2024 1 1 Care Teams (unrecognized sec tion and content) Team Status: Active Member Role Status Dates NON STAFF Primary Care Provider Active Team Status: Inactive Member Role Status Dates Nahomy Mg MD Attending Provider Active NON STAFF Primary Care Provider Active Team Status: Inactive Member Role Status Dates Nahomy Mg MD Attending Provider Active Start: August 24, 2023 End: August 24, 2023 Team Status: Inactive Member Role Status Dates Nahomy Mg MD Attending Provider Active Start: August 27, 2023 End: August 27, 2023 NON STAFF Primary Care Provider Active Start: August 27, 2023 End: August 27, 2023 Team Status: Active Member Role Status Dates Nahomy Mg MD Attending Provider , Other Provider Active Start: September 03, 2023 NON STAFF Primary Care Provider Active Start: September 03, 2023 Team Status: Inactive Member Role Status Dates NON STAFF Primary Care Provider Active Start: March 14, 2024 End: March 14, 2024 Nahomy Mg MD Attending Provider Active Start: March 14, 2024 End: March 14, 2024 Digital Content Specialist Relationship Specialty Start Date End Date Martina Blas APRN - CLINICAL TRIAL SPECIALIST [address] [facility] [place] [address] PCP - General 06/21/24 Digital Content Specialist Relationship Specialty Start Date End Date Martina Blas APRN - CLINICAL TRIAL SPECIALIST [address] [facility] [place] [address] PCP - General 06/21/24 Digital Content Specialist Relationship Specialty Start Date End Date Martina Blas APRN - CNP [address] [facility] [place] [address] PCP - General 06/21/24 Digital Content Specialist Relationship Specialty Start Date End Date Martina Blas APRN - CNP [address] [place] [address] PCP - General 06/21/24 Digital Content Specialist Relationship Specialty Start Date End Date Martina Blas APRN - CNP [address] [facility] [place] [address] PCP - General 06/21/24 Digital Content Specialist Relationship Specialty Start Date End Date Matrina Blas APRN - CNP [address] [place] [address] PCP - General 06/21/24 Goals (unrecognized section and content) Goals may be documented in a n alternate section Ordered Prescriptions (unrec ognized section and content) Prescription Sig Dispensed Refills Start Date End Da te oxyCODONE (ROXICODONE) 5 MG immediate release tabletIndications:Epidur al hematoma Take 0.5 tablets by mouth every 6 hours as needed for Pain for up to 5 days. Max Daily Amount: 10 mg 10 tablet 06/26/2024 07/01/2024 levETIRAcetam (KEPPRA) 500 MG tablet Take 1 tablet by mouth 2 times daily for 7 days 14 tablet 06/26/2024 07/03/2024 ibuprofen (ADVIL;MOTRIN) 600 MG tablet Take 1 tablet by mouth every 6 hours as needed for Pain 120 tablet 3 06/26/2024 Scheduled Active and Recently Administ ered Medications (unrecognized section and content) Medication Order 06/25/2024 06/26/2024 06/27/2024 acetaminophen (TYLENOL) tablet 1,000 mg 1,000 mg, Oral, EVERY 8 HOURS SCHEDULED (3 times per day), First dose on Sun06/20/24 at 2330, Until Discontinued, Maximum dose of acetaminophen is 4000 mg from all sources in 24 hours. 0534 (Given - Provider: Jay Baig RN)135 (Given - Provider: Rubén Monte RN)2057 (Given - Provider: Bella Charlton, RN) 0635 (Given - Provider: Bella Charlton, RN)135 (Given - Provider: Holli Montaño RN)204 (Given - Provider: Bella Charlton, RN) 0520 (Given - Provider: Bella Charlton, RN)1400 (Due)2200 (Due) bisacodyl (DULCOLAX) EC tablet 5 mg 5 mg, Oral, DAILY, First dose (after last modification) on Gail 06/26/24 at 0900, Until Discontinued, Second line therapy for constipation, After 24 hours, if no result from first line PRN therapy, give second line therapy in combination with first line therapy., Post-op 1044 (Given - Provider: Holli Montaño RN) 0824 (Given - Provider: Peggy Ordoñez, PAXTON) enoxaparin (LOVENOX) injection 40 mg 40 mg, SubCUTAneous, 2 TIMES DAILY, First dose on Sun06/25/24 at 0900, Until Discontinued, Indication of Use: Prophylaxis-DVT/PE, Administer by deep subCUTAneous injection with pt lying down. Alternate injection sites on abdominal wall. Do not rub site after injection. Check with provider prior to any invasive procedure. 0841 (Given - Provider: Michelle Hannon RN)2058 (Given - Provider: Bella Charlton RN) 0830 (Given - Provider: Holli Montaño, PAXTON)2047 (Given - Provider: Bella Charlton, RN) 0825 (Given - Provider: Peggy Ordoñez, RN)2100 (Due) levETIRAcetam (KEPPRA) injection 500 mg (CANCELED) 500 mg, IntraVENous, EVERY 12 HOURS, First dose on 06/21/24 at 1415, Until Discontinued, Administer IVP over 2-5 minutes., For NCHT patients, please reject and reorder and select the ped/oumou dilution entry. Keppra is not administered IV Push on the pediatric units. 0123 (Given - Provider: Jay Baig, RN)1351 (Given - Provider: Rubén Monte, RN) 0331 (Given - Provider: Bella Charlton, RN)1444 (Not Given - Provider: Holli Montaño RN - Reason: Other) levETIRAcetam (KEPPRA) tablet 500 mg 500 mg, Oral, 2 TIMES DAILY, First dose on Sun06/26/24 at 1500, Until Discontinued, Do not crush or chew. 1445 (Given - Provider: Holli Montaño RN) 0824 (Given - Provider: Peggy Ordoñez, PAXTON)2100 (Due) magnesium hydroxide (MILK OF MAGNESIA) 400 MG/5ML suspension 30 mL 30 mL, Oral, DAILY, First dose on Sun06/26/24 at 0900, Until Discontinued 0830 (Given - Provider: Holli Montaño RN) 0824 (Given - Provider: Peggy Ordoñez, PAXTON) PHENobarbital tablet 32.4 mg (COMPLETED)(Linked Group 1) 32.4 mg (rounded from 30 mg), Oral, Every 8 hours, 6 doses, First dose on Sun06/25/24 at 0600, Last dose on Sun06/26/24 at 2200 0534 (Given - Provider: Jay Baig RN)1350 (Given - Provider: Rubén Monte RN)2058 (Given - Provider: Bella Charlton, RN) 0635 (Given - Provider: Bella Charlton, RN)1355 (Given - Provider: Holli Montaño, PAXTON)2048 (Given - Provider: Bella Charlton, RN) polyethylene glycol (GLYCOLAX) packet 17 g 17 g, Oral, DAILY, First dose on Sun06/22/24 at 1615, Until Discontinued, Stir and dissolve one packet of powder (17 g) in any 4 to 8 ounces of beverage (cold, hot or room temperature) then drink, Post-op 0841 (Given - Provider: Michelle Hannon RN) 0830 (Given - Provider: Holli Montaño, PAXTON) 0824 (Given - Provider: Peggy Ordoñez, PAXTON) sodium chloride flush 0.9 % injection 5-40 mL 5-40 mL, IntraVENous, EVERY 12 HOURS SCHEDULED (2 times per day), First dose on Sun06/24/24 at 0945, Until Discontinued, For Line Patency: Peripheral IV = 5 mL; Midline or Central Line = 10 mL/lumen. If following IV push medication, administer flush at same rate as the IV push. Flush volume is determined by type of infusion therapy being given. For non-viscous solutions use: Peripheral IV = 5 mL Midline or Central Line = 10 mL/lumen For viscous solutions (i.e. blood components, parenteral nutrition, contrast media, or after obtaining blood sample) use: Peripheral IV = 10 mL Midline or Central Line = 20 mL/lumen, Recovery(IR) 0842 (Given - Provider: Michelle Hannon, PAXTON)2100 (Given - Provider: Bella Charlton, RN) 0831 (Given - Provider: Holli Montaño RN)2140 (Given - Provider: Bella Charlton, RN) 0825 (Given - Provider: Peggy Ordoñez, PAXTON)2100 (Due) PRN Medication Order 06/25/2024 06/26/2024 06/27/2024 0.9 % sodium chloride infusion IntraVENous, at 5-250 mL/hr, PRN, if patient receiving piggyback infusions and maintenance fluids are not ordered, Starting on Sun06/24/24 at 0927, For piggyback infusion, administer at same rate as piggyback for a total of 25 mL. Enter 25 mL into dose field and piggyback rate into rate field of order. If piggyback is infusing at a rate less than 100 mL/hr, enter 25 mL into dose field and 100 mL/hr into rate field of order., Recovery(IR) hydrALAZINE (APRESOLINE) injection 10 mg 10 mg, IntraVENous, EVERY 6 HOURS PRN, Starting on Sun06/20/24 at 2318, Until Discontinued, High Blood Pressure (specify parameters), SBP >140 ibuprofen (ADVIL;MOTRIN) tablet 600 mg 600 mg, Oral, EVERY 6 HOURS PRN, Starting on Sun06/25/24 at 1059, Until Discontinued, Pain Moderate (4-6), Allowed for higher pain score per patient request ondansetron (ZOFRAN) injection 4 mg(Linked Group 2) 4 mg, IntraVENous, EVERY 6 HOURS PRN, Starting on Sun06/20/24 at 2114, Until Discontinued, Nausea, Vomiting, Administer if oral route cannot be used. ondansetron (ZOFRAN-ODT) disintegrating tablet 4 mg(Linked Group 2) 4 mg, Oral, EVERY 8 HOURS PRN, Starting on Sun06/20/24 at 2114, Until Discontinued, Nausea, Vomiting oxyCODONE (ROXICODONE) immediate release tablet 2.5 mg(Linked Group 3) 2.5 mg, Oral, EVERY 4 HOURS PRN, Starting on Sun06/22/24 at 1552, Until Discontinued, Pain Moderate (4-6), Post-op 1850 (See Alternative - Provider: Rubén Monte, RN) oxyCODONE (ROXICODONE) immediate release tablet 5 mg(Linked Group 3) 5 mg, Oral, EVERY 4 HOURS PRN, Starting on Sun06/22/24 at 1552, Until Discontinued, Pain Severe (7-10), Post-op 1850 (Given - Provider: Rubén Monte, PAXTON) senna (SENOKOT) tablet 8.6 mg 8.6 mg (1 tablet), Oral, DAILY PRN, Starting on Sun06/22/24 at 1552, Until Discontinued, Constipation, First line therapy for constipation, Post-op 2138 (Given - Provider: Bella Charlton RN) sodium chloride flush 0.9 % injection 5-40 mL 5-40 mL, IntraVENous, PRN, Starting on Sun06/20/24 at 2114, Until Discontinued, Line Care, After every IV line use, For Line Patency: Peripheral IV = 5 mL; Midline or Central Line = 10 mL/lumen. If following IV push medication, administer flush at same rate as the IV push. Flush volume is determined by type of infusion therapy being given. For non-viscous solutions use: Peripheral IV = 5 mL Midline or Central Line = 10 mL/lumen For viscous solutions (i.e. blood components, parenteral nutrition, contrast media, or after obtaining blood sample) use: Peripheral IV = 10 mL Midline or Central Line = 20 mL/lumen Linked Groups Order Group 1: PHENobarbital tablet 97.2 mg () 97.2 mg (rounded from 100 mg), Oral, Every 8 hours, 6 doses, First dose on Sun06/21/24 at 0600, Last dose on Sun06/22/24 at 2200 Followed by PHENobarbital tablet 56.7 mg (COMPLETED) 56.7 mg (rounded from 60 mg), Oral, Every 8 hours, 6 doses, First dose on 06/23/24 at 0600, Last dose on Sun06/24/24 at 2200 Followed by PHENobarbital tablet 32.4 mg (COMPLETED)Jump to med 32.4 mg (rounded from 30 mg), Oral, Every 8 hours, 6 doses, First dose on Sun06/25/24 at 0600, Last dose on Sun06/26/24 at 2200 Group 2: ondansetron (ZOFRAN-ODT) disintegrating tablet 4 mgJump to med 4 mg, Oral, EVERY 8 HOURS PRN, Starting on Sun06/20/24 at 2114, Until Discontinued, Nausea, Vomiting Or ondansetron (ZOFRAN) injection 4 mgJump to med 4 mg, IntraVENous, EVERY 6 HOURS PRN, Starting on Sun06/20/24 at 2114, Until Discontinued, Nausea, Vomiting, Administer if oral route cannot be used. Group 3: oxyCODONE (ROXICODONE) immediate release tablet 2.5 mgJump to med 2.5 mg, Oral, EVERY 4 HOURS PRN, Starting on 06/22/24 at 1552, Until Discontinued, Pain Moderate (4-6), Post-op Or oxyCODONE (ROXICODONE) immediate release tablet 5 mgJump to med 5 mg, Oral, EVERY 4 HOURS PRN, Starting on 06/22/24 at 1552, Until Discontinued, Pain Severe (7-10), Post-op FOR RECORDS PERTAINING TO PATIENTS WHO ARE OR HAVE BEEN ENROLLED IN A CHEMICAL DEPENDENCY/SUBSTANCEABUSE PROGRAM, SOME INFORMATION MAY BE OMITTED. This clinical summary was aggregated from multiple sources. Caution should be exercised in using it in the provision of clinical care. This summary normalizes information from multiple sources, and as a consequence, information in this document may materially change the coding, format and clinical context of patient data. In addition, data may be omitted in some cases. CLINICAL DECISIONS SHOULD BE BASED ON THE PRIMARY CLINICAL RECORDS. [employer] [facility]. provides no warranty or guarantee of the accuracy or completeness of information in this document.
--- NOTE | 2024-07-31 11:21 | CT_ITS ---
The [address] [address] Patient Name: ISMA VILLA MRN: [id number] date: 1960 Sex: M Assigned Patient Location: ER Current Patient Location: ER Accession/Order Number: [id number] Exam Date: 07/31/2024 11:40 Report Date: 07/31/2024 12:10 At the request of: MORIAH DRAKE Procedure: CT head/brain wo con EXAM: CT head/brain wo con HISTORY: post op swelling COMPARISON: CT head 06/20/2024. TECHNIQUE: Axial soft tissue and bone windows through the calvarium with coronal and sagittal reformats. CT dose reduction technique was used including Automated Exposure Control. Findings: The paranasal sinuses and mastoid air cells are well aerated. No air-fluid levels. Small right frontal scalp hematoma. No depressed or calvarial fractures. Right sided dhruv holes. There is a small residual chronic right-sided subdural hematoma which has significantly improved when compared to the prior study. No acute intra-axial or extra-axial bleed. No mass effect or midline shift. The dias-white matter differentiation is preserved. The brain parenchymal volume is mildly reduced yet likely age-appropriate. The ventricles are nondilated. The basal cisterns are patent. The craniovertebral junction is unremarkable. CT/CT head/brain wo con IMPRESSION: 1. No depressed or calvarial fracture. 2. No acute intracranial bleed 3. Significant interval improvement in the previously identified right sided subdural hematoma. Electronically authenticated by: CANDE CASTANEDA Date: 07/31/2024 12:10
[2024-07-31 11:47] LABS: Basophils Absolute Auto 0.1 10^3/uL (0.0-0.1); Basophils Percent Auto 0.9 % (0.2-2.0); Eosinophils Absolute Auto 0.1 10^3/uL (0.0-0.7); Eosinophils Percent Auto 1.8 % (0.9-7.0); Hematocrit 42.1 % (42.0-54.0); Hemoglobin 14.7 g/dL (14.0-18.0); Immature Granulocytes Abs Auto 0.02 10^3/uL (0.00-0.03); Immature Granulocytes Pct Auto 0.4 % (0.0-0.5); Lymphocytes Absolute Auto 1.3 10^3/uL (1.2-3.8); Lymphocytes Percent Auto 22.8 % (20.5-60.0); Mean Corpuscular HGB Conc 34.9 g/dL (29.9-35.2); Mean Corpuscular Hemoglobin 31.5 pg (25.9-34.0); Mean Corpuscular Volume 90.3 fL (80.0-94.0); Mean Platelet Volume 9.5 fL (9.5-13.5); Monocytes Absolute Auto 0.5 10^3/uL (0.3-0.8); Monocytes Percent Auto 8.1 % (1.7-12.0); Neutrophils Absolute Auto 3.8 10^3/uL (1.4-6.5); Platelet Count 281 10^3/uL (150-450); Red Blood Count 4.66 10^6/uL (4.70-6.10); Red Cell Distribution Width 11.2 % (11.0-15.0); White Blood Count 5.7 10^3/uL (4.0-11.0)
[2024-07-31 11:55] LABS: Alanine Aminotransferase 48 U/L (16-63); Albumin Globulin Ratio 1.2; Albumin Level 3.5 g/dL (3.4-5.0); Alkaline Phosphatase 75 U/L (46-116); Anion Gap 13.6; Aspartate Amino Transferase 16 U/L (15-37); Bilirubin Total 0.5 mg/dL (0.2-1.0); Calcium 8.7 mg/dL (8.5-10.1); Carbon Dioxide 27.3 mmol/L (21.0-32.0); Chloride 105 mmol/L (98-107); Estimated GFR (African America >60 (>=60 mL/min/1.73m^2); Estimated GFR (Non-African Ame 56 (>=60 mL/min/1.73m^2); Glucose 80 mg/dL (74-106); Potassium 3.9 mmol/L (3.5-5.1); Sodium 142 mmol/L (136-145); Total Protein 6.5 g/dL (6.4-8.2)
--- NOTE | 2024-07-31 12:50 | ED.GENADUL1 ---
HPI HPI - General Adult General Chief complaint: Recheck/Abnormal Lab/Rx Stated complaint: POST-OP SWELLING ON HEAD Time Seen by Provider: 07/31/24 11:16 Source: patient Mode of arrival: walk-in Limitations: no limitations History of Present Illness HPI narrative: The patient almost more than 2 weeks ago had a subdural hematoma and was transferred to for bur hole surgery coming to the ER after he noticed some swelling in the area where the wound over the bur hole , he denies any fever chills or any other concerns he mentioned only swelling he did not mention any pain Related Data Home Medications ?Medication ?Instructions ?Recorded ?Confirmed diclofenac sodium 75 mg 75 mg PO DAILY 06/20/24 07/31/24 tablet,delayed release Previous Rx's ?Medication ?Instructions ?Recorded doxycycline hyclate 100 mg capsule 100 mg PO BID 7 days #14 caps 07/31/24 Allergies Allergy/AdvReac Type Severity Reaction Status Date / Time No Known Drug Allergies Allergy Verified 07/31/24 11:02 Opioid HPI Opioid Management Most Recent Opioid Data: No Data to Display Review of Systems ROS Status of ROS 10 or more systems reviewed and unremarkable except as noted in history and below PFSH PFSH Social History Little interest or pleasure in doing things: not at all Feeling down, depressed, or hopeless: not at all Exam Narrative Exam Narrative: Nurses notes and vital signs reviewed and patient is not hypoxic. General: Well-appearing and in no apparent distress. Skin: Warm, dry, no pallor noted. No rash. Head: Normocephalic, atraumatic. There is a scalp hematoma noted in the right frontal area at the area of the wound there is no pus mild redness and there is a scar of previous wound healing, also small hematoma noted at the posterior aspect of the scalp also over the other wound was and it already healed adequately Neck: Supple, non-tender. Eye: Pupils are equal, round and EOMI. No scleral icterus. Ears, Nose, Mouth, and Throat: TM are clear, no nasal mucosal hypertrophy. Oral mucosa is moist, no posterior oropharynx erythema, uvula is mid-line Cardiovascular: Regular Rate and Rhythm without murmur, gallop or rub. Respiratory: No accessory muscle use or respiratory distress. Lungs are clear to auscultation, no wheezing, rales or rhonchi Chest Wall: no tenderness Back: No midline thoracic or lumbar vertebral tenderness. No CVA tenderness Musculoskeletal: normal ROM, no calf or popliteal tenderness, no lower extremity edema/swelling GI: Abdomen is soft, non-distended. Normal bowel sounds. No masses appreciated. No tenderness to palpation. No rebound, guarding, or rigidity noted. Neurological: A&O x4. No cranial nerve dysfunction observed. No truncal ataxia. Moves all extremities. Sensation intact. Psychiatric: Cooperative and interactive. Normal mood and affect. Constitutional Vital Signs, click to edit/add: Last Vital Signs Temp 98.0 F 07/31/24 11:04 Pulse 66 07/31/24 11:04 Resp 20 07/31/24 11:04 BP 144/66 H 07/31/24 11:04 Pulse Ox 98 07/31/24 11:04 O2 Del Method Room Air 07/31/24 11:04 Course Vital Signs Vital signs: Vital Signs Temperature 98.0 F 07/31/24 11:04 Pulse Rate 66 07/31/24 11:04 Respiratory Rate 20 07/31/24 11:04 Blood Pressure 144/66 H 07/31/24 11:04 Pulse Oximetry 98 07/31/24 11:04 Oxygen Delivery Method Room Air 07/31/24 11:04 Temperature 98.0 F 07/31/24 11:04 Pulse Rate 66 07/31/24 11:04 Respiratory Rate 20 07/31/24 11:04 Blood Pressure 144/66 H 07/31/24 11:04 Pulse Oximetry 98 07/31/24 11:04 Oxygen Delivery Method Room Air 07/31/24 11:04 Medical Decision Making [facility] Narrative Medical decision making narrative: The patient CBC and chemistry showed no acute pathology CAT scan of the head showed that the patient have a scalp hematoma at this moment the patient will be covered with antibiotic just to make sure that there is no cellulitis that is starting in the area The patient will follow-up with his primary care doctor as outpatient he also follow-up with his neurosurgeon as instructed the patient to come back in case of any new symptoms of concern including fever or redness or increasing pain or swelling The patient is to follow up with primary care physician in next 2-3 days or to return to the emergency department should any of the signs or symptoms worsen or new symptoms develop. The patient agrees with the following Diagnosis and Treatment plan and the patient will be discharged home. Lab Data Labs: Lab Results 07/31/24 Range/Units 11:29 WBC 5.7 (4.0-11.0) 10^3/uL RBC 4.66 L (4.70-6.10) 10^6/uL Hgb 14.7 (14.0-18.0) g/dL Hct 42.1 (42.0-54.0) % MCV 90.3 (80.0-94.0) fL MCH 31.5 (25.9-34.0) pg MCHC 34.9 (29.9-35.2) g/dL RDW 11.2 (11.0-15.0) % Plt Count 281 (150-450) 10^3/uL MPV 9.5 (9.5-13.5) fL Neut % (Auto) 66.0 (43.0-75.0) % Lymph % (Auto) 22.8 (20.5-60.0) % Gates % (Auto) 8.1 (1.7-12.0) % Eos % (Auto) 1.8 (0.9-7.0) % Baso % (Auto) 0.9 (0.2-2.0) % Neut # (Auto) 3.8 (1.4-6.5) 10^3/uL Lymph # (Auto) 1.3 (1.2-3.8) 10^3/uL Gates # (Auto) 0.5 (0.3-0.8) 10^3/uL Eos # (Auto) 0.1 (0.0-0.7) 10^3/uL Baso # (Auto) 0.1 (0.0-0.1) 10^3/uL Abs Immat Gran (auto) 0.02 (0.00-0.03) 10^3/uL Imm/Tot Granulo (auto) 0.4 (0.0-0.5) % Sodium 142 (136-145) mmol/L Potassium 3.9 (3.5-5.1) mmol/L Chloride 105 (98-107) mmol/L Carbon Dioxide 27.3 (21.0-32.0) mmol/L Anion Gap 13.6 BUN 13.0 (7.0-18.0) mg/dL Creatinine 1.30 (0.70-1.30) mg/dL Est GFR ( Amer) >60 (>=60 mL/min/1.73m^2) Est GFR (Non-Af Amer) 56 L (>=60 mL/min/1.73m^2) BUN/Creatinine Ratio 10.0 Glucose 80 (74-106) mg/dL Calcium 8.7 (8.5-10.1) mg/dL Total Bilirubin 0.5 (0.2-1.0) mg/dL AST 16 (15-37) U/L ALT 48 (16-63) U/L Alkaline Phosphatase 75 (46-116) U/L Total Protein 6.5 (6.4-8.2) g/dL Albumin 3.5 (3.4-5.0) g/dL Globulin 3.0 g/dL Albumin/Globulin Ratio 1.2 Discharge Plan Discharge Chief Complaint: Recheck/Abnormal Lab/Rx Clinical Impression: Hematoma of frontal scalp Patient Disposition: Home, Self-Care Time of Disposition Decision: 12:50 Condition: Good Prescriptions / Home Meds: New doxycycline hyclate 100 mg capsule 100 mg PO BID 7 Days Qty: 14 0RF No Action diclofenac sodium 75 mg tablet,delayed release (DR/EC) 75 mg PO DAILY Print Language: Nauruan Referrals: CHINMAY BLAS [Primary Care Provider] - 1 week Discharge Date/Time: 07/31/24 13:03
== END 2024-07-31 13:03 | disposition home or self-care (01) ==
PROVIDERS: Emergency Provider Emergency Medicine; PCP Nurse Practitioner Family
DX: G97.61 Postprocedural hematoma of a nervous system organ or structure following a nervous system procedure (principal); Z98.890 Other specified postprocedural states
CPT/HCPCS: 36415; 70450; 80053; 85025; 99284

== ENCOUNTER 2024-09-03 09:52 | Outpatient (OUT) | payer OTHER, SELFPAY ==
[2024-09-03 10:02] LABS: Basophils Percent Auto 1.1 % (0.2-2.0); Eosinophils Absolute Auto 0.1 10^3/uL (0.0-0.7); Eosinophils Percent Auto 3.2 % (0.9-7.0); Hematocrit 42.4 % (42.0-54.0); Hemoglobin 14.9 g/dL (14.0-18.0); Immature Granulocytes Abs Auto 0.02 10^3/uL (0.00-0.03); Immature Granulocytes Pct Auto 0.6 % (0.0-0.5); Lymphocytes Absolute Auto 1.4 10^3/uL (1.2-3.8); Mean Corpuscular HGB Conc 35.1 g/dL (29.9-35.2); Mean Corpuscular Hemoglobin 31.2 pg (25.9-34.0); Mean Corpuscular Volume 88.9 fL (80.0-94.0); Mean Platelet Volume 9.1 fL (9.5-13.5); Monocytes Absolute Auto 0.3 10^3/uL (0.3-0.8); Monocytes Percent Auto 9.2 % (1.7-12.0); Neutrophils Absolute Auto 1.6 10^3/uL (1.4-6.5); Neutrophils Percent Auto 44.9 % (43.0-75.0); Platelet Count 261 10^3/uL (150-450); Red Blood Count 4.77 10^6/uL (4.70-6.10); Red Cell Distribution Width 11.3 % (11.0-15.0); White Blood Count 3.5 10^3/uL (4.0-11.0)
[2024-09-03 10:33] LABS: Estimated Average Glucose 100 mg/dL; Glycohemoglobin A1C 5.1 % (4.5-6.2)
[2024-09-03 10:42] LABS: Alanine Aminotransferase 41 U/L (16-63); Albumin Globulin Ratio 1.2; Albumin Level 3.8 g/dL (3.4-5.0); Alkaline Phosphatase 67 U/L (46-116); Anion Gap 12.4; Aspartate Amino Transferase 18 U/L (15-37); BUN Creatinine Ratio 7.8; Bilirubin Total 0.4 mg/dL (0.2-1.0); Calcium 8.8 mg/dL (8.5-10.1); Carbon Dioxide 30.9 mmol/L (21.0-32.0); Chloride 102 mmol/L (98-107); Cholesterol 229 mg/dL (<=200); Estimated GFR (African America >60 (>=60 mL/min/1.73m^2); Estimated GFR (Non-African Ame >60 (>=60 mL/min/1.73m^2); Free T3 1.86 pg/mL (2.18-3.98); Globulin 3.3 g/dL; Glucose 86 mg/dL (74-106); HDL Cholesterol 46 mg/dL (40-60); Potassium 4.3 mmol/L (3.5-5.1); Sodium 141 mmol/L (136-145); Thyroid Stimulating Hormone 1.769 uIU/mL (0.358-3.740); Total Protein 7.1 g/dL (6.4-8.2); Triglycerides 294 mg/dL (<=150); Uric Acid 7.4 mg/dL (3.5-7.2); VLDL CHOLESTEROL 58.8 mg/dL
[2024-09-03 11:16] LABS: Prostate Specific Antigen Scrn 3.36 ng/mL (<=4.00)
[2024-09-04 07:07] LABS: Insulin 5.9 uIU/mL (2.6-24.9)
== END 2024-09-03 09:53 | disposition home or self-care (01) ==
LOC: LAB 09:52
PROVIDERS: PCP Nurse Practitioner Family; Visit Provider Nurse Practitioner Family
DX: Z00.00 Encounter for general adult medical examination without abnormal findings (principal); E78.5 Hyperlipidemia, unspecified; R53.83 Other fatigue; M10.9 Gout, unspecified; R73.09 Other abnormal glucose; E03.9 Hypothyroidism, unspecified; Z12.5 Encounter for screening for malignant neoplasm of prostate; I10 Essential (primary) hypertension
CPT/HCPCS: 36415; 80053; 80061; 83036; 83525; 84436; 84443; 84481; 84550; 85025; G0103

== ENCOUNTER 2024-09-17 10:12 | Outpatient (OUT) | payer OTHER, SELFPAY ==
--- OUTSIDE RECORDS SUMMARY | 2024-09-17 10:24 | XMS_ITS | CCD ---
Author Organization [facility] Care Team Providers Care Pants Busheler Name Role Phone WAN, MARTINA Admitting Unavailable [...] DR COLVIN Admitting Unavailable HOY ., DR OCLVIN Attending Unavailable WAN, MARTINA Primary Care Unavailable MISC, DR MUNOZ Admitting Unavailable MISC, DR MUNOZ Attending Unavailable WAN, MARTINA Primary Care Unavailable Nahomy Mg Unavailable Maria L WINTERS Attending Unavailable MD Nahomy Mg Attending Provider NON STAFF Primary Care Provider Unavailabl e Nahomy Mg Admitting Unavailable NON STAFF Primary Care Unavailable Nahomy Mg Attending Unavailable NON STAFF Primary Care Unavailable Nahomy Mg Attending Unavailable Nahomy Mg Admitting Unavailable PROVIDER, UNKNOWN Admitting Unavailable PROVIDER, UNKNOWN Attending Unavailable Wan BELT WORKER - CHIEF CONSTRUCTION INSPECTOR, Martina S Primary Care Provide r FINA OLMEDO Attending Unavailable WAN, MARTINA S Primary Care Unavailable BOBBY YANEZ Consulting Unavailable FINA OLMEDO Admitting Unavailable FINA OLMEDO Consulting Unavailable ISMA ACKERMAN Consulting Unavailable OLY GARCIA Referring Unavailable WAN, MARTINA S Primary Care Unavailable OLY GARCIA Referring Unavailable WAN, MARTINA S Primary Care Unavailable JENNIFER CHAPA Referring Unavailable WAN, MARTINA S Primary Care Unavailable JENNIFER CHAPA Referring Unavailable WAN, MARTINA S Primary Care Unavailable JENNIFER CHAPA Referring Unavailable WAN, MARTINA S Primary Care Unavailable JENNIFER, JENNIFER Referring Unavailable WAN, MARTINA S Primary Care Unavailable CHAPA, JENNIFER Referring Unavailable WAN, MARTINA S Primary Care Unavailable GABRIELLA KILGORE Referring Unavailable WAN, MARTINA S Primary Care Unavailable Medications Current Medications Medication Drug Class(es) Dates Sig (Normalized) Sig (Original) diclofenac sodium 75 mg delayed release oral tablet (4 sources) Nonsteroidal Anti-inflammatory Drug Start: 08-27-2023 take 75 mg by mouth twice daily Diclofenac Sodium Active 75 MG PO Twice daily August 27, 2023 1:00am DICLOFENAC PO Ta ke by mouth 2 times daily Active ibuprofen 600 mg oral tablet (10 sources) Nonsteroidal Anti-inflammatory Drug Start: 06-25-2024 take [...] release tablet 2.5 mg polyethylene glycol [id number] [id number] mg powder for oral solution (2 sources) [...] Sig (Original) acetaminophen 500 mg oral tablet (5 sources) Start: 06-20-2024 take 1 dose by [...] - 2 TAB PO EVERY 4-6 HOURS 10 12September 03, 2023 October 16, 2023 3:11pm allopurinol [...] Post-op docusate sodium 50 mg / sennosides, snf 8.6 mg oral tablet (1 source) Start: [...] 20 mEq, Oral, ONCE, 1 dose, On Tu06/24/24 at 0745, Do not crush, chew, or suck on tablet. Tablet may also be broken in half and each half swallowed separately. Start: 06-20-2024 End: 06-20-2024 40 mEq, Oral, ONCE, 1 dose, On Sun06/20/24 at 2345, Do not crush, chew, or suck on tablet. Tablet may also be broken in half and each half swallowed separately. sennosides, snf 8.6 mg oral tablet (1 source) Start: [...] suspension (15 sources) Corticosteroid Start: 11-21-2022 Kenalog-40 08 Apr, 2023 20 mg Problems Problem Classification Problem Date Documented Date Episodic/Chronic Acute cerebrovascular disease (20 sources) Subdural hematoma; Translations: [Nontraumatic acute subdural hemorrhage] Onset: 06-21-2024 Resolved: 08-13-2024 06-27-2024 Chronic Intracranial injury (12 sources) Hematoma; Translations: [Epidural hematoma] Onset: 06-20-2024 06-20-2024 Episodic Malaise and fatigue (12 sources) Left hemiparesis; Translations: [Weakness] Onset: 06-23-2024 [...] tunnel syndrome] Chronic Other nervous system disorders (1 source) Cognitive deficit in communication skills; Translations: [Cognitive communication deficit] 08-14-2024 Chronic Other nervous system disorders (1 source) Cognitive communication deficit; Translations: [Cognitive communication deficit] Onset: 08-14-2024 Chronic Other nervous system disorders (2 sources) Pain in limb; Translations: [Other acute postprocedural pain] 09-03-2023 Episodic Other non-traumatic joint disorders (1 source) Pain in right shoulder; Translations: [PAIN IN RIGHT SHOULDER] Onset: 08-16-2022 Episodic Residual codes; unclassified (4 sources) Obstructive sleep apnea (adult) (pediatric); Translations: [OBSTRUCTIVE SLEEP APNEA] Onset: 10-19-2021 Chronic Residual codes; unclassified (3 sources) Other specified postprocedural states; Translations: [Other postprocedural status] Onset: 08-04-2024 Episodic Residual codes; unclassified (1 source) Postprocedural state finding; Translations: [Other specified postprocedural states] 10-15-2023 Episodic Residual codes; unclassified (1 source) History of craniotomy; Translations: [Other specified postprocedural states] 08-04-2024 Episodic Spondylosis; intervertebral disc disorders; other back [...] consciousness status unknown, initial encounter] Onset: 06-20-2024 Unclassified (1 source) Traumatic subdural hemorrhage with loss of consciousness status unknown, initial encounter; Translations: [Traumatic subdural hemorrhage with loss of consciousness status unknown, initial encounter] Onset: 06-21-2024 Results Test Name Value Interpretation Reference Range Facility CT HEAD WO CONTRASTon 2023 CT HEAD WO CONTRAST EXAM: CT HEAD WO CONTRAST HISTORY: Subacute [...] is barely perceptible and unchanged. Right parietal steve holes are unchanged. NEGATIVES related to history: No mass effect. COINCIDENTAL, unrelated to history: None additional. ROUTINE: No hydrocephalus. Normal ventricles and sulci. IMPRESSION: Minimal residual right parietal dural thickening without mass effect, stable. Interpreted by: Justin Acosta Jr., MD Signed by: Justin Acosta Jr., MD 08/04/24 Final result Normal [facility] CT Head WO contraston 2023 Minimal residual right parietal dural thickening without mass effect, stable. PN RIS CONSOLIDATED EXAM: CT HEAD WO CONTRAST HISTORY: Subacute [...] is barely perceptible and unchanged. Right parietal steve holes are unchanged. NEGATIVES related to history: No mass effect. COINCIDENTAL, unrelated to history: None additional. ROUTINE: No hydrocephalus. Normal ventricles and sulci. [facility] Justin Pennington Jr., MD - 08/04/2024 EXAM: CT HEAD WO CONTRAST HISTORY: Subacute [...] is barely perceptible and unchanged. Right parietal steve holes are unchanged. NEGATIVES related to history: No mass effect. COINCIDENTAL, unrelated to history: None additional. ROUTINE: No hydrocephalus. Normal ventricles and sulci. IMPRESSION: Minimal residual right parietal dural thickening without mass effect, stable. [facility] Radiology Study observation (narrative) [facility] CT Head WO contrastOrdered B y: Justinmadi Acosta on 08-04-[address] [facility] Work Phone: CT HEAD WO CONTRASTon 2023 CT HEAD [...] Acosta Jr., MD 07/03/24 Final result Normal [facility] CT Head WO contraston 2023 Resolving postoperative right subdural hematoma without midline shift and no evidence of rebleeding. [facility] RIS CONSOLIDATED EXAM: CT HEAD WO CONTRAST HISTORY: [...] posterior right parietal steve holes are present. [facility] CONSOLIDATED Justin Acosta Jr., MD - 07/03/2024 [...] midline shift and no evidence of rebleeding. [facility] Radiology Study observation (narrative) Kris Lemos [facility] CT Head WO contrastOrdered B y: Justin Acosta on 07-03-[address] [facility] Work Phone: Basic Metab w/rfx MGon 06-27 Anion gap [Moles/Vol] 10 mmol/L Normal 9-16 [facility] Comment on above: Performed By: #### B MPX, CDP #### [facility] [address] [place] [address] Marine Electronics Technician: Jordan Aponte MD Calcium [Mass/Vol] 8.7 mg/dL Normal 8.6-10.4 [facility] Comment on above: Performed By: #### B MPX, CDP #### [facility] [address] [place] [address] Marine Electronics Technician: Jordan Aponte MD Chloride [Moles/Vol] 103 mmol/L Normal 98-107 [facility] Comment on above: Performed By: #### B MPX, CDP #### [facility] [address] [place] [address] Marine Electronics Technician: Jordan Aponte MD CO2 [Moles/Vol] 23 mmol/L Normal 20-31 [facility] Comment on above: Performed By: #### B MPX, CDP #### [facility] [address] [place] [address] Marine Electronics Technician: Jordan Aponte MD Creatinine [Mass/Vol] 0.7 mg/dL Normal 0.7-1.2 [facility] Comment on above: Performed By: #### B MPX, CDP #### [facility] [address] [place] [address] Marine Electronics Technician: Jordan Aponte MD GFR/1.73 sq M.predicted among non-blacks MDRD (S/P/Bld) [Vol rate/Area] mL/min/{1.73_m2} Normal >60 [facility] Comment on above: Result Comment: These results [...] affects renal tubular secretion. Performed By: #### B MPX, CDP #### [facility] [address] [place] [address] Marine Electronics Technician: Jordan Aponte MD Glucose [Mass/Vol] 107 mg/dL High 74-99 [facility] Comment on above: Performed By: #### B MPX, CDP #### [facility] [employer] [address] [place] [address] Marine Electronics Technician: Jordan Aponte MD Potassium [Moles/Vol] 4.0 mmol/L Normal 3.7-5.3 [facility] Comment on above: Performed By: #### B MPX, CDP #### [address] [address] Marine Electronics Technician: Jordan Aponte MD Sodium [Moles/Vol] 136 mmol/L Normal 136-145 [facility] Comment on above: Performed By: #### B MPX, CDP #### [facility] [employer] [address] [place] [address] Marine Electronics Technician: Jordan Aponte MD Urea nitrogen [Mass/Vol] 11 mg/dL Normal 8-23 [facility] Comment on above: Performed By: #### B MPX, CDP #### [address] [address] Marine Electronics Technician: Jordan Aponte MD Basic Metabolic Panel w/ Ref isaias to MGon 06-27-2024 Anion gap [Moles/Vol] 10 mmol/L 9 - 16 mmol/L [facility] Calcium [Mass/Vol] 8.7 mg/dL 8.6 - 10. 4 mg/dL [facility] Chloride [Moles/Vol] 103 mmol/L 98 - 10 7 mmol/L [facility] CO2 [Moles/Vol] 23 mmol/L 20 - 31 mmol/L [facility] Creatinine [Mass/Vol] 0.7 mg/dL 0.7 - 1.2 mg/dL [facility] EstDenice Rate - PINF [facility] Comment on above: These results are [...] 107 mg/dL High 74 - 99 mg/dL [facility] Interpretation and review of laboratory results Abnormal [facility] Potassium [Moles/Vol] 4.0 mmol/L 3.7 - 5.3 mmol/L [facility] Sodium [Moles/Vol] 136 mmol/L 136 - 145 mmol/L [facility] Urea nitrogen [Mass/Vol] 11 mg/dL 8 - 23 mg/d L [facility] CBC with Auto Differentialon 06-27-2024 Basophils (Bld) [#/Vol] 0.04 10*3/uL [facility] Basophils/100 WBC (Bld) 1 % 0 - 2 % B on [facility] Eosinophils (Bld) [#/Vol] 0.16 10*3/uL [facility] Eosinophils/100 WBC (Bld) 5 % High 1 - 4 % [facility] Erythrocyte distribution width (RBC) [Ratio] 11.2 % Low 11.8 - 14.4 % [facility] Hematocrit (Bld) [Volume fraction] 38.6 % Low 40.7 - 50.3 % [facility] Hemoglobin (Bld) [Mass/Vol] 12.7 g/dL Low 13.0 - 17.0 g/dL [facility] Immature granulocytes (Bld) [#/Vol] [facility] Immature granulocytes/100 WBC (Bld) 0 % [address] [facility] Interpretation and review of laboratory results Abnormal [facility] Lymphocytes/100 WBC (Bld) 32 % 24 - 43 % [facility] Lymphocytes/100 WBC (Bld) 1.11 % [facility] MCH (RBC) [Entitic mass] 32.2 pg 25. 2 - 33.[address] [facility] MCHC (RBC) [Mass/Vol] 32.9 g/dL 28.4 - 34.8 g/dL [facility] MCV (RBC) [Entitic vol] 98.0 fL 82.6 - 102.[address] [facility] Monocytes/100 WBC (Bld) 12 % 3 - 12 % B on [facility] Monocytes/100 WBC (Bld) 0.43 % B on [facility] Neutrophils/100 WBC (Bld) 50 % 36 - 65 % [facility] Nucleated RBC/100 WBC (Bld) [Ratio] 0.0 % 0.0 per [address] [facility] Platelet mean volume (Bld) [Entitic vol] 10.2 fL 8.1 - 13.[address] [facility] Platelets (Bld) [#/Vol] 249 10*3/uL [facility] RBC (Bld) [#/Vol] 3.94 10*6/uL Low 4.21 - 5.7 7 m/uL [facility] Segmented neutrophils/100 WBC (Bld) 1.76 % [facility] WBC other (Bld) [#/Vol] 3.5 B on [facility] CBC with Diffon 06-27-2024 Abs. Basophil 0.04 k/uL Normal 0.00-0.20 [facility] Comment on above: Performed By: #### B MPX, ENOC #### [facility] [employer] [address] [place] [address] Marine Electronics Technician: Jordan Aponte MD Abs.Imm.Granulocyte <0.03 Normal 0.00-0.30 [facility] Comment on above: Performed By: #### B MPX, CDP #### [address] [address] Marine Electronics Technician: Jordan Aponte MD Abs.Neutrophil (Seg) 1.76 k/uL Normal 1.50-8.10 [facility] Comment on above: Performed By: #### B MPX, CDP #### [address] [address] Marine Electronics Technician: Jordan Aponte MD Basophils/100 WBC (Bld) 1 % Normal 0-2 M [facility] Comment on above: Performed By: #### B MPX, CDP #### [address] [address] Marine Electronics Technician: Jordan Aponte MD Eosinophils (Bld) [#/Vol] 0.16 10*3/uL Normal 0.00-0.44 [facility] Comment on above: Performed By: #### B MPX, CDP #### [address] [address] Marine Electronics Technician: Jordan Aponte MD Eosinophils/100 WBC (Bld) 5 % High 1-4 [facility] Comment on above: Performed By: #### B MPX, CDP #### [address] [address] Marine Electronics Technician: Jordan Aponte MD Erythrocyte distribution width (RBC) [Ratio] 11.2 % Low 11.8-14.4 [facility] Comment on above: Performed By: #### B MPX, CDP #### [address] [address] Marine Electronics Technician: Jordan Aponte MD Hematocrit (Bld) [Volume fraction] 38.6 % Low 40.7-50.3 [facility] Comment on above: Performed By: #### B MPX, CDP #### [address] [address] Marine Electronics Technician: Jordan Aponte MD Hemoglobin (Bld) [Mass/Vol] 12.7 g/dL Low 13.0-17.0 [facility] Comment on above: Performed By: #### B MPX, CDP #### [address] [address] Marine Electronics Technician: Jordan Aponte MD Immature granulocytes/100 WBC (Bld) 0 % Normal 0 [facility] Comment on above: Performed By: #### B MPX, CDP #### [address] [address] Marine Electronics Technician: Jordan Aponte MD Lymphocytes (Bld) [#/Vol] 1.11 10*3/uL Normal 1.10-3.70 [facility] Comment on above: Performed By: #### B MPX, CDP #### [address] [address] Marine Electronics Technician: Jordan Aponte MD Lymphocytes/100 WBC (Bld) 32 % Normal 24-43 [facility] Comment on above: Performed By: #### B MPX, CDP #### [address] [address] Marine Electronics Technician: Jordan Aponte MD MCH (RBC) [Entitic mass] 32.2 pg Normal 25.2-33.5 [facility] Comment on above: Performed By: #### B MPX, CDP #### [address] [address] Marine Electronics Technician: Jordan Aponte MD MCHC (RBC) [Mass/Vol] 32.9 g/dL Normal 28.4-34.8 [facility] Comment on above: Performed By: #### B MPX, CDP #### [address] [address] Marine Electronics Technician: Jordan Aponte MD MCV (RBC) [Entitic vol] 98.0 fL Normal 82.6-102.9 [facility] Comment on above: Performed By: #### B MPX, CDP #### [address] [address] Marine Electronics Technician: Jordan Aponte MD Monocytes (Bld) [#/Vol] 0.43 10*3/uL Normal 0.10-1.20 [facility] Comment on above: Performed By: #### B MPX, CDP #### [address] [address] Marine Electronics Technician: Jordan Aponte MD Monocytes/100 WBC (Bld) 12 % Normal 3-12 [facility] Comment on above: Performed By: #### B MPX, CDP #### [address] [address] Marine Electronics Technician: Jordan Aponte MD Neutrophil (Seg) 50 % Normal 36-65 [facility] Comment on above: Performed By: #### B MPX, CDP #### [address] [address] Marine Electronics Technician: Jordan Aponte MD NRBC Automated 0.0 per 100 WBC Normal 0.0 [facility] Comment on above: Performed By: #### B MPX, CDP #### [address] [address] Marine Electronics Technician: Jordan Aponte MD Platelet mean volume (Bld) [Entitic vol] 10.2 fL Normal 8.1-13.5 [facility] Comment on above: Performed By: #### B MPX, CDP #### [address] [address] Marine Electronics Technician: Jordan Aponte MD Platelets (Bld) [#/Vol] 249 10*3/uL Normal 138-453 [facility] Comment on above: Performed By: #### B MPX, CDP #### [facility] [address] [place] [address] Marine Electronics Technician: Jordan Aponte MD RBC (Bld) [#/Vol] 3.94 10*6/uL Low 4.21-5.77 [facility] Comment on above: Performed By: #### B MPX, CDP #### [facility] [employer] [address] [place] [address] Marine Electronics Technician: Jordan Aponte MD WBC (Bld) [#/Vol] 3.5 10*3/uL Normal 3.5-11.3 [facility] Comment on above: Performed By: #### B MPX, CDP #### [facility] [employer] [address] [place] [address] Marine Electronics Technician: Jordan Aponte MD Basic Metab w/rfx MGon 06-26 Anion gap [Moles/Vol] 9 mmol/L Normal 9-16 [facility] Comment on above: Performed By: #### B MPX, CDP, DAVID, MG #### [facility] [employer] [address] [place] [address] Marine Electronics Technician: Jordan Aponte MD Calcium [Mass/Vol] 8.5 mg/dL Low 8.6-10.4 [facility] Comment on above: Performed By: #### B MPX, CDP, DAVID, MG #### [facility] [employer] [address] [place] [address] Marine Electronics Technician: Jordan Aponte MD Chloride [Moles/Vol] 104 mmol/L Normal 98-107 [facility] Comment on above: Performed By: #### B MPX, CDP, DAVID, MG #### [address] [address] Marine Electronics Technician: Jordan Aponte MD CO2 [Moles/Vol] 25 mmol/L Normal 20-31 [facility] Comment on above: Performed By: #### B MPX, CDP, DAVID, MG #### [address] [address] Marine Electronics Technician: Jordan Aponte MD Creatinine [Mass/Vol] 0.9 mg/dL Normal 0.7-1.2 [facility] Comment on above: Performed By: #### B MPX, CDP, DAVID, MG #### [address] [address] Marine Electronics Technician: Jordan Aponte MD GFR/1.73 sq M.predicted among non-blacks MDRD (S/P/Bld) [Vol rate/Area] mL/min/{1.73_m2} Normal >60 [facility] Comment on above: Result Comment: These results [...] affects renal tubular secretion. Performed By: #### B MPX, CDP, DAVID, MG #### [address] [address] Marine Electronics Technician: Jordan Aponte MD Glucose [Mass/Vol] 101 mg/dL High 74-99 [facility] Comment on above: Performed By: #### B MPX, CDP, DAVID, MG #### [address] [address] Marine Electronics Technician: Jordan Aponte MD Potassium [Moles/Vol] 4.1 mmol/L Normal 3.7-5.3 [facility] Comment on above: Performed By: #### B MPX, CDP, DAVID, MG #### [facility] [address] [place], [place] [phone] Marine Electronics Technician: Jordan Aponte MD Sodium [Moles/Vol] 138 mmol/L Normal 136-145 [facility] Comment on above: Performed By: #### B MPX, CDP, DAVID, MG #### [facility] [address] [place], [place] [phone] Marine Electronics Technician: Jordan Aponte MD Urea nitrogen [Mass/Vol] 10 mg/dL Normal 8-23 [facility] Comment on above: Performed By: #### B MPX, CDP, DAVID, MG #### [facility] [address] [place], [place] [id number] Marine Electronics Technician: Jordan Aponte MD Basic Metabolic Panel w/ Ref isaias to MGon 06-26-2024 Anion gap [Moles/Vol] 9 mmol/L 9 - 16 mmol/L [facility] Calcium [Mass/Vol] 8.5 mg/dL Low 8.6 - 10. 4 mg/dL [facility] Chloride [Moles/Vol] 104 mmol/L 98 - 10 7 mmol/L [facility] CO2 [Moles/Vol] 25 mmol/L 20 - 31 mmol/L [facility] Creatinine [Mass/Vol] 0.9 mg/dL 0.7 - 1.2 mg/dL [facility] Est, Glom Ejt Rate - PINF [facility] Comment on above: These results are [...] 101 mg/dL High 74 - 99 mg/dL [facility] Interpretation and review of laboratory results Abnormal [facility] Potassium [Moles/Vol] 4.1 mmol/L 3.7 - 5.3 mmol/L [facility] Sodium [Moles/Vol] 138 mmol/L 136 - 145 mmol/L [facility] Urea nitrogen [Mass/Vol] 10 mg/dL 8 - 23 mg/d L [facility] CBC with Auto Differentialon 06-26-2024 Basophils (Bld) [#/Vol] 0.04 10*3/uL [facility] Immature granulocytes (Bld) [#/Vol] [facility] Interpretation and review of laboratory results Abnormal [facility] Lymphocytes/100 WBC (Bld) 1.21 % [facility] Monocytes/100 WBC (Bld) 0.47 % B on [facility] Neutrophils/100 WBC (Bld) 57 % 36 - 65 % [facility] Nucleated RBC/100 WBC (Bld) [Ratio] 0.0 % 0.0 per [address] [facility] Segmented neutrophils/100 WBC (Bld) 2.56 % [facility] WBC other (Bld) [#/Vol] 4.4 B on [facility] CBC with Diffon 06-26-2024 Abs. Basophil 0.04 k/uL Normal 0.00-0.20 [facility] Comment on above: Performed By: #### B MPX, CDP, DAVID, MG #### [facility] [address] [place], [place] [id number] Marine Electronics Technician: Jordan Aponte MD Abs.Imm.Granulocyte <0.03 Normal 0.00-0.30 [facility] Comment on above: Performed By: #### B MPX, CDP, DAVID, MG #### [facility] [address] [place], [place] [id number] Marine Electronics Technician: Jordan Aponte MD Abs.Neutrophil (Seg) 2.56 k/uL Normal 1.50-8.10 [facility] Comment on above: Performed By: #### B MPX, CDP, DAVID, MG #### [facility] [address] [place] [address] Marine Electronics Technician: Jordan Aponte MD Basophils/100 WBC (Bld) 1 % Normal 0-2 B [facility] Comment on above: Performed By: #### B MPX, CDP, DAVID, MG #### [facility] [address] [place] [address] Marine Electronics Technician: Jordan Aponte MD Eosinophils (Bld) [#/Vol] 0.11 10*3/uL Normal 0.00-0.[address] [facility] Comment on above: Performed By: #### B MPX, CDP, DAVID, MG #### [facility] [address] [place] [address] Marine Electronics Technician: Jordan Aponte MD Eosinophils/100 WBC (Bld) 3 % Normal 1-[address] [facility] Comment on above: Performed By: #### B MPX, CDP, DAVID, MG #### [facility] [employer] [address] [place] [address] Marine Electronics Technician: Jordan Aponte MD Erythrocyte distribution width (RBC) [Ratio] 11.4 % Low 11.8-14.[address] [facility] Comment on above: Performed By: #### B MPX, CDP, DAVID, MG #### [employer] [address] [place] [address] Marine Electronics Technician: Jordan Aponte MD Hematocrit (Bld) [Volume fraction] 38.2 % Low 40.7-50.[address] [facility] Comment on above: Performed By: #### B MPX, CDP, DAVID, MG #### [facility] [address] [place] [address] Marine Electronics Technician: Jordan Aponte MD Hemoglobin (Bld) [Mass/Vol] 12.6 g/dL Low 13.0-17.[address] [facility] Comment on above: Performed By: #### B MPX, CDP, DAVID, MG #### [facility] [address] [place] [address] Marine Electronics Technician: Jordan Aponte MD Immature granulocytes/100 WBC (Bld) 0 % Normal [address] [facility] Comment on above: Performed By: #### B MPX, CDP, DAVID, MG #### [facility] [address] [place] [address] [employer] Technician: Jordan Aponte MD Lymphocytes (Bld) [#/Vol] 1.21 10*3/uL Normal 1.10-3.70 [facility] Comment on above: Performed By: #### B MPX, CDP, DAVID, MG #### [facility] [employer] [address] [place] [address] [employer] Technician: Jordan Aponte MD Lymphocytes/100 WBC (Bld) 28 % Normal 24-[address] [facility] Comment on above: Performed By: #### B MPX, CDP, DAVID, MG #### [facility] [employer] [address] [place] [address] Marine [employer] Technician: Jordan Aponte MD MCH (RBC) [Entitic mass] 31.8 pg Normal 25.2-33.[address] [facility] Comment on above: Performed By: #### B MPX, CDP, DAVID, MG #### [facility] [employer] [address] [place] [address] [employer] Technician: Jordan Aponte MD MCHC (RBC) [Mass/Vol] 33.0 g/dL Normal 28.4-34.[address] [facility] Comment on above: Performed By: #### B MPX, CDP, DAVID, MG #### [facility] [address] [place] [address] [employer] Technician: Jordan Aponte MD MCV (RBC) [Entitic vol] 96.5 fL Normal 82.6-102.9 [facility] Comment on above: Performed By: #### B MPX, CDP, DAVID, MG #### [facility] [address] [place] [address] [employer] Technician: Jordan Aponte MD Monocytes (Bld) [#/Vol] 0.47 10*3/uL Normal 0.10-1.20 [facility] Comment on above: Performed By: #### B MPX, CDP, DAVID, MG #### [facility] [employer] [address] [place] [address] [employer] Technician: Jordan Aponte MD Monocytes/100 WBC (Bld) 11 % Normal 3-12 [facility] Comment on above: Performed By: #### B MPX, CDP, DAVID, MG #### [facility] [employer] [address] [place] [address] [employer] Technician: Jordan Aponte MD Neutrophil (Seg) 57 % Normal 36-65 [facility] Comment on above: Performed By: #### B MPX, CDP, DAVID, MG #### [facility] [employer] [address] [place] [address] [employer] Technician: Jordan Aponte MD NRBC Automated 0.0 per 100 WBC Normal 0.0 [facility] Comment on above: Performed By: #### B MPX, CDP, DAVID, MG #### [facility] [employer] [address] [place] [address] Marine [employer] Technician: Jordan Aponte MD Platelet mean volume (Bld) [Entitic vol] 10.5 fL Normal 8.1-13.[address] [facility] Comment on above: Performed By: #### B MPX, CDP, DAVID, MG #### [facility] [employer] [address] [place] [address] [employer] Technician: Jordan Aponte MD Platelets (Bld) [#/Vol] 216 10*3/uL Normal 138-[address] [facility] Comment on above: Performed By: #### B MPX, CDP, DAVID, MG #### [facility] [employer] [address] [place] [address] [employer] Technician: Jordan Aponte MD RBC (Bld) [#/Vol] 3.96 10*6/uL Low 4.21-5.77 [facility] Comment on above: Performed By: #### B MPX, CDP, ADVID, MG #### [facility] [employer] [address] [place] [address] [employer] Technician: Jordan Aponte MD WBC (Bld) [#/Vol] 4.4 10*3/uL Normal 3.5-11.3 [facility] Comment on above: Performed By: #### B MPX, CDP, DAVID, MG #### [facility] [employer] [address] [place] [address] [employer] Technician: Jordan Aponte MD Basic Metab w/rfx [facility] 06-25 Anion gap [Moles/Vol] 9 mmol/L Normal 9-16 [facility] Comment on above: Performed By: #### B MPX, CDP, DAVID, MG #### [facility] [employer] [address] [place] [address] [employer] Technician: Jordan Aponte MD Calcium [Mass/Vol] 8.5 mg/dL Low 8.6-10.4 [facility] Comment on above: Performed By: #### B MPX, CDP, DAVID, MG #### [facility] [employer] [address] [place] [address] [employer] Technician: Jordan Aponte MD Chloride [Moles/Vol] 105 mmol/L Normal 98-107 [facility] Comment on above: Performed By: #### B MPX, CDP, DAVID, MG #### [facility] [employer] [address] [place] [address] [employer] Technician: Jordan Aponte MD CO2 [Moles/Vol] 24 mmol/L Normal 20-31 [facility] Comment on above: Performed By: #### B MPX, CDP, DAVID, MG #### [facility] [employer] [address] [place] [address] [employer] Technician: Jordan Aponte MD Creatinine [Mass/Vol] 0.8 mg/dL Normal 0.7-1.2 [facility] Comment on above: Performed By: #### B MPX, CDP, DAVID, MG #### [facility] [address] [place] [address] [phone] [employer] Technician: Jordan Aponte MD GFR/1.73 sq M.predicted among non-blacks MDRD (S/P/Bld) [Vol rate/Area] mL/min/{1.73_m2} Normal >60 [facility] Comment on above: Result Comment: These results [...] affects renal tubular secretion. Performed By: #### B MPX, CDP, DAVID, MG #### [employer] [address] [place] [address] [employer] Technician: Jordan Aponte MD Glucose [Mass/Vol] 110 mg/dL High 74-99 [facility] Comment on above: Performed By: #### B MPX, CDP, DAVID, MG #### [facility] [address] [place] [address] [phone] [employer] Technician: Jordan Aponte MD Potassium [Moles/Vol] 3.7 mmol/L Normal 3.7-5.3 [facility] Comment on above: Performed By: #### B MPX, CDP, DAVID, MG #### [facility] [address] [place] [address] [phone] [employer] Technician: Jordan Aponte MD Sodium [Moles/Vol] 138 mmol/L Normal 136-145 [facility] Comment on above: Performed By: #### B MPX, CDP, DAVID, MG #### [employer] [facility] [place] [address] Marine [employer] Technician: Jordan Aponte MD Urea nitrogen [Mass/Vol] 10 mg/dL Normal 8-23 [facility] Comment on above: Performed By: #### B MPX, CDP, DAVID, MG #### [facility] [address] [place], [place] [phone] Marine [employer] Technician: Jordan Aponte MD Basic Metabolic Panel w/ Ref isaias to MGon 06-25-2024 Anion gap [Moles/Vol] 9 mmol/L 9 - 16 mmol/L [facility] Calcium [Mass/Vol] 8.5 mg/dL Low 8.6 - 10. 4 mg/dL [facility] Chloride [Moles/Vol] 105 mmol/L 98 - 10 7 mmol/L [facility] CO2 [Moles/Vol] 24 mmol/L 20 - 31 mmol/L [facility] Creatinine [Mass/Vol] 0.8 mg/dL 0.7 - 1.2 mg/dL [facility] Est, Glom Filt Rate - PINF [facility] Comment on above: These results are [...] 110 mg/dL High 74 - 99 mg/dL [facility] Potassium [Moles/Vol] 3.7 mmol/L 3.7 - 5.3 mmol/L [facility] Sodium [Moles/Vol] 138 mmol/L 136 - 145 mmol/L [facility] Urea nitrogen [Mass/Vol] 10 mg/dL 8 - 23 mg/d L [facility] CBC with Auto Differentialon 06-25-2024 Basophils (Bld) [#/Vol] B on [facility] Basophils/100 WBC (Bld) 0 % 0 - 2 % B on [facility] Eosinophils (Bld) [#/Vol] 0.10 10*3/uL [facility] Eosinophils/100 WBC (Bld) 2 % 1 - 4 % [facility] Erythrocyte distribution width (RBC) [Ratio] 11.4 % Low 11.8 - 14.4 % [facility] Hematocrit (Bld) [Volume fraction] 38.9 % Low 40.7 - 50.3 % [facility] Hemoglobin (Bld) [Mass/Vol] 12.7 g/dL Low 13.0 - 17.0 g/dL [facility] Immature granulocytes (Bld) [#/Vol] [facility] Immature granulocytes/100 WBC (Bld) 0 % [address] [facility] Interpretation and review of laboratory results Abnormal [facility] Lymphocytes/100 WBC (Bld) 20 % Low 24 - 43 % [facility] Lymphocytes/100 WBC (Bld) 1.07 % Low [facility] MCH (RBC) [Entitic mass] 31.7 pg 25. 2 - 33.[address] [facility] MCHC (RBC) [Mass/Vol] 32.6 g/dL 28.4 - 34.8 g/dL [facility] MCV (RBC) [Entitic vol] 97.0 fL 82.6 - 102.[address] [facility] Monocytes/100 WBC (Bld) 9 % 3 - 12 % B on [facility] Monocytes/100 WBC (Bld) 0.50 % B on [facility] Neutrophils/100 WBC (Bld) 69 % High 36 - 65 % [facility] Nucleated RBC/100 WBC (Bld) [Ratio] 0.0 % 0.0 per [address] [facility] Platelet mean volume (Bld) [Entitic vol] 10.2 fL 8.1 - 13.[address] [facility] Platelets (Bld) [#/Vol] 188 10*3/uL [facility] RBC (Bld) [#/Vol] 4.01 10*6/uL Low 4.21 - 5.7 7 m/uL [facility] Segmented neutrophils/100 WBC (Bld) 3.61 % Bon [facility] WBC other (Bld) [#/Vol] 5.3 B on [facility] Bon [facility] CBC with Diffon 06-25-2024 Abs. Basophil <0.03 Normal 0.00-0.20 [facility] Comment on above: Performed By: #### B MPX, CDP, DAVID, MG #### [facility] [employer] [address] [place] [address] Marine [employer] Technician: Jordan Aponte MD Abs.Imm.Granulocyte <0.03 Normal 0.00-0.30 [facility] Comment on above: Performed By: #### B MPX, CDP, DAVID, MG #### [facility] [employer] [address] [place] [address] Marine [employer] Technician: Jordan Aponte MD Abs.Neutrophil (Seg) 3.61 k/uL Normal 1.50-8.10 [facility] Comment on above: Performed By: #### B MPX, CDP, DAVID, MG #### [facility] [employer] [address] [place] [address] Marine [employer] Technician: Jordan Aponte MD Basophils/100 WBC (Bld) 0 % Normal 0-2 [facility] Comment on above: Performed By: #### B MPX, CDP, DAVID, MG #### [facility] [employer] [address] [place] [address] [employer] Technician: Jordan Aponte MD Eosinophils (Bld) [#/Vol] 0.10 10*3/uL Normal 0.00-0.44 [facility] Comment on above: Performed By: #### B MPX, CDP, DAVID, MG #### [facility] [employer] [address] [place] [address]175 [employer] Technician: Jordan Aponte MD Eosinophils/100 WBC (Bld) 2 % Normal 1-4 [facility] Comment on above: Performed By: #### B MPX, CDP, DAVID, MG #### [facility] [employer] [address] [place] [address] [employer] Technician: Jordan Aponte MD Erythrocyte distribution width (RBC) [Ratio] 11.4 % Low 11.8-14.4 [facility] Comment on above: Performed By: #### B MPX, CDP, DAVID, MG #### [facility] [employer] [address] [place] [address] Marine [employer] Technician: Jordan Aponte MD Hematocrit (Bld) [Volume fraction] 38.9 % Low 40.7-50.3 [facility] Comment on above: Performed By: #### B MPX, CDP, DAVID, MG #### [facility] [employer] [address] [place] [address] Marine Electronics Technician: Jordan Aponte MD Hemoglobin (Bld) [Mass/Vol] 12.7 g/dL Low 13.0-17.0 [facility] Comment on above: Performed By: #### B MPX, CDP, DAVID, MG #### [facility] [employer] [address] [place] [address] Marine [employer] Technician: Jordan Aponte MD Immature granulocytes/100 WBC (Bld) 0 % Normal 0 [facility] Comment on above: Performed By: #### B MPX, CDP, DAVID, MG #### [facility] [employer] [address] [place] [address] Marine Electronics Technician: Jordan Aponte MD Lymphocytes (Bld) [#/Vol] 1.07 10*3/uL Low 1.10-3.70 [facility] Comment on above: Performed By: #### B MPX, CDP, DAVID, MG #### [facility] [employer] [address] [place] [address] Marine Electronics Technician: Jordan Aponte MD Lymphocytes/100 WBC (Bld) 20 % Low 24-43 [facility] Comment on above: Performed By: #### B MPX, CDP, DAVID, MG #### [address] [address] Marine [employer] Technician: Jordan Aponte MD MCH (RBC) [Entitic mass] 31.7 pg Normal 25.2-33.5 [facility] Comment on above: Performed By: #### B MPX, CDP, DAVID, MG #### [address] [address] Marine [employer] Technician: Jordan Aponte MD MCHC (RBC) [Mass/Vol] 32.6 g/dL Normal 28.4-34.8 [facility] Comment on above: Performed By: #### B MPX, CDP, DAVID, MG #### [address] [address] Marine [employer] Technician: Jordan Aponte MD MCV (RBC) [Entitic vol] 97.0 fL Normal 82.6-102.9 [facility] Comment on above: Performed By: #### B MPX, CDP, DAVID, MG #### [address] [address] Marine [employer] Technician: Jordan Aponte MD Monocytes (Bld) [#/Vol] 0.50 10*3/uL Normal 0.10-1.20 [facility] Comment on above: Performed By: #### B MPX, CDP, DAVID, MG #### [address] [address] Marine [employer] Technician: Jordan Aponte MD Monocytes/100 WBC (Bld) 9 % Normal 3-12 M [facility] Comment on above: Performed By: #### B MPX, CDP, DAVID, MG #### [address] [address] Marine [employer] Technician: Jordan Aponte MD Neutrophil (Seg) 69 % High 36-65 [facility] Comment on above: Performed By: #### B MPX, CDP, DAVID, MG #### [facility] [employer] [address] [place] [address]16 Marine [employer] Technician: Jordan Aponte MD NRBC Automated 0.0 per 100 WBC Normal 0.0 [facility] Comment on above: Performed By: #### B MPX, CDP, DAVID, MG #### [address] [address] Marine [employer] Technician: Jordan Aponte MD Platelet mean volume (Bld) [Entitic vol] 10.2 fL Normal 8.1-13.5 [facility] Comment on above: Performed By: #### B MPX, CDP, DAVID, MG #### [address] [address] Marine [employer] Technician: Jordan Aponte MD Platelets (Bld) [#/Vol] 188 10*3/uL Normal 138-453 [facility] Comment on above: Performed By: #### B MPX, CDP, DAVID, MG #### [facility] [employer] [address] [place] [address] Marine [employer] Technician: Jordan Aponte MD RBC (Bld) [#/Vol] 4.01 10*6/uL Low 4.21-5.77 [facility] Comment on above: Performed By: #### B MPX, CDP, DAVID, MG #### [facility] [employer] [address] [place] [address] Marine [employer] Technician: Jordan Aponte MD WBC (Bld) [#/Vol] 5.3 10*3/uL Normal 3.5-11.3 [facility] Comment on above: Performed By: #### B MPX, CDP, DAVID, MG #### [facility] [employer] [address] [place] [address] 19062 Marine [employer] Technician: Jordan Aponte MD Magnesiumon 06-25-2024 Magnesium [Mass/Vol] 1.9 mg/dL 1.6 - 2 .4 mg/dL [facility] Magnesium [Mass/Vol] 1.9 mg/dL Normal 1.6-2.4 [facility] Comment on above: Performed By: #### B MPX, CDP, DAVID, MG #### [employer] [address] [place] [address]98 Marine [employer] Technician: Jordan Aponte MD No Panel Informationon 06-25 Interpretation and review of laboratory results Abnormal [facility] Phosphoruson 06-25-2024 Phosphate [Mass/Vol] 2.4 mg/dL Low 2.5 - 4 .5 mg/dL [facility] Phosphorus, Inorg.on 024 Phosphorus, Inorg. 2.4 mg/dL Low 2.5-4.5 [facility] Comment on above: Performed By: #### B MPX, CDP, DAVID, MG #### [employer] [address] [place] [address]652 Marine [employer] Technician: Jordan Aponte MD Basic Metab w/rfx MGon 06-24 Anion gap [Moles/Vol] 9 mmol/L Normal 9-16 [facility] Comment on above: Performed By: #### B MPX, CDP, DAVID, MG #### [employer] [address] [place] [address] [employer] Technician: Jordan Aponte MD Calcium [Mass/Vol] 8.4 mg/dL Low 8.6-10.4 [facility] Comment on above: Performed By: #### B MPX, CDP, DAVID, MG #### [employer] [address] [place] [address] Marine [employer] Technician: Jordan Aponte MD Chloride [Moles/Vol] 105 mmol/L Normal 98-107 [facility] Comment on above: Performed By: #### B MPX, CDP, DAVID, MG #### [employer] [address] [place] [address] [phone] [employer] Technician: Jordan Aponte MD CO2 [Moles/Vol] 23 mmol/L Normal 20-31 [facility] Comment on above: Performed By: #### B MPX, CDP, DAVID, MG #### [facility] [place], [place] [phone] [employer] Technician: Jordan Aponte MD Creatinine [Mass/Vol] 0.9 mg/dL Normal 0.7-1.2 [facility] Comment on above: Performed By: #### B MPX, CDP, DAVID, MG #### [facility] [address] [place] [address] [phone] [employer] Technician: Jordan Aponte MD GFR/1.73 sq M.predicted among non-blacks MDRD (S/P/Bld) [Vol rate/Area] mL/min/{1.73_m2} Normal >60 [facility] Comment on above: Result Comment: These results [...] affects renal tubular secretion. Performed By: #### B MPX, CDP, DAVID, MG #### [facility] [place], [place] [phone] Marine [employer] Technician: Jordan Aponte MD Glucose [Mass/Vol] 105 mg/dL High 74-99 [facility] Comment on above: Performed By: #### B MPX, CDP, DAVID, MG #### [facility] [address] [place] [address] [phone] [employer] Technician: Jordan Aponte MD Potassium [Moles/Vol] 3.8 mmol/L Normal 3.7-5.3 [facility] Comment on above: Performed By: #### B MPX, CDP, DAVID, MG #### [facility] [address] [place], [place] [phone] Marine [employer] Technician: Jordan Aponte MD Sodium [Moles/Vol] 137 mmol/L Normal 136-145 [facility] Comment on above: Performed By: #### B MPX, CDP, DAVID, MG #### [facility] [address] [place], [place] [phone] Marine [employer] Technician: Jordan Aponte MD Urea nitrogen [Mass/Vol] 9 mg/dL Normal 8-23 [facility] Comment on above: Performed By: #### B MPX, CDP, DAVID, MG #### [facility] [address] [place], [place] [phone] [employer] Technician: Jordan Aponte MD Basic Metabolic Panel w/ Ref isaias to MGon 06-24-2024 Anion gap [Moles/Vol] 9 mmol/L 9 - 16 mmol/L [facility] [employer] Calcium [Mass/Vol] 8.4 mg/dL Low 8.6 - 10. 4 mg/dL [facility] Chloride [Moles/Vol] 105 mmol/L 98 - 10 7 mmol/L [facility] CO2 [Moles/Vol] 23 mmol/L 20 - 31 mmol/L [facility] Creatinine [Mass/Vol] 0.9 mg/dL 0.7 - 1.2 mg/dL [facility] Est, Glom Filt Rate - PINF [facility] Comment on above: These results are not [...] 105 mg/dL High 74 - 99 mg/dL [facility] [employer] Interpretation and review of laboratory results Abnormal [facility] [employer] Potassium [Moles/Vol] 3.8 mmol/L 3.7 - 5.3 mmol/L [facility] Sodium [Moles/Vol] 137 mmol/L 136 - 145 mmol/L [facility] Urea nitrogen [Mass/Vol] 9 mg/dL 8 - 23 mg/d L [facility] CBC with Auto Differentialon 06-24-2024 Basophils (Bld) [#/Vol] 0.04 10*3/uL [facility] Basophils/100 WBC (Bld) 1 % 0 - 2 % B on [facility] Eosinophils (Bld) [#/Vol] 0.08 10*3/uL [facility] Eosinophils/100 WBC (Bld) 1 % 1 - 4 % [facility] Erythrocyte distribution width (RBC) [Ratio] 11.3 % Low 11.8 - 14.4 % [facility] Hematocrit (Bld) [Volume fraction] 39.0 % Low 40.7 - 50.3 % [facility] Hemoglobin (Bld) [Mass/Vol] 13.0 g/dL 13.0 - 17.0 g/dL [facility] Immature granulocytes (Bld) [#/Vol] [facility] Immature granulocytes/100 WBC (Bld) 0 % [address] [facility] Interpretation and review of laboratory results Abnormal [facility] Lymphocytes/100 WBC (Bld) 15 % Low 24 - 43 % [facility] Lymphocytes/100 WBC (Bld) 1.02 % Low [facility] MCH (RBC) [Entitic mass] 31.6 pg 25. 2 - 33.[address] [facility] MCHC (RBC) [Mass/Vol] 33.3 g/dL 28.4 - 34.8 g/dL [facility] MCV (RBC) [Entitic vol] 94.9 fL 82.6 - 102.[address] [facility] Monocytes/100 WBC (Bld) 10 % 3 - 12 % B on [facility] Monocytes/100 WBC (Bld) 0.70 % B on [facility] Neutrophils/100 WBC (Bld) 73 % High 36 - 65 % [facility] Nucleated RBC/100 WBC (Bld) [Ratio] 0.0 % 0.0 per [address] [facility] Platelet mean volume (Bld) [Entitic vol] 9.8 fL 8.1 - 13.[address] [facility] Platelets (Bld) [#/Vol] 206 10*3/uL [facility] RBC (Bld) [#/Vol] 4.11 10*6/uL Low 4.21 - 5.7 7 m/uL [facility] Segmented neutrophils/100 WBC (Bld) 4.86 % [facility] WBC other (Bld) [#/Vol] 6.7 B on [facility] CBC with Diffon 06-24-2024 Abs. Basophil 0.04 k/uL Normal 0.00-0.20 [facility] Comment on above: Performed By: #### B MPX, CDP, DAVID, MG #### [facility] [employer] [address] [place] [address] [employer] Technician: Jordan Aponte MD Abs.Imm.Granulocyte <0.03 Normal 0.00-0.30 [facility] Comment on above: Performed By: #### B MPX, CDP, DAVID, MG #### [facility] [employer] [address] [place] [address] [employer] Technician: Jordan Aponte MD Abs.Neutrophil (Seg) 4.86 k/uL Normal 1.50-8.10 [facility] Comment on above: Performed By: #### B MPX, CDP, DAVID, MG #### [employer] [address] [place] [address] [employer] Technician: Jordan Aponte MD Basophils/100 WBC (Bld) 1 % Normal 0-2 M [facility] Comment on above: Performed By: #### B MPX, CDP, DAVID, MG #### [employer] [address] [place] [address] [employer] Technician: Jordan Aponte MD Eosinophils (Bld) [#/Vol] 0.08 10*3/uL Normal 0.00-0.44 [facility] Comment on above: Performed By: #### B MPX, CDP, DAVID, MG #### [address] [address] [employer] Technician: Jordan Aponte MD Eosinophils/100 WBC (Bld) 1 % Normal 1-4 [facility] Comment on above: Performed By: #### B MPX, CDP, DAVID, MG #### [place] [address] [employer] Technician: Jordan Aponte MD Erythrocyte distribution width (RBC) [Ratio] 11.3 % Low 11.8-14.4 [facility] Comment on above: Performed By: #### B MPX, CDP, DAVID, MG #### [place] [address] [employer] Technician: Jordan Aponte MD Hematocrit (Bld) [Volume fraction] 39.0 % Low 40.7-50.3 [facility] Comment on above: Performed By: #### B MPX, CDP, DAVID, MG #### [facility] [employer] [address] [place] [address] [employer] Technician: Jordan Aponte MD Hemoglobin (Bld) [Mass/Vol] 13.0 g/dL Normal 13.0-17.0 [facility] Comment on above: Performed By: #### B MPX, CDP, DAVID, MG #### [facility] [employer] [address] [place] [address] Marine [employer] Technician: Jordan Aponte MD Immature granulocytes/100 WBC (Bld) 0 % Normal 0 [facility] Comment on above: Performed By: #### B MPX, CDP, DAVID, MG #### [facility] [employer] [address] [place] [address] [employer] Technician: Jordan Aponte MD Lymphocytes (Bld) [#/Vol] 1.02 10*3/uL Low 1.10-3.70 [facility] Comment on above: Performed By: #### B MPX, CDP, DAVID, MG #### [address] [address] [employer] Technician: Jordan Aponte MD Lymphocytes/100 WBC (Bld) 15 % Low 24-43 [facility] Comment on above: Performed By: #### B MPX, CDP, DAVID, MG #### [place] [address] [employer] Technician: Jordan Aponte MD MCH (RBC) [Entitic mass] 31.6 pg Normal 25.2-33.5 [facility] Comment on above: Performed By: #### B MPX, CDP, DAVID, MG #### [place] [address] [employer] Technician: Jordan Aponte MD MCHC (RBC) [Mass/Vol] 33.3 g/dL Normal 28.4-34.8 [facility] Comment on above: Performed By: #### B MPX, CDP, DAVID, MG #### [place] [address] [employer] Technician: Jordan Aponte MD MCV (RBC) [Entitic vol] 94.9 fL Normal 82.6-102.9 M [facility] Comment on above: Performed By: #### B MPX, CDP, DAVID, MG #### [place] [address] [employer] Technician: Jordan Aponte MD Monocytes (Bld) [#/Vol] 0.70 10*3/uL Normal 0.10-1.20 [facility] Comment on above: Performed By: #### B MPX, CDP, DAVID, MG #### [address] [address] [employer] Technician: Jordan Aponte MD Monocytes/100 WBC (Bld) 10 % Normal 3-12 M [facility] Comment on above: Performed By: #### B MPX, CDP, DAVID, MG #### [address] [address] [employer] Technician: Jordan Aponte MD Neutrophil (Seg) 73 % High 36-65 [facility] Comment on above: Performed By: #### B MPX, CDP, DAVID, MG #### [address] [address] [employer] Technician: Jordan Aponte MD NRBC Automated 0.0 per 100 WBC Normal 0.0 [facility] Comment on above: Performed By: #### B MPX, CDP, DAVID, MG #### [address] [address] [employer] Technician: Jordan Aponte MD Platelet mean volume (Bld) [Entitic vol] 9.8 fL Normal 8.1-13.5 [facility] Comment on above: Performed By: #### B MPX, CDP, DAVID, MG #### [address] [address] [employer] Technician: Jordan Aponte MD Platelets (Bld) [#/Vol] 206 10*3/uL Normal 138-453 [facility] Comment on above: Performed By: #### B MPX, CDP, DAVID, MG #### [address] [address] [employer] Technician: Jordan Aponte MD RBC (Bld) [#/Vol] 4.11 10*6/uL Low 4.21-5.77 [facility] Comment on above: Performed By: #### B MPX, CDP, DAVID, MG #### [address] [address] [employer] Technician: Jordan Aponte MD WBC (Bld) [#/Vol] 6.7 10*3/uL Normal 3.5-11.3 [facility] Comment on above: Performed By: #### B MPX, CDP, DAVID, MG #### [facility] [employer] [address] [place] [address] [employer] Technician: Jordan Aponte MD MRA Head vessels WO and W co ntrast Jean Paul 06-24-2024 Unremarkable MRV of the head. [facility] EXAMINATION: MRV OF THE HEAD WITH [...] is better seen on the conventional angiogram. [facility] Yemi Deluna MD - 06/24/2024 EXAMINATION: MRV OF THE [...] angiogram. IMPRESSION: Unremarkable MRV of the head. [facility] Radiology Study observation (narrative) Kris [facility] MRV HEAD W WO CONTRASTon MRV HEAD [...] Yemi Deluna MD 06/24/24 Final result Normal [facility] Magnesiumon 06-24-2024 Magnesium [Mass/Vol] 1.9 mg/dL 1.6 - 2 .4 mg/dL [facility] Magnesium [Mass/Vol] 1.9 mg/dL Normal 1.6-2.4 [facility] Comment on above: Performed By: #### B MPX, CDP, DAVID, MG #### [employer] [address] [place] [address] [phone] [employer] Technician: Jordan Aponte MD No Panel Informationon 06-[address] [facility] Phosphoruson 06-24-2024 Phosphate [Mass/Vol] 2.5 mg/dL 2.5 - 4 .5 mg/dL [facility] Phosphorus, Inorg.on 024 Phosphorus, Inorg. 2.5 mg/dL Normal 2.5-4.5 [facility] Comment on above: Performed By: #### B MPX, CDP, DAVID, MG #### [employer] [address] [place] [phone] [employer] Technician: Jordan Aponte MD Basic Metab w/rfx MGon 06-23 Anion gap [Moles/Vol] 11 mmol/L Normal 9-16 [facility] Comment on above: Performed By: #### P HO, CDP, BMPX, MG #### [employer] [address] [place] [address] [phone] [employer] Technician: Jordan Aponte MD Calcium [Mass/Vol] 8.3 mg/dL Low 8.6-10.4 [facility] Comment on above: Performed By: #### P HO, CDP, BMPX, MG #### [employer] [address] [place] [address] [phone] [employer] Technician: Jordan Aponte MD Chloride [Moles/Vol] 103 mmol/L Normal 98-107 [facility] Comment on above: Performed By: #### P HO, CDP, BMPX, MG #### [employer] [address] [place] [address] [phone] [employer] Technician: Jordan Aponte MD CO2 [Moles/Vol] 22 mmol/L Normal 20-31 [facility] Comment on above: Performed By: #### P HO, CDP, BMPX, MG #### [employer] [address] [place] [address] [employer] Technician: Jordan Aponte MD Creatinine [Mass/Vol] 0.8 mg/dL Normal 0.7-1.2 [facility] Comment on above: Performed By: #### P HO, CDP, BMPX, MG #### [facility] [employer] [address] [place] [address] [employer] Technician: Jordan Aponte MD GFR/1.73 sq M.predicted among non-blacks MDRD (S/P/Bld) [Vol rate/Area] mL/min/{1.73_m2} Normal >60 [facility] Comment on above: Result Comment: These results [...] affects renal tubular secretion. Performed By: #### P HO, CDP, BMPX, MG #### [facility] [employer] [address] [place] [address] [employer] Technician: Jordan Aponte MD Glucose [Mass/Vol] 103 mg/dL High 74-99 [facility] Comment on above: Performed By: #### P HO, CDP, BMPX, MG #### [facility] [employer] [address] [place] [address] [employer] Technician: Jordan Aponte MD Potassium [Moles/Vol] 3.8 mmol/L Normal 3.7-5.3 [facility] Comment on above: Performed By: #### P HO, CDP, BMPX, MG #### [facility] [employer] [address] [place] [address] [employer] Technician: Jordan Aponte MD Sodium [Moles/Vol] 136 mmol/L Normal 136-145 [facility] Comment on above: Performed By: #### P HO, CDP, BMPX, MG #### [facility] [address] [place], [place] [phone] [employer] Technician: Jordan Aponte MD Urea nitrogen [Mass/Vol] 7 mg/dL Low 8-23 [facility] Comment on above: Performed By: #### P HO, CDP, BMPX, MG #### [facility] [address] [place], [place] [phone] [employer] Technician: Jordan Aponte MD Basic Metabolic Panel w/ Ref isaias to MGon 06-23-2024 Anion gap [Moles/Vol] 11 mmol/L 9 - 16 mmol/L [facility] Calcium [Mass/Vol] 8.3 mg/dL Low 8.6 - 10. 4 mg/dL [facility] Chloride [Moles/Vol] 103 mmol/L 98 - 10 7 mmol/L [facility] CO2 [Moles/Vol] 22 mmol/L 20 - 31 mmol/L [facility] Creatinine [Mass/Vol] 0.8 mg/dL 0.7 - 1.2 mg/dL [facility] Est, Glom Filt Rate - [facility] [employer] Comment on above: These results are not [...] 103 mg/dL High 74 - 99 mg/dL [facility] Interpretation and review of laboratory results Abnormal [facility] Potassium [Moles/Vol] 3.8 mmol/L 3.7 - 5.3 mmol/L [facility] Sodium [Moles/Vol] 136 mmol/L 136 - 145 mmol/L [facility] Urea nitrogen [Mass/Vol] 7 mg/dL Low 8 - 23 mg/d L [facility] CBC with Auto Differentialon 06-23-2024 Basophils (Bld) [#/Vol] 0.03 10*3/uL [facility] Basophils/100 WBC (Bld) 0 % 0 - 2 % B on [facility] Eosinophils (Bld) [#/Vol] 0.04 10*3/uL [facility] Eosinophils/100 WBC (Bld) 0 % Low 1 - 4 % [facility] Erythrocyte distribution width (RBC) [Ratio] 11.1 % Low 11.8 - 14.4 % [facility] Hematocrit (Bld) [Volume fraction] 39.7 % Low 40.7 - 50.3 % [facility] Hemoglobin (Bld) [Mass/Vol] 13.4 g/dL 13.0 - 17.0 g/dL [facility] Immature granulocytes (Bld) [#/Vol] 0.03 10*3/uL [facility] Immature granulocytes/100 WBC (Bld) 0 % [address] [facility] Interpretation and review of laboratory results Abnormal [facility] Lymphocytes/100 WBC (Bld) 13 % Low 24 - 43 % [facility] Lymphocytes/100 WBC (Bld) 1.23 % [facility] MCH (RBC) [Entitic mass] 32.0 pg 25. 2 - 33.[address] [facility] MCHC (RBC) [Mass/Vol] 33.8 g/dL 28.4 - 34.8 g/dL [facility] MCV (RBC) [Entitic vol] 94.7 fL 82.6 - 102.9 fL [facility] Monocytes/100 WBC (Bld) 8 % 3 - 12 % B on [facility] Monocytes/100 WBC (Bld) 0.78 % B on [facility] Neutrophils/100 WBC (Bld) 78 % High 36 - 65 % [facility] Nucleated RBC/100 WBC (Bld) [Ratio] 0.0 % 0.0 per [address] [facility] Platelet mean volume (Bld) [Entitic vol] 10.4 fL 8.1 - 13.[address] [facility] Platelets (Bld) [#/Vol] 214 10*3/uL [facility] RBC (Bld) [#/Vol] 4.19 10*6/uL Low 4.21 - 5.7 7 m/uL [facility] Segmented neutrophils/100 WBC (Bld) 7.50 % [facility] WBC other (Bld) [#/Vol] 9.6 B on [facility] CBC with Diffon 06-23-2024 Abs. Basophil 0.03 k/uL Normal 0.00-0.20 [facility] Comment on above: Performed By: #### P HO, CDP, BMPX, MG #### [facility] [employer] [address] [place] [address] [employer] Technician: Jordan Aponte MD Abs.Imm.Granulocyte 0.03 k/uL Normal 0.00-0.30 [facility] Comment on above: Performed By: #### P HO, CDP, BMPX, MG #### [facility] [employer] [address] [place] [address] [employer] Technician: Jordan Aponte MD Abs.Neutrophil (Seg) 7.50 k/uL Normal 1.50-8.10 [facility] Comment on above: Performed By: #### P HO, CDP, BMPX, MG #### [facility] [address] [place] [address] [employer] Technician: Jordan Aponte MD Basophils/100 WBC (Bld) 0 % Normal 0-2 M [facility] Comment on above: Performed By: #### P HO, CDP, BMPX, MG #### [facility] [employer] [address] [place] [address] [employer] Technician: Jordan Aponte MD Eosinophils (Bld) [#/Vol] 0.04 10*3/uL Normal 0.00-0.44 [facility] Comment on above: Performed By: #### P HO, CDP, BMPX, MG #### [facility] [employer] [address] [place] [address] [employer] Technician: Jordan Aponte MD Eosinophils/100 WBC (Bld) 0 % Low 1-4 [facility] Comment on above: Performed By: #### P HO, CDP, BMPX, MG #### [facility] [address] [place] [address] [employer] Technician: Jordan Aponte MD Erythrocyte distribution width (RBC) [Ratio] 11.1 % Low 11.8-14.4 [facility] Comment on above: Performed By: #### P HO, CDP, BMPX, MG #### [facility] [address] [place] [address] Marine [employer] Technician: Jordan Aponte MD Hematocrit (Bld) [Volume fraction] 39.7 % Low 40.7-50.3 [facility] Comment on above: Performed By: #### P HO, CDP, BMPX, MG #### [facility] [employer] [address] [place] [address] Marine [employer] Technician: Jordan Aponte MD Hemoglobin (Bld) [Mass/Vol] 13.4 g/dL Normal 13.0-17.0 [facility] Comment on above: Performed By: #### P HO, CDP, BMPX, MG #### [facility] [address] [place] [address] Marine [employer] Technician: Jordan Aponte MD Immature granulocytes/100 WBC (Bld) 0 % Normal 0 [facility] Comment on above: Performed By: #### P HO, CDP, BMPX, MG #### [facility] [address] [place] [address] Marine [employer] Technician: Jordan Aponte MD Lymphocytes (Bld) [#/Vol] 1.23 10*3/uL Normal 1.10-3.70 [facility] Comment on above: Performed By: #### P HO, CDP, BMPX, MG #### [facility] [employer] [address] [place] [address] Marine [employer] Technician: Jordan Aponte MD Lymphocytes/100 WBC (Bld) 13 % Low 24-43 [facility] Comment on above: Performed By: #### P HO, CDP, BMPX, MG #### [address] [address] [employer] Technician: Jordan Aponte MD MCH (RBC) [Entitic mass] 32.0 pg Normal 25.2-33.5 [facility] Comment on above: Performed By: #### P HO, CDP, BMPX, MG #### [address] [address] [employer] Technician: Jordan Aponte MD MCHC (RBC) [Mass/Vol] 33.8 g/dL Normal 28.4-34.8 [facility] Comment on above: Performed By: #### P HO, CDP, BMPX, MG #### [address] [address] [employer] Technician: Jordan Aponte MD MCV (RBC) [Entitic vol] 94.7 fL Normal 82.6-102.9 [facility] Comment on above: Performed By: #### P HO, CDP, BMPX, MG #### [address] [address] [employer] Technician: Jordan Aponte MD Monocytes (Bld) [#/Vol] 0.78 10*3/uL Normal 0.10-1.20 [facility] Comment on above: Performed By: #### P HO, CDP, BMPX, MG #### [address] [address] [employer] Technician: Jordan Aponte MD Monocytes/100 WBC (Bld) 8 % Normal 3-12 M [facility] Comment on above: Performed By: #### P HO, CDP, BMPX, MG #### [address] [place] [address] [employer] Technician: Jordan Aponte MD Neutrophil (Seg) 78 % High 36-65 [facility] Comment on above: Performed By: #### P HO, CDP, BMPX, MG #### [facility] [address] [place] [address] [employer] Technician: Jordan Aponte MD NRBC Automated 0.0 per 100 WBC Normal 0.0 [facility] Comment on above: Performed By: #### P HO, CDP, BMPX, MG #### [facility] [address] [place] [address] [employer] Technician: Jordan Aponte MD Platelet mean volume (Bld) [Entitic vol] 10.4 fL Normal 8.1-13.5 [facility] Comment on above: Performed By: #### P HO, CDP, BMPX, MG #### [facility] [employer] [address] [place] [address] [employer] Technician: Jordan Aponte MD Platelets (Bld) [#/Vol] 214 10*3/uL Normal 138-453 [facility] Comment on above: Performed By: #### P HO, CDP, BMPX, MG #### [facility] [employer] [address] [place] [address] [employer] Technician: Jordan Aponte MD RBC (Bld) [#/Vol] 4.19 10*6/uL Low 4.21-5.77 [facility] Comment on above: Performed By: #### P HO, CDP, BMPX, MG #### [facility] [employer] [address] [place] [address] [employer] Technician: Jordan Aponte MD WBC (Bld) [#/Vol] 9.6 10*3/uL Normal 3.5-11.3 [facility] Comment on above: Performed By: #### P HO, CDP, BMPX, MG #### [employer] [address] [place] [address] [employer] Technician: Jordan Aponte MD CT HEAD WO CONTRASTon [...] Moderate amount of new subarachnoid pneumocephalus. Improved awnyc-qa-qgwb midline shift now measuring 4 mm. Interpreted by: Yemi Deluna MD Signed by: Yemi Deluna MD 06/23/24 Final result Normal [facility] CT Head WO contraston 2023 Diminished size of now 11 mm thick right subdural collection. Moderate amount of new subarachnoid pneumocephalus. Improved aegmk-yr-pbwj midline shift now measuring 4 mm. [facility]IS CONSOLIDATED EXAMINATION: CT OF THE HEAD WITHOUT [...] and right parietal steve holes are new. [facility] Yemi Abraham MD - 06/23/2024 EXAMINATION: CT OF THE [...] Moderate amount of new subarachnoid pneumocephalus. Improved kgjgs-sn-gemk midline shift now measuring [address] [facility] Radiology Study observation (narrative) [facility] CT Head WO contrastOrdered B y: Yemi Deluna on 06-23-[address] [facility] Work Phone: Magnesiumon 06-23-2024 Magnesium [Mass/Vol] 1.7 mg/dL 1.6 - 2 .4 mg/dL [facility] Magnesium [Mass/Vol] 1.7 mg/dL Normal 1.6-2.4 [facility] Comment on above: Performed By: #### P HO, CDP, BMPX, MG #### [employer] [address] [place] [address] [phone] [employer] Technician: Jordan Aponte MD No Panel Informationon 06-[address] [facility] Phosphoruson 06-23-2024 Phosphate [Mass/Vol] 3.3 mg/dL 2.5 - 4 .5 mg/dL [facility] Phosphorus, Inorg.on 024 Phosphorus, Inorg. 3.3 mg/dL Normal 2.5-4.5 [facility] Comment on above: Performed By: #### P HO, CDP, BMPX, MG #### [facility] [address] [place] [address] [employer] Technician: Jordan Aponte MD APTTon 06-22-2024 aPTT Coag (Bld) [Time] 26.0 s [facility] Comment on above: IV Heparin Therapy Range: 66.0-92.0 sec aPTT Coag (Bld) [Time] 26.0 s Normal 23.0-36.5 [facility] Comment on above: Result Comment: IV Heparin Therapy Range: 66.0-92.0 sec Performed By: #### B MPX, CDP, DAVID, MG #### [employer] [address] [place] [address] [employer] Technician: Jordan Aponte MD Basic Metab w/rfx MGon 06-22 Anion gap [Moles/Vol] 9 mmol/L Normal 9-16 [facility] Comment on above: Performed By: #### B MPX, CDP, DAVID, MG #### [facility] [place] [address] [employer] Technician: Jordan Aponte MD Calcium [Mass/Vol] 8.2 mg/dL Low 8.6-10.4 [facility] Comment on above: Performed By: #### B MPX, CDP, DAVID, MG #### [facility] [employer] [address] [place] [address] [employer] Technician: Jordan Aponte MD Chloride [Moles/Vol] 106 mmol/L Normal 98-107 [facility] Comment on above: Performed By: #### B MPX, CDP, DAVID, MG #### [facility] [employer] [address] [place] [address] [employer] Technician: Jordan Aponte MD CO2 [Moles/Vol] 23 mmol/L Normal 20-31 [facility] Comment on above: Performed By: #### B MPX, CDP, DAVID, MG #### [facility] [employer] [address] [place] [address] [employer] Technician: Jordan Aponte MD Creatinine [Mass/Vol] 0.9 mg/dL Normal 0.7-1.2 [facility] Comment on above: Performed By: #### B MPX, CDP, DAVID, MG #### [facility] [employer] [address] [place] [address] [phone] [employer] Technician: Jordan Aponte MD GFR/1.73 sq M.predicted among non-blacks MDRD (S/P/Bld) [Vol rate/Area] mL/min/{1.73_m2} Normal >60 [facility] Comment on above: Result Comment: These results [...] affects renal tubular secretion. Performed By: #### B MPX, CDP, DAVID, MG #### [facility] [place] [address] [employer] Technician: Jordan Aponte MD Glucose [Mass/Vol] 105 mg/dL High 74-99 [facility] Comment on above: Performed By: #### B MPX, CDP, DAVID, MG #### [facility] [address] [place] [address] [employer] Technician: Jordan Aponte MD Potassium [Moles/Vol] 4.0 mmol/L Normal 3.7-5.3 [facility] Comment on above: Performed By: #### B MPX, CDP, DAVID, MG #### [facility] [address] [place] [address] [employer] Technician: Jordan Aponte MD Sodium [Moles/Vol] 138 mmol/L Normal 136-145 [facility] Comment on above: Performed By: #### B MPX, CDP, DAVID, MG #### [facility] [address] [place] [address] [employer] Technician: Jordan Aponte MD Urea nitrogen [Mass/Vol] 10 mg/dL Normal 8-23 [facility] Comment on above: Performed By: #### B MPX, CDP, DAVID, MG #### [facility] [address] [place] [address] [employer] Technician: Jordan Aponte MD Basic Metabolic Panelon 11-1 Anion gap [Moles/Vol] 13 mmol/L 9 - 16 mmol/L [facility] Calcium [Mass/Vol] 8.9 mg/dL 8.6 - 10. 4 mg/dL [facility] Chloride [Moles/Vol] 104 mmol/L 98 - 10 7 mmol/L [facility] [facility] CO2 [Moles/Vol] 21 mmol/L 20 - 31 mmol/L [facility] Creatinine [Mass/Vol] 0.9 mg/dL 0.7 - 1.2 mg/dL [facility] Est, Dencie Pagankatelyn Rate - PINF [facility] Comment on above: These results are not intended for use in patients <18 years of age. eGFR results are calculated without a race factor using the 202 CKD-EPI equation. Careful clinical correlation is recommended, particularly when comparing to results calculated using previous equations. The CKD-EPI equation is less accurate in patients with extremes of muscle mass, extra-renal metabolism of creatine, excessive creatine ingestion, or following therapy that affects renal tubular secretion. Glucose [Mass/Vol] 133 mg/dL High 74 - 99 mg/dL [facility] Interpretation and review of laboratory results Abnormal [facility] Potassium [Moles/Vol] 3.8 mmol/L 3.7 - 5.3 mmol/L [facility] Sodium [Moles/Vol] 138 mmol/L 136 - 145 mmol/L [facility] Urea nitrogen [Mass/Vol] 6 mg/dL Low 8 - 23 mg/d L [facility] Basic Metabolic Panel w/ Ref isaias to MGon 06-22-2024 Anion gap [Moles/Vol] 9 mmol/L 9 - 16 mmol/L [facility] Calcium [Mass/Vol] 8.2 mg/dL Low 8.6 - 10. 4 mg/dL [facility] Chloride [Moles/Vol] 106 mmol/L 98 - 10 7 mmol/L [facility] CO2 [Moles/Vol] 23 mmol/L 20 - 31 mmol/L [facility] Creatinine [Mass/Vol] 0.9 mg/dL 0.7 - 1.2 mg/dL [facility] Est, Denice Alcala Rate - PINF [facility] Comment on above: These results are [...] 105 mg/dL High 74 - 99 mg/dL [facility] Interpretation and review of laboratory results Abnormal [facility] Potassium [Moles/Vol] 4.0 mmol/L 3.7 - 5.3 mmol/L [facility] Sodium [Moles/Vol] 138 mmol/L 136 - 145 mmol/L [facility] Urea nitrogen [Mass/Vol] 10 mg/dL 8 - 23 mg/d L [facility] Basic Metabolic Profon 06-22 Anion gap [Moles/Vol] 13 mmol/L Normal 9-16 [facility] Comment on above: Performed By: #### B MPX, CDP, DAVID, MG #### [facility] [address] [place] [address] [employer] Technician: Jordan Aponte MD Calcium [Mass/Vol] 8.9 mg/dL Normal 8.6-10.4 [facility] Comment on above: Performed By: #### B MPX, CDP, DAVID, MG #### [facility] [employer] [address] [place] [address] [employer] Technician: Jordan Aponte MD Chloride [Moles/Vol] 104 mmol/L Normal 98-107 [facility] Comment on above: Performed By: #### B MPX, CDP, DAVID, MG #### [facility] [address] [place] [address] [employer] Technician: Jordan Aponte MD CO2 [Moles/Vol] 21 mmol/L Normal 20-31 [facility] Comment on above: Performed By: #### B MPX, CDP, DAVID, MG #### [facility] [address] [place] [address] [employer] Technician: Jordan Aponte MD Creatinine [Mass/Vol] 0.9 mg/dL Normal 0.7-1.2 [facility] Comment on above: Performed By: #### B MPX, CDP, DAVID, MG #### [facility] [employer] [address] [place] [address]18 [employer] Technician: Jordan Aponte MD GFR/1.73 sq M.predicted among non-blacks MDRD (S/P/Bld) [Vol rate/Area] mL/min/{1.73_m2} Normal >60 [facility] Comment on above: Result Comment: These results [...] affects renal tubular secretion. Performed By: #### B MPX, CDP, DAVID, MG #### [facility] [address] [place] [address] 11051 [employer] Technician: Jordan Aponte MD Glucose [Mass/Vol] 133 mg/dL High 74-99 [facility] Comment on above: Performed By: #### B MPX, CDP, DAVID, MG #### [facility] [address] [place] [address]284 [employer] Technician: Jordan Aponte MD Potassium [Moles/Vol] 3.8 mmol/L Normal 3.7-5.3 [facility] Comment on above: Performed By: #### B MPX, CDP, DAVID, MG #### [facility] [address] [place] [address] [employer] Technician: Jordan Aponte MD Sodium [Moles/Vol] 138 mmol/L Normal 136-145 [facility] Comment on above: Performed By: #### B MPX, CDP, DAVID, MG #### [facility] [address] [place] [address] 56096 [employer] Technician: Jordan Aponte MD Urea nitrogen [Mass/Vol] 6 mg/dL Low 8-23 [facility] Comment on above: Performed By: #### B MPX, CDP, DAVID, MG #### [facility] [address] [place] [address] [phone] [employer] Technician: Jodran Aponte MD CBCon 06-22-2024 Erythrocyte distribution width (RBC) [Ratio] 11.3 % Low 11.8 - 14.4 % [facility] Hematocrit (Bld) [Volume fraction] 41.9 % 40.7 - 50.3 % [facility] Hemoglobin (Bld) [Mass/Vol] 14.1 g/dL 13.0 - 17.0 g/dL [facility] Interpretation and review of laboratory results Abnormal [facility] MCH (RBC) [Entitic mass] 32.0 pg 25. 2 - 33.[address] [facility] MCHC (RBC) [Mass/Vol] 33.7 g/dL 28.4 - 34.8 g/dL [facility] MCV (RBC) [Entitic vol] 95.0 fL 82.6 - 102.[address] [facility] Nucleated RBC/100 WBC (Bld) [Ratio] 0.0 % 0.0 per [address] [facility] Platelet mean volume (Bld) [Entitic vol] 10.1 fL 8.1 - 13.[address] [facility] Platelets (Bld) [#/Vol] 224 10*3/uL [facility] RBC (Bld) [#/Vol] 4.41 10*6/uL 4.21 - 5.7 7 m/uL [facility] WBC other (Bld) [#/Vol] 5.[address] [facility] Erythrocyte distribution width (RBC) [Ratio] 11.3 % Low 11.8-14.4 [facility] Comment on above: Performed By: #### P HO, CDP, BMPX, MG #### [facility] [address] [place], [place] [phone] [employer] Technician: Jordan Aponte MD Hematocrit (Bld) [Volume fraction] 41.9 % Normal 40.7-50.3 [facility] Comment on above: Performed By: #### P HO, CDP, BMPX, MG #### [address] [address] [employer] Technician: Jordan Aponte MD Hemoglobin (Bld) [Mass/Vol] 14.1 g/dL Normal 13.0-17.0 [facility] Comment on above: Performed By: #### P HO, CDP, BMPX, MG #### [address] [address] [employer] Technician: Jordan Aponte MD MCH (RBC) [Entitic mass] 32.0 pg Normal 25.2-33.5 [facility] Comment on above: Performed By: #### P HO, CDP, BMPX, MG #### [address] [address] [employer] Technician: Jordan Aponte MD MCHC (RBC) [Mass/Vol] 33.7 g/dL Normal 28.4-34.8 [facility] Comment on above: Performed By: #### P HO, CDP, BMPX, MG #### [address] [address] [employer] Technician: Jordan Aponte MD MCV (RBC) [Entitic vol] 95.0 fL Normal 82.6-102.9 M [facility] Comment on above: Performed By: #### P HO, CDP, BMPX, MG #### [address] [address] [employer] Technician: Jordan Aponte MD NRBC Automated 0.0 per 100 WBC Normal 0.0 [facility] Comment on above: Performed By: #### P HO, CDP, BMPX, MG #### [facility] [employer] [address] [place] [address] [employer] Technician: Jordan Aponte MD Platelet mean volume (Bld) [Entitic vol] 10.1 fL Normal 8.1-13.5 [facility] Comment on above: Performed By: #### P HO, CDP, BMPX, MG #### [facility] [address] [place] [address] Marine [employer] Technician: Jordan Aponte MD Platelets (Bld) [#/Vol] 224 10*3/uL Normal 138-453 [facility] Comment on above: Performed By: #### P HO, CDP, BMPX, MG #### [facility] [address] [place] [address] Marine [employer] Technician: Jordan Aponte MD RBC (Bld) [#/Vol] 4.41 10*6/uL Normal 4.21-5.77 [facility] Comment on above: Performed By: #### P HO, CDP, BMPX, MG #### [facility] [address] [place] [address] Marine [employer] Technician: Jordan Aponte MD WBC (Bld) [#/Vol] 5.9 10*3/uL Normal 3.5-11.3 [facility] Comment on above: Performed By: #### P HO, CDP, BMPX, MG #### [facility] [address] [place] [address] Marine [employer] Technician: Jordan Aponte MD CBC with Auto Differentialon 06-22-2024 Basophils (Bld) [#/Vol] 0.05 10*3/uL [facility] Basophils/100 WBC (Bld) 1 % 0 - 2 % [facility] Eosinophils (Bld) [#/Vol] 0.21 10*3/uL [facility] Eosinophils/100 WBC (Bld) 5 % High 1 - 4 % [facility] [employer] Erythrocyte distribution width (RBC) [Ratio] 11.5 % Low 11.8 - 14.4 % [facility] Hematocrit (Bld) [Volume fraction] 38.7 % Low 40.7 - 50.3 % [facility] Hemoglobin (Bld) [Mass/Vol] 13.1 g/dL 13.0 - 17.0 g/dL [facility] Immature granulocytes (Bld) [#/Vol] [facility] Immature granulocytes/100 WBC (Bld) 0 % [address] [facility] Interpretation and review of laboratory results Abnormal Bon [facility] Lymphocytes/100 WBC (Bld) 22 % Low 24 - 43 % [facility] Lymphocytes/100 WBC (Bld) 0.89 % Low [facility] MCH (RBC) [Entitic mass] 31.8 pg 25. 2 - 33.[address] [facility] MCHC (RBC) [Mass/Vol] 33.9 g/dL 28.4 - 34.8 g/dL [facility] MCV (RBC) [Entitic vol] 93.9 fL 82.6 - 102.[address] [facility] Monocytes/100 WBC (Bld) 11 % 3 - 12 % B on [facility] Monocytes/100 WBC (Bld) 0.45 % B on [facility] Neutrophils/100 WBC (Bld) 61 % 36 - 65 % [facility] Nucleated RBC/100 WBC (Bld) [Ratio] 0.0 % 0.0 per [address] [facility] Platelet mean volume (Bld) [Entitic vol] 10.1 fL 8.1 - 13.[address] [facility] Platelets (Bld) [#/Vol] 217 10*3/uL [facility] RBC (Bld) [#/Vol] 4.12 10*6/uL Low 4.21 - 5.7 7 m/uL [facility] Segmented neutrophils/100 WBC (Bld) 2.49 % [facility] WBC other (Bld) [#/Vol] 4.1 B on [facility] CBC with Diffon 06-22-2024 Abs. Basophil 0.05 k/uL Normal 0.00-0.20 [facility] Comment on above: Performed By: #### B MPX, CDP, DAVID, MG #### [facility] [address] [place] [address] Marine [employer] Technician: Jordan Aponte MD Abs.Imm.Granulocyte <0.03 Normal 0.00-0.30 [facility] Comment on above: Performed By: #### B MPX, CDP, DAVID, MG #### [address] [address] [employer] Technician: Jordan Aponte MD Abs.Neutrophil (Seg) 2.49 k/uL Normal 1.50-8.10 [facility] Comment on above: Performed By: #### B MPX, CDP, DAVID, MG #### [facility] [employer] [address] [place] [address] Marine [employer] Technician: Jordan Aponte MD Basophils/100 WBC (Bld) 1 % Normal 0-2 [facility] Comment on above: Performed By: #### B MPX, CDP, DAVID, MG #### [place] [address] [employer] Technician: Jordan Aponte MD Eosinophils (Bld) [#/Vol] 0.21 10*3/uL Normal 0.00-0.44 [facility] Comment on above: Performed By: #### B MPX, CDP, DAVID, MG #### [place] [address] [employer] Technician: Jordan Aponte MD Eosinophils/100 WBC (Bld) 5 % High 1-4 [facility] Comment on above: Performed By: #### B MPX, CDP, DAVID, MG #### [facility] [employer] [address] [place] [address] Marine [employer] Technician: Jordan Aponte MD Erythrocyte distribution width (RBC) [Ratio] 11.5 % Low 11.8-14.4 [facility] Comment on above: Performed By: #### B MPX, CDP, DAVID, MG #### [facility] [employer] [address] [place] [address] [employer] Technician: Jordan Aponte MD Hematocrit (Bld) [Volume fraction] 38.7 % Low 40.7-50.3 [facility] Comment on above: Performed By: #### B MPX, CDP, DAVID, MG #### [address] [address] [employer] Technician: Jordan Aponte MD Hemoglobin (Bld) [Mass/Vol] 13.1 g/dL Normal 13.0-17.0 [facility] Comment on above: Performed By: #### B MPX, CDP, DAVID, MG #### [facility] [employer] [address] [place] [address] [employer] Technician: Jordan Aponte MD Immature granulocytes/100 WBC (Bld) 0 % Normal 0 [facility] Comment on above: Performed By: #### B MPX, CDP, DAVID, MG #### [address] [address] [employer] Technician: Jordan Aponte MD Lymphocytes (Bld) [#/Vol] 0.89 10*3/uL Low 1.10-3.70 [facility] Comment on above: Performed By: #### B MPX, CDP, DAVID, MG #### [address] [address] [employer] Technician: Jordan Aponte MD Lymphocytes/100 WBC (Bld) 22 % Low 24-43 [facility] Comment on above: Performed By: #### B MPX, CDP, DAVID, MG #### [facility] [employer] [address] [place] [address] Marine [employer] Technician: Jordan Aponte MD MCH (RBC) [Entitic mass] 31.8 pg Normal 25.2-33.5 [facility] Comment on above: Performed By: #### B MPX, CDP, DAVID, MG #### [facility] [employer] [address] [place] [address] [employer] Technician: Jordan Aponte MD MCHC (RBC) [Mass/Vol] 33.9 g/dL Normal 28.4-34.8 [facility] Comment on above: Performed By: #### B MPX, CDP, DAVID, MG #### [address] [address] [employer] Technician: Jordan Aponte MD MCV (RBC) [Entitic vol] 93.9 fL Normal 82.6-102.9 [facility] Comment on above: Performed By: #### B MPX, CDP, DAVID, MG #### [place] [address] [employer] Technician: Jordan Aponte MD Monocytes (Bld) [#/Vol] 0.45 10*3/uL Normal 0.10-1.20 [facility] Comment on above: Performed By: #### B MPX, CDP, DAVID, MG #### [place] [address] Marine [employer] Technician: Jordan Aponte MD Monocytes/100 WBC (Bld) 11 % Normal 3-12 M [facility] Comment on above: Performed By: #### B MPX, CDP, DAVID, MG #### [address] [address] Marine [employer] Technician: Jordan Aponte MD Neutrophil (Seg) 61 % Normal 36-65 [facility] Comment on above: Performed By: #### B MPX, CDP, DAVID, MG #### [place] [address] Marine [employer] Technician: Jordan Aponte MD NRBC Automated 0.0 per 100 WBC Normal 0.0 [facility] Comment on above: Performed By: #### B MPX, CDP, DAVID, MG #### [address] [address] [employer] Technician: Jordan Aponte MD Platelet mean volume (Bld) [Entitic vol] 10.1 fL Normal 8.1-13.5 [facility] Comment on above: Performed By: #### B MPX, CDP, DAVID, MG #### [facility] [address] [place] [address] Marine [employer] Technician: Jordan Aponte MD Platelets (Bld) [#/Vol] 217 10*3/uL Normal 138-453 [facility] Comment on above: Performed By: #### B MPX, CDP, DAVID, MG #### [facility] [address] [place] [address] Marine Electronics Technician: Jordan Aponte MD RBC (Bld) [#/Vol] 4.12 10*6/uL Low 4.21-5.77 [facility] Comment on above: Performed By: #### B MPX, CDP, DAVID, MG #### [facility] [address] [place] [address] Marine [employer] Technician: Jordan Aponte MD WBC (Bld) [#/Vol] 4.1 10*3/uL Normal 3.5-11.3 [facility] Comment on above: Performed By: #### B MPX, CDP, DAVID, MG #### [facility] [address] [place] [address] Marine Electronics Technician: Jordan Aponte MD EKG 12 LeadOrdered By: Jaime Alas on 06-22-2024 Atrial Rate 76 BPM [employer] Phone: P [place] 42 degrees [employer] Phone: P-R Interval 134 ms [employer] Phone: Q-T Interval 406 ms [employer] Phone: QRS Duration 86 ms [employer] Phone: QTc Calculation (Bazett) 456 ms [employer] Phone: R [place] 10 degrees [employer] Phone: T [place] 29 degrees [facility] [employer] Work Phone: Ventricular Rate 76 BPM [facility] [employer] Work Phone: [facility] Work Phone: EKG 12 Leadon 06-22-2024 Normal sinus rhythm Normal ECG No previous ECGs available [facility] Jaime Newsome MD - 06/22/2024 Normal sinus rhythm Normal ECG No previous ECGs available [facility] Magnesiumon 06-22-2024 Magnesium [Mass/Vol] 1.9 mg/dL 1.6 - 2 .4 mg/dL [facility] Magnesium [Mass/Vol] 1.9 mg/dL Normal 1.6-2.4 [facility] Comment on above: Performed By: #### B MPX, CDP, DAVID, MG #### [facility] [address] [place] [address] [phone] Marine [employer] Technician: Jordan Aponte MD Magnesium [Mass/Vol] 1.9 mg/dL 1.6 - 2 .4 mg/dL [facility] Magnesium [Mass/Vol] 1.9 mg/dL Normal 1.6-2.4 [facility] Comment on above: Performed By: #### B MPX, CDP, DAVID, MG #### [facility] [address] [place] [address] [phone] [employer] Technician: Jordan Aponte MD No Panel Informationon 06-22 [facility] PTon 06-22-2024 INR Coag (PPP) [Relative time] 1.0 {INR} Normal [facility] Comment on above: Result Comment: Therapeutic Range: Moderate Anticoagulant Intensity: INR = 2.0-3.0 High Anticoagulant Intensity: INR = 2.5-3.5 Performed By: #### B MPX, CDP, DAVID, MG #### [facility] [address] [place] [address] [employer] Technician: Jordan Aponte MD PT Coag (PPP) [Time] 13.4 s Normal 11.7-14.9 [facility] Comment on above: Performed By: #### B MPX, CDP, DAVID, MG #### [facility] [address] [place] [address] [phone] [employer] Technician: Jordan Aponte MD Phosphoruson 06-22-2024 Phosphate [Mass/Vol] 3.2 mg/dL 2.5 - 4 .5 mg/dL [facility] Phosphate [Mass/Vol] 3.0 mg/dL 2.5 - 4 .5 mg/dL [facility] Phosphorus, Inorg.on 024 Phosphorus, Inorg. 3.2 mg/dL Normal 2.5-4.5 [facility] Comment on above: Performed By: #### B MPX, CDP, DAVID, MG #### [facility] [address] [place] [address] [phone] [employer] Technician: Jordan Aponte MD Phosphorus, Inorg. 3.0 mg/dL Normal 2.5-4.5 [facility] Comment on above: Performed By: #### B MPX, CDP, DAVID, MG #### [employer] [address] [place] [address] [phone] [employer] Technician: Jordan Aponte MD Protime-INRon 06-22-2024 INR Coag (PPP) [Relative time] 1.0 {INR} [facility] Comment on above: Therapeutic Range: Moderate Anticoagulant Intensity: INR = 2.0-3.0 High Anticoagulant Intensity: INR = 2.5-3.5 PT Coag (PPP) [Time] 13.[address] [facility] APTTon 06-21-2024 aPTT Coag (Bld) [Time] 24.8 s [facility] Comment on above: IV Heparin Therapy Range: 66.0-92.0 sec aPTT Coag (Bld) [Time] 24.8 s Normal 23.0-36.5 [facility] Comment on above: Result Comment: IV Heparin Therapy Range: 66.0-92.0 sec Performed By: #### B MPX, CDP, DAVID, MG #### [facility] [address] [place] [address] [employer] Technician: Jordan Aponte MD BLOOD BANK SPECIMENon 2023 [facility] Basic Metab w/rfx MGon 06-21 Anion gap [Moles/Vol] 10 mmol/L Normal 9-16 [facility] Comment on above: Performed By: #### B MPX, CDP, DAVID, MG #### [facility] [employer] [address] [place] [address] Marine [employer] Technician: Jordan Aponte MD Calcium [Mass/Vol] 8.9 mg/dL Normal 8.6-10.4 [facility] Comment on above: Performed By: #### B MPX, CDP, DAVID, MG #### [facility] [employer] [address] [place] [address] Marine [employer] Technician: Jordan Aponte MD Chloride [Moles/Vol] 105 mmol/L Normal 98-107 [facility] Comment on above: Performed By: #### B MPX, CDP, DAVID, MG #### [facility] [address] [place] [address] [employer] Technician: Jordan Aponte MD CO2 [Moles/Vol] 24 mmol/L Normal 20-31 [facility] Comment on above: Performed By: #### B MPX, CDP, DAVID, MG #### [facility] [address] [place] [address] [employer] Technician: Jordan Aponte MD Creatinine [Mass/Vol] 0.8 mg/dL Normal 0.7-1.2 [facility] Comment on above: Performed By: #### B MPX, CDP, DAVID, MG #### [facility] [address] [place] [address] [phone] [employer] Technician: Joradn Aponte MD GFR/1.73 sq M.predicted among non-blacks MDRD (S/P/Bld) [Vol rate/Area] mL/min/{1.73_m2} Normal >60 [facility] Comment on above: Result Comment: These results [...] affects renal tubular secretion. Performed By: #### B MPX, CDP, DAVID, MG #### [facility] [address] [place] [address] Marine [employer] Technician: Jordan Aponte MD Glucose [Mass/Vol] 106 mg/dL High 74-99 [facility] Comment on above: Performed By: #### B MPX, CDP, DAVID, MG #### [facility] [address] [place] [address] [employer] Technician: Jordan Aponte MD Potassium [Moles/Vol] 3.9 mmol/L Normal 3.7-5.3 [facility] Comment on above: Performed By: #### B MPX, CDP, DAVID, MG #### [facility] [address] [place] [address] [employer] Technician: Jordan Aponte MD Sodium [Moles/Vol] 139 mmol/L Normal 136-145 [facility] Comment on above: Performed By: #### B MPX, CDP, DAVID, MG #### [facility] [address] [place] [address] [employer] Technician: Jordan Aponte MD Urea nitrogen [Mass/Vol] 7 mg/dL Low 8-23 [facility] Comment on above: Performed By: #### B MPX, CDP, DAVID, MG #### [facility] [address] [place] [address] [employer] Technician: Jordan Aponte MD Basic Metabolic Panel w/ Ref isaias to MGon 06-21-2024 Anion gap [Moles/Vol] 10 mmol/L 9 - 16 mmol/L [facility] Calcium [Mass/Vol] 8.9 mg/dL 8.6 - 10. 4 mg/dL [facility] Chloride [Moles/Vol] 105 mmol/L 98 - 10 7 mmol/L [facility] CO2 [Moles/Vol] 24 mmol/L 20 - 31 mmol/L [facility] Creatinine [Mass/Vol] 0.8 mg/dL 0.7 - 1.2 mg/dL [facility] Est, Denice Pagankatelyn Rate - PINF [facility] Comment on above: These results are [...] 106 mg/dL High 74 - 99 mg/dL [facility] Interpretation and review of laboratory results Abnormal [facility] Potassium [Moles/Vol] 3.9 mmol/L 3.7 - 5.3 mmol/L [facility] Sodium [Moles/Vol] 139 mmol/L 136 - 145 mmol/L [facility] Urea nitrogen [Mass/Vol] 7 mg/dL Low 8 - 23 mg/d L [facility] CBC with Auto Differentialon 06-21-2024 Basophils (Bld) [#/Vol] 0.05 10*3/uL [facility] Basophils/100 WBC (Bld) 1 % 0 - 2 % B [facility] Eosinophils (Bld) [#/Vol] 0.22 10*3/uL [facility] Eosinophils/100 WBC (Bld) 5 % High 1 - 4 % [facility] Erythrocyte distribution width (RBC) [Ratio] 11.3 % Low 11.8 - 14.4 % [facility] Hematocrit (Bld) [Volume fraction] 39.7 % Low 40.7 - 50.3 % [facility] Hemoglobin (Bld) [Mass/Vol] 13.7 g/dL 13.0 - 17.0 g/dL [facility] Immature granulocytes (Bld) [#/Vol] [facility] Immature granulocytes/100 WBC (Bld) 0 % [address] [facility] Interpretation and review of laboratory results Abnormal [facility] Lymphocytes/100 WBC (Bld) 22 % Low 24 - 43 % [facility] Lymphocytes/100 WBC (Bld) 0.96 % Low [facility] MCH (RBC) [Entitic mass] 32.3 pg 25. 2 - 33.[address] [facility] MCHC (RBC) [Mass/Vol] 34.5 g/dL 28.4 - 34.8 g/dL [facility] MCV (RBC) [Entitic vol] 93.6 fL 82.6 - 102.[address] [facility] Monocytes/100 WBC (Bld) 13 % High 3 - 12 % B on [facility] Monocytes/100 WBC (Bld) 0.55 % B on [facility] Neutrophils/100 WBC (Bld) 59 % 36 - 65 % [facility] Nucleated RBC/100 WBC (Bld) [Ratio] 0.0 % 0.0 per [address] [facility] Platelet mean volume (Bld) [Entitic vol] 9.6 fL 8.1 - 13.[address] [facility] Platelets (Bld) [#/Vol] 211 10*3/uL [facility] RBC (Bld) [#/Vol] 4.24 10*6/uL 4.21 - 5.7 7 m/uL [facility] Segmented neutrophils/100 WBC (Bld) 2.57 % [facility] WBC other (Bld) [#/Vol] 4.4 B on [facility] CBC with Diffon 06-21-2024 Abs. Basophil 0.05 k/uL Normal 0.00-0.20 [facility] Comment on above: Performed By: #### B MPX, CDP, DAVID, MG #### [place] [address] [employer] Technician: Jordan Aponte MD Abs.Imm.Granulocyte <0.03 Normal 0.00-0.30 [facility] Comment on above: Performed By: #### B MPX, CDP, DAVID, MG #### [place] [address] [employer] Technician: Jordan Aponte MD Abs.Neutrophil (Seg) 2.57 k/uL Normal 1.50-8.10 [facility] Comment on above: Performed By: #### B MPX, CDP, DAVID, MG #### [place] [address] [employer] Technician: Jordan Aponte MD Basophils/100 WBC (Bld) 1 % Normal 0-2 [facility] Comment on above: Performed By: #### B MPX, CDP, DAVID, MG #### [place] [address] [employer] Technician: Jordan Aponte MD Eosinophils (Bld) [#/Vol] 0.22 10*3/uL Normal 0.00-0.44 [facility] Comment on above: Performed By: #### B MPX, CDP, DAVID, MG #### [place] [address] [employer] Technician: Jordan Aponte MD Eosinophils/100 WBC (Bld) 5 % High 1-4 [facility] Comment on above: Performed By: #### B MPX, CDP, DAVID, MG #### [place] [address] [employer] Technician: Jordan Aponte MD Erythrocyte distribution width (RBC) [Ratio] 11.3 % Low 11.8-14.4 [facility] Comment on above: Performed By: #### B MPX, CDP, DAVID, MG #### [facility] [employer] [address] [place] [address] [employer] Technician: Jordan Aponte MD Hematocrit (Bld) [Volume fraction] 39.7 % Low 40.7-50.3 [facility] Comment on above: Performed By: #### B MPX, CDP, DAVID, MG #### [facility] [employer] [address] [place] [address] [employer] Technician: Jordan Aponte MD Hemoglobin (Bld) [Mass/Vol] 13.7 g/dL Normal 13.0-17.0 [facility] Comment on above: Performed By: #### B MPX, CDP, DAVID, MG #### [address] [address] [employer] Technician: Jordan Aponte MD Immature granulocytes/100 WBC (Bld) 0 % Normal 0 [facility] Comment on above: Performed By: #### B MPX, CDP, DAVID, MG #### [address] [address] [employer] Technician: Jordan Aponte MD Lymphocytes (Bld) [#/Vol] 0.96 10*3/uL Low 1.10-3.70 [facility] Comment on above: Performed By: #### B MPX, CDP, DAVID, MG #### [facility] [employer] [address] [place] [address] [employer] Technician: Jordan Aponte MD Lymphocytes/100 WBC (Bld) 22 % Low 24-43 [facility] Comment on above: Performed By: #### B MPX, CDP, DAVID, MG #### [facility] [employer] [address] [place] [address] [employer] Technician: Jordan Aponte MD MCH (RBC) [Entitic mass] 32.3 pg Normal 25.2-33.5 [facility] Comment on above: Performed By: #### B MPX, CDP, DAVID, MG #### [address] [address] [employer] Technician: Jordan Aponte MD MCHC (RBC) [Mass/Vol] 34.5 g/dL Normal 28.4-34.8 [facility] Comment on above: Performed By: #### B MPX, CDP, DAVID, MG #### [address] [address] [employer] Technician: Jordan Aponte MD MCV (RBC) [Entitic vol] 93.6 fL Normal 82.6-102.9 [facility] Comment on above: Performed By: #### B MPX, CDP, DAVID, MG #### [address] [address] [employer] Technician: Jordan Aponte MD Monocytes (Bld) [#/Vol] 0.55 10*3/uL Normal 0.10-1.20 [facility] Comment on above: Performed By: #### B MPX, CDP, DAVID, MG #### [address] [address] [employer] Technician: Jordan Aponte MD Monocytes/100 WBC (Bld) 13 % High 3-12 M [facility] Comment on above: Performed By: #### B MPX, CDP, DAVID, MG #### [address] [address] [employer] Technician: Jordan Aponte MD Neutrophil (Seg) 59 % Normal 36-65 [facility] Comment on above: Performed By: #### B MPX, CDP, DAVID, MG #### [address] [address] [employer] Technician: Jordan Aponte MD NRBC Automated 0.0 per 100 WBC Normal 0.0 [facility] Comment on above: Performed By: #### B MPX, CDP, DAVID, MG #### [facility] [place] [address] Marine Electronics Technician: Jordan Aponte MD Platelet mean volume (Bld) [Entitic vol] 9.6 fL Normal 8.1-13.5 [facility] Comment on above: Performed By: #### B MPX, CDP, DAVID, MG #### [facility] [place] [address] [employer] Technician: Jordan Aponte MD Platelets (Bld) [#/Vol] 211 10*3/uL Normal 138-453 [facility] Comment on above: Performed By: #### B MPX, CDP, DAVID, MG #### [facility] [address] [place] [address] [employer] Technician: Jordan Aponte MD RBC (Bld) [#/Vol] 4.24 10*6/uL Normal 4.21-5.77 [facility] Comment on above: Performed By: #### B MPX, CDP, DAVID, MG #### [facility] [address] [place] [address] [employer] Technician: Jordan Aponte MD WBC (Bld) [#/Vol] 4.4 10*3/uL Normal 3.5-11.3 [facility] Comment on above: Performed By: #### B MPX, CDP, DAVID, MG #### [facility] [place] [address] [employer] Technician: Jordan Aponte MD Magnesiumon 06-21-2024 Magnesium [Mass/Vol] 2.2 mg/dL 1.6 - 2 .4 mg/dL [facility] Magnesium [Mass/Vol] 2.2 mg/dL Normal 1.6-2.4 [facility] Comment on above: Performed By: #### B MPX, CDP, DAVID, MG #### [employer] [address] [place] [address] [phone] [employer] Technician: Jordan Aponte MD No Panel Informationon 06-21 [facility] PTon 06-21-2024 INR Coag (PPP) [Relative time] 1.0 {INR} Normal [facility] Comment on above: Result Comment: Therapeutic Range: Moderate Anticoagulant Intensity: INR = 2.0-3.0 High Anticoagulant Intensity: INR = 2.5-3.5 Performed By: #### B MPX, CDP, DAVID, MG #### [facility] [address] [place] [address] [phone] [employer] Technician: Jordan Aponte MD PT Coag (PPP) [Time] 13.2 s Normal 11.7-14.9 [facility] Comment on above: Performed By: #### B MPX, CDP, DAVID, MG #### [facility] [address] [place] [address] [phone] [employer] Technician: Jordan Aponte MD Phosphoruson 06-21-2024 Phosphate [Mass/Vol] 3.0 mg/dL 2.5 - 4 .5 mg/dL [facility] Phosphorus, Inorg.on 024 Phosphorus, Inorg. 3.0 mg/dL Normal 2.5-4.5 [facility] Comment on above: Performed By: #### B MPX, CDP, DAVID, MG #### [facility] [address] [place] [address] [phone] [employer] Technician: Jordan Aponte MD Protime-INRon 06-21-2024 INR Coag (PPP) [Relative time] 1.0 {INR} [facility] Comment on above: Therapeutic Range: Moderate Anticoagulant Intensity: INR = 2.0-3.0 High Anticoagulant Intensity: INR = 2.5-3.5 PT Coag (PPP) [Time] 13.[address] [facility] TYPE AND SCREENon 06-21-2024 ABO and Rh group Nom (Bld) Blood group O Rh(D) positive [facility] Arm Band Number BE [id number] [facility] Expiration 06/24/2024,[address] [facility] Blood group antibodies identified Nom Negative [facility] Kris [facility] Type + Screenon 06-21-2024 Type + Screen Sample Expiration 06/24/2024,2359 Arm Band Number BE [id number] ABO/Rh(D) O POSITIVE Antibody Screen NEGATIVE Normal [facility] Comment on above: Performed By: #### P HO, CDP, BMPX, MG #### [facility] [address] [place] [address] Marine [employer] Technician: Jordan Aponte MD XR CHEST (SINGLE VIEW FRONTA L)on [...] Randy Naranjo MD 06/21/24 Final result Normal [facility] No acute cardiopulmonary findings. [facility] RIS CONSOLIDATED EXAMINATION: ONE XRAY VIEW OF THE CHEST 06/21/2024 5:09 pm COMPARISON: None. HISTORY: ORDERING SYSTEM PROVIDED HISTORY: pre-op TECHNOLOGIST PROVIDED HISTORY: pre-op FINDINGS: The heart is normal size. There is no focal pulmonary consolidation. There is no pleural effusion or pneumothorax. No displaced rib fracture is identified radiographically. [facility] RIS CONSOLIDATED Randy Naranjo MD - 06/21/2024 EXAMINATION: ONE XRAY VIEW OF THE CHEST 06/21/2024 5:09 pm COMPARISON: None. HISTORY: ORDERING SYSTEM PROVIDED HISTORY: pre-op TECHNOLOGIST PROVIDED HISTORY: pre-op FINDINGS: The heart is normal size. There is no focal pulmonary consolidation. There is no pleural effusion or pneumothorax. No displaced rib fracture is identified radiographically. IMPRESSION: No acute cardiopulmonary findings. [facility] Radiology Study observation (narrative) [facility] CT CERVICAL SPINE WO CONTRTRAVIS [place] 06-20-2024 CT CERVICAL SPINE WO CONTRAST ADDENDUM: [...] MD 06/20/24 Edited Result - FINAL Normal [facility] CT CHEST ABDOMEN PELVIS W CO NTRASTon [...] Randy Naranjo MD 06/20/24 Final result Normal [facility] CT HEAD WO CONTRASTon 2023 CT HEAD [...] MD 06/20/24 Edited Result - FINAL Normal [facility] CT LUMBAR SPINE BONY RECONST RUCTIONon 06-20-2024 [...] Randy Naranjo MD 06/20/24 Final result Normal [facility] CT THORACIC SPINE BONY RECON STRUCTIONon 06-20-2024 [...] Randy Naranjo MD 06/20/24 Final result Normal [facility] Hepatic Function Panelon Albumin [Mass/Vol] 4.2 g/dL 3.5 - 5.2 g/dL [facility] Albumin/Globulin [Mass ratio] 1.9 {ratio} 1.0 - 2.[address] [facility] ALP [Catalytic activity/Vol] 70 U/L 40 - 129 U/L [facility] ALT [Catalytic activity/Vol] 21 U/L 10 - 50 U/L [facility] AST [Catalytic activity/Vol] 30 U/L 10 - 50 U/L [facility] Bilirubin [Mass/Vol] 0.4 mg/dL 0.0 - 1 .2 mg/dL [facility] Bilirubin.direct [Mass/Vol] 0.2 mg/dL 0.0 - 0.2 mg/dL [facility] Bilirubin.indirect [Mass/Vol] 0.2 mg/dL 0.0 - 1.0 mg/dL [facility] Globulin (S) [Mass/Vol] 2.2 g/dL B on [facility] Interpretation and review of laboratory results Abnormal [facility] Protein [Mass/Vol] 6.4 g/dL Low 6.6 - 8.7 g/dL [facility] Liver Profileon 06-20-2024 Albumin [Mass/Vol] 4.2 g/dL Normal 3.5-5.2 [facility] Comment on above: Performed By: #### P HO, CDP, BMPX, MG #### [facility] [employer] [address] [place] [address] [employer] Technician: Jordan Aponte MD Albumin/Glob Ratio 1.9 Normal 1.0-2.5 [facility] Comment on above: Performed By: #### P HO, CDP, BMPX, MG #### [facility] [address] [place] [address] Marine [employer] Technician: Jordan Aponte MD Alkaline Phos 70 U/L Normal 40-129 [facility] Comment on above: Performed By: #### P HO, CDP, BMPX, MG #### [facility] [address] [place] [address] [employer] Technician: Jordan Aponte MD ALT [Catalytic activity/Vol] 21 U/L Normal 10-50 [facility] Comment on above: Performed By: #### P HO, CDP, BMPX, MG #### [facility] [address] [place] [address] [employer] Technician: Jordan Aponte MD AST [Catalytic activity/Vol] 30 U/L Normal 10-50 [facility] Comment on above: Performed By: #### P HO, CDP, BMPX, MG #### [facility] [employer] [address] [place] [address] [employer] Technician: Jordan Aponte MD Bilirubin [Mass/Vol] 0.4 mg/dL Normal 0.0-1.2 [facility] Comment on above: Performed By: #### P HO, CDP, BMPX, MG #### [facility] [address] [place] [address] Marine [employer] Technician: Jordan Aponte MD Bilirubin, Indirect 0.2 mg/dL Normal 0.0-1.0 [facility] Comment on above: Performed By: #### P HO, CDP, BMPX, MG #### [facility] [place] [address] Marine Electronics Technician: Jordan Aponte MD Bilirubin.indirect [Mass/Vol] 0.2 mg/dL Normal 0.0-0.2 [facility] Comment on above: Performed By: #### P HO, CDP, BMPX, MG #### [facility] [place], [place] [phone] Marine [employer] Technician: Jordan Aponte MD Globulin (S) [Mass/Vol] 2.2 g/dL Normal [facility] Comment on above: Performed By: #### P HO, CDP, BMPX, MG #### [facility] [employer] [address] [place] [address] [phone] [employer] Technician: Jordan Aponte MD Protein [Mass/Vol] 6.4 g/dL Low 6.6-8.7 [facility] Comment on above: Performed By: #### P HO, CDP, BMPX, MG #### [facility] [address] [place] [address] [employer] Technician: Jordan Aponte MD No Panel Informationon 06-20 1. No acute visceral injury of the chest, abdomen, or pelvis is identified. 2. Questionable nondisplaced fractures of the right posterolateral 9th and 10th ribs. Correlation for tenderness in this region is recommended. 3. No acute fracture or subluxation of the thoracolumbar spine is identified. PN RIS CONSOLIDATED EXAMINATION: CT OF THE CHEST, [...] space narrowing. SOFT TISSUES: Within normal limits. [facility] Randy Rocha MD - 06/20/2024 EXAMINATION: CT OF THE [...] subluxation of the thoracolumbar spine is identified. [facility] Addendum by Guero Noyola MD on 06/20/2024 10:31 PM EST ADDENDUM: Critical findings discussed with Dr. Stovall at 10:18 p.m.. He expressed understanding results. [facility] 1. Large subdural collection about the right [...] acute osseous abnormality of the cervical spine. [facility] RIS CONSOLIDATED EXAMINATION: CT OF THE HEAD WITHOUT [...] There is no prevertebral soft tissue swelling. [facility] RIS CONSOLIDATED Guero Noyola MD - 06/20/2024 EXAMINATION: [...] acute osseous abnormality of the cervical spine. [facility] Radiology Study observation (narrative) [facility] No Panel InformationOrdered By: Randy Naranjo on 06-20-[address] [facility] Work Phone: No Panel InformationOrdered By: Guero Noyola on 06-20-[address] [facility] Work Phone: TRAUMA PANELon 06-20-2024 Anion gap [Moles/Vol] 11 mmol/L 9 - 16 mmol/L [facility] aPTT Coag (Bld) [Time] 25.7 s [facility] Comment on above: IV Heparin Therapy Range: 66.0-92.0 sec Blood Bank Specimen BILL FOR SERVICES PERFORMED [facility] Carboxyhemoglobin (Bld) [Mass fraction] 3.6 % 0 - 5 % [facility] Comment on above: Reference Range: Non-Smokers 0-2% Average Smoker 2-4% Heavy Smoker <10% Chloride [Moles/Vol] 105 mmol/L 98 - 10 7 mmol/L [facility] CO2 [Moles/Vol] 23 mmol/L 20 - 31 mmol/L [facility] Creatinine [Mass/Vol] 0.8 mg/dL 0.7 - 1.2 mg/dL [facility] Erythrocyte distribution width (RBC) [Ratio] 11.4 % Low 11.8 - 14.4 % [facility] Est, Glom Filt Rate - PINF [facility] Comment on above: These results are not [...] Ethanol percent <0.010 NINF - 0.010 % [facility] Ethanolamine [Mass/Vol] <10 NINF - 10 mg/dL [facility] Glucose [Mass/Vol] 100 mg/dL High 74 - 99 mg/dL [facility] HCO3 (Bld) [Moles/Vol] 24.3 mmol/L 24 - 30 mmol/L [facility] Hematocrit (Bld) [Volume fraction] 41.1 % 40.7 - 50.3 % [facility] Hemoglobin (Bld) [Mass/Vol] 14.2 g/dL 13.0 - 17.0 g/dL [facility] INR Coag (PPP) [Relative time] 1.0 {INR} [facility] Comment on above: Therapeutic Range: Moderate Anticoagulant Intensity: INR = 2.0-3.0 High Anticoagulant Intensity: INR = 2.5-3.5 Interpretation and review of laboratory results Abnormal [facility] MCH (RBC) [Entitic mass] 32.3 pg 25. 2 - 33.[address] [facility] MCHC (RBC) [Mass/Vol] 34.5 g/dL 28.4 - 34.8 g/dL [facility] MCV (RBC) [Entitic vol] 93.4 fL 82.6 - 102.[address] [facility] Nucleated RBC/100 WBC (Bld) [Ratio] 0.0 % 0.0 per [address] [facility] Oxygen saturation in Blood 93.6 % High 60.0 - 85.0 % [facility] Oxygen/Inspired gas Respiratory system --on ventilator INFORMATION NOT PROVIDED [facility] pCO2, Rm 37.[address] [facility] pH, Rm 7.433 High 7.320 - 7.[address] [facility] Platelet mean volume (Bld) [Entitic vol] 9.7 fL 8.1 - 13.[address] [facility] Platelets (Bld) [#/Vol] 230 10*3/uL [facility] PO2, Rm 65.[address] [facility] Positive Base Excess, Rm 0.9 mmol/L 0.0 - 2.0 mmol/L [facility] Potassium [Moles/Vol] 3.6 mmol/L Low 3.7 - 5.3 mmol/L [facility] Comment on above: Specimen hemolysis h as exceeded the interference as defined by Momo. Value may be falsely increased. Suggest recollection if clinically indicated. PT Coag (PPP) [Time] 13.[address] [facility] RBC (Bld) [#/Vol] 4.40 10*6/uL 4.21 - 5.7 7 m/uL [facility] Sodium [Moles/Vol] 139 mmol/L 136 - 145 mmol/L [facility] Urea nitrogen [Mass/Vol] 8 mg/dL 8 - 23 mg/d L [facility] WBC other (Bld) [#/Vol] 5.0 B on [facility] Trauma Profileon 06-20-2024 Anion gap [Moles/Vol] 11 mmol/L Normal 9-16 [facility] Comment on above: Performed By: #### P HO, CDP, BMPX, MG #### [facility] [address] [place], [place] [phone] [employer] Technician: Jordan Aponte MD Chloride [Moles/Vol] 105 mmol/L Normal 98-107 [facility] Comment on above: Performed By: #### P HO, CDP, BMPX, MG #### [facility] [address] [place], [place] [phone] [employer] Technician: Jordan Aponte MD CO2 [Moles/Vol] 23 mmol/L Normal 20-31 [facility] Comment on above: Performed By: #### P HO, CDP, BMPX, MG #### [facility] [place] [address] Marine Electronics Technician: Jordan Aponte MD Creatinine [Mass/Vol] 0.8 mg/dL Normal 0.7-1.2 [facility] Comment on above: Performed By: #### P HO, CDP, BMPX, MG #### [address] [address] [employer] Technician: Jordan Aponte MD Ethanol [Mass/Vol] mg/dL Normal <10 [facility] Comment on above: Performed By: #### P HO, CDP, BMPX, MG #### [address] [address] [employer] Technician: Jordan Aponte MD Ethanol percent <0.010 Normal <0.010 [facility] Comment on above: Performed By: #### P HO, CDP, BMPX, MG #### [address] [address] [employer] Technician: Jordan Aponte MD GFR/1.73 sq M.predicted among non-blacks MDRD (S/P/Bld) [Vol rate/Area] mL/min/{1.73_m2} Normal >60 [facility] Comment on above: Result Comment: These results [...] affects renal tubular secretion. Performed By: #### P HO, CDP, BMPX, MG #### [address] [address] [employer] Technician: Jordan Aponte MD Glucose [Mass/Vol] 100 mg/dL High 74-99 [facility] Comment on above: Performed By: #### P HO, CDP, BMPX, MG #### [facility] [address] [place] [address] [employer] Technician: Jordan Aponte MD Potassium [Moles/Vol] 3.6 mmol/L Low 3.7-5.3 [facility] Comment on above: Result Comment: Spec imen hemolysis has exceeded the interference as defined by Momo. Value may be falsely increased. Suggest recollection if clinically indicated. Performed By: #### P HO, CDP, BMPX, MG #### [facility] [address] [place] [address] [employer] Technician: Jordan Aponte MD Sodium [Moles/Vol] 139 mmol/L Normal 136-145 [facility] Comment on above: Performed By: #### P HO, CDP, BMPX, MG #### [facility] [address] [place] [address] [employer] Technician: Jordan Aponte MD Urea nitrogen [Mass/Vol] 8 mg/dL Normal 8-23 [facility] Comment on above: Performed By: #### P HO, CDP, BMPX, MG #### [facility] [address] [place] [address] [employer] Technician: Jordan Aponte MD aPTT Coag (Bld) [Time] 25.7 s Normal 23.0-36.5 [facility] Comment on above: Result Comment: IV Heparin Therapy Range: 66.0-92.0 sec Performed By: #### P HO, CDP, BMPX, MG #### [facility] [address] [place] [address] [employer] Technician: Jordan Aponte MD INR Coag (PPP) [Relative time] 1.0 {INR} Normal [facility] [facility] Comment on above: Result Comment: Therapeutic Range: Moderate Anticoagulant Intensity: INR = 2.0-3.0 High Anticoagulant Intensity: INR = 2.5-3.5 Performed By: #### P HO, CDP, BMPX, MG #### [facility] [address] [place] [address] Marine Electronics Technician: Jordan Aponte MD PT Coag (PPP) [Time] 13.4 s Normal 11.7-14.9 [facility] Comment on above: Performed By: #### P HO, CDP, BMPX, MG #### [address] [address] Marine Electronics Technician: Jordan Aponte MD Body Temp. 37.0 Normal [facility] Comment on above: Performed By: #### P HO, CDP, BMPX, MG #### [address] [address] Marine Electronics Technician: Jordan Aponte MD Carboxy Hgb 3.6 % Normal 0-5 [facility] Comment on above: Result Comment: Reference Range: Non-Smokers 0-2% Average Smoker 2-4% Heavy Smoker <10% Performed By: #### P HO, CDP, BMPX, MG #### [address] [address] Marine Electronics Technician: Jordan Aponte MD FIO2 INFORMATION NOT PROVIDED [facility] Comment on above: Performed By: #### P HO, CDP, BMPX, MG #### [address] [address] Marine Electronics Technician: Jordan Aponte MD HCO3 (Bld) [Moles/Vol] 24.3 mmol/L Normal 24-30 M [facility] Comment on above: Performed By: #### P HO, CDP, BMPX, MG #### [address] [address] Marine Electronics Technician: Jordan Aponte MD Oxygen saturation in Blood 93.6 % High 60.0-85.0 [facility] Comment on above: Performed By: #### P HO, CDP, BMPX, MG #### [address] [address] Marine Electronics Technician: Jordan Aponte MD pCO2 37.0 mm Hg Low 39-55 [facility] Comment on above: Performed By: #### P HO, CDP, BMPX, MG #### [address] [address] Marine Electronics Technician: Jordan Aponte MD pH (Bld) 7.433 [pH] High 7.320-7.420 [facility] Comment on above: Performed By: #### P HO, CDP, BMPX, MG #### [address] [address] Marine Electronics Technician: Jordan Aponte MD pO2 65.1 mm Hg High 30-50 [facility] Comment on above: Performed By: #### P HO, CDP, BMPX, MG #### [address] [address] Marine Electronics Technician: Jordan Aponte MD Positive Base Excess 0.9 mmol/L Normal 0.0-2.0 [facility] Comment on above: Performed By: #### P HO, CDP, BMPX, MG #### [address] [address] Marine Electronics Technician: Joradn Aponte MD Erythrocyte distribution width (RBC) [Ratio] 11.4 % Low 11.8-14.4 [facility] Comment on above: Performed By: #### P HO, CDP, BMPX, MG #### [facility] [address] [place] [address] Marine Electronics Technician: Jordan Aponte MD Hematocrit (Bld) [Volume fraction] 41.1 % Normal 40.7-50.3 [facility] Comment on above: Performed By: #### P HO, CDP, BMPX, MG #### [facility] [employer] [address] [place] [address] Marine Electronics Technician: Jordan Aponte MD Hemoglobin (Bld) [Mass/Vol] 14.2 g/dL Normal 13.0-17.0 [facility] Comment on above: Performed By: #### P HO, CDP, BMPX, MG #### [facility] [address] [place] [address] Marine Electronics Technician: Jordan Aponte MD MCH (RBC) [Entitic mass] 32.3 pg Normal 25.2-33.5 [facility] Comment on above: Performed By: #### P HO, CDP, BMPX, MG #### [address] [address] Marine Electronics Technician: Jordan Aponte MD MCHC (RBC) [Mass/Vol] 34.5 g/dL Normal 28.4-34.8 [facility] Comment on above: Performed By: #### P HO, CDP, BMPX, MG #### [facility] [employer] [address] [place] [address] Marine Electronics Technician: Jordan Aponte MD MCV (RBC) [Entitic vol] 93.4 fL Normal 82.6-102.9 [facility] Comment on above: Performed By: #### P HO, CDP, BMPX, MG #### [facility] [employer] [address] [place] [address] Marine Electronics Technician: Jordan Aponte MD NRBC Automated 0.0 per 100 WBC Normal 0.0 [facility] Comment on above: Performed By: #### P HO, CDP, BMPX, MG #### [facility] [employer] [address] [place] [address] Marine Electronics Technician: Jordan Aponte MD Platelet mean volume (Bld) [Entitic vol] 9.7 fL Normal 8.1-13.5 [facility] Comment on above: Performed By: #### P HO, CDP, BMPX, MG #### [facility] [employer] [address] [place] [address] Marine Electronics Technician: Jordan Aponte MD Platelets (Bld) [#/Vol] 230 10*3/uL Normal 138-453 [facility] Comment on above: Performed By: #### P HO, CDP, BMPX, MG #### [facility] [address] [place] [address] Marine Electronics Technician: Jordan Aponte MD RBC (Bld) [#/Vol] 4.40 10*6/uL Normal 4.21-5.77 [facility] Comment on above: Performed By: #### P HO, CDP, BMPX, MG #### [facility] [address] [place] [address] Marine Electronics Technician: Jordan Aponte MD WBC (Bld) [#/Vol] 5.0 10*3/uL Normal 3.5-11.3 [facility] Comment on above: Performed By: #### P HO, CDP, BMPX, MG #### [facility] [address] [place] [address] Marine Electronics Technician: Jordan Aponte MD Blood Bank BILL FOR SERVICES PERFORMED Normal [facility] Comment on above: Performed By: #### P HO, CDP, BMPX, MG #### [facility] [address] [place] [address] Marine Electronics Technician: Jordan Aponte MD Alanine aminotransferase [En zymatic activity/volume] in Serum or PlasmaOrdered By: Nahomy Mg on 08-27-2023 ALT [Catalytic activity/Vol] 19 U/L 7-52 [facility] Albumin [Mass/volume] in Ser um or Plasma by Bromocresol green (BCG) dye binding methoOrdered By: Nahomy Mg on 08-27-2023 Albumin BCG dye [Mass/Vol] 4.5 g/dL 3.5-5.7 [facility] Alkaline phosphatase [Enzyma tic activity/volume] in Serum or PlasmaOrdered By: Nahomy Mg on 08-27-2023 ALP [Catalytic activity/Vol] 64 U/L 34-104 [facility] Aspartate aminotransferase [ Enzymatic activity/volume] in Serum or PlasmaOrdered By: Nahomy Mg on 08-27-2023 AST [Catalytic activity/Vol] 19 U/L 13-39 [facility] Basophils Auto (Bld) [#/Vol] Ordered By: Nahomy Mg on 08-27-2023 Basophils (Bld) [#/Vol] 0.0 10*3/uL 0.0-0.2 [facility] Basophils/100 WBC Auto (Bld) Ordered By: Nahomy Mg on 08-27-2023 Basophils/100 WBC (Bld) 0.4 % . [facility] Bilirubin.total [Mass/volume ] in Serum or PlasmaOrdered By: Nahomy Mg on 08-27-2023 Bilirubin [Mass/Vol] 0.8 mg/dL 0.3-1.0 [facility] CMP with reflex to A1Con Albumin [Mass/Vol] 4.5 g/dL Normal 3.5-5.7 [facility] Comment on above: Performed By: #### C MP wRFX A1C, CBC #### [facility] [address] [place] [address] [place] Albumin/Globulin [Mass ratio] 2.0 {ratio} Normal [facility] Comment on above: Performed By: #### C MP wRFX A1C, CBC #### [facility] [address] [place] [address] [place] ALP [Catalytic activity/Vol] 64 U/L Normal 34-104 [facility] Comment on above: Result Comment: PERF ORMED BY: [facility] [address] [place] [address] PATHOLOGIST [employer] SUPERVISOR CLAUDE VILLASEÑOR M.D. Performed By: #### C MP wRFX A1C, CBC #### [facility] [address] [place] [id number] [place] ALT [Catalytic activity/Vol] 19 U/L Normal 7-52 [facility] Comment on above: Performed By: #### C MP wRFX A1C, CBC #### [facility] [address] [place] [id number] [place] Anion gap [Moles/Vol] 9.2 mmol/L Normal 6.0-15.0 [facility] Comment on above: Performed By: #### C MP wRFX A1C, CBC #### [facility] [address] [place] [phone] [facility] AST [Catalytic activity/Vol] 19 U/L Normal 13-39 [facility] Comment on above: Performed By: #### C MP wRFX A1C, CBC #### [facility] [address] [place] [id number] [place] Bilirubin [Mass/Vol] 0.8 mg/dL Normal 0.3-1.0 [facility] Comment on above: Performed By: #### C MP wRFX A1C, CBC #### [facility] [address] [place] [phone] [facility] Calcium [Mass/Vol] 9.3 mg/dL Normal 8.6-10.3 [facility] Comment on above: Performed By: #### C MP wRFX A1C, CBC #### [facility] [address] [place] [id number] [place] Chloride [Moles/Vol] 104 mmol/L Normal 98-107 [facility] Comment on above: Performed By: #### C MP wRFX A1C, CBC #### [facility] [address] [place] [id number] [place] CO2 [Moles/Vol] 28.6 mmol/L Normal 21.0-31.0 [facility] Comment on above: Performed By: #### C MP wRFX A1C, CBC #### [facility] [address] [place] [id number] [place] Creatinine [Mass/Vol] 0.97 mg/dL Normal 0.70-1.30 [facility] Comment on above: Performed By: #### C MP wRFX A1C, CBC #### [facility] [address] [place] [id number] [place] GFR/1.73 sq M.predicted MDRD (S/P/Bld) [Vol rate/Area] mL/min/{1.73_m2} Normal [facility] Comment on above: Performed By: #### C MP wRFX A1C, CBC #### [facility] [address] [place] [address] [place] Globulin (S) [Mass/Vol] 2.2 g/dL Normal [facility] Comment on above: Performed By: #### C MP wRFX A1C, CBC #### [facility] [address] Glucose [Mass/Vol] 82 mg/dL Normal 70-100 [facility] Comment on above: Performed By: #### C MP wRFX A1C, CBC #### [facility] [address] Potassium [Moles/Vol] 3.8 mmol/L Normal 3.5-5.1 [facility] Comment on above: Performed By: #### C MP wRFX A1C, CBC #### [facility] [address] Protein [Mass/Vol] 6.7 g/dL Normal 6.4-8.9 [facility] Comment on above: Performed By: #### C MP wRFX A1C, CBC #### [facility] [address] [place] [address] [place] Sodium [Moles/Vol] 138 mmol/L Normal 136-145 [facility] Comment on above: Performed By: #### C MP wRFX A1C, CBC #### [facility] [address] [place] [address] [place] Urea nitrogen [Mass/Vol] 10 mg/dL Normal 7-25 [facility] Comment on above: Performed By: #### C MP wRFX A1C, CBC #### [facility] [address] [place] [address] [place] Calcium [Mass/volume] in Ser um or PlasmaOrdered By: Nahomy Mg on 08-27-2023 Calcium [Mass/Vol] 9.3 mg/dL 8.6-10.3 [facility] Carbon dioxide, total [Moles /volume] in Serum or PlasmaOrdered By: Nahomy Mg on 08-27-2023 CO2 [Moles/Vol] 28.6 mmol/L 21.0-31.0 [facility] Chloride [Moles/volume] in [place] or PlasmaOrdered By: Nahomy Mg on 08-27-2023 Chloride [Moles/Vol] 104 mmol/L 98-107 [facility] Complete Blood Count Auto Di ffon 08-27-2023 Basophils (Bld) [#/Vol] 0.0 10*3/uL Normal 0.0-0.2 [facility] Comment on above: Result Comment: PERF ORMED BY: [place] [address] PATHOLOGIST CON[employer]ER[employer] SUPERVISOR CLAUDE VILLASEÑOR M.D. Performed By: #### C MP wRFX A1C, CBC #### [facility] [address] Basophils/100 WBC (Bld) 0.4 % Normal . [facility] Comment on above: Performed By: #### C MP wRFX A1C, CBC #### [facility] [address] [place] [address] [place] Eosinophils (Bld) [#/Vol] 0.1 10*3/uL Normal 0.0-0.45 [facility] Comment on above: Performed By: #### C MP wRFX A1C, CBC #### [facility] [address] Eosinophils/100 WBC (Bld) 1.2 % Normal . [facility] Comment on above: Performed By: #### C MP wRFX A1C, CBC #### [facility] [address] [place] [address] [place] Erythrocyte distribution width (RBC) [Ratio] 12.0 % Normal 12.0-14.8 [facility] Comment on above: Performed By: #### C MP wRFX A1C, CBC #### [facility] [address] Hematocrit (Bld) [Volume fraction] 42.5 % Normal 38.8-50.0 [facility] Comment on above: Performed By: #### C MP wRFX A1C, CBC #### [facility] [address] Hemoglobin (Bld) [Mass/Vol] 15.1 g/dL Normal 13.0-17.0 [facility] Comment on above: Performed By: #### C MP wRFX A1C, CBC #### [address] Lymphocytes (Bld) [#/Vol] 1.2 10*3/uL Normal 1.00-4.8 [facility] Comment on above: Performed By: #### C MP wRFX A1C, CBC #### [address] Lymphocytes/100 WBC (Bld) 23.5 % Normal . [facility] Comment on above: Performed By: #### C MP wRFX A1C, CBC #### [address] MCH (RBC) [Entitic mass] 33.0 pg Normal 27.5-35.2 [facility] Comment on above: Performed By: #### C MP wRFX A1C, CBC #### [address] MCV (RBC) [Entitic vol] 92.5 fL Normal 83.5-101 [facility] Comment on above: Performed By: #### C MP wRFX A1C, CBC #### [address] Mean Corpuscular HGB Conc 35.6 g/dL Normal 32.5-35.6 [facility] Comment on above: Performed By: #### C MP wRFX A1C, CBC #### [place] [address] [place] Monocytes (Bld) [#/Vol] 0.5 10*3/uL Normal 0.0-0.8 [facility] Comment on above: Performed By: #### C MP wRFX A1C, CBC #### [place] [address] [place] Monocytes/100 WBC (Bld) 9.5 % Normal . [facility] Comment on above: Performed By: #### C MP wRFX A1C, CBC #### [facility] [address] Neutrophils (Bld) [#/Vol] 3.2 10*3/uL Normal 1.8-7.7 [facility] Comment on above: Performed By: #### C MP wRFX A1C, CBC #### [facility] [address] Neutrophils/100 WBC (Bld) 65.4 % Normal . [facility] Comment on above: Performed By: #### C MP wRFX A1C, CBC #### [facility] [address] NRBC% 0.2 /100{WBC} Normal 0-0.5 [facility] Comment on above: Performed By: #### C MP wRFX A1C, CBC #### [facility] [address] [place] [address] Platelet mean volume (Bld) [Entitic vol] 7.9 fL Normal 6.6-10.1 [facility] Comment on above: Performed By: #### C MP wRFX A1C, CBC #### [place] [address] [place] Platelets (Bld) [#/Vol] 235 10*3/uL Normal 150-450 [facility] Comment on above: Performed By: #### C MP wRFX A1C, CBC #### [facility] [address] [place] [address] [place] RBC (Bld) [#/Vol] 4.59 10*6/uL Normal 3.90-5.60 [facility] Comment on above: Performed By: #### C MP wRFX A1C, CBC #### [place] [address] [place] WBC (Bld) [#/Vol] 5.0 10*3/uL Normal 4.1-10.5 [facility] Comment on above: Performed By: #### C MP wRFX A1C, CBC #### [facility] [address] Creatinine [Mass/volume] in Serum or PlasmaOrdered By: Nahomy Mg on 08-27-2023 Creatinine [Mass/Vol] 0.97 mg/dL 0.70-1.30 [facility] ECG 12 lead ECGon 08-27-2023 ECG 12 lead ECG [facility] [place] [address] [place] [address] Electrocardiograph Report Signed Patient: Jorge Chavira MR#: [id number] : 1960 Acct:[id number] Age/Sex: 62 / M ADM Date: 08/27/23 Loc: Room: Type: [facility] Attending Dr: Nahomy Mg MD Ordering Provider: [...] Electronically Signed By:VALENTINA AVITIA MD Transcribed By: MUS Signed By Valentina Avitia MD 0 08/28/23 1130 Normal [facility] Eosinophils Auto (Bld) [#/Vo l]Ordered By: Nahomy Mg on 08-27-2023 Eosinophils (Bld) [#/Vol] 0.1 10*3/uL 0.0-0.45 [facility] Eosinophils/100 WBC Auto (Bl d)Ordered By: Nahomy Mg on 08-27-2023 Eosinophils/100 WBC (Bld) 1.2 % . [facility] Erythrocyte distribution wid th Auto (RBC) [Ratio]Ordered By: Nahomy Mg on 08-27-2023 Erythrocyte distribution width (RBC) [Ratio] 12.0 % 12.0-14.8 [facility] Globulin Calc (S) [Mass/Vol] Ordered By: Nahomy Mg on 08-27-2023 Globulin (S) [Mass/Vol] 2.2 g/dL [facility] Glucose [Mass/volume] in Ser um or PlasmaOrdered By: Nahomy Mg on 08-27-2023 Glucose [Mass/Vol] 82 mg/dL 70-100 [facility] Hematocrit Auto (Bld) [Volum e fraction]Ordered By: Nahomy Mg on 08-27-2023 Hematocrit (Bld) [Volume fraction] 42.5 % 38.8-50.0 [facility] Hemoglobin [Mass/volume] in BloodOrdered By: Nahomy Mg on 08-27-2023 Hemoglobin (Bld) [Mass/Vol] 15.1 g/dL 13.0-17.0 [facility] Leukocytes [#/volume] correc rona for nucleated erythrocytes in Blood by Automated counOrdered By: Nahomy Mg on 08-27-2023 WBC corrected for nucl RBC Auto (Bld) [#/Vol] 5.0 10*3/uL 4.1-10.5 [facility] Lymphocytes Auto (Bld) [#/Vo l]Ordered By: Nahomy Mg on 08-27-2023 Lymphocytes (Bld) [#/Vol] 1.2 10*3/uL 1.00-4.8 [facility] Lymphocytes/100 WBC Auto (Bl d)Ordered By: Nahomy Mg on 08-27-2023 Lymphocytes/100 WBC (Bld) 23.5 % . [facility] MCH Auto (RBC) [Entitic mass ]Ordered By: Nahomy Mg on 08-27-2023 MCH (RBC) [Entitic mass] 33.0 pg 27.5-35.2 [facility] MCHC Auto (RBC) [Mass/Vol]Or dered By: Nahomy Mg on 08-27-2023 MCHC (RBC) [Mass/Vol] 35.6 g/dL 32.5-35.6 [facility] MCV Auto (RBC) [Entitic vol] Ordered By: Nahomy Mg on 08-27-2023 MCV (RBC) [Entitic vol] 92.5 fL 83.5-101 [facility] Monocytes Auto (Bld) [#/Vol] Ordered By: Nahomy Mg on 08-27-2023 Monocytes (Bld) [#/Vol] 0.5 10*3/uL 0.0-0.8 [facility] Monocytes/100 WBC Auto (Bld) Ordered By: Nahomy Mg on 08-27-2023 Monocytes/100 WBC (Bld) 9.5 % . [facility] Neutrophils Auto (Bld) [#/Vo l]Ordered By: Nahomy Mg on 08-27-2023 Neutrophils (Bld) [#/Vol] 3.2 10*3/uL 1.8-7.7 [facility] Neutrophils/100 WBC Auto (Bl d)Ordered By: Nahomy Mg on 08-27-2023 Neutrophils/100 WBC (Bld) 65.4 % . [facility] No Panel InformationOrdered By: Nahomy Mg on 08-27-2023 Estimated GFR (CKD-EPI) > 60.0 mL/Min [facility] Creatinine Clearance (Chem N/A [facility] Nucleated erythrocytes [Pres ence] in Blood by Automated countOrdered By: Nahomy Mg on 08-27-2023 Nucleated RBC Auto Ql (Bld) 0.2 /100{WBC} 0-0.5 [facility] Platelet mean volume Auto (B ld) [Entitic vol]Ordered By: Nahomy Mg on 08-27-2023 Platelet mean volume (Bld) [Entitic vol] 7.9 fL 6.6-10.1 [facility] Platelets Auto (Bld) [#/Vol] Ordered By: Nahomy Mg on 08-27-2023 Platelets (Bld) [#/Vol] 235 10*3/uL 150-450 [facility] Potassium [Moles/volume] in Serum or PlasmaOrdered By: Nahomy Mg on 08-27-2023 Potassium [Moles/Vol] 3.8 mmol/L 3.5-5.1 [facility] Protein [Mass/volume] in Ser um or PlasmaOrdered By: Nahomy Mg on 08-27-2023 Protein [Mass/Vol] 6.7 g/dL 6.4-8.9 [facility] RBC Auto (Bld) [#/Vol]Ordere d By: Nahomy Mg on 08-27-2023 RBC (Bld) [#/Vol] 4.59 10*6/uL 3.90-5.60 [facility] Serum or plasma albumin/glob ulin mass ratioOrdered By: Nahomy Mg on 08-27-2023 Albumin/Globulin [Mass ratio] 2.0 {ratio} [facility] Serum or plasma anion gap de terminationOrdered By: Nahomy Mg on 08-27-2023 Anion gap [Moles/Vol] 9.2 mmol/L 6.0-15.0 [facility] Sodium [Moles/volume] in Ser um or PlasmaOrdered By: Nahomy Mg on 08-27-2023 Sodium [Moles/Vol] 138 mmol/L 136-145 [facility] Urea nitrogen [Mass/volume] in Serum or PlasmaOrdered By: Nahomy Mg on 08-27-2023 Urea nitrogen [Mass/Vol] 10 mg/dL 7-25 [facility] WBC Auto (Bld) [#/Vol]Ordere d By: Nahomy Mg on 08-27-2023 WBC (Bld) [#/Vol] 5.0 10*3/uL 4.1-10.5 [facility] Registrationon 01-26-2023 Registration [id number]#[id number]:[address] [facility] Consenton 01-25-2023 Consent [id number]#[id number]:[address] [facility] In office Testingon 01-26-20 In office Testing [id number]#1.00CD:[address] [facility] XR HAND LT MIN 3Von 10-14-19 23 XR HAND LT MIN 3V EXAM: XR [...] by: TREVOR POSADAS Date: 2022-10-13 09:23 Normal [facility] XR CSPINE MIN 4 VIEWSon 11-0 [...] by: LOREE JACKSON Date: 2022-06-15 18:42 Normal [facility] INSULINon 03-31-2022 Insulin 4.0 uIU/mL Normal 2.6-24.9 [facility] Comment on above: Performed By: #### I NSULIN #### [facility] [address] [address] [address] Prasad Arias CBC AUTO DIFFon 03-30-2022 BASO # 0.0 103/ul Normal 0.0-0.1 [facility] Comment on above: Performed By: #### C BC #### [facility] [address] [address] [address] Prasad Arias Basophils/100 WBC (Bld) 0.6 % Normal 0.2-2.0 [facility] Comment on above: Performed By: #### C BC #### [facility] [address] [address] [address] Prasad Arias EO # 0.2 103/ul Normal 0.0-0.7 [facility] Comment on above: Performed By: #### C BC #### [facility] [address] [place] [address] Dr. Prasad Arias Eosinophils/100 WBC (Bld) 3.2 % Normal 0.9-7.0 [facility] Comment on above: Performed By: #### C BC #### [facility] [address] [place] [address] Dr. Prasad Arias Erythrocyte distribution width (RBC) [Ratio] 11.9 % Normal 11.0-15.0 [facility] Comment on above: Performed By: #### C BC #### [facility] [address] [place] [address] Dr. Prasad Arias Hematocrit (Bld) [Volume fraction] 43.6 % Normal 42.0-54.0 [facility] Comment on above: Performed By: #### C BC #### [facility] [address] [place] [address] Dr. Prasad Arias Hemoglobin (Bld) [Mass/Vol] 15.1 g/dL Normal 14.0-18.0 [facility] Comment on above: Performed By: #### C BC #### [facility] [address] [place] [address] Dr. Prasad Arias IG # 0.01 10e3/ul Normal 0.00-0.03 [facility] Comment on above: Performed By: #### C BC #### [facility] [address] [place] [address] Dr. Prasad Arias IG % 0.2 % Normal 0.0-0.5 [facility] Comment on above: Performed By: #### C BC #### [facility] [address] [place] [address] Dr. Prasad Arias LYMPH # 1.3 103/ul Normal 1.2-3.8 [facility] Comment on above: Performed By: #### C BC #### [facility] [address] [place] [address] Dr. Prasad Arias Lymphocytes/100 WBC (Bld) 27.7 % Normal 20.5-60.0 [facility] Comment on above: Performed By: #### C BC #### [facility] [address] [place] [address] Dr. Prasad Arias MANUAL DIFF REQ NO Normal [facility] Comment on above: Performed By: #### C BC #### [facility] [address] [place] [address] Dr. Prasad Arias MCH (RBC) [Entitic mass] 32.0 pg Normal 25.9-34.0 [facility] Comment on above: Performed By: #### C BC #### [facility] [address] [place] [address] Dr. Prasad Arias MCHC (RBC) [Mass/Vol] 34.6 g/dL Normal 29.9-35.2 [facility] Comment on above: Performed By: #### C BC #### [facility] [address] [place] [address] Dr. Prasad Arias MCV (RBC) [Entitic vol] 92.4 fL Normal 80.0-94.0 [facility] Comment on above: Performed By: #### C BC #### [facility] [address] [place] [address] Dr. Prasad Arias MONO # 0.5 103/ul Normal 0.3-0.8 [facility] Comment on above: Performed By: #### C BC #### [facility] [address] [place] [address] Dr. Prasad Arias Monocytes/100 WBC (Bld) 10.5 % Normal 1.7-12.0 [facility] Comment on above: Performed By: #### C BC #### [facility] [address] [place] [address] Dr. Prasad Arias NEUT # 2.7 103/ul Normal 1.4-6.5 [facility] Comment on above: Performed By: #### C BC #### [facility] [address] [place] [address] Dr. Prasad Arias Neutrophils/100 WBC (Bld) 57.8 % Normal 43.0-75.0 [facility] Comment on above: Performed By: #### C BC #### [facility] [address] [address] [address] Prasad Arias Platelet mean volume (Bld) [Entitic vol] 9.7 fL Normal 9.5-13.5 [facility] Comment on above: Performed By: #### C BC #### [facility] [address] [place] [address] Dr. Prasad Arias PLT 218 103/ul Normal 150-450 [facility] Comment on above: Performed By: #### C BC #### [facility] [address] [address] [address] Prasad Arias RBC 4.72 106/ul Normal 4.70-6.10 [facility] Comment on above: Performed By: #### C BC #### [facility] [address] [place] [address] Dr. Prasad Arias WBC 4.7 103/ul Normal 4.0-11.0 [facility] Comment on above: Performed By: #### C BC #### [facility] [address] [place] [address] Dr. Prasad Arias GLYCOHEMOGLOBIN A1Con 2021 ADA RECOMMENDATION SEE BELOW Normal [facility] Comment on above: Result Comment: ADA RECOMMENDED LIMIT 4.0 - 6.0 ADA THERAPEUTIC TARGET < 7.0 ACTION SUGGESTED > 7.0 Performed By: #### A 1C #### [facility] [address] [place] [address] Dr. Prasad Arias Glucose [Mass/Vol] 100 mg/dL Normal [facility] Comment on above: Performed By: #### A 1C #### [facility] [address] [place] [address] Dr. Prasad Arias HbA1c (Bld) [Mass fraction] 5.1 % Normal 4.5-6.2 [facility] Comment on above: Performed By: #### A 1C #### [facility] [address] [place] [address] Dr. Prasad Arias LIPID PROFILEon 03-30-2022 CHOL-HDL RATIO NORM SEE BELOW Normal [facility] Comment on above: Result Comment: 3.3 - 4.4 LOW RISK 4.4 - 7.1 AVERAGE RISK 7.1 - 11.0 MODERATE RISK >11.0 HIGH RISK Performed By: #### C MP, LIPID #### [facility] [address] [address] [address] Prasad Arias Cholesterol [Mass/Vol] 155 mg/dL Normal <=200 [facility] Comment on above: Performed By: #### C MP, LIPID #### [facility] [address] [address] [address] Prasad Arias Cholesterol in HDL [Mass/Vol] 60 mg/dL Normal 40-60 [facility] Comment on above: Performed By: #### C MP, LIPID #### [facility] [address] [place] [address] Dr. Prasad Arias Cholesterol in LDL [Mass/Vol] 72.6 mg/dL Normal [facility] Comment on above: Performed By: #### C MP, LIPID #### [facility] [address] [place] [address] Dr. Prasad Arias Cholesterol.total/Choles terol in HDL [Mass ratio] 2.6 {ratio} Normal [facility] Comment on above: Performed By: #### C MP, LIPID #### [facility] [address] [place] [address] Dr. Prasad Arias HDL NORMAL > or = 60 mg/dl - LOW CARDIOVASCULAR RISK <40 mg/dl - HIGH CARDIOVASCULAR RISK Normal [facility] Comment on above: Performed By: #### C MP, LIPID #### [facility] [address] [place] [address] Dr. Prasad Arias LDL CALC NORMAL SEE BELOW Normal [facility] Comment on above: Result Comment: <100 mg/dl OPTIMAL 100 - 129 mg/dl NEAR OR ABOVE OPTIMAL 130 - 159 mg/dl BORDERLINE HIGH 160 - 189 mg/dl HIGH >190 mg/dl VERY HIGH Performed By: #### C MP, LIPID #### [facility] [address] [place] [address] Dr. Prasad Arias Triglyceride [Mass/Vol] 112 mg/dL Normal <=150 [facility] Comment on above: Performed By: #### C MP, LIPID #### [facility] [address] [address] [address] Prasad Arias VLDL CALC 22.4 mg/dL Normal [facility] Comment on above: Performed By: #### C MP, LIPID #### [facility] [address] [address] [address] Prasad Arias PROF 14(COMP METB)on 022 Albumin [Mass/Vol] 3.8 g/dL Normal 3.4-5.0 [facility] Comment on above: Performed By: #### C MP, LIPID #### [facility] [address] [place] [address] Dr. Prasad Arias Albumin/Globulin [Mass ratio] 1.2 {ratio} Normal [facility] Comment on above: Performed By: #### C MP, LIPID #### [facility] [address] [place] [address] Dr. Prasad Arias ALP [Catalytic activity/Vol] 74 U/L Normal 46-116 [facility] Comment on above: Performed By: #### C MP, LIPID #### [facility] [address] [place] [address] Dr. Prasad Arias ALT [Catalytic activity/Vol] 27 U/L Normal 16-63 [facility] Comment on above: Performed By: #### C MP, LIPID #### [facility] [address] [place] [address] Dr. Prasad Arias Anion gap [Moles/Vol] 12.5 mmol/L Normal [facility] Comment on above: Performed By: #### C MP, LIPID #### [facility] [address] [place] [address] Dr. Prasad Arias AST [Catalytic activity/Vol] 20 U/L Normal 15-37 [facility] Comment on above: Performed By: #### C MP, LIPID #### [facility] [address] [place] [address] Dr. Prasad Arias Bilirubin [Mass/Vol] 0.9 mg/dL Normal 0.2-1.0 [facility] Comment on above: Performed By: #### C MP, LIPID #### [facility] [address] [address] [address] Prasad Arias Calcium [Mass/Vol] 8.8 mg/dL Normal 8.5-10.1 [facility] Comment on above: Performed By: #### C MP, LIPID #### [facility] [address] [address] [address] Prasad Arias Chloride [Moles/Vol] 103 mmol/L Normal 98-107 [facility] Comment on above: Performed By: #### C MP, LIPID #### [facility] [address] [address] [address] Prasad Arias CO2 [Moles/Vol] 26.4 mmol/L Normal 21.0-32.0 [facility] Comment on above: Performed By: #### C MP, LIPID #### [facility] [address] [place] [address] Dr. Prasad Arias Creatinine [Mass/Vol] 0.98 mg/dL Normal 0.70-1.30 [facility] Comment on above: Performed By: #### C MP, LIPID #### [facility] [address] [place] [address] Dr. Prasad Arias EGFR-AF KYRGYZ >60 Normal >=60 [facility] Comment on above: Performed By: #### C MP, LIPID #### [facility] [address] [place] [address] Dr. Prasad Arias EGFR-NON AF KYRGYZ >60 Normal >=60 [facility] Comment on above: Performed By: #### C MP, LIPID #### [facility] [address] [address] [address] Prasad Arias Globulin (S) [Mass/Vol] 3.2 g/dL Normal [facility] Comment on above: Performed By: #### C MP, LIPID #### [facility] [address] [address] [address] Prasad Arias Glucose [Mass/Vol] 104 mg/dL Normal 74-106 [facility] Comment on above: Performed By: #### C MP, LIPID #### [facility] [address] [address] [address] Prasad Arias Potassium [Moles/Vol] 3.9 mmol/L Normal 3.5-5.1 [facility] Comment on above: Performed By: #### C MP, LIPID #### [facility] [address] [address] [address] Prasad Arias Protein [Mass/Vol] 7.0 g/dL Normal 6.4-8.2 [facility] Comment on above: Performed By: #### C MP, LIPID #### [facility] [address] [address] [address] Prasad Arias Sodium [Moles/Vol] 138 mmol/L Normal 136-145 [facility] Comment on above: Performed By: #### C MP, LIPID #### [facility] [address] [address] [address] Prasad Arias Urea nitrogen [Mass/Vol] 11.0 mg/dL Normal 7.0-18.0 [facility] Comment on above: Performed By: #### C MP, LIPID #### [facility] [address] [address] [address] Prasad Arias Urea nitrogen/Creatinine [Mass ratio] 11.2 mg/mg Normal [facility] Comment on above: Performed By: #### C MP, LIPID #### [facility] [address] [address] [address] Prasad Arias Vital Signs Date Time Vital Sign Value Performing Clinician Facility 06-27-2024 11:12-0500 Diastolic blood pressure 76 mm[Hg] Efren Borrero MD Work Phone: [facility] 06-27-2024 11:12-0500 Heart rate 78 /min Efren Borrero MD Work Phone: [facility] 06-27-2024 11:12-0500 Respiratory rate 13 /min Efren Borrero MD Work Phone: [facility] 06-27-2024 11:12-0500 SaO2% (BldA) [Mass fraction] 97 % Efren Borrero MD Work Phone: [facility] 06-27-2024 11:12-0500 Systolic blood pressure 126 mm[Hg] [facility] 06-27-2024 11:11-0500 Body temperature 98.01 [degF] Efren [facility]ro MD [facility] 06-27-2024 05:21-0500 Body mass index (BMI) [Ratio] 26.41 kg/m2 Efren Borrero MD [facility] 06-27-2024 05:21-0500 Body weight 83.5 kg Efren Borrero MD [facility] 06-23-2024 12:46-0500 Body height 177.8 cm Efren Borrero MD [facility] 06-20-2024 20:28-0500 Body temperature 37.0 Efren Borrero MD [facility] 09-03-2023 10:58-0500 Diastolic blood pressure 84 mm[Hg] MD Nahomy Mg Work Phone: [facility] 09-03-2023 10:58-0500 Heart rate 79 /min MD Nahomy Mg Work Phone: [facility] 09-03-2023 10:58-0500 Respiratory rate 16 /min MD [facility] [facility] Work Phone: [facility] 09-03-2023 10:58-0500 SaO2% (BldA) [Mass fraction] 94 % MD [facility] [facility] Work Phone: [facility] 09-03-2023 10:58-0500 Systolic blood pressure 126 mm[Hg] MD [facility] [facility] Work Phone: [facility] 09-03-2023 08:04-0500 Body height 177.8 cm MD [employer] [facility] Work Phone: [facility] 09-03-2023 08:04-0500 Body mass index (BMI) [Ratio] 28.4 kg/m2 MD [employer] [facility] Work Phone: [facility] 09-03-2023 08:04-0500 Body weight 90 kg MD [employer] [facility] Work Phone: [facility] 09-03-2023 07:42-0500 Body temperature 97.9 [degF] MD [facility] [facility] Work Phone: [facility] 08-24-2023 08:00-0500 Body height 177.8 cm [employer] Other [employer] Other 08-24-2023 08:00-0500 Body mass index (BMI) [Ratio] 26.54 kg/m2 [facility] Other [employer] Other 08-24-2023 08:00-0500 Body weight 83.92 kg [facility] Other [employer] Other Encounters Encounter Date Encounter Type Care Provider Facility Start: 08-14-2024 End: 08-14-2024 [facility] Start: 08-14-2024 End: 08-14-2024 Subsequent hospital visit by physician Adeline Mckeon [facility] Speech Therapy Comment on above: Cognitive communicat ion deficit (Primary Dx) Start: 08-04-2024 End: 08-06-2024 [facility]ulatory [facility] Start: 08-04-2024 End: 08-06-2024 Subsequent hospital visit by physician Antonio Cat Scan Room [facility] CT Scan Comment on above: Subacute subdural he matoma; S/P craniotomy Start: 07-21-2024 End: 07-21-2024 [facility] Start: 07-21-2024 End: 07-21-2024 Subsequent hospital visit by physician Rachell Villalba [facility] Comment on above: Arrived Start: 07-14-2024 End: 07-14-2024 ambulatory [facility] Start: 07-14-2024 End: 07-14-2024 Subsequent hospital visit by physician Arina Ames PT [facility] Comment on above: Arrived Start: 07-07-2024 End: 07-07-2024 ambulatory [facility] Start: 07-07-2024 End: 07-07-2024 Subsequent hospital visit by physician Bushra Aguilar OT [facility] Comment on above: Arrived Start: 07-03-2024 End: 07-05-2024 ambulatory [facility] Start: 07-03-2024 End: 07-05-2024 Subsequent hospital visit by physician Waqas Cat Scan Room [facility] CT Scan Comment on above: Epidural hematoma Start: 07-03-2024 End: 07-03-2024 ambulatory [facility] Start: 07-03-2024 End: 07-03-2024 Subsequent hospital visit by physician Rachell Villalba [facility] Comment on above: Arrived Start: 07-01-2024 End: 07-01-2024 ambulatory [facility] Start: 07-01-2024 End: 07-01-2024 Subsequent hospital visit by physician Arina Ames PT [facility] Comment on above: Arrived Start: 06-20-2024 End: 06-20-2024 ambulatory UNKNOWN PROVIDER Facility:[facility] Start: 06-20-2024 End: 06-27-2024 Evaluation and management of inpatient Efren Borrero MD Work Phone: [id number] Comment on above: Epidural hematoma (P rimary Dx); Left-sided weakness; Acute on chronic intracranial subdural hematoma (HCC) Start: 03-14-2024 End: 03-14-2024 ambulatory [facility] Work Phone: Start: 03-14-2024 End: 03-14-2024 Patient encounter procedure [facility] Work Phone: Start: 09-18-2023 End: 09-18-2023 ambulatory [facility] Other [employer] Other Start: 09-18-2023 Postop follow up vis it related to original px [facility] Start: 09-03-2023 End: 09-03-2023 ambulatory Nahomy Mg Facility:[facility] Start: 09-03-2023 Non-patient / Non-visit MD Col david Mg Work Phone: [facility] Work Phone: Start: 08-27-2023 End: 08-27-2023 ambulatory NON STAFF Facility:[facility] Start: 08-27-2023 End: 08-27-2023 ambulatory NON STAFF [facility] Work Phone: Start: 08-27-2023 End: 08-27-2023 Patient encounter procedure MD [facility] Mg Work Phone: [facility] Work Phone: Start: 08-24-2023 End: 08-24-2023 ambulatory [facility] Other [employer] Other Start: 08-24-2023 Office outpatient vi sit 25 minutes [facility] Start: 08-24-2023 End: 08-24-2023 Patient encounter procedure MD Nah[facility] Mg Work Phone: [facility] Work Phone: Start: 01-25-2023 End: 01-26-2023 ambulatory Maria L Maher VIANEY Facility:[facility] Start: 12-19-2022 End: 12-19-2022 ambulatory [facility] Other [employer] Other Start: 12-19-2022 Office outpatient vi sit 15 minutes [facility] Start: 10-12-2022 End: 10-13-2022 ambulatory MARTINA BLAS Facility:[facility] Start: 08-13-2022 End: 09-06-[address] VINICIUS WRAY . Facility:[facility] Start: 08-10-2022 End: 08-12-[address] VINICIUS WRAY . Facility:[facility] Start: 06-15-2022 End: 06-16-2022 ambulatory MARTINA RODRIGUEZMER Facility:[facility] Start: 03-31-2022 Encounter for genera l adult medical examination without abnormal findings MARTINA WAN [facility] Start: 03-30-2022 End: 03-31-2022 ambulatory MARTINA WAN Facility:[facility] Start: 03-30-2022 End: 03-31-2022 Encounter for general adult medical examination without abnormal findings MARTINA BLAS Facility:[facility] Start: 10-19-2021 End: 10-20-[address] DOCTOR TA Facility:[facility] Procedures Date Procedure Procedure Detail Performing Clinician Start: 08-04-2024 Ct head/brain w/o co ntrast material Oly Garcia BELT WORKER - CHIEF CONSTRUCTION INSPECTOR Work Phone: Start: 07-03-2024 Ct head/brain w/o co ntrast material Gabriella Lisa Kilgore BELT WORKER - CHIEF CONSTRUCTION INSPECTOR Work Phone: Start: 06-27-2024 BASIC METABOLIC PANE L W/ REFLEX TO MG FOR LOW K Jennifer Chapa BELT WORKER - CHIEF CONSTRUCTION INSPECTOR Work Phone: Start: 06-27-2024 Blood count complete auto&auto difrntl wbc Jennifer Chapa BELT WORKER - CHIEF CONSTRUCTION INSPECTOR Work Phone: Start: 06-26-2024 BASIC METABOLIC PANE L W/ REFLEX TO MG FOR LOW K Jennifer Chapa BELT WORKER - CHIEF CONSTRUCTION INSPECTOR Work Phone: Start: 06-26-2024 Blood count complete auto&auto difrntl wbc Jennifer Chapa BELT WORKER - CHIEF CONSTRUCTION INSPECTOR Work Phone: Start: 06-25-2024 Assay of magnesium Anth gudelia J Ignatovich PA-C Work Phone: Start: 06-25-2024 BASIC METABOLIC PANE L W/ REFLEX TO MG FOR LOW K Tip Cuellar Ignatovich PA-C Work Phone: Start: 06-24-2024 Mra head w/o & w/con trast material Jennifer Chapa BELT WORKER - CHIEF CONSTRUCTION INSPECTOR Work Phone: Start: 06-24-2024 Slctv cath carotid/i [...] Work Phone: Start: 06-22-2024 Assay of magnesium Anth gudelia Cuellar Ignatovich PA-C Work Phone: Start: 06-22-2024 BASIC METABOLIC PANE L W/ REFLEX TO MG FOR LOW K Tip Cuellar Ignatovich PA-C Work Phone: Start: 06-21-2024 Prothrombin time Nora Daniels MD Work Phone: Start: 06-21-2024 Ecg routine ecg w/le ast 12 lds i&r only Denise Salcedo BELT WORKER - CHIEF CONSTRUCTION INSPECTOR Work Phone: Start: 06-21-2024 BLOOD BANK SPECIMEN Naseem Sharmabonillajoshua DO Work Phone: Start: 06-21-2024 Blood typing serologic abo Denise Salcedo BELT WORKER - CHIEF CONSTRUCTION INSPECTOR Work Phone: Start: 06-21-2024 Radiologic exam ches t single view Denise Salcedo BELT WORKER - CHIEF CONSTRUCTION INSPECTOR Work Phone: Start: 06-21-2024 Assay of magnesium Anth gudelia Calixto PA-Dr [facility] [employer] Work Phone: Start: 06-21-2024 BASIC METABOLIC PANE L W/ REFLEX TO MG FOR LOW K Tip Calixto PA-C Work Phone: Start: 06-20-2024 Ct cervical [...] 60 yrs+ (1 - 1-dose 75+ series) [facility] Start: 11-19-2024 End: 11-19-2024 Patient encounter procedure 11/19/2024 9:00 AM EDT Office Visit [facility] [address] Floor, [address] [place] [id number] Isma Paez MD [address] [phone] 4 [place] ISRA [facility] Comment on above: 4 MO NAN Start: 08-14-2024 End: 08-14-2024 Patient encounter procedure 08/14/2024 2:30 PM EST Appointment [facility] Speech Therapy [address] [place] [address] Adeline Mckeon, ALMAZ Call for Benefits Epidural Hematoma [facility] Comment on above: Call for Benefits Ep idural Hematoma Start: 08-11-2024 End: 08-11-2024 Patient encounter procedure [facility] Comment on above: Needs post-op with Emile Yanez in 4-[address] head 4-6 POST OP Start: 08-08-2024 End: 08-08-2024 Patient encounter procedure 08/08/2024 10:00 AM EST Office Visit [facility] [address] [place] [address] [address] Floor, [address] [phone] Santi Dueñas MD [address] [id number] WK ISRA [facility] Javier Comment on above: 4 WK ISRA Start: 08-04-2024 End: 08-04-2024 Patient encounter procedure 08/04/2024 8:30 AM EST Appointment [facility] CT Scan [address] [place] [address] epic/ pt [facility] CT Scan Comment on above: epic/ pt Start: 07-21-2024 End: 07-21-2024 Patient encounter procedure 07/21/2024 11:15 AM EST Appointment [facility] Physical Therapy [address] [place] [address] Rachell Villalba [facility] Physical Therapy Start: 07-14-2024 End: 07-14-2024 Patient encounter procedure 07/14/2024 1:00 PM EST Appointment [facility] Physical Therapy [address] [place] [address] Arina Ames, PT 3 of 20 AC Chronic Intracranial subdural hematoma [facility] Comment on above: 3 of 20 AC Chronic I ntracranial subdural hematoma Start: 07-08-2024 End: 06-25-2025 CT Head WO contrast CT HEAD WO CONTRAST Imaging Routine Epidural hematoma Expected: 07/08/2024, Expires: 06/25/[address] [facility] Comment on above: Expected: 07/08/2024 , Expires: 06/25/2025 Start: 07-08-2024 End: 07-08-2024 Patient encounter procedure 07/08/2024 10:30 AM EST Office Visit [facility] [address], [address] [place] [phone] Oly Garcia W, BELT WORKER - CHIEF CONSTRUCTION INSPECTOR [address] [place], [place] [id number] (Staff Message Myrna Kilgore) Follow up in [address] head and for incision site check with HOPE s/p right sided steve holes for drainage of SDH [facility] Comment on above: (Staff Message Corey Kilgore) Follow up in [address] head and for incision site check with HOPE s/p right sided steve holes for drainage of SDH Start: 07-07-2024 End: 07-07-2024 Patient encounter procedure 07/07/2024 11:00 AM EST Appointment [facility] [place] [address] [address] Bushra Aguilar OT 1 of 20 AC Chronic Intracranial subdural hematoma [facility] Comment on above: 1 of 20 AC Chronic I ntracranial subdural hematoma Start: 07-03-2024 End: 07-03-2024 Patient encounter procedure [facility] Comment on above: 2 of 20 AC Chronic I ntracranial subdural hematoma pt/epic Start: 04-13-2024 COVID-19 Vaccine ( season) COVID-19 Vaccine ( season) [facility] Start: 03-13-2024 Influenza vaccination Flu vaccine (# 1) [facility] Start: 09-03-2023 End: 09-03-2023 [facility] Start: 2012 Shingles vaccine (1 of 2) Shingles vaccine (1 of 2) [facility] Start: 11-28-2007 Screening for malign ant neoplasm of colon [facility] [employer] Start: 2002 Lipid panel Lipids Home [facility] [employer] Start: 1997 Diabetes screen Diabetes screen [facility] Start: 1981 DTaP/Tdap/Td vaccine (1 - Tdap) DTaP/Tdap/Td vaccine (1 - Tdap) [facility] Start: 1980 Hepatitis C screening Hepatitis C sc reen [facility] [employer] Start: 1977 HIV screening HIV screen [facility] [employer] Start: 1974 Depression Screen Depression Screen [facility] [employer] End: 06-28-2024 Basic Metabolic Panel w/ Reflex to MG Basic Metabolic Panel w/ Reflex to MG Lab Routine Daily for 3 Days starting 06/26/2024 until 06/28/2024, 2 completed [email or web address] Comment on above: Daily for 3 Days sta rting 06/26/2024 until 06/28/2024, 2 completed End: 06-28-2024 CBC W Auto Differential panel - Blood CBC with Auto Differential Lab Routine Daily for 3 Days starting 06/26/2024 until 06/28/2024, 2 completed [email or web address] Comment on above: Daily for 3 Days sta rting 06/26/2024 until 06/28/2024, 2 completed Oxygen therapy [[facility] Data Set] Initiate Oxygen Therapy Protocol Respiratory Care Routine As Needed until discontinued starting 06/24/2024 [facility] [place] [facility] Work Phone: Comment on above: As Needed until disc ontinued starting 06/24/2024 Patient referral [facility] Work Phone: Slctv cath carotid/innom art angio intrcranl art IR Angiogram Carotid Cerebral Bilateral Imaging Routine 06/24/2024 9:31 AM EST [email or web address] End: 06-20-2024 Speech and language therapy regime Speech language pathology evaluation ALARM MECHANIC Routine One Time for 1 Occurrences starting 06/20/2024 until 06/20/2024 [email or web address] Comment on above: One Time for 1 Occur rences starting 06/20/2024 until 06/20/2024 Spirometry panel Incentive neymar metry Respiratory Care Routine Every 2hr while awake until discontinued starting 06/21/2024 [email or web address] Comment on above: Every 2hr while awak e until discontinued starting 06/21/2024 End: 06-20-2024 TRAUMA PANEL TRAUMA PANEL Lab Routine One Time for 1 Occurrences starting 06/20/2024 until 06/20/2024 [email or web address] Comment on above: One Time for 1 Occur rences starting 06/20/2024 until 06/20/2024 Payers Date Payer Category Payer Self-pay 1960 Unknown [id number] 2.16.84 [id number] 1960 Unknown [id number] 2.16.84 0.1.336083.3.579.2.593 1960 Unknown [id number] 2.16.84 0.1.835545.3.579.2.593 1960 Unknown [id number] 2.16.84 0.1.326443.3.579.2.593 1960 Unknown [id number] 2.16.84 0.1.212904.3.579.2.593 1960 Unknown [id number] 2.16.84 0.1.184830.3.579.2.593 1960 Unknown [id number] 2.16. 840.1.668857.3.579.2.732 1960 Unknown [id number] 2.16. 840.1.435088.3.579.2.175 1960 Unknown [id number] 2.16.8 40.1.024018.3.579.2.174 1960 Unknown [id number] 2.16.8 40.1.025630.3.579.2.174 1960 Unknown [id number] 2.16.8 40.1.097264.3.579.2.174 1960 Unknown [id number] 2.16.8 40.1.060648.3.579.2.174 1960 Unknown [id number] 2.16.8 40.1.377140.3.579.2.174 1962 Unknown [id number] 2.16.8 40.1.259848.3.579.2.174 1962 Unknown [id number] 2.16.8 40.1.688565.3.579.2.174 1960 Unknown [id number] 2.16.8 40.1.884278.3.579.2.174 1959 Unknown [id number] Unknown [facility] [id number] Unknown [id number] 2.16.8 40.1.806232.3.579.2.531 Unknown [id number] 2.16.8 40.1.342054.3.579.2.531 Social History Date Type Detail Facility Start: 06-21-2024 End: 06-23-2024 [facility] Start: 08-27-2023 End: 06-23-2024 Tobacco smoking status NHIS Never smoked tobacco (finding) [facility] Start: 1960 Sex Assigned At Male F [facility] Start: 06-23-2024 Tobacco use and exposure Smoke less tobacco non-user [facility] Start: 06-24-2024 Alcoholic beverage intake Curr ent drinker of alcohol (finding) [facility] Start: 06-23-2024 End: 06-24-2024 Alcoholic beverage intake Bon [facility] Has the electric, [employer], [employer], or water Sessions threatened to shut off services in your home in past 12Mo No [facility] (I/We) worried john er (my/our) food would run out before (I/we) got money to buy more. Never true Kris [facility] [employer] In the past 12 month s, has lack of transportation kept you from medical appointments or from getting medications? No Bon Silvia [facility] Start: 06-23-2024 Alcohol Comment about 8 a day Kris leija [facility] [employer] Start: 1960 Sex assigned at Not on file B on [facility] Start: 07-08-2024 End: 08-11-2024 Alcoholic beverage intake Ex-drinker (finding) Kris Vega [facility] Medical Equipment Procedure Code Equipment Code Equipment Origin al Text Equipment Identifier Dates Plate [employer] - [id number], [id number] FDA Start: 06-22-2024 Plate [employer] - [id number], [id number] FDA Start: 06-22-2024 Clinical Notes 06-15-2022 to 08-14-2024 Adeline Mckeon, ALARM MECHANIC - 08/14/2024 2:30 PM Arina Lamb PT - 07/14/2024 1:00 PM Rachell Amaya - 07/03/2024 10:00 AM Marleny Kyle - 06/27/2024 12:41 PM EST Note Date & Type Note Facility 08-14-2024 History of Present illness Narrative [facility] Speech Language Pathology Fznppb-Azxcieqp-Vdgofmmam Evaluation Date: 08/14/2024 Patient Name: Jorge Chavira : 1960 (63 y.o.) Gender: male CSN #: [id number] Diagnosis: Cognitive communication deficit R41.841 PCP:Martina Blas, BELT WORKER - CHIEF CONSTRUCTION INSPECTOR Referring physician: Oly Garcia [place]set Date: 06/20/24 No past medical history on file. 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 Currently pt is living alone again, independent with all ADLs, and driving. Not yet back to work but may not be returning/may be retiring. Assessment/Test Data Pain: No Pain Rating (0-10 pain scale): 0 Vision and Hearing Vision: Impaired Vision Exceptions: Wears glasses at all times Hearing: Within functional limits Oral/Motor Oral Motor Labial: No impairment Dentition: Full, Intact, Natural Oral Hygiene: Moist, Clean Lingual: No impairment Velum: No Impairment Mandible: No impairment Oral/Motor Oral Hygiene: Moist, Clean Motor Speech Motor Speech Dysarthric Characteristics: Increased rate Intelligibility: Impaired Conversation Intelligibility (%): 90 % (Pt reports extremely fast speech is his baseline) Overall Impairment Severity: Mild Comprehension Auditory Comprehension Comprehension: Within Functional Limits Expression Expression Primary Mode of Expression: Verbal Verbal Expression Verbal Expression: Within functional limits Reading Comprehension WFL Written Expression Written Expression Dominant Hand: Right Written Expression: Within Functional Limits Cognition Orientation Overall Orientation Status: Within Normal Limits Attention Attention: Within Functional Limits Memory Memory: Within Functional Limits Problem Solving Problem Solving: Within Functional Limits Numeric Reasoning Numeric Reasoning: Within Functional Limits Abstract Reasoning Abstract Reasoning: Within Functional Limits Pragmatics Pragmatics/Social Functioning Pragmatics: Within functional limits Impressions and Recommendations Summary: Jorge presents with speech, language, and cognitive skills that are WFL. He does demonstrate a fast rate of speech with some cluttering characteristics however he reports this is his baseline. He also reports premorbid difficulties with reading comprehension and writing due to this issue with speed and his eyes or hands moving faster than his brain can process the information. Speech therapy is not indicated at this time. Prognosis: Excellent Consulted and agree with results and recommendations: Patient Therapy: Requires ALARM MECHANIC Intervention: No Duration of Treatment: Not indicated Frequency of Treatment: Not indicated Referrals: N/A Patient tolerated today s evaluation: Good Treatment Given Today: [x] Evaluation [x]Plans/ Goals discussed with pt/family/caregiver(s) [x] Risks Benefits discussed with pt/family/caregiver(s) RECOMMENDATIONS [] ST x per week for x weeks [x] ST not warranted at this time. [] A re-evaluation is recommended in ___ months. The results of these tests and the recommendations were explained to Jorge, and he appeared to understand the information presented. Thank you for this referral. If you have any further questions, you can reach me at . TIME Time Evaluation session was INITIATED 1430 Time Evaluation session was STOPPED 1530 Minutes: 60 Units Charged: 1 Electronically signed by: Adeline Mckeon M.S., [facility]-ALARM MECHANIC Date:08/14/2024 Regulatory Requirements I have reviewed this plan of care and certify a need for medically necessary rehabilitation services. Physician Signature: Date: ____ Please sign and fax to [phone] documented in this encounter [facility] 07-14-2024 History of Present illness Narrative Images from the original note were not included. [facility] Therapy Daily Note Date: 07/14/2024 Patient Name: Jorge Chavira : 1960 (63 [...] Completed step up with opp october on BOSU with noted difficulty on L LE. Pt requires VCs for proper lunge form. Pt would like to cont x1 visit then determine if continued needs are present. Plan Continue with current plan of care Exercises/Modalities/Manual: See DocFlow Sheet Education: see assessment Goals (Total # of Visits to Date: 3) Short Term Goals Time Frame for Short Term Goals: STG=LTG Usp Goals Time Frame for Usp Goals : 12 visits [employer] Goal 1: Pt to improve LEFS from 43/50 to >53/80 to improve ADL franck. [employer] Goal 2: Pt to improve SLS on uneven surface to 15sec 2:3 trials B/L Usp Goal 3: Pt to demonstrate narrow ASHLEY on uneven surface with head turns without LOB to improve outdoor safety. [employer] Goal 4: Pt to demonstrate crate 16# carry up/down stairs to restore ADL and work franck. Post Treatment Pain: 0/10 Time In: 1303 Time Out: 1345 Timed Code Treatment Minutes: 42 Minutes Total Treatment Time: 0 Minutes Arina Ames PT Date: 07/14/2024 documented in this encounter Bon [facility] 07-03-2024 History of Present illness Narrative Images from the original note were not included. [facility] Physical Therapy Daily Note Date: 07/03/2024 Patient Name: Jorge Chavira : 1960 (63 y.o.) Referring Provider (secondary): Jennifre Chapa APRN -ADAM Diagnosis: Acute on chronic intracranial subdural hematoma [...] Time Frame for Short Term Goals: STG=LTG [employer] Goals Time Frame for Usp Goals : 12 visits Usp Goal 1: Pt to improve LEFS from 43/50 to >53/80 to improve ADL franck. Usp Goal 2: Pt to improve SLS on uneven surface to 15sec 2:3 trials B/L [employer] Goal 3: Pt to demonstrate narrow ASHLEY on uneven surface with head turns without LOB to improve outdoor safety. Usp Goal 4: Pt to demonstrate crate 16# carry up/down stairs to restore ADL and work franck. Post Treatment Pain: 0/10 Time In: 0955 Time Out : 1026 Timed and total 31 min Rachell Villalba CARE TRANSPORT NURSE Date: 07/03/2024 documented in this encounter [facility] 06-28-2024 Note Date of Service: 07/2024 Procedure: [...] artery (ECA) angiogram --Right common femoral artery ([facility] [facility]) angiogram Neurointerventionalist: Dr. Isma Paez [place]: Santi Dueñas MD Contrast: 36 cc of [...] technique was used to place a 5 Serbian intravascular sheath in the right common femoral artery. Fluoroscopy was used to confirm placement, this image was captured and archived in the patient's record. 2000u of heparin IV was administered. A 5 Serbian multipurpose catheter was then advanced over a [...] IMAX, ascending pharynge (more content not included)... [facility] 06-27-2024 History of Present illness Narrative Speech Language Pathology [facility] Cognitive Treatment Note Date: 06/27/2024 Patient [...] 20/20 with min to max verbal cues. Nnvtxdhasv-Vhnzbhqnv-9 Units: 14/15 increased to 15/15 with min [...] recommended at discharge. Completed by: Marleny Disla Table Assembler Metal Clinician Cosigned By: Suri Haydock M.A. CCC/ALARM MECHANIC Occupational Therapy Daily Treatment Note Facility/Department: [address] Patient Name: Jorge Chavira : 1960 Date of Service: 06/27/2024 Discharge Recommendations Further therapy recommended at discharge. Chief Complaint Patient presents with Hematoma Past Medical History: has no past medical history on file. Past Surgical History: has a past surgical history that includes craniotomy (Right, 06/22/2024); Heel spur surgery (Right); [place] tooth extraction; craniotomy (Right, 06/22/2024); and Cerebral [...] mobility from bathroom and in hallway to leaf size picker items for simulated IADL task. pt able to complete with CGA and 100% accuracy of picking up items with L UE. Exercises OT Exercises Exercise Treatment: pt participate in fine motor activity by picking up and releasing safety pins 1 at a time (10 total) with L hand. pt dropped 2 pins during picking up 1st attempt, and took 29 to leaf size picker all 10 with no drops 2nd attempt. pt dropped 1 pin during release on 1st attempt, and took 33 seconds to release on 2nd attempt. Patient Education Patient Education Education Given To: Patient Education Provided: Role of Therapy;Transfer Training;ADL Adaptive Strategies;Home Exercise Program Education Provided Comments: FMC activities, safety within home environment. Education Method: [...] AE, as needed (Goal updated by Peggy CASTANEDA/L on 06/27/24) Short Term Goal 3: complete UB ADLS with mod I and modified tech(Goal updated by Peggy Cade OTR/L on 06/27/24) Short Term Goal 4: participate in meaningful task for 15+ minutes in order to increase L UE strength an coordination Short Term Goal 5: dem SBA during functional transfers/functional mobility with LRAD, as needed Short Term Goal 6: dem ~20 minutes dynamic standing balance with SBA in order to complete functional tasks(Goal updated by Peggy CASTANEDA/L on 06/27/24) Plan Occupational Therapy Plan Times [...] None AM-PAC Inpatient Daily Activity Raw Score: 22 AM-PAC Inpatient ADL T-Scale Score : 47.1 ADL Inpatient CMS 0-100% Score: 25.8 ADL Inpatient CMS G-Code Modifier : CJ Minutes OT Individual Minutes Time In: 1100 Time Out: 1123 Minutes: 23 Time Code Minutes Timed Code Treatment Minutes: 23 Minutes Images from the original note were not included. PROGRESS NOTE PATIENT NAME: Jorge Chavira DATE: 06/27/2024 PRIMARY CARE PHYSICIAN: Martina Blas APRN - ADAM HD: # 7 ASSESSMENT Patient Active Problem List Diagnosis Epidural hematoma Subacute subdural hematoma Left-sided weakness Acute on chronic intracranial subdural hematoma (HCC) MEDICAL DECISION MAKING AND PLAN SDH s/p Steve Hole 06/22 and EVD drain removal 06/24 SBP goal 100-140 Attempted MMA but unsuccessful due to anatomy MRV within normal limits GCS 15, pain well controlled Chronic rib fractures right 9-10 IS 4000, pain well controlled, cough strong PIC 10 Constipation Continue PEG, Senna, and Dulcolax Monitor Ins and outs. Record pts Bms. DVT ppx-Lovenox Dispo: precert to [facility] rehab Chief Complaint: I had a BM [...] recorded. LAB: CBC: Recent Labs 06/25/24 0746 06/26/2430106/27/248 WBC 5.3 4.4 3.5 HGB 12.7* 12.6* [...] Invalid input(s): PROT RADIOLOGY: No results found. Nilsa Brezovec, OMS IV 06/27/24, 6:44 AM General Surgery Resident [...] complaints, Pain controlled. DC to ARU at [facility] pending. Note was edited and changes made [...] rehab. Tip Li MD Physical Therapy Facility/Department: [address] [place] Physical Therapy Daily Treatment Note [...] craniotomy (Right, 06/22/2024); Heel spur surgery (Right); [place] tooth extraction; craniotomy (Right, 06/22/2024); and Cerebral [...] L side lean he exhibited. OutComes Score AM-[facility] - Mobility AM-[facility] Basic Mobility - Inpatient How much help [...] 3-5 steps with a railing?: A Little AM-[facility] Inpatient Mobility Raw Score : 20 AM-[facility] Inpatient T-Scale Score : 47.67 Mobility Inpatient CMS 0-100% Score: 35.83 Mobility Inpatient [facility] G-Code Modifier : CJ Goals Short Term [...] Code Treatment Minutes: 33 Minutes Gabriella Cortes CARE TRANSPORT NURSE [facility] Inpatient Progress Note CHRISTEL Carlton 06/26/2024 8:41 AM Jorge Chavira 11/27/[id number] Time Spent with Patient: 15 minutes or less (Brief Diagnostic Assessment) 54910 Pt was provided informed consent for the [facility]. Discussed with patient model of service to include the limits of confidentiality (i.e. abuse reporting, suicide intervention, etc.) and short-term intervention focused approach. Pt indicated understanding. [facility] Inpatient or Virtual Question: This was not [...] # 6 DIAGNOSIS AND PLAN SDH s/p [place] Hole 06/22 and EVD drain removal 06/24 SBP goal 100-140 Attempted MMA but unsuccessful due to anatomy MRV within normal limits GCS 15, pain well controlled Chronic rib fractures right 9-10 IS 3000, pain well controlled, cough strong [...] Affect: Mood normal. LAB: CBC: Recent Labs 06/24/2423806/25/2446 06/26/24 0302 WBC 6.7 5.3 4.4 HGB 13.0 12.7* 12.6* HCT 39.0* 38.9* 38.2* MCV 94.9 97.0 96.5 PLT 206 188 216 BMP: Recent Labs 06/24/2423806/25/2446 06/26/24 0302 NA 137 138 138 K 3.8 3.7 4.1 CL 105 105 104 CO2 23 24 25 BUN 9 10 10 CREATININE 0.9 0.8 0.9 GLUCOSE 105* 110* 101* ILEANA HANNAH Lisa 06/26/2024, 6:40 AM General Surgery Resident Statement/Addendum [...] DO Trauma/Surgery Service 06/25/2024 at 5:41 PM [facility] Inpatient Psychotherapy Note CHRISTEL Carlton 06/25/2024 2:48 PM Jorge Pierson Agustinherminia 11/[birth year]/[id number] Time Spent with Patient: 16 to 37 minutes (30 minutes) 90716 Pt was provided informed consent for the [facility] [place]. Discussed with patient model of service to include the limits of confidentiality (i.e. abuse reporting, suicide intervention, etc.) and short-term intervention focused approach. Pt indicated understanding. [facility] Inpatient or Virtual Question: This was not [...] during hospital admission and Provide Referrals Facility/Department: [address] Re-Evaluation Speech/Language/Cognitive Assessment NAME: Jorge [...] Moderate amount of new subarachnoid pneumocephalus. Improved npxrg-gm-jdrs midline shift now measuring 4 mm. Primary [...] therapy recommended at discharge. Recommendations: Recommendations Requires ALARM MECHANIC Intervention: Yes 3-5x per week D/C Recommendations: [...] 13:59 Minutes 10 Completed by: Marleny Disla Table Assembler Metal Clinician Cosigned By: Suri Ashford M.A. CCC/ALARM MECHANIC Occupational Therapy Occupational Therapy Daily Treatment Note Facility/Department: [address] Patient Name: Jorge Chavira : 1960 Date of Service: 06/25/2024 Discharge Recommendations Discharge Recommendations: Patient would benefit from continued therapy after discharge Past Medical History: has no past medical history on file. Past Surgical History: has a past surgical history that includes craniotomy (Right, 06/22/2024); Heel spur surgery (Right); [place] tooth extraction; craniotomy (Right, 06/22/2024); and Cerebral [...] ability to write date, name and numbers, leaf size picker paper, tear tape, leaf size picker multiple size items and peel a [...] None AM-PAC Inpatient Daily Activity Raw Score: 22 AM-PAC Inpatient ADL T-Scale Score : 47.1 ADL [...] craniotomy (Right, 06/22/2024); Heel spur surgery (Right); [place] tooth extraction; craniotomy (Right, 06/22/2024); and Cerebral [...] Cruz MD Stroke, Neurocritical Care & Neurointervention [facility] Associated attestation - Isma Paez MD - [...] notes personally today. Isma Paez MD Office [phone]. Cell [phone] Stroke, Neurocritical Care & Neurointervention [facility] Physical Therapy Facility/Department: [place] [address] Physical Therapy Treatment Note Name: Jorge Chavira [...] craniotomy (Right, 06/22/2024); Heel spur surgery (Right); [place] tooth extraction; craniotomy (Right, 06/22/2024); and Cerebral [...] 1 x 30 sec modA for LOBs. AM-PAC - Mobility AM-PAC Basic Mobility - [...] 3-5 steps with a railing?: A Lot AM-PAC Inpatient Mobility Raw Score : 19 AM-PAC Inpatient T-Scale Score : 45.44 Mobility Inpatient [...] Minutes: 23 Minutes Franky Cid PTA Trauma [facility] Inpatient Progress Note CHRISTEL Carlton 06/25/2024 9:58 AM Jorge Chavira 11/27/[id number] Time spent with Patient: 0 minutes Time spent with Family: 0 Minutes This development writer was unable to complete screen or [...] consume po intake as tolerated, 06/22 - [place] hole with NSG, postoperatively looks well, headache, [...] ppx Follow up in 2 weeks with [facility] Continue keppra at DC NEV MRV brain 06/24 unremarkable F/u further rec's [...] Chavira DATE: 06/25/2024 PRIMARY CARE PHYSICIAN: Martina Blas APRN - CNP HD: # 5 ASSESSMENT Patient Active Problem [...] PLAN Neuro: GCS: 15 POD# 3 s/p Steve hole for subdural hematoma on the R Subdural R lateral convexity 3cm in thickness, 8mm shift R to L Hx of alcohol use, currently on a phenobarb taper Keppra 500 mg q12h EVD to right side of head removed yesterday Endovascular neruosurgery consulted for right MMA embolization-procedure aborted d/t patient anatomy CV HR=50/s-60's, [id number];S-120'S, DBP=60-90'S SBP < 140 per NSG Hydralazine 10 mg PRN for BP control, not needed since 06/21 Pulm O2 96 on room air RIB score 4, questionable non-displaced fractures of R 9 & 10, not tender to palpation IS 2500, good cough GI/Nutrition Regular diet Renal/lytes Urine: 1700 past 24 hours (0.9mL/kg/hr) +3456 since admission Magnesium and Phosphorus labs added on for today, [facility] review result Heme Labs pending 8. Endocrine [...] No MOBILITY: As tolerated SBT: N/A SUBJECTIVE Jorgejoshua Chavira is a 63-year-old male that is [...] output: LAB: CBC: Recent Labs 06/22/24 1801 06/23/2452006/24/249 WBC 5.9 9.6 6.7 HGB 14.1 13.4 13.0 HCT 41.9 39.7* 39.0* MCV 95.0 94.7 94.9 PLT 224 214 206 BMP: Recent Labs 06/22/24 1801 06/23/2452006/24/24238 NA 138 136 137 K 3.8 3.8 [...] artery (ECA) angiogram --Right common femoral artery ([facility]) angiogram Neurointerventionalist: Dr. Isma Paez [place]: Santi Dueñas MD Contrast: 36 cc of [...] technique was used to place a 5 Serbian intravascular sheath in the right common femoral artery. Fluoroscopy was used to confirm placement, this image was captured and archived in the patient's record. 2000u of heparin IV was administered. A 5 Serbian multipurpose catheter was then advanced over a [...] Moderate amount of new subarachnoid pneumocephalus. Improved easvq-ye-wuji midline shift now measuring 4 mm. Tray [...] Pepcid (home med), Lovenox Dispo: transfer to [facility] Radha Garnett MD [facility] Inpatient Brief Diagnostic Assessment Note CHRISTEL Carlton 06/24/2024 4:01 PM Jorge Chavira 11/27/[id number] Time Spent with Patient: 15 minutes or less (Brief Diagnostic Assessment) 11490 Pt was provided informed consent for the [facility]. Discussed with patient model of service to include the limits of confidentiality (i.e. abuse reporting, suicide intervention, etc.) and short-term intervention focused approach. Pt indicated understanding. [facility] Inpatient or Virtual Question: This was not [...] mental condition Z03.89 Patient Interventions: Psychoeducation , [facility] Trauma Information Packet Provided, Emotional Support, and [...] to perform procedure successfully. PLAN 1. Pain irpsvczxay-Hsmie-ujpax 2. DVT proph-Will start tomorrow 3. GI [...] craniotomy (Right, 06/22/2024); Heel spur surgery (Right); [place] tooth extraction; craniotomy (Right, 06/22/2024); and Cerebral [...] Cruz MD Stroke, Neurocritical Care & Neurointervention [facility] Associated attestation - Isma Paez MD - [...] notes personally today. Isma Paez MD Office [phone]. Cell [phone] Stroke, Neurocritical Care & Neurointervention [facility] Neurosurgery HOPE/Resident Daily Progress Note Chief Complaint [...] Moderate amount of new subarachnoid pneumocephalus. Improved pnocn-qv-tuvs midline shift now measuring 4 mm. A/P [...] to Salas Hines RN. All questions answered. [facility] Speech Language Pathology Date: 06/24/2024 Patient Name: [...] treatment: 06/25/24 Completed by: Peace Agrawal M.A., CCC-ALARM MECHANIC Images from the original note were not included. Occupational Therapy [facility] Occupational Therapy Not Seen Note DATE: [...] DATE: 06/24/2024 PRIMARY CARE PHYSICIAN: Martina Blas, BELT WORKER - CHIEF CONSTRUCTION INSPECTOR HD: # 4 ASSESSMENT Patient Active Problem List Diagnosis Epidural hematoma Subacute subdural hematoma Left-sided weakness Acute on chronic intracranial subdural hematoma (HCC) MEDICAL DECISION MAKING AND PLAN Neuro: GCS: 15 POD# 2 s/p [place] hole with drain for subdural hematoma on [...] right MMA embolization today 06/24/2024 CV HR=60'S-70'S, SIO561;S-140'S, DBP=60-80'S SBP < 160 per NSG Hydralazine [...] and Phosphorus labs added on for today, [facility] review result Heme H/H= 13.0/39.0 (13.4/39.7 [...] output: LAB: CBC: Recent Labs 06/22/24 1801 06/23/2452006/24/24 0239 WBC 5.9 9.6 6.7 HGB 14.1 13.4 13.0 HCT 41.9 39.7* 39.0* MCV 95.0 94.7 94.9 PLT 224 214 206 BMP: Recent Labs 06/22/24 18006/23/2452006/24/24 023 NA 138 136 137 K 3.8 3.8 [...] Moderate amount of new subarachnoid pneumocephalus. Improved vrjsa-ju-ewsj midline shift now measuring 4 mm. Tray Klein MD 06/24/24, 7:06 AM Associated attestation - Radha Garnett MD - 06/24/2024 11:44 AM EST I personally evaluated the patient and directed the medical decision making with Resident/HOPE after the physical/radiologic exam and laboratory values were reviewed and confirmed. 63yo male s/p fall with SDH (BIG 3) Neuro: s/p [place] hole 06/22 - Bps goals per N/S [...] the ICU Radha Garnett MD Neurosurg Overnight BULKHEAD CARPENTER at bedside, Ok'd patient to begin sitting up as tolerated. Images from the original note were not included. Endovascular Neurosurgery Progress Note Pt Name: Jorge Chavira Birthdate: 1960 Date of evaluation: 06/22/2024 Primary Care Physician: Martina Blas APRN - CHIEF CONSTRUCTION INSPECTOR Reason for evaluation: Right subdural hematoma-acute on [...] craniotomy (Right, 06/22/2024); Heel spur surgery (Right); [place] tooth extraction; and craniotomy (Right, 06/22/2024). Social [...] Cruz MD Stroke, Neurocritical Care & Neurointervention [facility] Stroke Network [facility] Stroke Center [facility] - [facility] Associated attestation - Isma Paez MD - [...] notes personally today. Isma Paez MD Office [phone]. Cell [phone] Stroke, Neurocritical Care & Neurointervention [facility] Stroke Network [facility] Stroke [facility] Images from the original note were not included. Occupational Therapy [facility] Occupational Therapy Not Seen Note DATE: [...] TERT negative, no further imaging required Trauma [facility] Inpatient Progress Note CHRISTEL Carlton 06/23/2024 Jorge Pierson Fan [id number] Time spent with Patient: 0 minutes Time spent with Family: 0 Minutes This development writer was unable to complete screen or therapy services with patient at bedside at this time due to the following: Patient requested clinician return later. Therapist to attempt to stop by when next available. [facility] Speech Language Pathology Date: 06/23/2024 Patient Name: Jorge Chavira Date of : 1960 AGE: 63 y.o. Patient Not Available for Speech Therapy Due to: [] Testing [] Hemodialysis [] Cancelled by RN [] Surgery [] Intubation/Sedation/Pain Medication [] Medical instability [x] Other: Pt off the floor in AM and PM. Next scheduled treatment: 06/24 Completed by: Marleny Disla Table Assembler Metal Clinician Cosigned By: Doris Frederick M.S.CCC/ALARM MECHANIC Images from the original note were not included. Physical Therapy Physical Therapy Cancel Note DATE: 06/23/2024 NAME: Jorge Chavira : 1960 Patient not seen this date for Physical Therapy due to: Patient is not appropriate for PT treatment at this time d/t needing to be supine flat for drain and IR later will check back tomorrow 06/24/24. Manufacturing Shift Supervisor called the patients nurse, Eliane MATTA - [...] PLAN Neuro: GCS: 15 POD# 1 s/p [place] hole with drain for subdural hematoma on [...] No MOBILITY: As tolerated SBT: N/A SUBJECTIVE Jorgejoshua [...] for head bleed. Patient POD# 1 s/p [place] hole with drain for subdural hematoma. Patient [...] osseous abnormality of the cervical spine. Radha Oliva, MS3 06/23/2024 Orly Renee DO 06/23/24 11:05 AM General Surgery PGY [...] included. POST OP NOTE SUBJECTIVE Pt s/p [place] hole with drain for subdural hematoma. Patient [...] Incision clean/dry/intact ASSESSMENT 1. POD# 0 s/p [place] hole with drain for subdural hematoma PLAN [...] Yes MOBILITY: As tolerated SBT: N/A SUBJECTIVE Jorge [...] PLT 230 211 BMP: Recent Labs 06/20/24194206/21/24 0341 NA 139 139 K 3.6* 3.9 CL [...] the cervical spine. Azar Daniels MD 06/22/24 7315 Trauma Attending Attestation I have reviewed the above [facility] note(s). I have seen and examined [...] Pulse: 59 58 58 64 Resp: 13 12 11 23 Temp: TempSrc: SpO2: 95% 95% 98% [...] hematoma measuring 3 cm with 8 mm gmukc-ya-icmz shift. Plan for OR today for right [...] the hematoma. 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 standing ADL, see OT. 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 Leisure & Hobbies: be outside, yard work Vision/Hearing Vision Vision: Impaired Vision Exceptions: Wears glasses for reading Hearing Hearing: Within functional limits BUE Assessment Gross Assessment AROM: Generally decreased, functional (R UE WFL, L shoulder 0-80) Strength: Generally decreased, functional (R UE grossly 4/5, L shoulder 3-/5, L Automation Manager 4/5) Coordination: Generally decreased, functional (pt exhibited [...] & procurement, Home management training, Coordination training AM-[facility] Daily Activities Inpatient AM-[facility] Daily Activity - Inpatient How much [...] How much help for eating meals?: None AM-[facility] Inpatient Daily Activity Raw Score: 17 AM-[facility] Inpatient ADL T-Scale Score : 37.26 ADL Inpatient CMS 0-100% Score: 50.11 ADL Inpatient CMS G-Code Modifier : CK Minutes OT Individual Minutes Time In: 938 Time Out: 1010 Minutes: 31 Time Code Minutes Timed Code Treatment Minutes: 8 Minutes Facility/Department: [facility] Initial Speech/Language/Cognitive Assessment NAME: Jorge Chavira DOB: 1960 ADMISSION DATE: 06/20/2024 ADMITTING DIAGNOSIS: has Epidural hematoma on their problem list. DATE ONSET: 06/17/2024 Date of Eval: 06/21/2024 Evaluating Therapist: ALMAZ Roblero RECENT RESULTS CT OF HEAD/MRI: CT Head [...] disorder Diagnosis: Cognitive Impairments Recommendations: Recommendations Requires ALARM MECHANIC Intervention: Yes Patient Education Response: Verbalizes understanding;Demonstrated [...] estranged from most. 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 Patient care will be discussed with attending, will reevaluate patient along with attending - Neurosurgical interventions pending review by attending neurosurgeon - HOB: 30 degrees - Neuro checks per protocol - Okay for a diet at this time - Hold all antiplatelets and anticoagulants - We recommend SBP < 140 Please contact neurosurgery with any changes in patients neurologic status. [facility] Emergency/Trauma Note PATIENT NAME: Jorge Chavira Shift date: 06/20/2024 Shift day: Sunday Shift # 2 Room # Name: Jorge Chavira Age: 63 y.o. Gender: male Hinduism: None Place of adventism: Trauma/Incident type: Adult Trauma Consult Admit Date & Time: 06/20/2024 7:29 PM TRAUMA NAME: N/A ADVANCE DIRECTIVES IN CHART? No NAME OF DECISION MAKER: Unknown RELATIONSHIP OF DECISION MAKER TO PATIENT: Unknown PATIENT/EVENT DESCRIPTION: Jorge Chavira is a 63 y.o. male who arrived at [facility]. Deputy County Counsel responded to Trauma Consult to ED 16. Pt to be admitted to . SPIRITUAL URWUHFLLDR-HIOUHZKDZTMH-GQOJRSC: Deputy County Counsel provided a ministry of presence upon arrival. Upon returning, cutter banana room met patient's son and siblings. Family appeared receptive to cutter banana room presence and engaged in conversation about patients health. Deputy County Counsel provided a supportive presence through active listening and words of affirmation. PATIENT BELONGINGS: Manufacturing Shift Supervisor did not handle patient belongings ANY BELONGINGS OF SIGNIFICANT VALUE NOTED: N/A REGISTRATION STAFF NOTIFIED? Yes WHAT IS YOUR SPIRITUAL CARE PLAN FOR THIS PATIENT?: Chaplains will remain available to offer spiritual and emotional support as needed. . [facility] [phone] documented in this encounter [facility] 06-26-2024 Hospital Discharge instructions Suri Chavis DO - 06/26/2024 2:38 PM EST For resources on transitioning back to the community following your trauma, visit [email or web address] [place] an account and begin to take advantage [...] are not alone! Jennifer Chapa APRN - ADAM - 06/27/2024 12:55 PM EST Continuity of Care Form Patient Name: Jorge hCavira : 1960 Admit date: 06/20/2024 Discharge date: Code Status Order: Full Code Advance Directives: Advance Care Flowsheet Documentation Date/Time Healthcare Directive Type of Healthcare Directive Copy in Chart Healthcare Agent Appointed Healthcare Agent's Name Healthcare Agent's Phone Number 06/23/24 4939 Yes, patient has an advance directive for healthcare treatment Durable power of attorney recruiter for health care;Living will Yes, copy in chart -- -- -- Admitting Physician: Fina Olmedo DO PCP: Martina Blas APRN - CNP Discharging Nurse: Discharging Hospital Unit/Room#: 0428/0428-02 Discharging Unit Phone Number: Emergency Contact: Extended Emergency Contact Information Primary Emergency Contact: sridhar Mccoy Mobile Relation: None Secondary Emergency Contact: Ismael Chavira Mobile Relation: Child Past Surgical History: Past Surgical History: Procedure Laterality Date CEREBRAL ANGIOGRAM 06/24/2024 IR ANGIOGRAM CAROTID CEREBRAL BILATERAL CRANIOTOMY Right 06/22/2024 *E-6* CRANIOTOMY [place] (Right) CRANIOTOMY Right 06/22/2024 CRANIOTOMY [place] performed by Bobby Yanez DO at [facility] OR HEEL SPUR SURGERY Right WISDOM [...] 1.4 oz) Mental Status: {IP PT MENTAL STATUS:} IV Access: { AMI IV ACCESS:236934182} Nursing Mobility/ADLs: Walking {CHP DME ADLs:309917227} Transfer {CHP DME ADLs:676987336} Bathing {CHP DME ADLs:363865750} Dressing {CHP DME ADLs:268353314} Toileting {CHP DME ADLs:052122842} Feeding {CHP DME ADLs:821517053} Orthotist Or Prosthetist {P DME ADLs:899876329} Med Delivery { AMI MED Delivery:572553223} Wound Care Documentation and Therapy: Incision 06/22/24 [...] Bladder: {YES / NO:} Urinary Catheter: {Urinary Catheter:799989119} Colostomy/Ileostomy/Ileal Conduit: {YES / NO:} Date of Last BM: No intake or output data in the 24 hours ending 06/27/24 1254 No intake/output data recorded. Safety Concerns: { AMI Safety Concerns:609911403} Impairments/Disabilities: {[facility] Impairments/Disabilities:416778485 } Nutrition Therapy: Current Nutrition Therapy: { AMI Diet List:146311314} Routes of Feeding: {CHP DME Other Feedings:485220204} Liquids: {Dust Collector Attendant liquid thickness:60937} Daily Fluid Restriction: {CHP DME Yes amt example:099394700} Last Modified Barium Swallow with Video (Video Swallowing Test): {Done Not Done Date:} Treatments at the Time of Hospital Discharge: Respiratory Treatments: Oxygen Therapy: {Therapy; copd oxygen:51155} Ventilator: { CC Vent List:642380168} Rehab Therapies: {THERAPEUTIC INTERVENTION:5263543543} Weight Bearing Status/Restrictions: {[facility] Weight Bearin} Other Medical Equipment (for information only, NOT a DME order): {EQUIPMENT:181358549} Other Treatments: Patient's personal belongings (please select all that are sent with patient): {CHP DME Belongings:219967584} RN SIGNATURE: {Esignature:709158949} CASE MANAGEMENT/SOCIAL WORK SECTION Inpatient Status Date: Readmission Risk Assessment Score: Readmission Risk Risk of Unplanned Readmission: 8 Discharging to Facility/ Agency Name: Address: Phone: Fax: Dialysis Facility (if applicable) Name: Address: Dialysis Schedule: Phone: Fax: [facility] [employer] [facility]/Superintendent Laundry signature: {Esignature:945122784} PHYSICIAN SECTION Prognosis: Good Condition at Discharge: [...] H&P PHYSICIAN SIGNATURE: documented in this encounter [facility] 09-18-2023 Evaluation note Encounter Date Diagnosis Assessment [...] for removal of sutures (ICD-10 - Z48.02) [facility] Other 01-12-2024 Evaluation note* Encounter Date Diagnosis Assessment Notes Treatment Notes Treatment Clinical Notes Aug, Right carpal tunnel syndrome (ICD-10 - G56.01) Aug, Primary osteoarthrit is of first carpometacarpal joint of left hand (ICD-10 - M18.12) We will proceed with left carpal tunnel release and left thumb CMC cortisone injection Aug, Left carpal tunnel syndrome (ICD-10 - G56.02) [facility] Other 05-09-2023 Evaluation note* Encounter Date Diagnosis [...] Left carpal tunnel syndrome (ICD-10 - G56.02) [facility] [facility] Other 11-03-2022 NotePROCEDURE: XR SHOULDER RT 2V or > COMPARISON: None. HISTORY: Pain in right arm FINDINGS: BONES:No fracture, acute abnormality, or significant arthropathy. SOFT TISSUES:Negative. No visible soft tissue swelling. EFFUSION:None visible. OTHER: Negative. IMPRESSION: No acute disease. Electronically authenticated by: LOREE JACKSON Date: 2022-06-15 19:29[facility] assessment information availableFairfield [facility] Work Phone: Evaluation note* Diagnosis Onset Date Resolution Status Arthritis of carpometacarpal (CMC) joint of both thumb s acute Left carpal tunnel syndrome acute Other specified postprocedural states acute [facility] Work Phone: Evaluation note* Diagnosis Epidural hematoma- Primary Nontraumatic extradural hemorrhage Epidural hematoma Nontraumatic extradural hemorrhage Left-sided weakness Muscle weakness (generalized) Acute on chronic intracranial subdural hematoma (HCC) Subacute subdural hematoma Subdural hemorrhage Left-sided weakness Muscle weakness (generalized) Acute on chronic intracranial subdural hematoma (HCC) [facility] Diagnosis Epidural hematoma Nontraumatic extradural hemorrhage documented in this encounter [facility] note* Diagnosis Subacute subdural hematoma Subdural hemorrhage S/P craniotomy Other postprocedural status [facility]* Diagnosis Cognitive communication deficit- Primary documented in this encounter [facility] general Narrative - Reported* Type Description Date Medical History Gout Medical History Arthritis Surgical History heel surgery [facility] Other Hospital Discharge instructions Additional Instructions DR. [...] to decrease risk of infection after surgery [facility] Work Phone: Summary Purpose Family History No [...] FoundDocuments on File Type Date Recorded Patient Web Marketing Coordinator Expl anation ACP-Advance Directive 07/21/2024 7:36 PM Date Activated Date Inactivated Comments 06/20/2024 9:17 PM 06/27/2024 3:51 PM Advance Directive Response Recorded Date/ Time Advance Directives No August 24, 2023 11:35am Advance Directive Response Recorded Date/ Time Advance Directives No August 24, 2023 12:35pm Date Activated Date Inactivated Comments 06/20/2024 9:17 PM Date Activated Date Inactivated Comments 06/20/2024 9:17 PM 06/27/2024 3:51 PM Documents on File Type Date Recorded Patient Web Marketing Coordinator Expl anation ACP-Advance Directive 07/21/2024 7:36 PM Chief Complaint and Reason for Visit [...] Referred To Contact Radiology Diagnoses Epidural hematoma Subacute subdural hematoma S/P craniotomy Procedures CT HEAD WO CONTRAST TjljQuiqueah Camelia, BELT WORKER - CHIEF CONSTRUCTION INSPECTOR [address] [facility] [address] Referral ID Status Reason Start Date Expiration Date Visits Re quested Visits Authorized [id number] Closed 07/02/2024 08/16/2024 1 1 Specialty Diagnoses / Procedures Referred By Contac t Referred To Contact Occupational Therapy Diagnoses Acute on chronic intracranial subdural hematoma (HCC) Jeninfer Chapa, BELT WORKER - CHIEF CONSTRUCTION INSPECTOR [address] [address] Referral ID Status Reason Start Date Expiration Date V isits Requested Visits Authorized [id number] Open Specialty Services Required 06/27/2024 12/24/2024 1 [...] chronic intracranial subdural hematoma (HCC) Jennifer Chapa, BELT WORKER - CHIEF CONSTRUCTION INSPECTOR [address] [address] Referral ID Status Reason Start Date Expiration Date V isits Requested Visits Authorized [id number] Open Specialty Services Required 06/27/2024 12/24/2024 1 1 Specialty Diagnoses / Procedures Referred By Contac t Referred To Contact Radiology Diagnoses Epidural hematoma Procedures CT HEAD WO CONTRAST Gabriella Kilgore, BELT WORKER - CHIEF CONSTRUCTION INSPECTOR [address] [address] Referral ID Status Reason Start Date Expiration Date Visits Re quested Visits Authorized [id number] Open 07/08/2024 07/08/2025 1 1 Additional Source Comments (unrecognized sect ion and content) No Status Records FoundNo Status Records FoundNo Status Records FoundNo Status Records FoundNo Status Records FoundNo Status Records Found INFORMATION SOURCE (unrecogn ized section and content) DATE CREATED AUTHOR 10/18/2022 [facility] DATE CREATED AUTHOR AUTHOR'S ORGANIZ ATION 01/26/2023 Mg [facility] DATE CREATED AUTHOR AUTHOR'S ORGANIZ ATION 09/19/2023 [facility] DATE CREATED AUTHOR AUTHOR'S ORGANIZ ATION 06/22/2024 [facility] DATE CREATED AUTHOR AUTHOR'S ORGANIZ ATION 08/15/2024 [facility] DATE CREATED AUTHOR AUTHOR'S ORGANIZ ATION [facility] REASON FOR VISIT (unrecogniz ed section and content) Reason Comments Hematoma Specialty Diagnoses / Procedures Referred By Contac t Referred To Contact Diagnoses Epidural hematoma Left-sided weakness Fina Olmedo, DO [address] [facility] [address] [place] [address] [facility] [address] [place] [address] Referral ID Status Reason Start Date Expiration Date Visits Re quested Visits Authorized [id number] 1 1 Specialty Diagnoses / Procedures Referred By Contac t Referred To Contact Physical Therapy Diagnoses Acute on chronic intracranial subdural hematoma (HCC) Jennifer Chapa, BELT WORKER - CHIEF CONSTRUCTION INSPECTOR [address] [facility] [address] [place] [address] Referral ID Status Reason Start Date Expiration Date V isits Requested Visits Authorized [id number] Open Specialty Services Required 06/27/2024 12/24/2024 1 1 Specialty Diagnoses / Procedures Referred By Contac t Referred To Contact Radiology Diagnoses Epidural hematoma Procedures CT HEAD WO CONTRAST Gabriella Kilgore, BELT WORKER - CHIEF CONSTRUCTION INSPECTOR [address] [facility] [address] [place] [address] Referral ID Status Reason Start Date Expiration Date Visits Re quested Visits Authorized [id number] Closed 07/02/2024 07/08/2025 1 1 Specialty Diagnoses / Procedures Referred By Contac t Referred To Contact Occupational Therapy Diagnoses Acute on chronic intracranial subdural hematoma (HCC) Jennifer Chapa, BELT WORKER - CHIEF CONSTRUCTION INSPECTOR [address] [address] Referral ID Status Reason Start Date Expiration Date V isits Requested Visits Authorized [id number] Open Specialty Services Required 06/27/2024 12/24/2024 1 1 Specialty Diagnoses / Procedures Referred By Contac t Referred To Contact Radiology Diagnoses Epidural hematoma Subacute subdural hematoma S/P craniotomy Procedures CT HEAD WO CONTRAST Oly Garcia, BELT WORKER - CHIEF CONSTRUCTION INSPECTOR [address] [facility] [address] Referral ID Status Reason Start Date Expiration Date Visits Re quested Visits Authorized [id number] Closed 07/02/2024 08/16/2024 1 1 Specialty Diagnoses / Procedures Referred By Contac t Referred To Contact Speech Pathology / Speech Therapy Diagnoses Epidural hematoma Subacute subdural hematoma S/P craniotomy Oly Garcia, BELT WORKER - CHIEF CONSTRUCTION INSPECTOR [address] [facility] [address] [facility] [address] [place] [address] Referral ID Status Reason Start Date Expiration Date V isits Requested Visits Authorized [id number] Open Specialty Services Required 07/08/2024 07/08/2025 1 1 Care Teams (unrecognized sec tion [...] March 14, 2024 End: March 14, 2024 Pants Busheler Relationship Specialty Start Date End Date Martina Blas, BELT WORKER - CHIEF CONSTRUCTION INSPECTOR [address] [facility] [place] [address] PCP - General 06/21/24 Pants Busheler Relationship Specialty Start Date End Date Martina Blas, BELT WORKER - CHIEF CONSTRUCTION INSPECTOR [address] [facility] [place] [address] PCP - General 06/21/24 Pants Busheler Relationship Specialty Start Date End Date Martina Blas, BELT WORKER - CHIEF CONSTRUCTION INSPECTOR [address] [facility] [place] [address] PCP - General 06/21/24 Pants Busheler Relationship Specialty Start Date End Date Martina Blas, BELT WORKER - CHIEF CONSTRUCTION INSPECTOR [address] [facility] [place] [address] PCP - General 06/21/24 Pants Busheler Relationship Specialty Start Date End Date Martina Blas, BELT WORKER - CHIEF CONSTRUCTION INSPECTOR [address] [facility] [place] [address] PCP - General 06/21/24 Pants Busheler Relationship Specialty Start Date End Date Martina Blas, BELT WORKER - CHIEF CONSTRUCTION INSPECTOR [address] [facility] [place] [address] PCP - General 06/21/24 Pants Busheler Relationship Specialty Start Date End Date Martina Blas Lj, BAILEE - CHIEF CONSTRUCTION INSPECTOR [address] [place] [address] PCP - General 06/21/24 Goals (unrecognized section [...] hours. 0534 (Given - Provider: Jay Baig RN)1351 (Given - Provider: Rubén Monte, PAXTON)2057 (Given - Provider: Bella Charlton, RN) 0635 (Given - Provider: Bella Charlton, RN)1355 (Given - Provider: Holli Montaño RN)2046 (Given - Provider: Bella Charlton, RN) 0520 [...] Michelle Hannon RN)2058 (Given - Provider: Bella Charlton, RN) 08 (Given - Provider: Holli Montaño RN)2047 (Given - Provider: Bella Charlton, RN) 08 (Given - Provider: Peggy Ordoñez, RN)2100 (Due) levETIRAcetam (KEPPRA) injection 500 mg (CANCELED) 500 mg, IntraVENous, EVERY 12 HOURS, First dose on 06/21/24 at 1415, Until Discontinued, Administer IVP over 2-5 minutes., For [facility] patients, please reject and reorder and select the ped/oumou dilution entry. Keppra is not administered IV Push on the pediatric units. 0123 (Given - Provider: Jay Baig RN)1351 (Given - Provider: Rubén Monte, PAXTON) 0331 (Given - Provider: Bella Charlton, RN)1444 (Not Given - Provider: Holli Montaño RN - Reason: Other) levETIRAcetam (KEPPRA) tablet 500 mg 500 mg, Oral, 2 TIMES DAILY, First dose on Gail 06/26/24 at 1500, Until Discontinued, Do not crush or chew. 1445 (Given - Provider: Holli Montaño RN) 0824 (Given - Provider: Peggy Ordoñez, PAXTON)2100 (Due) magnesium hydroxide (MILK OF MAGNESIA) 400 MG/5ML suspension 30 mL 30 mL, Oral, DAILY, First dose on Gail 06/26/24 at 0900, Until Discontinued 0830 (Given - Provider: Holli Montaño RN) 0824 (Given - Provider: Peggy Ordoñez RN) PHENobarbital tablet 32.4 mg (COMPLETED)(Linked Group 1) 32.4 mg (rounded from 30 mg), Oral, Every 8 hours, 6 doses, First dose on Sun06/25/24 at 0600, Last dose on Sun06/26/24 at 2200 0534 (Given - Provider: Jay Baig RN)1350 (Given - Provider: Rubén Monte RN)2058 (Given - Provider: Bella Charlton RN) 0635 (Given - Provider: Bella Charlton, RN)1355 (Given - Provider: Holli Montaño, RN)2048 (Given - Provider: Bella Charlton RN) polyethylene glycol (GLYCOLAX) packet 17 g 17 g, Oral, DAILY, First dose on Sun06/22/24 at 1615, Until Discontinued, Stir and dissolve one packet of powder (17 g) in any 4 to 8 ounces of beverage (cold, hot or room temperature) then drink, Post-op 0841 (Given - Provider: Michelle Hannon RN) 0830 (Given - Provider: Holli Montaño, PAXTON) 0824 (Given - Provider: Peggy Ordoñez RN) sodium chloride flush 0.9 % injection [...] mL/lumen, Recovery(IR) 0842 (Given - Provider: Michelle Hannon RN)2100 (Given - Provider: Bella Charlton RN) 0831 (Given - Provider: Holli Montaño, RN)2140 (Given - Provider: Bella Charlton RN) 0825 (Given - Provider: Peggy Ordoñez RN)2100 (Due) PRN Medication Order 06/25/2024 06/26/2024 06/27/2024 [...] Post-op 1850 (See Alternative - Provider: Rubén Monte RN) oxyCODONE (ROXICODONE) immediate release tablet 5 mg(Linked Group 3) 5 mg, Oral, EVERY 4 HOURS PRN, Starting on 06/22/24 at 1552, Until Discontinued, Pain Severe (7-10), Post-op 185 (Given - Provider: Rubén Monte RN) senna (SENOKOT) tablet 8.6 mg 8.6 mg (1 tablet), Oral, DAILY PRN, Starting on Sun06/22/24 at 1552, Until Discontinued, Constipation, First line therapy for constipation, Post-op 2138 (Given - Provider: Bella Charlton RN) sodium chloride flush 0.9 % injection 5-40 mL 5-40 mL, IntraVENous, PRN, Starting on Sun06/20/24 at 4, Until Discontinued, Line Care, After every IV [...] 8 hours, 6 doses, First dose on 06/21/24 at 0600, Last dose on Sun06/22/24 at 2200 Followed by PHENobarbital tablet 56.7 mg (COMPLETED) 56.7 mg (rounded from 60 mg), Oral, Every 8 hours, 6 doses, First dose on Sun06/23/24 at 0600, Last dose on Sun06/24/24 at [...] BE BASED ON THE PRIMARY CLINICAL RECORDS. [facility]. provides no warranty or guarantee of the accuracy or completeness of information in this document.
[2024-09-17 10:52] LABS: Basophils Percent Auto 0.7 % (0.2-2.0); Eosinophils Absolute Auto 0.1 10^3/uL (0.0-0.7); Eosinophils Percent Auto 2.7 % (0.9-7.0); Hematocrit 42.7 % (42.0-54.0); Hemoglobin 14.5 g/dL (14.0-18.0); Immature Granulocytes Abs Auto 0.01 10^3/uL (0.00-0.03); Immature Granulocytes Pct Auto 0.2 % (0.0-0.5); Lymphocytes Absolute Auto 1.4 10^3/uL (1.2-3.8); Lymphocytes Percent Auto 35.2 % (20.5-60.0); Mean Corpuscular Hemoglobin 30.7 pg (25.9-34.0); Mean Corpuscular Volume 90.3 fL (80.0-94.0); Mean Platelet Volume 9.4 fL (9.5-13.5); Monocytes Absolute Auto 0.4 10^3/uL (0.3-0.8); Monocytes Percent Auto 9.5 % (1.7-12.0); Neutrophils Absolute Auto 2.1 10^3/uL (1.4-6.5); Neutrophils Percent Auto 51.7 % (43.0-75.0); Platelet Count 249 10^3/uL (150-450); Red Blood Count 4.73 10^6/uL (4.70-6.10); Red Cell Distribution Width 11.7 % (11.0-15.0); White Blood Count 4.1 10^3/uL (4.0-11.0)
[2024-09-17 11:36] LABS: Free T3 2.03 pg/mL (2.18-3.98); Thyroid Stimulating Hormone 1.449 uIU/mL (0.358-3.740)
== END 2024-09-17 10:13 | disposition home or self-care (01) ==
LOC: LAB 10:16
PROVIDERS: PCP Nurse Practitioner Family; Visit Provider Nurse Practitioner Family
DX: E03.9 Hypothyroidism, unspecified (principal); D72.9 Disorder of white blood cells, unspecified
CPT/HCPCS: 36415; 84436; 84443; 84481; 85025

== ENCOUNTER 2025-02-17 15:11 | Outpatient (OUT) | payer OTHER, SELFPAY ==
--- OUTSIDE RECORDS SUMMARY | 2024-08-14 15:25 | XMS_ITS ---
Author Name Auto Generated Organization OH[facility] Care Team Providers Care Car Varnisher Name Role Phone OLY GARCIA Referring Unavailable WAN, CHINMAY S Primary Care Unavailable OLY GARCIA Referring Unavailable WAN, CHINMAY S Primary Care Unavailable RODRIGUEZ, FERNANDO Referring Unavailable WAN, CHINMAY S Primary Care Unavailable RODRIGUEZ, FERNANDO Referring Unavailable WAN, CHINMAY S Primary Care Unavailable RODRIGUEZ, FERNANDO Referring Unavailable WAN, CHINMAY S Primary Care Unavailable RODRIGUEZ, FERNANDO Referring Unavailable WAN, CHINMAY S Primary Care Unavailable RODRIGUEZ, FERNANDO Referring Unavailable WAN, CHINMAY S Primary Care Unavailable GABRIELLA KILGORE Referring Unavailable WAN, CHINMAY S Primary Care Unavailable PROVIDER, UNKNOWN Attending Unavailable PROVIDER, UNKNOWN Admitting Unavailable FINA LUCERO Attending Unavailable WAN, CHINMAY S Primary Care Unavailable BOBBY MCCALLUM Consulting Unavailable FINA LUCERO Admitting Unavailable FINA LUCERO Consulting Unavailable ISMA ACKERMAN Consulting Unavailable PROBLEMS DATE TYPE CONDITION / CODE ATTENDING STATUS [facility] 08/14/2024 Unknown Cognitive communication deficit / R41.841(ICD-10) [facility] 06/21/2024 Unknown Traumatic subdur al hemorrhage with loss of consciousness status unknown, initial encounter / S06.5XAA(ICD-10) [facility] 08/04/2024 Unknown Other specified postprocedural states / Z98.890(ICD-10) [facility] 06/20/2024 Unknown Epidural hemorrh age with loss of consciousness status unknown, initial encounter / S06.4XAA(ICD-10) [facility] 07/01/2024 Admitting diagnosis Nontraumatic acute subdural hemorrhage / I62.01(ICD-10) [facility] 07/01/2024 Admitting diagnosis 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 COMPARISON: Multiple prior studies most recent of 07/21/2024. TECHNIQUE: CT examination of the brain without IV contrast. Coronal and sagittal reformations were performed. Dose reduction techniques were achieved by using automated exposure control and/or adjustment of mA and/or kV according to patient size and/or use of iterative reconstruction technique. FINDINGS: POSITIVES related to history: 3 mm of residual dural thickening over the right parietal region is barely perceptible and unchanged. Right parietal dhruv holes are unchanged. NEGATIVES related to history: No mass effect. COINCIDENTAL, unrelated to history: None additional. ROUTINE: No hydrocephalus. Normal ventricles and sulci. IMPRESSION: Minimal residual right parietal dural thickening without mass effect, stable. Interpreted by: Justin Acosta Jr., MD Signed by: Justin Acosta Jr., MD 08/04/[address] HEAD WO CONTRAST Observed: 07/03/2024 9:46 PM Status: F Source: [facility] EXAM: CT HEAD WO CONTRAST HISTORY: Epidural [...] resolved. ROUTINE: Anterior and posterior right parietal dhruv holes are present. IMPRESSION: Resolving postoperative right subdural hematoma without midline shift and no evidence of rebleeding. Interpreted by: Justin Acosta Jr., MD Signed by: Justin Acosta Jr., MD 07/03/24 Final result IR ANGIOGRAM CAROTID CEREBRA L BILATERAL Observed: 06/28/2024 8:39 PM Status: F Source: [facility] Date of Service: 06/24/2024 Procedure: Diagnostic cerebral angiogram Patient arrived and wheeled in to the angio suite at: 806 Monitoring and administration of sedation started at: 806 Puncture obtained at: 905 Vascular access was removed at: 929 Manual pressure for minutes: 15 mins Sedation ended at: 945 Patient wheeled out of the angio suite at: 945 Diagnosis: R SDH s/p dhruv hole by nsgy Procedures: --Right ultrasound guided femoral artery access --Intravenous moderate sedation --Selective right common carotid artery (CCA) angiogram --Selective right internal carotid artery (ICA) cerebral angiogram --Selective right external carotid artery (ECA) angiogram --Right common femoral artery (CHEMICAL SALES REPRESENTATIVE) angiogram Neurointerventionalist: Dr. Isma Paez [place]: Santi Dueñas MD Contrast: 36 cc of Visipaque-270. Fluoroscopy time: 8.4 minutes Access: Right common femoral artery. Comparison: none Consent: After explaining the risks and benefits to the patient and the patient's family, including but not limited to stroke, coma, , vessel injury, dissection, tear, occlusion, and X-ray dye allergic type reaction, a signed consent form was obtained. Indication and Clinical History: Isma Villa is a 63 y.o. male with medical history of HTN presents with R SDH, now s/p dhruv hole.. Pt was referred for a diagnostic [...] technique was used to place a 5 Icelandic intravascular sheath in the right common femoral artery. Fluoroscopy was used to confirm placement, this image was captured and archived in the patient's record. 2000u of heparin IV was administered. A 5 Icelandic multipurpose catheter was then advanced over a [...] great cerebral vein, inferior sagittal vein, inferior Leiz, torcula, sigmoid, IJ and cortical veins, with [...] neurointerventional suite. Impression: 1. R SDH s/p dhruv hole evacuation planned for R MMA embolization. [...] confirmed and evaluated by Dr. Isma Paez. Isma Paez MD Final report electronically signed by Isma Paez M.D. on 06/28/2024 8:39 PM Interpreted by: Santi Dueñas MD Lin, Eugene I, MD Signed by: Isma Paez MD 06/28/24 Final result CBC WITH DIFF Collected: 06/27/2024 3:38 AM Status: F Source: [facility] TYPE CODE TESTS RESULT OUT OF RANGE REFERENCE UNITS LAB WBC(LOINC) WBC Count 3.5 3.5-11.3 k/uL LAB RBC(LOINC) RBC Count 3.94 Low 4.21-5.77 m/uL LAB HGB(LOINC) Hemoglobin 12.7 Low 13.0-17.0 g/dL LAB HCT(LOINC) Hematocrit 38.6 Low 40.7-50.3 % LAB MCV(LOINC) MCV 98.0 82.6-102.9 fL LAB MCH(LOINC) MCH 32.2 25.2-33.5 pg LAB MCHC(LOINC) MCHC 32.9 28.4-34.8 g/dL LAB RDW(LOINC) RDW 11.2 Low 11.8-14.4 % LAB PLT(LOINC) Platelet Count 249 138-453 k/uL LAB MPVX(LOINC) MPV 10.2 8.1-13.5 fL LAB NRBCS(LOINC) NRBC Automated 0.0 0.0 per 100 WBC LAB SEG(LOINC) Neutrophil (Seg) 50 36-65 % LAB LYM(LOINC) Lymphocyte 32 24-43 % LAB MON(LOINC) Monocyte 12 3-12 % LAB EO(LOINC) Eosinophil 5 High 1-4 % LAB BASO(LOINC) Basophil 1 0-2 % LAB IGRAN(LOINC) Immature Granulocyte 0 0 % LAB ASEG(LOINC) Abs.Neutrophil (Seg) 1.76 1.50-8.10 k/uL LAB ALYM(LOINC) Abs. Lymph 1.11 1.10-3.70 k/uL LAB AMONO(LOINC) Abs. Monocyte 0.43 0.10-1.20 k/u L LAB AEO(LOINC) Abs. Eosinophil 0.16 0.00-0.44 k/u L LAB ABASO(LOINC) Abs. Basophil 0.04 0.00-0.20 k/u L LAB AIGRAN(LOINC) Abs.Imm.Granulo cyte <0.03 0.00-0.30 k/uL Performed By: #### CDP, BMPX #### [facility] [place] [address] [employer]: Jordan Aponte MD BASIC METAB W/RFX MG Collected: 06/27/2024 3:38 AM S tatus: F Source: [facility] TYPE CODE TESTS RESULT OUT OF RANGE REFERENCE UNITS LAB NA(LOINC) NA (Sodium) 136 136-145 mmol/L LAB K(LOINC) K (Potassium) 4.0 3.7-5.3 mmol/L LAB CL(LOINC) Chloride 103 98-107 mmol/L LAB HCO(LOINC) CO2 23 20-31 mmol/L LAB GAP(LOINC) Anion Gap 10 9-16 mmol/L LAB GLU(LOINC) Glucose 107 High 74-99 mg/dL LAB BUN(LOINC) BUN (Urea N) 11 8-23 mg/dL LAB CRE(LOINC) Creatinine 0.7 0.7-1.2 mg/dL LAB EGFR(LOINC) eGFR >90 >60 mL/min/1. 73m2 Result Comment: These results are not intended [...] following therapy that affects renal tubular secretion. LAB CA(LOINC) Calcium 8.7 8.6-10.4 mg/dL Performed By: #### CDP, BMPX #### [facility] [address] [place], [place] [id number] [employer]: Jordan Aponte MD BASIC METAB W/RFX MG Collected: 06/26/2024 3:02 AM S tatus: F Source: [facility] TYPE CODE TESTS RESULT OUT OF RANGE REFERENCE UNITS LAB NA(LOINC) NA (Sodium) 138 136-145 mmol/L LAB K(LOINC) K (Potassium) 4.1 3.7-5.3 mmol/L LAB CL(LOINC) Chloride 104 98-107 mmol/L LAB HCO(LOINC) CO2 25 20-31 mmol/L LAB GAP(LOINC) Anion Gap 9 9-16 mmol/L LAB GLU(LOINC) Glucose 101 High 74-99 mg/dL LAB BUN(LOINC) BUN (Urea N) 10 8-23 mg/dL LAB CRE(LOINC) Creatinine 0.9 0.7-1.2 mg/dL LAB EGFR(LOINC) eGFR >90 >60 mL/min/1. 73m2 Result Comment: These results are not intended [...] following therapy that affects renal tubular secretion. LAB CA(LOINC) Calcium 8.5 Low 8.6-10.4 mg/dL Performed By: #### CDP, BMPX #### [facility] [address] [place] [address] [employer]: Jordan Aponte MD CBC WITH DIFF Collected: 06/26/2024 3:02 AM Status: F Source: [facility] TYPE CODE TESTS RESULT OUT OF RANGE REFERENCE UNITS LAB WBC(LOINC) WBC Count 4.4 3.5-11.3 k/uL LAB RBC(LOINC) RBC Count 3.96 Low 4.21-5.77 m/uL LAB HGB(LOINC) Hemoglobin 12.6 Low 13.0-17.0 g/dL LAB HCT(LOINC) Hematocrit 38.2 Low 40.7-50.3 % LAB MCV(LOINC) MCV 96.5 82.6-102.9 fL LAB MCH(LOINC) MCH 31.8 25.2-33.5 pg LAB MCHC(LOINC) MCHC 33.0 28.4-34.8 g/dL LAB RDW(LOINC) RDW 11.4 Low 11.8-14.4 % LAB PLT(LOINC) Platelet Count 216 138-453 k/uL LAB MPVX(LOINC) MPV 10.5 8.1-13.5 fL LAB NRBCS(LOINC) NRBC Automated 0.0 0.0 per 100 WBC LAB SEG(LOINC) Neutrophil (Seg) 57 36-65 % LAB LYM(LOINC) Lymphocyte 28 24-43 % LAB MON(LOINC) Monocyte 11 3-12 % LAB EO(LOINC) Eosinophil 3 1-4 % LAB BASO(LOINC) Basophil 1 0-2 % LAB IGRAN(LOINC) Immature Granulocyte 0 0 % LAB ASEG(LOINC) Abs.Neutrophil (Seg) 2.56 1.50-8.10 k/uL LAB ALYM(LOINC) Abs. Lymph 1.21 1.10-3.70 k/uL LAB AMONO(LOINC) Abs. Monocyte 0.47 0.10-1.20 k/u L LAB AEO(LOINC) Abs. Eosinophil 0.11 0.00-0.44 k/u L LAB ABASO(LOINC) Abs. Basophil 0.04 0.00-0.20 k/u L LAB AIGRAN(LOINC) Abs.Imm.Granulo cyte <0.03 0.00-0.30 k/uL Performed By: #### CDP, BMPX #### [facility] [place] [address] [employer]: Jordan Aponte MD CBC WITH DIFF Collected: 06/25/2024 7:46 AM Status: F Source: [facility] TYPE CODE TESTS RESULT OUT OF RANGE REFERENCE UNITS LAB WBC(LOINC) WBC Count 5.3 3.5-11.3 k/uL LAB RBC(LOINC) RBC Count 4.01 Low 4.21-5.77 m/uL LAB HGB(LOINC) Hemoglobin 12.7 Low 13.0-17.0 g/dL LAB HCT(LOINC) Hematocrit 38.9 Low 40.7-50.3 % LAB MCV(LOINC) MCV 97.0 82.6-102.9 fL LAB MCH(LOINC) MCH 31.7 25.2-33.5 pg LAB MCHC(LOINC) MCHC 32.6 28.4-34.8 g/dL LAB RDW(LOINC) RDW 11.4 Low 11.8-14.4 % LAB PLT(LOINC) Platelet Count 188 138-453 k/uL LAB MPVX(LOINC) MPV 10.2 8.1-13.5 fL LAB NRBCS(LOINC) NRBC Automated 0.0 0.0 per 100 WBC LAB SEG(LOINC) Neutrophil (Seg) 69 High 36-65 % LAB LYM(LOINC) Lymphocyte 20 Low 24-43 % LAB MON(LOINC) Monocyte 9 3-12 % LAB EO(LOINC) Eosinophil 2 1-4 % LAB BASO(LOINC) Basophil 0 0-2 % LAB IGRAN(LOINC) Immature Granulocyte 0 0 % LAB ASEG(LOINC) Abs.Neutrophil (Seg) 3.61 1.50-8.10 k/uL LAB ALYM(LOINC) Abs. Lymph 1.07 Low 1.10-3.70 k/uL LAB AMONO(LOINC) Abs. Monocyte 0.50 0.10-1.20 k/u L LAB AEO(LOINC) Abs. Eosinophil 0.10 0.00-0.44 k/u L LAB ABASO(LOINC) Abs. Basophil <0.03 0.00-0.20 k/u L LAB AIGRAN(LOINC) Abs.Imm.Granulo cyte <0.03 0.00-0.30 k/uL Performed By: #### MG, CDP, DAVID, BMPX #### [facility] [employer] [address] [place] [id number] [employer]: Jordan Aponte MD BASIC METAB W/RFX MG Collected: 06/25/2024 7:46 AM S tatus: F Source: [facility] TYPE CODE TESTS RESULT OUT OF RANGE REFERENCE UNITS LAB NA(LOINC) NA (Sodium) 138 136-145 mmol/L LAB K(LOINC) K (Potassium) 3.7 3.7-5.3 mmol/L LAB CL(LOINC) Chloride 105 98-107 mmol/L LAB HCO(LOINC) CO2 24 20-31 mmol/L LAB GAP(LOINC) Anion Gap 9 9-16 mmol/L LAB GLU(LOINC) Glucose 110 High 74-99 mg/dL LAB BUN(LOINC) BUN (Urea N) 10 8-23 mg/dL LAB CRE(LOINC) Creatinine 0.8 0.7-1.2 mg/dL LAB EGFR(LOINC) eGFR >90 >60 mL/min/1. 73m2 Result Comment: These results are not intended [...] following therapy that affects renal tubular secretion. LAB CA(LOINC) Calcium 8.5 Low 8.6-10.4 mg/dL Performed By: #### MG, CDP, DAVID, BMPX #### [facility] [address] [place] [id number] [employer]: Jordan Aponte MD MAGNESIUM Collected: 7:46 AM Status: F Source: [facility] TYPE CODE TESTS RESULT OUT OF RANGE REFERENCE UNITS LAB MG(LOINC) Magnesium 1.9 1.6-2.4 mg/dL Performed By: #### MG, CDP, DAVID, BMPX #### [facility] [address] [place] [id number] [employer]: Jordan Aponte MD PHOSPHORUS, INORG. Collected: 06/25/2024 7:46 AM Sta tus: F Source: [facility] TYPE CODE TESTS RESULT OUT OF RANGE REFERENCE UNITS LAB DAVID(LOINC) Phosphorus, Inorg. 2.4 Low 2.5-4.5 mg/dL Performed By: #### MG, CDP, DAVID, BMPX #### [facility] [address] [place] [address] [employer]: Jordan Aponte MD MRV HEAD W WO CONTRAST Observed: 024 9:55 PM Status: F Source: [facility] EXAMINATION: MRV OF THE HEAD WITH AND [...] by: Yemi Deluna MD 06/24/24 Final result CBC WITH DIFF Collected: 06/24/2024 2:39 AM Status: F Source: [facility] TYPE CODE TESTS RESULT OUT OF RANGE REFERENCE UNITS LAB WBC(LOINC) WBC Count 6.7 3.5-11.3 k/uL LAB RBC(LOINC) RBC Count 4.11 Low 4.21-5.77 m/uL LAB HGB(LOINC) Hemoglobin 13.0 13.0-17.0 g/dL LAB HCT(LOINC) Hematocrit 39.0 Low 40.7-50.3 % LAB MCV(LOINC) MCV 94.9 82.6-102.9 fL LAB MCH(LOINC) MCH 31.6 25.2-33.5 pg LAB MCHC(LOINC) MCHC 33.3 28.4-34.8 g/dL LAB RDW(LOINC) RDW 11.3 Low 11.8-14.4 % LAB PLT(LOINC) Platelet Count 206 138-453 k/uL LAB MPVX(LOINC) MPV 9.8 8.1-13.5 fL LAB NRBCS(LOINC) NRBC Automated 0.0 0.0 per 100 WBC LAB SEG(LOINC) Neutrophil (Seg) 73 High 36-65 % LAB LYM(LOINC) Lymphocyte 15 Low 24-43 % LAB MON(LOINC) Monocyte 10 3-12 % LAB EO(LOINC) Eosinophil 1 1-4 % LAB BASO(LOINC) Basophil 1 0-2 % LAB IGRAN(LOINC) Immature Granulocyte 0 0 % LAB ASEG(LOINC) Abs.Neutrophil (Seg) 4.86 1.50-8.10 k/uL LAB ALYM(LOINC) Abs. Lymph 1.02 Low 1.10-3.70 k/uL LAB AMONO(LOINC) Abs. Monocyte 0.70 0.10-1.20 k/u L LAB AEO(LOINC) Abs. Eosinophil 0.08 0.00-0.44 k/u L LAB ABASO(LOINC) Abs. Basophil 0.04 0.00-0.20 k/u L LAB AIGRAN(LOINC) Abs.Imm.Granulo cyte <0.03 0.00-0.30 k/uL Performed By: #### BMPX, MG, DAVID, CDP #### [facility] [employer] [facility] [place] [address] [employer]: Jordan Aponte MD BASIC METAB W/RFX MG Collected: 06/24/2024 2:39 AM S tatus: F Source: [facility] TYPE CODE TESTS RESULT OUT OF RANGE REFERENCE UNITS LAB NA(LOINC) NA (Sodium) 137 136-145 mmol/L LAB K(LOINC) K (Potassium) 3.8 3.7-5.3 mmol/L LAB CL(LOINC) Chloride 105 98-107 mmol/L LAB HCO(LOINC) CO2 23 20-31 mmol/L LAB GAP(LOINC) Anion Gap 9 9-16 mmol/L LAB GLU(LOINC) Glucose 105 High 74-99 mg/dL LAB BUN(LOINC) BUN (Urea N) 9 8-23 mg/dL LAB CRE(LOINC) Creatinine 0.9 0.7-1.2 mg/dL LAB EGFR(LOINC) eGFR >90 >60 mL/min/1. 73m2 Result Comment: These results are not intended [...] following therapy that affects renal tubular secretion. LAB CA(LOINC) Calcium 8.4 Low 8.6-10.4 mg/dL Performed By: #### BMPX, MG, DAVID, CDP #### [facility] [address] [place] [address] [employer]: Jordan Aponte MD MAGNESIUM Collected: 2:39 AM Status: F Source: [facility] TYPE CODE TESTS RESULT OUT OF RANGE REFERENCE UNITS LAB MG(LOINC) Magnesium 1.9 1.6-2.4 mg/dL Performed By: #### BMPX, MG, DAVID, CDP #### [facility] [address] [place] [id number] [employer]: Jordan Aponte MD PHOSPHORUS, INORG. Collected: 06/24/2024 2:39 AM Sta tus: F Source: [facility] TYPE CODE TESTS RESULT OUT OF RANGE REFERENCE UNITS LAB DAVID(LOINC) Phosphorus, Inorg. 2.5 2.5-4.5 mg/dL Performed By: #### BMPX, MG, DAVID, CDP #### [facility] [employer] [address] [place] [address] [employer]: Jordan Aponte MD CT HEAD WO CONTRAST Observed: 06/23/2024 10:24 PM Status: F Source: [facility] EXAMINATION: CT OF THE HEAD WITHOUT CONTRAST [...] in thickness. Right frontal and right parietal dhruv holes are new. IMPRESSION: Diminished size of now 11 mm thick right subdural collection. Moderate amount of new subarachnoid pneumocephalus. Improved [id number] midline shift now measuring 4 mm. Interpreted by: Yemi Deluna MD Signed by: Yemi Deluna MD 06/23/24 Final result BASIC METAB W/RFX MG Collected: 06/23/2024 5:21 AM S tatus: F Source: [facility] TYPE CODE TESTS RESULT OUT OF RANGE REFERENCE UNITS LAB NA(LOINC) NA (Sodium) 136 136-145 mmol/L LAB K(LOINC) K (Potassium) 3.8 3.7-5.3 mmol/L LAB CL(LOINC) Chloride 103 98-107 mmol/L LAB HCO(LOINC) CO2 22 20-31 mmol/L LAB GAP(LOINC) Anion Gap 11 9-16 mmol/L LAB GLU(LOINC) Glucose 103 High 74-99 mg/dL LAB BUN(LOINC) BUN (Urea N) 7 Low 8-23 mg/dL LAB CRE(LOINC) Creatinine 0.8 0.7-1.2 mg/dL LAB EGFR(LOINC) eGFR >90 >60 mL/min/1. 73m2 Result Comment: These results are not intended [...] following therapy that affects renal tubular secretion. LAB CA(LOINC) Calcium 8.3 Low 8.6-10.4 mg/dL Performed By: #### MG, DAVID, BMPX, CDP #### [facility] [address] [place], [place] [id number] [employer]: Jordan Aponte MD MAGNESIUM Collected: 5:21 AM Status: F Source: [facility] TYPE CODE TESTS RESULT OUT OF RANGE REFERENCE UNITS LAB MG(LOINC) Magnesium 1.7 1.6-2.4 mg/dL Performed By: #### MG, DAVID, BMPX, CDP #### [facility] [place], [place] [id number] [employer]: Jordan Aponte MD PHOSPHORUS, INORG. Collected: 06/23/2024 5:21 AM Sta tus: F Source: [facility] TYPE CODE TESTS RESULT OUT OF RANGE REFERENCE UNITS LAB DAVID(LOINC) Phosphorus, Inorg. 3.3 2.5-4.5 mg/dL Performed By: #### MG, DAVID, BMPX, CDP #### [facility] [address] [place] [id number] [employer]: Jordan Aponte MD CBC WITH DIFF Collected: 06/23/2024 5:21 AM Status: F Source: [facility] TYPE CODE TESTS RESULT OUT OF RANGE REFERENCE UNITS LAB WBC(LOINC) WBC Count 9.6 3.5-11.3 k/uL LAB RBC(LOINC) RBC Count 4.19 Low 4.21-5.77 m/uL LAB HGB(LOINC) Hemoglobin 13.4 13.0-17.0 g/dL LAB HCT(LOINC) Hematocrit 39.7 Low 40.7-50.3 % LAB MCV(LOINC) MCV 94.7 82.6-102.9 fL LAB MCH(LOINC) MCH 32.0 25.2-33.5 pg LAB MCHC(LOINC) MCHC 33.8 28.4-34.8 g/dL LAB RDW(LOINC) RDW 11.1 Low 11.8-14.4 % LAB PLT(LOINC) Platelet Count 214 138-453 k/uL LAB MPVX(LOINC) MPV 10.4 8.1-13.5 fL LAB NRBCS(LOINC) NRBC Automated 0.0 0.0 per 100 WBC LAB SEG(LOINC) Neutrophil (Seg) 78 High 36-65 % LAB LYM(LOINC) Lymphocyte 13 Low 24-43 % LAB MON(LOINC) Monocyte 8 3-12 % LAB EO(LOINC) Eosinophil 0 Low 1-4 % LAB BASO(LOINC) Basophil 0 0-2 % LAB IGRAN(LOINC) Immature Granulocyte 0 0 % LAB ASEG(LOINC) Abs.Neutrophil (Seg) 7.50 1.50-8.10 k/uL LAB ALYM(LOINC) Abs. Lymph 1.23 1.10-3.70 k/uL LAB AMONO(LOINC) Abs. Monocyte 0.78 0.10-1.20 k/u L LAB AEO(LOINC) Abs. Eosinophil 0.04 0.00-0.44 k/u L LAB ABASO(LOINC) Abs. Basophil 0.03 0.00-0.20 k/u L LAB AIGRAN(LOINC) Abs.Imm.Granulo cyte 0.03 0.00-0.30 k/uL Performed By: #### MG, DAVID, BMPX, CDP #### [facility] [address] [place] [address] [employer]: Jordan Aponte MD PT Collected: 06/22/2024 6:01 PM Status: F Source: [facility] TYPE CODE TESTS RESULT OUT OF RANGE REFERENCE UNITS LAB PTR(LOINC) Prothrombin Time 13.4 11.7-14.9 se c LAB INR(LOINC) INR 1.0 Result Comment: Therapeutic Range: Moderate Anticoagulant Intensity: INR = 2.0-3.0 High Anticoagulant Intensity: INR = 2.5-3.5 Performed By: #### PT, PTT, BMP, DAVID, CBC, MG #### [facility] [address] [place] [address] [employer]: Jordan Aponte MD APTT Collected: 6:01 PM Status: F Source: [facility] TYPE CODE TESTS RESULT OUT OF RANGE REFERENCE UNITS LAB PTTR(LOINC) PTT 26.0 23.0-36.5 sec Result Comment: IV Heparin Therapy Range: 66.0-92.0 sec Performed By: #### PT, PTT, BMP, DAVID, CBC, MG #### [facility] [place], [place] [id number] [employer]: Jordan Aponte MD BASIC METABOLIC PROF Collected: 06/22/2024 6:01 PM S tatus: F Source: [facility] TYPE CODE TESTS RESULT OUT OF RANGE REFERENCE UNITS LAB NA(LOINC) NA (Sodium) 138 136-145 mmol/L LAB K(LOINC) K (Potassium) 3.8 3.7-5.3 mmol/L LAB CL(LOINC) Chloride 104 98-107 mmol/L LAB HCO(LOINC) CO2 21 20-31 mmol/L LAB GAP(LOINC) Anion Gap 13 9-16 mmol/L LAB GLU(LOINC) Glucose 133 High 74-99 mg/dL LAB BUN(LOINC) BUN (Urea N) 6 Low 8-23 mg/dL LAB CRE(LOINC) Creatinine 0.9 0.7-1.2 mg/dL LAB EGFR(LOINC) eGFR >90 >60 mL/min/1. 73m2 Result Comment: These results are not intended [...] following therapy that affects renal tubular secretion. LAB CA(LOINC) Calcium 8.9 8.6-10.4 mg/dL Performed By: #### PT, PTT, BMP, DAVID, CBC, MG #### [facility] [address] [place], [place] [id number] [employer]: Jordan Aponte MD MAGNESIUM Collected: 6:01 PM Status: F Source: [facility] TYPE CODE TESTS RESULT OUT OF RANGE REFERENCE UNITS LAB MG(LOINC) Magnesium 1.9 1.6-2.4 mg/dL Performed By: #### PT, PTT, BMP, DAVID, CBC, MG #### [facility] [address] [place] [id number] [employer]: Jordan Aponte MD PHOSPHORUS, INORG. Collected: 06/22/2024 6:01 PM Sta tus: F Source: [facility] TYPE CODE TESTS RESULT OUT OF RANGE REFERENCE UNITS LAB DAVID(LOINC) Phosphorus, Inorg. 3.2 2.5-4.5 mg/dL Performed By: #### PT, PTT, BMP, DAVID, CBC, MG #### [facility] [address] [place] [id number] [employer]: Jordan Aponte MD CBC Collected: 6:01 PM Status: F Source: [facility] TYPE CODE TESTS RESULT OUT OF RANGE REFERENCE UNITS LAB WBC(LOINC) WBC Count 5.9 3.5-11.3 k/uL LAB RBC(INC) RBC Count 4.41 4.21-5.77 m/uL LAB HGB(LOINC) Hemoglobin 14.1 13.0-17.0 g/dL LAB HCT(LOINC) Hematocrit 41.9 40.7-50.3 % LAB MCV(LOINC) MCV 95.0 82.6-102.9 fL LAB MCH(LOINC) MCH 32.0 25.2-33.5 pg LAB MCHC(LOINC) MCHC 33.7 28.4-34.8 g/dL LAB RDW(LOINC) RDW 11.3 Low 11.8-14.4 % LAB PLT(LOINC) Platelet Count 224 138-453 k/uL LAB MPVX(LOINC) MPV 10.1 8.1-13.5 fL LAB NRBCS([facility]) NRBC Automated 0.0 0.0 per 100 WBC Performed By: #### PT, PTT, BMP, DAVID, CBC, MG #### [facility] [address] [place] [address] [id number] [employer]: Jordan Aponte MD CBC WITH DIFF Collected: 06/22/2024 2:33 AM Status: F Source: [facility] TYPE CODE TESTS RESULT OUT OF RANGE REFERENCE UNITS LAB WBC(LOINC) WBC Count 4.1 3.5-11.3 k/uL LAB RBC(LOINC) RBC Count 4.12 Low 4.21-5.77 m/uL LAB HGB(LOINC) Hemoglobin 13.1 13.0-17.0 g/dL LAB HCT(LOINC) Hematocrit 38.7 Low 40.7-50.3 % LAB MCV(LOINC) MCV 93.9 82.6-102.9 fL LAB MCH(LOINC) MCH 31.8 25.2-33.5 pg LAB MCHC(INC) MCHC 33.9 28.4-34.8 g/dL LAB RDW(INC) RDW 11.5 Low 11.8-14.4 % LAB PLT(INC) Platelet Count 217 138-453 k/uL LAB MPVX(INC) MPV 10.1 8.1-13.5 fL LAB NRBCS([facility]) NRBC Automated 0.0 0.0 per 100 WBC LAB SEG(LOINC) Neutrophil (Seg) 61 36-65 % LAB LYM(INC) Lymphocyte 22 Low 24-43 % LAB MON(LOINC) Monocyte 11 3-12 % LAB EO(LOINC) Eosinophil 5 High 1-4 % LAB BASO(INC) Basophil 1 0-2 % LAB IGRAN(LOINC) Immature Granulocyte 0 0 % LAB ASEG(INC) Abs.Neutrophil (Seg) 2.49 1.50-8.10 k/uL LAB ALYM(LOINC) Abs. Lymph 0.89 Low 1.10-3.70 k/uL LAB AMONO(LOINC) Abs. Monocyte 0.45 0.10-1.20 k/u L LAB AEO(LOINC) Abs. Eosinophil 0.21 0.00-0.44 k/u L LAB ABASO(LOINC) Abs. Basophil 0.05 0.00-0.20 k/u L LAB AIGRAN(LOINC) Abs.Imm.Granulo cyte <0.03 0.00-0.30 k/uL Performed By: #### MG, BMPX, DAVID, CDP #### [facility] [place] [address] [employer]: Jordan Aponte MD BASIC METAB W/RFX MG Collected: 06/22/2024 2:33 AM S tatus: F Source: [facility] TYPE CODE TESTS RESULT OUT OF RANGE REFERENCE UNITS LAB NA(LOINC) NA (Sodium) 138 136-145 mmol/L LAB K(LOINC) K (Potassium) 4.0 3.7-5.3 mmol/L LAB CL(LOINC) Chloride 106 98-107 mmol/L LAB HCO(LOINC) CO2 23 20-31 mmol/L LAB GAP(LOINC) Anion Gap 9 9-16 mmol/L LAB GLU(LOINC) Glucose 105 High 74-99 mg/dL LAB BUN(LOINC) BUN (Urea N) 10 8-23 mg/dL LAB CRE(LOINC) Creatinine 0.9 0.7-1.2 mg/dL LAB EGFR(LOINC) eGFR >90 >60 mL/min/1. 73m2 Result Comment: These results are not intended [...] following therapy that affects renal tubular secretion. LAB CA(LOINC) Calcium 8.2 Low 8.6-10.4 mg/dL Performed By: #### MG, BMPX, DAVID, CDP #### [facility] [address] [place] [address] [employer]: Jordan Aponte MD MAGNESIUM Collected: 2:33 AM Status: F Source: [facility] TYPE CODE TESTS RESULT OUT OF RANGE REFERENCE UNITS LAB MG(LOINC) Magnesium 1.9 1.6-2.4 mg/dL Performed By: #### MG, BMPX, DAVID, CDP #### [facility] [address] [place] [address] [employer]: Jordan Aponte MD PHOSPHORUS, INORG. Collected: 06/22/2024 2:33 AM Sta tus: F Source: [facility] TYPE CODE TESTS RESULT OUT OF RANGE REFERENCE UNITS LAB DAVID(LOINC) Phosphorus, Inorg. 3.0 2.5-4.5 mg/dL Performed By: #### MG, BMPX, DAVID, CDP #### [address] [id number] [employer]: Jordan Aponte MD XR CHEST (SINGLE VIEW FRONTAL) Observed: 06/21/2024 8:16 PM Status: F Source: [facility] EXAMINATION: ONE XRAY VIEW OF THE CHEST [...] by: Randy Naranjo MD 06/21/24 Final result PT Collected: 06/21/2024 7:31 PM Status: F Source: [facility] TYPE CODE TESTS RESULT OUT OF RANGE REFERENCE UNITS LAB PTR(LOINC) Prothrombin Time 13.2 11.7-14.9 se c LAB INR(LOINC) INR 1.0 Result Comment: Therapeutic Range: Moderate Anticoagulant Intensity: INR = 2.0-3.0 High Anticoagulant Intensity: INR = 2.5-3.5 Performed By: #### PTT, PT # ### [address] [address] [employer]: Jordan Aponte MD APTT Collected: 7:31 PM Status: F Source: [facility] TYPE CODE TESTS RESULT OUT OF RANGE REFERENCE UNITS LAB PTTR(LOINC) PTT 24.8 23.0-36.5 sec Result Comment: IV Heparin Therapy Range: 66.0-92.0 sec Performed By: #### PTT, PT # ### [address] [id number] [employer]: Jordan Aponte MD TYPE + SCREEN Observed: 06/21/2024 5:53 PM Status: F Source: [facility] Sample Expiration 06/24/2024 ,2359 Arm Band Number BE [id number] ABO/Rh(D) O POSITIVE Antibody Screen NEGATIVE Performed By: #### TYS #### [facility] [employer] [facility] [address] [place] [address] [employer]: Jordan Aponte MD CBC WITH DIFF Collected: 06/21/2024 3:41 AM Status: F Source: [facility] TYPE CODE TESTS RESULT OUT OF RANGE REFERENCE UNITS LAB WBC(LOINC) WBC Count 4.4 3.5-11.3 k/uL LAB RBC(LOINC) RBC Count 4.24 4.21-5.77 m/uL LAB HGB(LOINC) Hemoglobin 13.7 13.0-17.0 g/dL LAB HCT(LOINC) Hematocrit 39.7 Low 40.7-50.3 % LAB MCV(LOINC) MCV 93.6 82.6-102.9 fL LAB MCH(LOINC) MCH 32.3 25.2-33.5 pg LAB MCHC(LOINC) MCHC 34.5 28.4-34.8 g/dL LAB RDW(LOINC) RDW 11.3 Low 11.8-14.4 % LAB PLT(LOINC) Platelet Count 211 138-453 k/uL LAB MPVX(LOINC) MPV 9.6 8.1-13.5 fL LAB NRBCS(LOINC) NRBC Automated 0.0 0.0 per 100 WBC LAB SEG(LOINC) Neutrophil (Seg) 59 36-65 % LAB LYM(LOINC) Lymphocyte 22 Low 24-43 % LAB MON(LOINC) Monocyte 13 High 3-12 % LAB EO(LOINC) Eosinophil 5 High 1-4 % LAB BASO(LOINC) Basophil 1 0-2 % LAB IGRAN(LOINC) Immature Granulocyte 0 0 % LAB ASEG(LOINC) Abs.Neutrophil (Seg) 2.57 1.50-8.10 k/uL LAB ALYM(LOINC) Abs. Lymph 0.96 Low 1.10-3.70 k/uL LAB AMONO(LOINC) Abs. Monocyte 0.55 0.10-1.20 k/u L LAB AEO(LOINC) Abs. Eosinophil 0.22 0.00-0.44 k/u L LAB ABASO(LOINC) Abs. Basophil 0.05 0.00-0.20 k/u L LAB AIGRAN(LOINC) Abs.Imm.Granulo cyte <0.03 0.00-0.30 k/uL Performed By: #### MG, DAVID, BMPX, CDP #### [facility] [address] [place] [address] [employer]: Jordan Aponte MD BASIC METAB W/RFX MG Collected: 06/21/2024 3:41 AM S tatus: F Source: [facility] TYPE CODE TESTS RESULT OUT OF RANGE REFERENCE UNITS LAB NA(LOINC) NA (Sodium) 139 136-145 mmol/L LAB K(LOINC) K (Potassium) 3.9 3.7-5.3 mmol/L LAB CL(LOINC) Chloride 105 98-107 mmol/L LAB HCO(LOINC) CO2 24 20-31 mmol/L LAB GAP(LOINC) Anion Gap 10 9-16 mmol/L LAB GLU(LOINC) Glucose 106 High 74-99 mg/dL LAB BUN(LOINC) BUN (Urea N) 7 Low 8-23 mg/dL LAB CRE(LOINC) Creatinine 0.8 0.7-1.2 mg/dL LAB EGFR(LOINC) eGFR >90 >60 mL/min/1. 73m2 Result Comment: These results are not intended [...] following therapy that affects renal tubular secretion. LAB CA(LOINC) Calcium 8.9 8.6-10.4 mg/dL Performed By: #### MG, DAVID, BMPX, CDP #### [facility] [address] [place] [address] [employer]: Jordan Aponte MD MAGNESIUM Collected: 3:41 AM Status: F Source: [facility] TYPE CODE TESTS RESULT OUT OF RANGE REFERENCE UNITS LAB MG(LOINC) Magnesium 2.2 1.6-2.4 mg/dL Performed By: #### MG, DAVID, BMPX, CDP #### [facility] [address] [place], [place] [id number] [employer]: Jordan pAonte MD PHOSPHORUS, INORG. Collected: 06/21/2024 3:41 AM Sta tus: F Source: [facility] TYPE CODE TESTS RESULT OUT OF RANGE REFERENCE UNITS LAB DAVID(LOINC) Phosphorus, Inorg. 3.0 2.5-4.5 mg/dL Performed By: #### MG, DAVID, BMPX, CDP #### [facility] [address] [place] [address] [employer]: Jordan Aponte MD CT THORACIC SPINE BONY RECONSTRUCTION Observed: 06/20/2024 10:56 PM Status: F Source: [facility] EXAMINATION: CT OF THE CHEST, ABDOMEN, AND [...] by: Randy Naranjo MD 06/20/[address] CHEST ABDOMEN PELVIS W CONTRAST Observed: 06/20/2024 10:56 PM Status: F Source: [facility] EXAMINATION: CT OF THE CHEST, ABDOMEN, AND [...] by: Randy Naranjo MD 06/20/[address] LUMBAR SPINE BONY RECONSTRUCTION Observed: 06/20/2024 10:56 PM Status: F Source: [facility] EXAMINATION: CT OF THE CHEST, ABDOMEN, AND [...] by: Randy Naranjo MD 06/20/[address] CERVICAL SPINE WO CONTRAST Observed: 06/20/2024 10:31 PM Status: C Source: [facility] ADDENDUM: Critical findings discussed with Dr. Stovall at 10:18 p.m.. He expressed understanding results. Electronically Signed by: GUERO BLEDSOE on SunJun 20, 2024 10:31:28 PM EST [...] of the cervical spine. Interpreted by: Guero Bledsoe MD Signed by: Guero Bledsoe MD 06/20/24 Edited Result - FINAL CT HEAD WO CONTRAST Observed: 06/20/2024 10:31 PM Status: C Source: [facility] ADDENDUM: Critical findings discussed with Dr. Stovall at 10:18 p.m.. He expressed understanding results. Electronically Signed by: GUERO BLEDSOE on SunJun 20, 2024 10:31:27 PM EST [...] of the cervical spine. Interpreted by: Guero Bledsoe MD Signed by: Guero Bledsoe MD 06/20/24 Edited Result - FINAL TRAUMA PROFILE Collected: 4 7:43 PM Status: F Source: [facility] TYPE CODE TESTS RESULT OUT OF RANGE REFERENCE UNITS LAB ALC(LOINC) Ethanol <10 <10 mg/dL LAB ETP(LOINC) Ethanol percent <0.010 <0.010 % LAB BBANK(LOINC) Blood Bank BILL FOR SERVICES PERFORMED LAB BUN(LOINC) BUN (Urea N) 8 8-23 mg/dL LAB WBC(LOINC) WBC Count 5.0 3.5-11.3 k/uL LAB RBC(LOINC) RBC Count 4.40 4.21-5.77 m/uL LAB HGB(LOINC) Hemoglobin 14.2 13.0-17.0 g/dL LAB HCT(LOINC) Hematocrit 41.1 40.7-50.3 % LAB MCV(LOINC) MCV 93.4 82.6-102.9 fL LAB MCH(LOINC) MCH 32.3 25.2-33.5 pg LAB MCHC(LOINC) MCHC 34.5 28.4-34.8 g/dL LAB RDW(LOINC) RDW 11.4 Low 11.8-14.4 % LAB PLT(LOINC) Platelet Count 230 138-453 k/uL LAB MPVX(LOINC) MPV 9.7 8.1-13.5 fL LAB NRBCS(LOINC) NRBC Automated 0.0 0.0 per 100 WBC LAB CRE(LOINC) Creatinine 0.8 0.7-1.2 mg/dL LAB EGFR(LOINC) eGFR >90 >60 mL/min/1 .73m2 Result Comment: These results are not intended [...] following therapy that affects renal tubular secretion. LAB GLU(LOINC) Glucose 100 High 74-99 mg/dL LAB NA(LOINC) NA (Sodium) 139 136-145 mmol/L LAB K(LOINC) K (Potassium) 3.6 Low 3.7-5.3 mmol/L Result Comment: Specimen hem olysis has exceeded the interference as defined by Momo. Value may be falsely increased. Suggest recollection if clinically indicated. LAB CL(LOINC) Chloride 105 98-107 mmol/L LAB HCO(LOINC) CO2 23 20-31 mmol/L LAB GAP(LOINC) Anion Gap 11 9-16 mmol/L LAB PTR(LOINC) Prothrombin Time 13.4 11.7-14.9 sec LAB INR(LOINC) INR 1.0 Result Comment: Therapeutic Range: Moderate Anticoagulant Intensity: INR = 2.0-3.0 High Anticoagulant Intensity: INR = 2.5-3.5 LAB PTTR(LOINC) PTT 25.7 23.0-36.5 sec Result Comment: IV Heparin Therapy Range: 66.0-92.0 sec LAB VPHGAS(LOINC) pH 7.433 High 7.320-7.420 LAB PCO2V(LOINC) pCO2 37.0 Low 39-55 mm Hg LAB PO2V(LOINC) pO2 65.1 High 30-50 mm Hg LAB VHCO3V(LOINC) HCO3 24.3 24-30 mmol/L LAB VPBEX(LOINC) Positive Base Excess 0.9 0.0-2.0 mmol/L LAB O2SATV(LOINC) O2 Saturation 93.6 High 60.0-85.0 % LAB COHB(LOINC) Carboxy Hgb 3.6 0-5 % Result Comment: Reference Range: Non-Smokers 0-2% Average Smoker 2-4% Heavy Smoker <10% LAB TEMP(LOINC) Body Temp. 37.0 LAB FIO2(LOINC) FIO2 INFORMATION NOT PROVIDED Performed By: #### LIVP, ERT PF #### [facility] [place], [place] [id number] [employer]: Jordan Aponte MD LIVER PROFILE Collected: 06/20/2024 7:43 PM Status: F Source: [facility] TYPE CODE TESTS RESULT OUT OF RANGE REFERENCE UNITS LAB ALB(LOINC) Albumin 4.2 3.5-5.2 g/dL LAB ALP(LOINC) Alkaline Phos 70 40-129 U/L LAB ALT(LOINC) ALT 21 10-50 U/L LAB AST(LOINC) AST 30 10-50 U/L LAB TBIL(LOINC) Bilirubin, Total 0.4 0.0-1.2 mg/dL LAB DBILI(LOINC) Bilirubin, Direct 0.2 0.0-0.2 mg/dL LAB IBIL(LOINC) Bilirubin, Indirect 0.2 0.0-1.0 mg/dL LAB TP(LOINC) Protein, Total 6.4 Low 6.6-8.7 g/dL LAB GLOB(LOINC) Globulin Fraction 2.2 g/dL LAB AG(LOINC) Albumin/Glob Ratio 1.9 1.0-2.5 Performed By: #### LIVP, ERT PF #### [facility] [address] [place] [address] [employer]: Jordan Aponte MD ALLERGIES No Allergies Records Found ENCOUNTERS ADMIT/DISCHARGE ACCOUNT NUMBER ADMITTING ENCOUNTER CLASS LOCATION SOURCE 08/14/2024/08/14/19 [id number] Ambulatory Building:[facility] 08/04/2024/08/06/20 24 [id number] Ambulatory Building:[facility] 07/21/2024/07/21/20 24 [id number] Ambulatory Building:[facility] 07/14/2024/07/14/20 24 [id number] Ambulatory Building:[facility] 07/07/2024/07/07/20 24 [id number] Ambulatory Building:[facility] 07/03/2024/07/05/20 24 [id number] Ambulatory Building:[facility] 07/03/2024/07/03/20 24 [id number] Ambulatory Building:[facility] 07/01/2024/07/01/20 24 [id number] Ambulatory Building:[facility] 06/20/2024/06/20/20 24 [id number] Unknown Ambulatory [facility] 06/20/2024/06/27/20 24 [id number] FINA LUCERO Inpatient Encounter Building:V4 [facility]: [address]Bed: 02 [facility] PAYERS ENCOUNTER GUARANTOR PAYER SUBSCRIBER SOURCE 08/14/2024 ISMA DIAZB: [id number] [address] [place], [place] [address]Psc: () Primary Insurance:MEDICAL MUTUALPolicy Number: [id number] e Date:2023-11-12[address] [address]ZW: ISMA DIAZB: [id number] [place], [place] [address]Ufa: (HP) [facility] 08/04/2024 ISMA Pierson WURMDOB: [place], [place] [address]Vgu: (HP) Primary Insurance:MEDICAL MUTUALPolicy Number: [id number] e Date:2023-11-12[address] [place], [place] [address]WP: ISMA Pierson WURMDOB: [id number] [place], [place] [address]Qah: (HP) [facility] 07/21/2024 ISMA Pierson WURMDOB: [place], [place] [address]Prm: (HP) Primary Insurance:MEDICAL MUTUALPolicy Number: [id number] e Date:2023-11-12[address] [place], [place] [address]WP: ISMA Pierson WURMDOB: [id number] [place] [place] [address]Vlg: (HP) [facility] 07/14/2024 ISMA Pierson WURMDOB: [place], [place] [address]Ukr: (HP) Primary Insurance:MEDICAL MUTUALPolicy Number: [id number] e Date:2023-11-12[address] [place] [address]PJ: ISMA Pierson WURMDOB: [id number] [address] [place] [place], [place] [address]Wij: (HP) [facility] 07/07/2024 ISMA E WURMDOB: [place], [place] [address]Fdy: (HP) Primary Insurance:MEDICAL MUTUALPolicy Number: [id number] e Date:2023-11-12[address] [place], [place] [address]: ISMA E WURMDOB: [id number] [place] [place], [place] [address]Omq: (HP) [facility] 07/03/2024 ISMA E WURMDOB: [address] [place] [place] [address]Vzd: (HP) Primary Insurance:MEDICAL MUTUALPolicy Number: [id number] e Date:2023-11-12[address] [place], [place] [address]: ISMA E WURMDOB: [id number] [address] [place] [place] [address]Ptn: (HP) [facility] 07/03/2024 ISMA E WURMDOB: [place], [place] [address]Zgy: (HP) Primary Insurance:MEDICAL MUTUALPolicy Number: [id number] e Date:2023-11-12[address] [place], [place] [address]WP: ISMA E WURMDOB: [id number] [place] [place] [address]Ghh: (HP) [facility] 07/01/2024 ISMA E WURMDOB: [place] [address]Zqm: (HP) Primary Insurance:MEDICAL MUTUALPolicy Number: [id number] e Date:2023-11-12[address] [place] [address]LX: ISMA E WURMDOB: [id number] [address] [place], [place] [address]Nhj: (HP) [facility] 06/20/2024 ISMA DIAZB: [place], [place] [address]Hda: (HP) Primary Insurance:SUPER[employer] PPO/CLASSIC/PLUSPoli cy Number: [id number] e Date:2023-11-12 ISMA DIAZB: [id number] [place], [place] [address]Qgt: (WP) [facility] 06/20/2024 ISMA DIAZB: [place] [address]Jkw: (HP) Primary Insurance:MEDICAL MUTUALPolicy Number: [id number] e Date:2023-11-12[address] [address]QZ: ISMA DIAZB: [id number] [place], [place] [address]Rdr: (HP) [facility]
--- OUTSIDE RECORDS SUMMARY | 2024-09-24 04:30 | XMS_ITS ---
Author Organization [facility] in [place] Address [address] [place] [address] Care Team Providers Care Civil Project Engineer Name Role Phone Martina Sherwood Primary Care Provider Allergies No Known Allergies REASON FOR VISIT Presents to office alone to review labs Medications Medication SIG (Take, Route, Fr equency, Duration) Notes Start Date End Date Status Diclofenac Sodium 75 MG 1 tablet as need ed Orally Twice a day Active Social History Tobacco Use: Social History Observation Description Date Details (start date - stop date) Never Smoker NA - NA Tobacco Use/Smoking Question Answer Notes Patient is a nonsmoker AUDIT-C (Standard) Question Answer Notes Did you have a drink containing alcohol in the p ast year? No Points 0 Interpretation Negative Vital Signs Weight 199.2 lbs 09/24/2024 Height 70 in 09/24/2024 Blood pressure systolic 122 mm Hg 09/24/19 25 Blood pressure diastolic 62 mm Hg 025 BMI 28.58 kg/m2 09/24/2024 Encounters Encounter Location Date Provider Diagnosis [id number] [place] [address] 09/24/2024 Martina Sherwood Hypertriglyceridemia E78.1 Assessments Encounter Date Diagnosis (ICD Code) Assessment Notes Treatment Notes Treatment Clinical Notes Section Notes 09/24/2024 Hypertriglyceridemia (ICD-10 - E78.1) discussed diet will work on no alcohol at this point Plan Of Treatment Treatment Notes Assessment Notes Hypertriglyceridemia discussed diet will work on no alcohol at this point Next Appt Details Follow Up: prn, Reason: Progress Notes * Jorge VILLA EDOB:1960 (63 yo M)Acc No.[id number]:09/24/2024 Progress Note Patient: Jorge SMITH Provider: Sandy Sherwood ([facility]), COMPUTER HARDWARE DESIGNER :1960 A ge:63 Y S ex:Male Date:09/24/2024 Address:[address], [place], [id number] Check In:08:30 AM ESTCheck O ut:08:52 AM EST Subjective: * Chief Complaints: * 1 . Presents to office alone to review labs. * HPI: G eneral: stress , trying to find new job reviewed labs diet not good no alcohol. * ROS: G eneral/Constitutional: Fever d enies. H eadache d enies. W eight loss?denies. O phthalmologic: Discharge d enies. E ye Pain d enies. I tching and redness d enies. E NT: Nasal discharge d enies. N nellie congestion d enies.?Sore throat d enies. C ardiovascular: Chest tightness/ heavy pressure d enies. R apid heart rate d enies. S welling of extremities d enies. C hest pain d enies. ? R espiratory: Productive cough d enies. C hest pain d enies. C ough d enies. S hortness of breath d enies. W heezing d enies. ? G astrointestinal: Abdominal pain d enies. C onstipation d enies. D ecreased appetite d enies. D iarrhea d enies. N ausea d enies. V omiting?denies. G enitourinary: Urinary incontinence d enies. P ainful urination d enies. M usculoskeletal: Back pain d enies. N castillo pain d enies. M uscle aches d enies. S kin: Rash d enies. S kin lesion(s) d enies. ? * Active Problem List G25.81 Restless leg syndrom e Modified On:11/19/2023W/U Status:confirmed M19.90 Arthritis Modified On:11/19/2023/U Status:confirmed M10.9 Gout Modified On:11/19/2023/U Status:confirmed G47.33 TIFFANY (obstructive sle ep apnea) Modified On:11/19/2023 Status:confirmed K58.9 IBS (irritable bowel syndrome) Modified On:11/19/2023 Status:confirmed F33.9 Depression, recurren t Modified On:11/19/2023 Status:confirmed N40.0 BPH (benign prostati c hypertrophy) Modified On:11/19/2023 Status:confirmed G56.03 Carpal tunnel syndro me on both sides Modified On:11/19/2023 Status:confirmed G47.33 Obstructive sleep ap surjit (adult) (pediatric) Modified On:01/30/2023 Status:confirmed S06.4X9A Epidural hematoma Modified On:09/02/2024 Status:confirmed S06.4XAA Epidural hematoma Modified On:09/02/2024 Status:confirmed D72.9 Abnormal WBC count Modified On:09/03/2024 Status:confirmed E03.9 Hypothyroidism Modified On:09/03/2024 Status:confirmed E78.1 Hypertriglyceridemia Modified On:09/03/2024 Status:confirmed * Medical History: A rthritis, Shingles, TIFFANY (obstructive sleep apnea), Depression, recurrent, Gout, Near syncope, Carpal tunnel syndrome on both sides, IBS (irritable bowel syndrome), BPH (benign prostatic hypertrophy), Restless leg syndrome. * Surgical History: C arpal Tunnel Left Hand 08/2023, Brain Bleed 06/2024. * Hospitalization/Major Diagno stic Procedure: B rain Bleed 06/2024. * Family History: F ather: , colon cancer, diagnosed with Other malignant neoplasm of unspecified site.?Mother: . * Social History: T obacco Use: T obacco Use/Smoking P atient is a n onsmoker D rug/Alcohol: A MITZI-C (Standard) D id you have a drink containing alcohol in the past year? N o P oints 0 I nterpretation N egative * Medications: T aking Diclofenac Sodium 75 MG Tablet Delayed Release 1 tablet as needed Orally Twice a day , Discontinued Ibuprofen 600 MG Tablet 1 tablet with food or milk as needed Orally every 6 hours- PRN , Medication List reviewed and reconciled with the patient * Allergies: N .K.D.A. Objective: * Vitals: W t:199.2lbs, Ht: 70 in, BP:122/62mm Hg, BMI:28.58Index, Ht-cm: 177.8 cm, Wt-k.36 kg. * Examination: G eneral Examinations: GENERAL APPEARANCE: a lert and oriented, i n no acute distress. EYES: c onjunctiva normal, sclera non-icteric. LUNGS: c lear to auscultation bilaterally. CARDIO: r egular rate and rhythm, S1, S2 normal. ABDOMEN: s oft, nontender. MUSCULOSKELETAL: G ait and station normal. SKIN: w arm and dry. Assessment: * Assessment: 1. H ypertriglyceridemia - E78.1 (Primary) Plan: * Treatment: * Preventive Medicine: Screenings/Counseling: B WI ACTION PLAN Above Normal BMI Follow-up D ietary management education, guidance, and counseling See treatment section of progress note for complete details of management plan. * Follow Up: p rn * * Sign off status: Completed Visit Status: C HK (Check Out) true * Provider: Sandy Sherwood ([facility]), COMPUTER HARDWARE DESIGNER Date: 0 09/24/2024 Generated for Tamir brian/Steph/Torinitting on: 0 02/17/2025 03:14 PM EDT History and Physical Notes * HPI (History of Present Illness) Category Sub-Category Detail Notes Category Not es General stress , trying to find new job reviewed labs diet not good no alcohol Examination Category Sub-Category Detail Notes Category Not es General Examinations GENERAL APPEARANCE: alert a nd oriented, in no acute distress EYES: conjunctiva normal, sclera non-icteric EARS: NOSE: THROAT: CARDIO: regular rate and rhy thm, S1, S2 normal LUNGS: clear to auscultatio n bilaterally ABDOMEN: soft, nontender SKIN: warm and dry BACK: MUSCULOSKELETAL: Gait and station nor mal LYMPH NODES:
--- OUTSIDE RECORDS SUMMARY | 2024-12-09 06:03 | XMS_ITS ---
Author Organization [facility] in [place] Address [address] [place] [address] Care Team Providers Care Polisher Apprentice Name Role Phone Martina Sherwood Primary Care Provider REASON FOR VISIT excuse for Jury duty Encounters Encounter Location Date Provider Diagnosis [facility] [address] [place] [address] 12/09/2024 Martina Sherwood Plan Of Treatment No Information Progress Notes * Jorge VILLA EDOB:1960 (64 yo M)Acc No.[id number]:12/09/2024 Patient: Camelia KOLB Jorge Pierson :1960 A ge:64 Y S ex:Male Address:[address], [place] [address] * true * Date: Generated for Printi ng/Faxing/eTransmitting on: 02/17/2025 03:14 PM EDT
--- OUTSIDE RECORDS SUMMARY | 2025-02-17 10:30 | XMS_ITS ---
Author Organization [facility] in [place] Address [address] [place] [address] Care Team Providers Care Contracts Officer Name Role Phone Martina Sherwood Primary Care Provider Allergies No Known Allergies REASON FOR VISIT Right Leg Issue, Hot Sensation, Hard Spot, Cramping in Calve Muscle, Fatigue, Limping Medications Medication SIG (Take, Route, Fr equency, [...] Answer Notes Did you have a drink contain ing alcohol in the past year? Yes How often did you have a dri nk containing alcohol in the past year? Daily or almost daily (4 points) How many drinks did you have on a typical day when you were drinking in the past year? 5 or 6 drinks (2 points) How often did you have six o r more drinks on one occasion in the past year? 4 or more times a week (4 points) Points 10 Interpretation Positive Vital Signs Weight 202.0 lbs 02/17/2025 Height 70 in 02/17/2025 Blood pressure systolic 144 mm Hg 02/18/20 25 Blood pressure diastolic 98 mm Hg 025 BMI 28.98 kg/m2 02/17/2025 Encounters Encounter Location Date Provider Diagnosis [facility] [address] [place] [address] 02/17/2025 Martina Sherwood Right calf pain M79.661 Assessments Encounter Date Diagnosis (ICD Code) Assessment Notes Treatment Notes Treatment Clinical Notes Section Notes 02/17/2025 Right calf pain (ICD-10 - M79.661) Plan Of Treatment Pending Test Test Name Order Date US DANIEL DOP LEG RT 02/17/2025 Progress Notes * Jorge VILLA EDOB:1960 (64 yo M)Acc No.[id number]:02/17/2025 UNLOCKED PROGRESS NOTE Progress Note Patient: Jorge SMITH Provider: Sandy Sherwood ([facility]), LOCAL COMPANY HAZMAT DRIVER :1960 A ge:64 Y S ex:Male Date:02/17/2025 Address:[address], [place], [id number] Check In:02:25 PM ESTCheck O ut:03:04 PM EST Subjective: * Chief Complaints: * 1 . Right Leg Issue. 2. Hot Sensation, Hard Spot, Cramping in Calve Muscle, Fatigue, Limping. * HPI: G eneral: started couple weeks ago hot spot right thigh, that went away right calf sirena horse lasted 2 days improving leg feels weak, little sore still has not happened before no injury no new exercise still with some lightheaded and dizziness 2-3 pepsi , mt dew double water, add electrolytes. * Medical History: A rthritis, Shingles, TIFFANY (obstructive sleep apnea), Depression, recurrent, Gout, Near syncope, Carpal tunnel syndrome on both sides, IBS (irritable bowel syndrome), BPH (benign prostatic hypertrophy), Restless leg syndrome, Chronic subdural hematoma. * Surgical History: C arpal Tunnel Left [...] drink containing alcohol in the past year? Y es H ow often did you have a drink containing alcohol in the past year? D aily or almost daily (4 points) H ow many drinks did you have on a typical day when you were drinking in the past year? 5 or 6 drinks (2 points) H ow often did you have six or more drinks on one occasion in the past year? 4 or more times a week (4 points) P oints 1 0 I nterpretation P ositive * Medications: T aking Diclofenac Sodium 75 MG Tablet Delayed Release 1 tablet as needed Orally Twice a day , Medication List reviewed and reconciled with the patient * Allergies: N .K.D.A. Objective: * Vitals: W t:202.0lbs, Ht: 70 in, BP:144/98mm Hg, BMI:28.98Index, Ht-cm: 177.8 cm, Wt-k.63 kg. Assessment: * Assessment: [facility]. [facility] - M79.661 (Primary) Plan: * Treatment: * * Electronic signature of Elidia Shannon NP, CREW TRUCK DRIVER.LOCAL COMPANY HAZMAT DRIVER.[id number] on 02/17/2025 at 03:15 PM EDT Sign off status: Pending Visit Status: C HK (Check Out) * Provider: Sandy Sherwood ([facility]), LOCAL COMPANY HAZMAT DRIVER Date: 0 02/17/2025 Generated for Tamir brian/Steph/Josesitosmitting on: 0 02/17/2025 03:15 PM EDT History and Physical Notes * HPI (History of Present Illness) Category Sub-Category Detail Notes Category Not es General started couple weeks ago hot spot right thigh, that went away right calf sirena horse lasted 2 days improving leg feels weak, little sore still has not happened before no injury no new exercise still with some lightheaded and dizziness 2-3 pepsi , mt dew double water, add electrolytes
--- OUTSIDE RECORDS SUMMARY | 2025-02-17 15:14 | XMS_ITS | Clinical Summary ---
Author Organization [facility] Address [address] [place] [address] Care Team Providers Care Bench Molder Name Role Phone Martina Sherwood APRN - REFRIGERATOR CABINETMAKER Primary Care Provide r Allergies No known active allergies Medications ibuprofen (ADVIL;MOTRIN) 600 MG tablet Take 1 tablet by mouth every 6 hours as needed for Pain 120 tablet 3 06/26/2024 Active acetaminophen (TYLENOL) 500 MG tablet Take 1 tablet by mouth every 6 hours as needed for Pain Active diclofenac (VOLTAREN) 75 MG EC tablet 11/09/2024 Active Active Problems Problem Noted Date Diagnosed Date Chronic subdural hematoma 11/19/2024 Resolved Problems Problem Noted Date Diagnosed Date Resolved Date Left-sided weakness 06/23/2024 11/20/19 25 Acute on chronic intracrania l subdural hematoma 06/23/2024 11/19/2024 Subacute subdural hematoma 06/21/2024 0 08/13/2024 Epidural hematoma 06/20/2024 11/19/2024 Encounters Date Type Department Care Team Description 11/19/2024 9:00 AM EDT Office Visit [facility] [address] [facility] [address] Floor, [address] [address] Isma Paez MD Chronic subdural hematoma (HCC) (Primary Dx) from Last 3 Months Social History Tobacco Use Types Packs/Day Years Used Date Smoking Tobacco: Never Smokeless Tobacco: Never Tobacco Cessation:Counseling Given: No Alcohol Use Standard Drinks/Week Comments Not Currently 56 (1 standard drink = 0.6 oz pu re alcohol) about 8 a day [facility] Utilities Answer Date Recorded In the past 12 months has th e electric, gas, oil, or water company threatened to shut off services in your home? No 06/21/2024 Hunger Vital Sign Answer Date Recorded Within the past 12 months, y ou worried that your food would run out before you got the money to buy more. Never true 06/21/20 24 Within the past 12 months, t he food you bought just didn't last and you didn't have money to get more. Never true 06/21/2024 PRAPARE - Transportation Answer Date Re corded In the past 12 months, has l ack of transportation kept you from medical appointments or from getting medications? No 04/2024 In the past 12 months, has l ack of transportation kept you from meetings, work, or from getting things needed for daily living? No 06/21/2024 Housing Stability Vital Sign Answer Tremayne e Recorded In the last 12 months, was t here a time when you were not able to pay the mortgage or rent on time? No 06/21/2024 In the past 12 months, how m any times have you moved where you were living? 0 06/21/2024 At any time in the past 12 m [facility], were you homeless or living in a detention (including now)? No 06/21/2024 Food Insecurity Answer Date Recorded Within the past 12 months, y ou worried that your food would run out before you got the money to buy more. 1 06/21/2024 Within the past 12 months, t he food you bought just didn't last and you didn't have money to get more. 1 06/21/2024 Interpersonal Safety Domain Source: IP Abuse Scr eening Answer Date Recorded Physical abuse Denies 06/23/2024 Verbal abuse Denies 06/23/2024 Emotional abuse Denies 06/23/2024 Financial abuse Denies 06/23/2024 Sexual abuse Denies 06/23/2024 Sex and Gender Information Value Date Recorded Sex Assigned at Male 11/16/2024 2:58 PM EDT Legal Sex Male 6:45 PM EST Gender Identity Not on file Sexual Orientation Not on file Last Filed Vital Signs Vital Sign Reading Time Taken Comments Blood Pressure 128/78 11/19/2024 8:40 AM EDT Pulse 76 11/19/2024 8:40 AM EDT Temperature 36.7 C (98 F) 06/27/2024 11:11 AM EST Respiratory Rate 13 06/27/2024 11:12 AM EST Oxygen Saturation 97% 06/27/2024 11:12 AM EST Inhaled Oxygen Concentration - - Weight 94.8 kg (209 lb) 11/19/2024 8:40 AM EDT Height 177.8 cm (5' 10 ) 11/19/2024 8:40 AM EDT Body Mass Index 29.99 11/19/2024 8:40 AM EDT Plan of Treatment Health Maintenance Due Date Last Done Comments Depression Screen 1974 HIV screen 1977 Hepatitis C screen 1980 DTaP/Tdap/Td vaccine (1 - Tdap) 1981 Diabetes screen 1997 Lipids 2002 Colonoscopy 11/28/2007 Colorectal Cancer Screen 11/28/2007 FIT/FOBT: Average risk 11/28/2007 Fecal-DNA (Cologuard): Average risk 11/28/2007 Sigmoidoscopy/CT colonography 11/28/2007 Pneumococcal 50+ years Vacci ne (1 of 1 - PCV) 2012 Shingles vaccine (1 of 2) 2012 COVID-19 Vaccine ( - 2023-2 5 season) 2024 Flu vaccine (#1) 03/13/2025 Respiratory Syncytial Virus (RSV) or age 60 yrs+ (1 - 1-dose 75+ series) 2037 Hepatitis A vaccine Aged Out No longe r eligible based on patient's age to complete this topic Hepatitis B vaccine Aged Out No longe r eligible based on patient's age to complete this topic Hib vaccine Aged Out No longer eligi ble based on patient's age to complete this topic Meningococcal (ACWY) vaccine Aged Out No longer eligible based on patient's age to complete this topic Meningococcal B vaccine Aged Out No l onger eligible based on patient's age to complete this topic Polio vaccine Aged Out No longer elig ible based on patient's age to complete this topic Medical Devices Implanted Type Area Under Seal Operator Device Identifier Shelf Expiration Date Model / Serial / Lot Plate Quikflap Burrhole Sd Axs - [id number] Implanted:Qty: 1 on 06/22/2024 by Bhumi Yanez DO at [facility] [employer] [id number] 10/14/2026 [id number] / / [id number] 8S Plate Quikflap Burrhole Sd Axs - [id number] Implanted:Qty: 1 on 06/22/2024 by Bhumi Yanez DO at [facility] [employer] [id number] 10/14/2026 [id number] / / [id number] Insurance [employer] Member Subscriber Plan / Payer (Ef fective 2023-Present) Name:Jorge Chavira Relation to Subscriber:Self Name:Jorge Chavira Payer ID:Not on file Type:Not on file Address: 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
--- OUTSIDE RECORDS SUMMARY | 2025-02-17 15:15 | XMS_ITS | Patient Health Record ---
Author Organization The [facility] [place] in [place] Address [address] [place] [address] Care Team Providers Care Industrial Sales Representative Name Role Phone Martina Blas Primary Care Provider Tani Gresham [phone] Allergies No Known Allergies Results Component Value Reference Range Notes CBC AUTO DIFF Reviewed date:06/23/2024 12:55:49 PM Interpretation: Performing Lab: Notes/Report: [facility] , White Blood Count 5.4 4.0-11.0 10 3/uL Red Blood Count 4.44 4.70-6.10 10 6/uL Hemoglobin 14.4 14.0-18.0 g/dL Hematocrit 40.4 42.0-54.0 % Mean Corpuscular Volume 91.0 80.0-94.0 fL Mean Corpuscular Hemoglobin 32.4 25.9-34.0 pg Mean Corpuscular HGB Conc 35.6 29.9-35.2 g/dL Red Cell Distribution Width 11.2 11.0-15.0 % Platelet Count 249 150-450 10 3/uL Mean Platelet Volume 9.7 9.5-13.5 fL Neutrophils Percent Auto 63.6 43.0-75.0 % Lymphocytes Percent Auto 22.1 20.5-60.0 % Monocytes Percent Auto 9.2 1.7-12.0 % Eosinophils Percent Auto 4.2 0.9-7.0 % Basophils Percent Auto 0.7 0.2-2.0 % Immature Granulocytes Pct Auto 0.2 0.0-0.5 % Neutrophils Absolute Auto 3.5 1.4-6.5 10 3/uL Lymphocytes Absolute Auto 1.2 1.2-3.8 10 3/uL Monocytes Absolute Auto 0.5 0.3-0.8 10 3/uL Eosinophils Absolute Auto 0.2 0.0-0.7 10 3/uL Basophils Absolute Auto 0.0 0.0-0.1 10 3/uL Immature Granulocytes Abs Auto 0.01 0.00-0.03 10 3/uL Performing Lab: see note ML - [facility] LB PROF CHEM 8 (BAS METB) Reviewed date:06/23/2024 12:55:49 PM Interpretation: Performing Lab: Notes/Report: [facility] , Sodium 139 136-145 mmol/L Potassium 3.7 3.5-5.1 mmol/L Chloride 105 98-107 mmol/L Carbon Dioxide 23.9 21.0-32.0 mmol/L Anion Gap 13.8 Glucose 119 74-106 mg/dL Blood Urea Nitrogen 8.0 7.0-18.0 mg/dL Creatinine 1.00 0.70-1.30 mg/dL Estimated GFR ( Maddie >60 >=60 mL/min/1.73m 2 Estimated GFR (Non- Ariana >60 >=60 mL/min/1.73m 2 BUN Creatinine Ratio 8.0 Calcium 9.1 8.5-10.1 mg/dL Performing Lab: see note ML - [facility] LB PTT Reviewed date:06/23/2024 12:55:49 PM Interpretation: Performing Lab: Notes/Report: [facility] , Partial Thromboplastin Time 28.1 22.3-36.2 sec Performing Lab: see note - [facility] LB UA RANDOM W or MICROSCOPIC Reviewed date:06/23/2024 10:24:06 AM Interpretation: Performing Lab: Notes/Report: [facility] , Color Urine LT. YELLOW YELLOW Clarity Urine CLEAR CLEAR Specific [place] Urine 1.010 1.005-1.025 pH Urine 6.0 5.0-9.0 Protein Urine NEGATIVE NEG/TRACE mg/dL Glucose Urine UA NEGATIVE NEGATIVE mg/dL Bilirubin Urine NEGATIVE NEGATIVE Ketones Urine NEGATIVE NEGATIVE mg/dL Blood Urine NEGATIVE NEGATIVE Nitrite Urine NEGATIVE NEGATIVE Urobilinogen Urine 0.2 0.2-1.0 EU/dL Leukocyte Esterase Urine NEGATIVE NEGATIVE WBC Urine NONE SEEN NONE SEEN #/HPF RBC Urine NONE SEEN 0-2 #/HPF Bacteria Urine NONE SEEN NONE SEEN #/HPF Mucus Urine TRACE NONE SEEN Squamous Epithelial Cell Urine RARE NONE/RARE #/LPF Crystals Seen? None Seen None Seen #/HPF Cast Seen? NONE SEEN NONE SEEN #/LPF Urine Culture Indicated NO Performing Lab: see note - [facility] LB Prothrombin Time INR Reviewed date:06/23/2024 12:55:49 PM Interpretation: Performing Lab: Notes/Report: [facility] , Prothrombin Time 10.6 9.0-11.6 sec INR 1.00 DESIRED INR: 2.0-3.0 CONDITIONS NOT LISTED BELOW 2.5-3.5 FOR PROSTHETIC HEART VALVE REPLACEMENT 2.5-3.5 RECURRENT THROMBOSIS Performing Lab: see note - [facility] LB ECG 12 lead Reviewed date:06/23/2024 12:55:49 PM Interpretation: Performing Lab: Notes/Report: Source Facility: [place] [address] [place] [address] Electrocardiograph Report Signed Patient: ISMA VILLA MR#: [id number] : 1960 Acct:[id number] Age/Sex: 63 / M ADM Date: 06/20/24 Loc: ER Attending Dr: Ordering Physician: Edmond Gutierrez M.D. Date of Service: 06/20/24 Procedure(s): ECG 12 lead Accession Number(s): [id number] cc: [facility] Test Date: 2024-06-20 Pat Name: ISMA VILLA Department: Room: - Gender: Male Medical Officer: : 1960 Requested By: MARTINA BLAS Order Number: [id number] Reading MD: VINICIUS GRESHAM Measurements Intervals Elmer Rate: 68 P: 52 CT: 132 QRS: 4 QRSD: 94 T: 23 QT: 406 QTc: 423 Interpretive Statements 1100 Sinus rhythm 9110 normal ECG No previous ECG available for comparison Electronically Signed On 06-21-2024 6:29:20 EST by VINICIUS GRESHAM Dictated By: Vinicius Gresham M.D. Signed By: 06/21/24 0629 DD/ 1554 TD/TT: Surveyor Chain Helper: [place] [address] Electrocardiograph Report Signed Patient: ISMA VILLA MR#: [id number] : 1960 Acct:[id number] Age/Sex: 63 / M ADM Date: 06/20/24 Loc: ER Attending Dr: Ordering Physician: Edmond Gutierrez M.D. Date of Service: 06/20/24 Procedure(s): ECG 12 lead Accession Number(s): [id number] cc: [facility] Test Date: 2024-06-20 Pat Name: ISMA Sam Department: 64 Room: - Gender: Male Medical Officer: : 1960 Requ ested By: MARTINA BLAS Order Number: [id number] Reading MD: VINICIUS GRESHAM Measurements Intervals Elmer Rate: 68 P: 52 CT: 132 QRS: 4 QRSD: 94 T: 23 QT: 406 QTc: 423 Interpretive Statements 1100 Sinus rhythm 9110 normal ECG No previous ECG avai lable for comparison Electronically Tracey d On 06-21-2024 6:29:20 EST by VINICIUS GRESHAM Dictated By: Adriana Gresham M.D. Signed By: 06/21/24 0629 DD/ 1554 TD/TT: Surveyor Chain Helper: CT head/brain wo con Reviewed date:06/23/2024 12:55:49 PM Interpretation: Performing Lab: Notes/Report: Source Facility: [facility] [place] [address] CT Scan Report Signed Patient: ISMA VILLA MR#: [id number] : 1960 Acct:[id number] Age/Sex: 63 / M ADM Date: 06/20/24 Loc: ER Attending Dr: Ordering Physician: Edmond Gutierrez M.D. Date of Service: 06/20/24 Procedure(s): CT head/brain wo con Accession Number(s): [id number] cc: MARTINA BLAS [place] [address] Patient Name: ISMA VILLA MRN: [facility]:[id number] date: 1960 Sex: M Assigned Patient Location: ER Current Patient Location: ER Accession/Order Number: [id number] Exam Date: 06/20/2024 16:18 Report Date: 06/20/2024 17:18 At the request of: EDMOND GUTIERREZ Procedure: CT head/brain wo con EXAMINATION: CT head/brain wo con HISTORY: weakness COMPARISON: None. TECHNIQUE: CT scan of the head was performed without IV contrast. CT dose reduction technique was used, including Automated Exposure Control. FINDINGS: There are isointense convex collection involving right frontal and parietal lobes, representing subacute epidural hematoma with mass effect on the right frontal and parietal lobes as well as occipital horn of the right lateral ventricle and effacement of right hemisphere sulci. Maximum thickness measures 3 cm. There is a 0.8 cm right to left midline shift.. No definite evidence of acute infarction. basal cisterns are patent. There is bilateral subcortical and deep periventricular white matter chronic microvascular ischemia. Bilateral orbits, paranasal sinuses and mastoid air cells are patent. No skull base fracture. CT/CT head/brain wo con IMPRESSION: Right frontal and parietal lobes subacute epidural hematoma with mass effect on the right frontal and parietal lobes as well as occipital horn of the right lateral ventricle and effacement of right hemisphere sulci. Maximum thickness measures 3 cm. a 0.8 cm right to left midline shift.. Critical results were NOTIFIED by TELEPHONE BY Dr. Essie Grimaldo MD to md david At 06/20/2024 5:06 PM EST. Electronically authenticated by: ESSIE GRIMALDO Date: 06/20/2024 17:18 Dictated By: Essie Grimaldo M.D. Signed By: 06/20/24 1721 DD/ 1718 TD/TT: Surveyor Chain [employer]per: [place] [address] CT Scan Report Signed Patient: ISMA VILLA MR#: [id number] : 1960 Acct:[id number] Age/Sex: 63 / M ADM Date: 06/20/24 Loc: ER Attending Dr: Ordering Physician: Edmond Gutierrez M.D. Date of Service: 06/20/24 Procedure(s): CT head/brain wo con Accession Number(s): [id number] cc: MARTINA BLAS [place] [id number] Patient Name: ISMA VILLA MRN: [id number] date: 1960 Sex: M Assigned Patient Location: ER Current Patient Loca tion: ER Accession/Order Numb er: [id number] Exam Date: 4 16:18 Report Date: 06/20/2024 17:18 At the request of: EDMOND GUTIERREZ Procedure: CT head/b rain wo con EXAMINATION: CT head/brain wo con HISTORY: weakness COMPARISON: None. TECHNIQUE: CT scan o f the head was performed without IV contrast. CT dose reduction technique was used, including Automated Exposure Control. FINDINGS: There are isointense convex collection involving right frontal and parietal lobes, representing subacute epidural hematoma with mass effect on the right frontal and parietal lobes as well as occipital horn of the right lateral ventricle and efface ment of right hemisphere sulci. Maximum thickness measures 3 cm. There is a 0.8 cm right to left midline shift.. No definite evidence of acute infarction. basal cisterns are patent. There is bilateral subcortical and deep periventricular whit e matter chronic microvascular ischemia. Bilateral orbits, paranasal sinuses and mastoid air cells are patent. No skull base fracture. C T/CT head/brain wo con IMPRESSION: Right frontal and parietal lobes subacute epidural hematoma with mass effect on the right frontal an d parietal lobes as well as occipital horn of the right lateral ventricle an d effacement of right hemisphere sulci. Maximum thickness measures 3 cm. a 0.8 cm right to le ft midline shift.. Critical results wer e NOTIFIED by TELEPHONE BY Dr. Essie Grimaldo MD to md david At 4 5:06 PM EST. Electronically authenticated by: ESSIE GRIMALDO Date: 06/20/2024 17:18 Dictated By: Essie Grimaldo M.D. Signed By: 06/20/24 1722 DD/ 898 TD/TT: Surveyor Chain Helper: XR chest 1V Reviewed date:06/23/2024 12:55:49 PM Interpretation: Performing Lab: Notes/Report: Source Facility: [place] [address] XRay Report Signed Patient: ISMA VILLA MR#: [id number] : 1960 Acct:[id number] Age/Sex: 63 / M ADM Date: 06/20/24 Loc: ER Attending Dr: Ordering Physician: Edmond Gutierrez M.D. Date of Service: 06/20/24 Procedure(s): XR chest 1V Accession Number(s): [id number] cc: MARTINA BLAS ; Edmond Gutierrez M.D. [place] [address] Patient Name: ISMA VILLA MRN: [id number] date: 1960 Sex: M Assigned Patient Location: ER Current Patient Location: ER Accession/Order Number: [id number] Exam Date: 06/20/2024 16:18 Report Date: 06/20/2024 16:41 At the request of: EDMOND GUTIERREZ Procedure: XR chest 1V EXAM: XR chest 1V HISTORY: weakness COMPARISON: None. TECHNIQUE: AP view of the chest. FINDINGS: There is no focal airspace consolidation. The cardiomediastinal silhouette is not enlarged. No evidence of pleural effusion or pneumothorax are identified. No acute osseous abnormality. XR/XR chest 1V IMPRESSION: No acute cardiopulmonary process. Electronically authenticated by: JERAD MALONEY Date: 06/20/2024 16:41 Dictated By: JERAD MALONEY M.D. Signed By: 06/20/241643 DD/ 40 TD/TT: Surveyor Chain [employer]per: [place] [address] XRay Report Signed Patient: ISMA VILLA MR#: [id number] : 1960 Acct:[id number] Age/Sex: 63 / M ADM Date: 06/20/24 Loc: ER Attending Dr: Ordering Physician: Edmond Gutierrez M.D. Date of Service: 06/20/24 Procedure(s): XR chest 1V Accession Number(s): [id number] cc: MARTINA BLAS ; Edmond Gutierrez M.D. The [address] [address] Patient Name: ISMA VILLA MRN: [id number] date: 1960 Sex: M Assigned Patient Location: ER Current Patient Loca tion: ER Accession/Order Numb er: [id number] Exam Date: 16:18 Report Date: 06/20/2024 16:41 At the request of: EDMOND GUTIERREZ Procedure: XR chest 1V EXAM: XR chest 1V HISTORY: weakness COMPARISON: None. TECHNIQUE: AP view o f the chest. FINDINGS: There is no focal airspace consolidation. The cardiomediastina l silhouette is not enlarged. No evidence of pleur al effusion or pneumothorax are identified. No acute osseous abnormality. X R/XR chest 1V IMPRESSION: No acute cardiopulmo nary process. Electronically authenticated by: JERAD MALONEY Date: 06/20/2024 16:41 Dictated By: ERIBERTO MALONEY M.D. Signed By: 06/20/241643 DD/ 40 TD/TT: Surveyor Chain Helper: CBC AUTO DIFF Reviewed date:07/31/2024 11:57:58 AM Interpretation: Performing Lab: Notes/Report: [facility] , White Blood Count 5.7 4.0-11.0 10 3/uL Red Blood Count 4.66 4.70-6.10 10 6/uL Hemoglobin 14.7 14.0-18.0 g/dL Hematocrit 42.1 42.0-54.0 % Mean Corpuscular Volume 90.3 80.0-94.0 fL Mean Corpuscular Hemoglobin 31.5 25.9-34.0 pg Mean Corpuscular HGB Conc 34.9 29.9-35.2 g/dL Red Cell Distribution Width 11.2 11.0-15.0 % Platelet Count 281 150-450 10 3/uL Mean Platelet Volume 9.5 9.5-13.5 fL Neutrophils Percent Auto 66.0 43.0-75.0 % Lymphocytes Percent Auto 22.8 20.5-60.0 % Monocytes Percent Auto 8.1 1.7-12.0 % Eosinophils Percent Auto 1.8 0.9-7.0 % Basophils Percent Auto 0.9 0.2-2.0 % Immature Granulocytes Pct Auto 0.4 0.0-0.5 % Neutrophils Absolute Auto 3.8 1.4-6.5 10 3/uL Lymphocytes Absolute Auto 1.3 1.2-3.8 10 3/uL Monocytes Absolute Auto 0.5 0.3-0.8 10 3/uL Eosinophils Absolute Auto 0.1 0.0-0.7 10 3/uL Basophils Absolute Auto 0.1 0.0-0.1 10 3/uL Immature Granulocytes Abs Auto 0.02 0.00-0.03 10 3/uL Performing Lab: see note ML - [facility] LB PROF 14(COMP METB) Reviewed date:08/01/2024 11:06:37 AM Interpretation: Performing Lab: Notes/Report: [facility] , Sodium 142 136-145 mmol/L Potassium 3.9 3.5-5.1 mmol/L Chloride 105 98-107 mmol/L Carbon Dioxide 27.3 21.0-32.0 mmol/L Anion Gap 13.6 Glucose 80 74-106 mg/dL Blood Urea Nitrogen 13.0 7.0-18.0 mg/dL Creatinine 1.30 0.70-1.30 mg/dL Estimated GFR ( Maddie >60 >=60 mL/min/1.73m 2 Estimated GFR (Non- Ariana 56 >=60 mL/min/1.73m 2 BUN Creatinine Ratio 10.0 Calcium 8.7 8.5-10.1 mg/dL Bilirubin Total 0.5 0.2-1.0 mg/dL Aspartate Amino Transferase 16 15-37 U/L Alanine Aminotransferase 48 16-63 U/L Alkaline Phosphatase 75 46-116 U/L Total Protein 6.5 6.4-8.2 g/dL Albumin Level 3.5 3.4-5.0 g/dL Globulin 3.0 Albumin Globulin Ratio 1.2 Performing Lab: see note ML - [facility] LB CT head/brain wo con Reviewed date:08/01/2024 11:06:37 AM Interpretation: Performing Lab: Notes/Report: Source Facility: [place] [address] CT Scan Report Signed Patient: ISMA VILLA MR#: [id number] : 1960 Acct:[id number] Age/Sex: 63 / M ADM Date: 07/31/24 Loc: ER Attending Dr: Ordering Physician: Gosia Drake Date of Service: 07/31/24 Procedure(s): CT head/brain wo con Accession Number(s): [id number] cc: MARTINA BLAS [place] [address] Patient Name: ISMA VILLA MRN: [id number] date: 1960 Sex: M Assigned Patient Location: ER Current Patient Location: ER Accession/Order Number: [id number] Exam Date: 07/31/2024 11:40 Report Date: 07/31/2024 12:10 At the request of: GOSIA DRAKE Procedure: CT head/brain wo con EXAM: CT head/brain wo con HISTORY: post op swelling COMPARISON: CT head 06/20/2024. TECHNIQUE: Axial soft tissue and bone windows through the calvarium with coronal and sagittal reformats. CT dose reduction technique was used including Automated Exposure Control. Findings: The paranasal sinuses and mastoid air cells are well aerated. No air-fluid levels. Small right frontal scalp hematoma. No depressed or calvarial fractures. Right sided dhruv holes. There is a small residual chronic right-sided subdural hematoma which has significantly improved when compared to the prior study. No acute intra-axial or extra-axial bleed. No mass effect or midline shift. The dias-white matter differentiation is preserved. The brain parenchymal volume is mildly reduced yet likely age-appropriate. The ventricles are nondilated. The basal cisterns are patent. The craniovertebral junction is unremarkable. CT/CT head/brain wo con IMPRESSION: 1. No depressed or calvarial fracture. 2. No acute intracranial bleed 3. Significant interval improvement in the previously identified right sided subdural hematoma. Electronically authenticated by: CANDE CASTANEDA Date: 07/31/2024 12:10 Dictated By: Cande Castaneda M.D. Signed By: 07/31/24 1212 DD/ 1210 TD/TT: Surveyor Chain Helper: [address] [address] [address] Scan Report Signed Patient: ISMA VILLA MR#: [id number] : 1960 Acct:[id number] Age/Sex: 63 / M ADM Date: 07/31/24 Loc: ER Attending Dr: Ordering Physician: Gosia Drake Date of Service: 07/31/24 Procedure(s): CT head/brain wo con Accession Number(s): [id number] cc: MARTINA BLAS [place] [address] Patient Name: ISMA VILLA MRN: [id number] date: 1960 Sex: M Assigned Patient Location: ER Current Patient Loca tion: ER Accession/Order Numb er: [id number] Exam Date: 11:40 Report Date: 07/31/2024 12:10 At the request of: GOSIA DRAKE Procedure: CT head/b rain wo con EXAM: CT head/brain wo con HISTORY: post op swelling COMPARISON: CT head 06/20/2024. TECHNIQUE: Axial sof t tissue and bone windows through the calvarium with coronal and sagittal reformats. CT dose reduction technique was used including Automated Exposure Control. Findings: The paranasal sinuse s and mastoid air cells are well aerated. No air-fluid levels. Small right frontal scalp hematoma. No depressed or calvarial fractures. Right don ed dhruv holes. There is a small res idual chronic right-sided subdural hematoma which has significantly improv ed when compared to the prior study. No acute intra-axial or extra-axial bleed . No mass effect or midline shift. The dias-white matter differentiation is preserved. The brain parenchymal volume is mildly reduced yet likely age-appropriate. The ventricles are nondilated. The basal cisterns are patent. The craniovertebral junction is unremarkable. C T/CT head/brain wo con IMPRESSION: 1. No depressed or calvarial fracture. 2. No acute intracra nial bleed 3. Significant inter haile improvement in the previously identified right sided subdural hematoma. Electronically authenticated by: CANDE CASTANEDA Date: 07/31/2024 12:10 Dictated By: Cande Castaneda M.D. Signed By: 07/31/24 1212 DD/ 1210 TD/TT: Surveyor Chain Helper: CBC AUTO DIFF Reviewed date:09/03/2024 12:21:28 PM Interpretation: Performing Lab: Notes/Report: [facility] , White Blood Count 3.5 4.0-11.0 10 3/uL Red Blood Count 4.77 4.70-6.10 10 6/uL Hemoglobin 14.9 14.0-18.0 g/dL Hematocrit 42.4 42.0-54.0 % Mean Corpuscular Volume 88.9 80.0-94.0 fL Mean Corpuscular Hemoglobin 31.2 25.9-34.0 pg Mean Corpuscular HGB Conc 35.1 29.9-35.2 g/dL Red Cell Distribution Width 11.3 11.0-15.0 % Platelet Count 261 150-450 10 3/uL Mean Platelet Volume 9.1 9.5-13.5 fL Neutrophils Percent Auto 44.9 43.0-75.0 % Lymphocytes Percent Auto 41.0 20.5-60.0 % Monocytes Percent Auto 9.2 1.7-12.0 % Eosinophils Percent Auto 3.2 0.9-7.0 % Basophils Percent Auto 1.1 0.2-2.0 % Immature Granulocytes Pct Auto 0.6 0.0-0.5 % Neutrophils Absolute Auto 1.6 1.4-6.5 10 3/uL Lymphocytes Absolute Auto 1.4 1.2-3.8 10 3/uL Monocytes Absolute Auto 0.3 0.3-0.8 10 3/uL Eosinophils Absolute Auto 0.1 0.0-0.7 10 3/uL Basophils Absolute Auto 0.0 0.0-0.1 10 3/uL Immature Granulocytes Abs Auto 0.02 0.00-0.03 10 3/uL Performing Lab: see note ML - [facility] LB FREE T3 Reviewed date:09/03/2024 12:21:28 PM Interpretation: Performing Lab: Notes/Report: [facility] , Free T3 1.86 2.18-3.98 pg/mL Performing Lab: see note ML - [facility] LB GLYCOHEMOGLOBIN A1C Reviewed date:09/03/2024 12:21:28 PM Interpretation: Performing Lab: Notes/Report: [facility] , Glycohemoglobin A1C 5.1 4.5-6.2 % ADA RECOMMENDED LIMIT 4.0 - 6.0 ADA THERAPEUTIC TARGET < 7.0 ACTION SUGGESTED > 7.0 Estimated Average Glucose 100 Performing Lab: see note ML - [facility] INSULIN Reviewed date:09/04/2024 02:10:33 PM Interpretation: Performing Lab: Notes/Report: [facility] , Insulin 5.9 2.6-24.9 uIU/mL Performed at: [facility] [address] [id number] Floor Press Operator: Sushil Abdi PhD, Phone: [phone] Performing Lab: see note - [facility] LB LIPID PROFILE Reviewed date:09/03/2024 12:21:28 PM Interpretation: Performing Lab: Notes/Report: [facility] , Triglycerides 294 <=150 mg/dL Cholesterol 229 <=200 mg/dL HDL Cholesterol 46 40-60 mg/dL > or =60 mg/dl - LOW CARDIOVASCULAR RISK <40 mg/dl - HIGH CARDIOVASCULAR RISK LDL Cholesterol Calculated 125.0 <100 mg/dl OPTIMAL 100-129 mg/dl NEAR OR ABOVE OPTIMAL 130-159 mg/dl BORDERLINE HIGH 160-189 mg/dl HIGH >190 mg/dl VERY HIGH VLDL CHOLESTEROL 58.8 Chol HDL Ratio 5.0 3.3 - 4.4 LOW RISK 4.4 - 7.1 AVERAGE RISK 7.1 - 11.0 MODERATE RISK >11.0 HIGH RISK Performing Lab: see note - [facility] LB PROF 14(COMP METB) Reviewed date:09/03/2024 12:21:28 PM Interpretation: Performing Lab: Notes/Report: [facility] , Sodium 141 136-145 mmol/L Potassium 4.3 3.5-5.1 mmol/L Chloride 102 98-107 mmol/L Carbon Dioxide 30.9 21.0-32.0 mmol/L Anion Gap 12.4 Glucose 86 74-106 mg/dL Blood Urea Nitrogen 9.0 7.0-18.0 mg/dL Creatinine 1.15 0.70-1.30 mg/dL Estimated GFR ( Maddie >60 >=60 mL/min/1.73m 2 Estimated GFR (Non- Ariana >60 >=60 mL/min/1.73m 2 BUN Creatinine Ratio 7.8 Calcium 8.8 8.5-10.1 mg/dL Bilirubin Total 0.4 0.2-1.0 mg/dL Aspartate Amino Transferase 18 15-37 U/L Alanine Aminotransferase 41 16-63 U/L Alkaline Phosphatase 67 46-116 U/L Total Protein 7.1 6.4-8.2 g/dL Albumin Level 3.8 3.4-5.0 g/dL Globulin 3.3 Albumin Globulin Ratio 1.2 Performing Lab: see note ML - [facility] LB T4 Reviewed date:09/03/2024 12:21:28 PM Interpretation: Performing Lab: Notes/Report: [facility] , T4 Thyroxine 8.60 4.50-12.10 ug/dL Performing Lab: see note ML - [facility] LB TSH Reviewed date:09/03/2024 12:21:28 PM Interpretation: Performing Lab: Notes/Report: [facility] , Thyroid Stimulating Hormone 1.769 0.358-3.740 uIU/mL Performing Lab: see note - [facility] LB URIC ACID SERUM Reviewed date:09/03/2024 12:21:28 PM Interpretation: Performing Lab: Notes/Report: [facility] , Uric Acid 7.4 3.5-7.2 mg/dL Performing Lab: see note ML - [facility] LB CBC AUTO DIFF Reviewed date:09/23/2024 08:32:37 AM Interpretation: Performing Lab: Notes/Report: [facility] , White Blood Count 4.1 4.0-11.0 10 3/uL Red Blood Count 4.73 4.70-6.10 10 6/uL Hemoglobin 14.5 14.0-18.0 g/dL Hematocrit 42.7 42.0-54.0 % Mean Corpuscular Volume 90.3 80.0-94.0 fL Mean Corpuscular Hemoglobin 30.7 25.9-34.0 pg Mean Corpuscular HGB Conc 34.0 29.9-35.2 g/dL Red Cell Distribution Width 11.7 11.0-15.0 % Platelet Count 249 150-450 10 3/uL Mean Platelet Volume 9.4 9.5-13.5 fL Neutrophils Percent Auto 51.7 43.0-75.0 % Lymphocytes Percent Auto 35.2 20.5-60.0 % Monocytes Percent Auto 9.5 1.7-12.0 % Eosinophils Percent Auto 2.7 0.9-7.0 % Basophils Percent Auto 0.7 0.2-2.0 % Immature Granulocytes Pct Auto 0.2 0.0-0.5 % Neutrophils Absolute Auto 2.1 1.4-6.5 10 3/uL Lymphocytes Absolute Auto 1.4 1.2-3.8 10 3/uL Monocytes Absolute Auto 0.4 0.3-0.8 10 3/uL Eosinophils Absolute Auto 0.1 0.0-0.7 10 3/uL Basophils Absolute Auto 0.0 0.0-0.1 10 3/uL Immature Granulocytes Abs Auto 0.01 0.00-0.03 10 3/uL Performing Lab: see note - [facility] PSA SCREENING Reviewed date:09/03/2024 12:21:28 PM Interpretation: Performing Lab: Notes/Report: [facility] , Prostate Specific Antigen Scrn 3.36 <=4.00 ng/mL Performing Lab: see note - [facility] TSH Reviewed date:09/23/2024 08:19:33 AM Interpretation: Performing Lab: Notes/Report: [facility] , Thyroid Stimulating Hormone 1.449 0.358-3.740 uIU/mL Performing Lab: see note ML - [facility] LB T4 Reviewed date:09/23/2024 08:32:37 AM Interpretation: Performing Lab: Notes/Report: [facility] , T4 Thyroxine 11.20 4.50-12.10 ug/dL Performing Lab: see note - [facility] FREE T3 Reviewed date:09/23/2024 08:32:37 AM Interpretation: Performing Lab: Notes/Report: [facility] , Free T3 2.03 2.18-3.98 pg/mL Performing Lab: see note - [facility] LB Reason For Referral No Information Medications Medication SIG (Take, Route, Fr equency, Duration) Notes Start Date End Date Status Diclofenac Sodium 75 MG 1 tablet as need ed Orally Twice a day Active Social History Tobacco Use: Social History Observation Description Date Details (start date - stop date) Never Smoker NA - NA Tobacco Use/Smoking Question Answer Notes Patient is a nonsmoker Alcohol Screen (Audit-C) Question Answer Notes Did you have a drink contain ing alcohol in the past year? Yes How often did you have 6 or more drinks on one occasion in the past year? Never (0 point) How many drinks did you have on a typical day when you were drinking in the past year? 3 or 4 drinks (1 point) How often did you have a dri nk containing alcohol in the past year? Weekly (3 points) Points 4 Interpretation Positive AUDIT-C (Standard) Question Answer Notes Did you [...] week (4 points) Points 10 Interpretation Positive Problems Problem Type SNOMED Code ICD Code Onset Dates Problem Status W/U Status Risk Notes Problem 04355880 Obstructive slee p apnea (adult) (pediatric) (G47.33) Active confirmed Problem Hypothyroidism (08832807) Hypothyroidism (E03.9) Active confirmed Problem Restless legs syndrome (14598246) Restless leg syndrome (G25.81) Active confirmed Problem Arthritis (8592969) Arthritis (M19.90) Active c onfirmed Problem Gout (64790757) Gout (M10.9) Active confirmed Problem Obstructive sleep apnea syndrome (78115963) TIFFANY (obstructive sleep apnea) (G47.33) Active confirmed Problem Irritable bowel syndrome (60531098) IBS (irritable bowel syndrome) (K58.9) Active confirmed Problem Hypertriglyceridemia (555281877) Hypertriglyceridemia (E78.1) Active confirmed Problem 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) Abnormal WBC count (D72.9) Active confirmed Problem Recurrent major depression (31970153) Depression, recurrent (F33.9) Active confirmed Problem Epidural hematoma (515253516) Epidural hematoma (S06.4X9A) Active confirmed Problem Benign prostatic hypertrophy without outflow obstruction (042898599) BPH (benign prostatic hypertrophy) (N40.0) Active confirmed Problem Carpal tunnel syndrome (81582531) Carpal tunnel syndrome on both sides (G56.03) Active confirmed Problem Epidural hematoma (101267321) Epidural hematoma (S06.4XAA) Active confirmed Vital Signs Blood pressure diastolic 98 mm Hg 02/17/2025 Height 70 in 02/17/2025 Blood pressure systolic 144 mm Hg 02/17/2025 Weight 202.0 lbs 02/17/2025 BMI 28.98 kg/m2 02/17/2025 Encounters Encounter Location Date Provider Diagnosis [address] [place] [address] 07/07/2024 Martina Blas Epidural hematoma S0 6.4XAA [address] [place] [address] 09/02/2024 Martina Blas Wellness examination Z00.00 and Frequent headaches R51.[address] [address] 09/24/2024 Martina Blas Hypertriglyceridemia E78.[address] [address] 02/17/2025 Martina Blas Right calf pain M79. 661 [facility] [address] [place] [address] 04/22/2024 Martina Blas [facility] [address] [place] [address] 04/23/2024 Tani Gresham [facility] [address] [place] [address] 06/30/2024 Martina Blas [facility] [address] [place] [address] 09/03/2024 Martina Blas Abnormal WBC count D 72.9 ; Hypothyroidism E03.9 and Hypertriglyceridemia E78.1 [facility] [address] [place] [address] 09/23/2024 Martina Blas [facility] [address] [place] [address] 12/09/2024 Martina Blas Assessments Encounter Date Diagnosis (ICD Code) Assessment Notes Treatment Notes Treatment Clinical Notes Section Notes 07/07/2024 Epidural hematoma (ICD-10 - S06.4XAA) needs short term disability paperwork filled out [facility] neurosurg tomorrow doing pretty well, cognition ok, left sided weakness improving some doing PT little unsteady, lightheaded with change in position still anxiety, some insomnia due to recent medical issues stop taking diclofenac when taking ibuprofen, verbalizes understanding 09/02/2024 Wellness examination (ICD-10 - Z00.00) ROS done exam done colonoscopy 8 years ago he thinks, WNL 09/02/2024 Frequent headaches (ICD-10 - R51.9) fu neurology sooner than scheduled if needed OTC helps some 09/24/2024 Hypertriglyceridemia (ICD-10 - E78.1) discussed diet will work on no alcohol at this point 02/17/2025 Right calf pain (ICD -10 - M79.661) 09/03/2024 Hypothyroidism (ICD- 10 - E03.9) 09/03/2024 Abnormal WBC count (ICD-10 - D72.9) 09/03/2024 Hypertriglyceridemia (ICD-10 - E78.1) Plan Of Treatment Pending Test Test Name Order Date HEMOGLOBIN A1C (GLYCO) 09/02/2024 INSULIN, TOTAL 09/02/2024 LIPID PANEL (CHOL/TRIG/HDL/LDL) 09/02/19 25 CBC WITH DIFF 09/02/2024 URIC ACID 09/02/2024 INFLUENZA A and B, NASAL/NASOPHARYNGEAL (PCR) 11/19/2023 PSA, TOTAL 09/02/2024 SARS COVID-2 NASAL - PCR 11/19/2023 CBC AUTO DIFF 09/03/2024 US DANIEL DOP LEG RT 02/17/2025 THYROID PANEL (T4/TSH/FREE T3) 5 THYROID PANEL (T4/TSH/FREE T3) 5 CMP (COMP MET CASTELLON) w/eGFR CKD-EPI 2024 Insurance Providers Payer Name Payer Address Payer Phone Subscriber Number Group Number Insured Name Patient Relationship to Insured Coverage Start Date Coverage End Date MMO [employer] [address] [place] [address] [id number] Isma Villa Self - patient is the insured Medical (General) History Medical History History ICD Code Arthritis M19.90 Shingles B02.9 TIFFANY (obstructive sleep apnea) G47.33 Depression, recurrent F33.9 Gout M10.9 Near syncope R55 Carpal tunnel syndrome on both sides G56 .03 IBS (irritable bowel syndrome) K58.9 BPH (benign prostatic hypertrophy) N40.0 Restless leg syndrome G25.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
== END 2025-02-17 15:12 | disposition home or self-care (01) ==
PROVIDERS: PCP Nurse Practitioner Family; Visit Provider Nurse Practitioner Family
DX: M79.661 Pain in right lower leg (principal)
CPT/HCPCS: 93971